=== PATIENT | female | born 1935 | race Caucasian/White ===

== ENCOUNTER → 2016-07-12 | Outpatient (CLI) | payer OTHER ==
[~2016-07-12] MED LIST: ACET1TAB84 PO; AMB10 PO; ASCA500 PO; ASPEC325 PO; ASPI325T39 PO; B-COCAP2 PO; B-COTAB18 PO; CALC600T14 PO; CEFA2INJ IV; CEPH500C2 PO; CIPR-255 PO; CIPR1TAB11 PO; CLOR7.5T14 PO; CRAN1CHW PO; EFF/375 PO; FERR1TAB13 PO; FLAX1CAP11 PO; FLAXSEED PO; GLUC1CAP35 PO; HYDR-5688 PO; IBUP-1050 PO; KFZAV1 IV; LISI-461 PO; LISIPOW PO; MISCCAP80 PO; MULT-506 PO; OMEG10007 PO; OXYC-57 PO; OXYSR10 PO; RXC5 PO; SIMV20TA2 PO; TURM1CAP4 PO; TURMERIC PO; VENLAFAXINE PO; VITAMIN E PO; XRL10 PO; ZOLP10TA PO; probiotic PO
[2016-07-12 16:57] LABS: BASO ABS # 0.09 K/uL (0-0.2); COMPLETE YES; EOS % 3.4 %; HEMATOCRIT 41.8 % (37-47); IG% 0.2 %; LYMPH % 35.7 %; LYMPH ABS # 3.13 K/uL (1.2-3.4); MEAN CELL VOLUME 93.5 fL (80-100); MEAN CORPUSCULAR HGB CONC 34.2 g/dl (32-36); MEAN PLATELET VOLUME 9.8 fL (7.4-10.4); MONO % 10.2 %; NEUT % 49.5 %; PLATELET COUNT 319 K/uL (130-400); RED BLOOD COUNT 4.47 M/uL (4.2-5.4); WHITE BLOOD COUNT 8.76 K/uL (4.8-10.8)
== END | disposition home or self-care (01) ==
LOC: C.LABBC 15:27
PROVIDERS: ATTEND Orthopaedic Surgery
DX: T84.84XA Pain due to internal orthopedic prosthetic devices, implants and grafts, initial encounter (principal); Z96.651 Presence of right artificial knee joint; Y83.1 Surgical operation with implant of artificial internal device as the cause of abnormal reaction of the patient, or of later complication, without mention of misadventure at the time of the procedure

== ENCOUNTER → 2016-07-28 | Outpatient (CLI) | payer OTHER ==
--- NOTE | 2016-07-28 13:10 | DIAGNOSTIC IMAGING REPORT ---
BONE SCAN 3PHASE WHOLE BODY CLINICAL HISTORY: Right knee pain COMPARISON STUDY: Bone scan dated 11/10/2013, right knee films dated 09/04/2011 FINDINGS: The patient was injected with 25.7 mCi of technetium 99m MDP. A flow sequence centered on the knees was acquired. Flow appears symmetric. Blood pool images appear symmetric. Delayed images of both knees were supplemented with three-hour delayed whole body images. There are photopenic defects within each the consistent with total knee arthroplasties. There is no pathologic knee uptake. There is a moderately intense focus of increased activity in the left shoulder likely degenerative/arthritic. There is a focus of increased activity within the right hip likely degenerative. There is diffuse heterogeneous activity within the spine, likely degenerative. IMPRESSION: 1. No evidence of pathologic flow, blood pool or delayed increased activity within the symptomatic right knee. 2. Areas of increased activity within the left shoulder, right hip, as well as diffuse activity within the spine, likely degenerative/arthritic. Electronically signed by: Rui Dominique M.D. 07/28/2016 1:09 PM Dictated Date/Time: 07/28/2016 1:02 PM
== END | disposition home or self-care (01) ==
LOC: C.NUCL 08:03
PROVIDERS: ATTEND Orthopaedic Surgery
DX: T84.84XA Pain due to internal orthopedic prosthetic devices, implants and grafts, initial encounter (principal); Y83.1 Surgical operation with implant of artificial internal device as the cause of abnormal reaction of the patient, or of later complication, without mention of misadventure at the time of the procedure

== ENCOUNTER → 2016-08-01 | Outpatient (CLI) | payer OTHER ==
[2016-08-01 15:48] LABS: BASO % 0.6 %; BASO ABS # 0.05 K/uL (0-0.2); COMPLETE YES; EOS % 3.9 %; HEMATOCRIT 43.7 % (37-47); IG% 0.1 %; LYMPH % 33.2 %; MEAN CELL VOLUME 93.4 fL (80-100); MEAN CORPUSCULAR HGB CONC 33.2 g/dl (32-36); MEAN PLATELET VOLUME 9.5 fL (7.4-10.4); MONO % 9.2 %; PLATELET COUNT 321 K/uL (130-400); RED BLOOD COUNT 4.68 M/uL (4.2-5.4); WHITE BLOOD COUNT 8.44 K/uL (4.8-10.8)
--- NOTE | 2016-08-01 15:53 | DIAGNOSTIC IMAGING REPORT ---
TWO VIEW CHEST CLINICAL HISTORY: Preoperative examination. FINDINGS: PA and lateral chest radiographs are compared to study dated 07/24/2011. The heart is enlarged and there is atherosclerotic calcification of the thoracic aorta. The pulmonary vasculature is noncongested. Emphysema and chronic interstitial thickening are similar to previous. No airspace consolidation or pleural effusion is identified. There is no pneumothorax. The skeletal structures are osteopenic. Degenerative change and scoliosis are noted throughout the thoracic spine. IMPRESSION: Cardiomegaly and emphysema with no active disease in the chest. Electronically signed by: Jan Longo M.D. 08/01/2016 3:52 PM Dictated Date/Time: 08/01/2016 3:51 PM
[2016-08-01 15:55] LABS: URINE APPEARANCE CLEAR (CLEAR); URINE BILIRUBIN NEG (NEG); URINE COLOR DK YELLOW; URINE EPITHELIAL CELL AUTO >30 /lpf (0-5); URINE NITRITE NEG (NEG); URINE PH 6.5 (4.5-7.5); URINE SPECIFIC GRAVITY 1.013 (1.000-1.030); UROBILINOGEN NEG (NEG)
[2016-08-01 15:58] LABS: MANUAL MICROSCOPIC REQUIRED? NO; PROTHROMBIN TIME (PATIENT) 10.3 SECONDS (9.0-12.0); REVIEW REQ? NO
[2016-08-01 16:14] LABS: BLOOD UREA NITROGEN 16 mg/dl (7-18); BUN/CREATININE RATIO 21.6 (10-20); CALCIUM 9.2 mg/dl (8.5-10.1); CARBON DIOXIDE 36 mmol/L (21-32); CHLORIDE 100 mmol/L (98-107); CREATININE 0.76 mg/dl (0.60-1.20); GLUCOSE 106 mg/dl (70-99); POTASSIUM 3.9 mmol/L (3.5-5.1); SODIUM 140 mmol/L (136-145)
== END | disposition home or self-care (01) ==
LOC: C.CPL 15:09
PROVIDERS: ATTEND Orthopaedic Surgery
DX: M25.561 Pain in right knee (principal); Z96.651 Presence of right artificial knee joint; I51.7 Cardiomegaly; J43.9 Emphysema, unspecified

== ENCOUNTER → 2016-08-08 | Outpatient (CLI) | payer OTHER ==
--- NOTE | 2016-08-08 15:32 | DIAGNOSTIC IMAGING REPORT ---
RIGHT HIP INJECTION UNDER FLUOROSCOPIC GUIDANCE CLINICAL HISTORY: Degenerative joint disease. Steroid injection in the right hip. PROCEDURE: The risks, benefits, and alternatives to the procedure were discussed with the patient. Written informed consent was obtained. The patient was placed supine on the fluoroscopy table, and a right hip injection was performed under fluoroscopic guidance. The area was prepped and draped in the usual sterile fashion. The skin and soft tissues anesthetized with local 1% lidocaine. The right hip joint was accessed utilizing a 22-gauge needle, and intra-articular positioning was confirmed by injecting a small volume of Optiray 300. Once intra-articular positioning was verified the prescribed dosage of 2 cc of betamethasone and 5 cc of 0.5% Bupivacaine was injected into the joint space. The procedure was well tolerated and without immediate complication. The patient left the department in satisfactory condition. FLUOROSCOPY TIME: 12 seconds. IMPRESSION: Successful steroid injection of the right hip under fluoroscopic guidance. Electronically signed by: Jan Longo M.D. 08/08/2016 3:30 PM Dictated Date/Time: 08/08/2016 3:29 PM
== END | disposition home or self-care (01) ==
LOC: C.RADBC 13:34
PROVIDERS: ATTEND Orthopaedic Surgery
DX: M16.11 Unilateral primary osteoarthritis, right hip (principal)

== ENCOUNTER → 2016-08-08 | Outpatient (CLI) | payer OTHER ==
[~2016-08-08] VITALS: Ht 172.7 cm; Wt 113.3 kg
[~2016-08-08] MED LIST changes: +ACETAMINOPHEN 500 MG TAB PO SCH; +CEFAZOLIN 2000 MG/60 ML D5W 60 ML IV SCH; +FAMOTIDINE 20 MG TAB PO SCH; +GABAPENTIN 300 MG CAP PO SCH; +LACTATED RINGER'S 1000ML 1,000 ML IV SCH; +LACTATED RINGER'S 1000ML 500 ML IV ONE; +LACTATED RINGER'S 1000ML IV SCH; +ROPIVACAINE 5MG/ML 30 ML 150 MG, BUPIVACAINE/EPINEPHR 0.5% MPF 30 ML, KETOROLAC TROMETH... INFIL SCH; +TRANEXAMIC ACID INJ 1,000 MG in SODIUM CHLORIDE 0.9% 100ML 100 ML IV SCH
[2016-08-08 09:11] VITALS: Ht 172.7 cm; Wt 113.3 kg
--- NOTE | 2016-08-08 09:47 | PAT Medication Instructions ---
Service Date August 08, 2016. Current Home Medication List Acetaminophen (Tylenol Arthritis Ext Rel), 1,300 MG PO Q8H PRN for PRN B-Complex Vitamins (Vitamin B Complex), 1 TAB PO QAM Clorazepate Dipotassium (Tranxene-T), 7.5 MG PO BID PRN Hyjssxzfkjf-Tprrgnvnfws-Vqg C- (Glucosamine Chondroitin), 1 TAB PO QAM Multivitamin (Multivitamin), 1 TAB PO QAM Zolpidem Tartrate (Ambien *), 10 MG PO HS [Flaxseed], 1 TAB PO QAM [Lisinopril], 1 TAB PO QAM [Turmeric], 1 TAB PO QAM [Venlafaxine], 1 TAB PO QAM [Vitamin E], 1 TAB PO QAM Medication Instructions For Your Scheduled Surgery - Hold the following medications as of today 08/08/16: [Vitamin E], 1 TAB PO QAM [Flaxseed], 1 TAB PO QAM [Turmeric], 1 TAB PO QAM Tfbjuizaeaw-Zaajkqldenw-Qzk C- (Glucosamine Chondroitin), 1 TAB PO QAM - Hold the following medications the morning of surgery: [Lisinopril], 1 TAB PO QAM Multivitamin (Multivitamin), 1 TAB PO QAM B-Complex Vitamins (Vitamin B Complex), 1 TAB PO QAM - Take the following medications the morning of surgery with a sip of water OTHERWISE NOTHING TO EAT OR DRINK AFTER MIDNIGHT: Clorazepate Dipotassium (Tranxene-T), 7.5 MG PO BID PRN [Venlafaxine], 1 TAB PO QAM Acetaminophen (Tylenol Arthritis Ext Rel), 1,300 MG PO Q8H PRN for PRN (may take if needed up to 4 hours prior to surgery) - Take the following medications as scheduled the night before surgery: Zolpidem Tartrate (Ambien *), 10 MG PO HS Clorazepate Dipotassium (Tranxene-T), 7.5 MG PO BID PRN Acetaminophen (Tylenol Arthritis Ext Rel), 1,300 MG PO Q8H PRN for PRN If you have any questions please call us at [phone] or [phone] or [phone]
== END | disposition home or self-care (01) ==
LOC: C.LAB 08:00 → EDSTATUS 08-11 11:30
PROVIDERS: ATTEND Orthopaedic Surgery
DX: Z01.818 Encounter for other preprocedural examination (principal); Z96.651 Presence of right artificial knee joint

== ENCOUNTER 2016-09-08 05:08 | Inpatient (IN) | payer OTHER ==
[2016-09-04 09:58] VITALS: BMI 38.0
--- NOTE | 2016-09-07 16:07 | HISTORY & PHYSICAL EXAMINATION ---
DATE OF ADMISSION: 09/08/2016 CHIEF COMPLAINT: Osteoarthritis of the right hip. HISTORY OF PRESENT ILLNESS: Robyn is an 81-year-old female who has been having severe right lower extremity pain. She had a right total knee arthroplasty [place] [address] Escamilla. She has had pain ever since. She has had multiple bone scans which were essentially negative. She has a mild increase in her sed rate and CRP and an aspiration of her knee was negative for infection. However, x-ray of her hip did show advanced osteoarthritis of the right hip. Intraarticular hip injection did take care of all of her lower extremity pain. After failing extensive conservative treatment, she elected to finally proceed with a right total hip arthroplasty. PAST MEDICAL HISTORY: Significant for anxiety and obesity, and hypertension. MEDICATIONS: Lisinopril. PAST SURGICAL HISTORY: Significant for a left total knee arthroplasty in 2009, a right total knee arthroplasty in 2011. ALLERGIES: None. FAMILY HISTORY: Noncontributory. SOCIAL HISTORY: She denies any tobacco, alcohol or IV drug use. She likes to remain active but her pain is limiting her. REVIEW OF SYSTEMS: She complains of right lower extremity pain. All other pertinent review of systems are negative. PHYSICAL EXAMINATION: GENERAL: She is awake, alert and oriented x3. She is in no apparent distress. She is very pleasant. HEAD, EYES, EARS, NOSE, AND THROAT: Pupils are equal, round and reactive to light. Extraocular motion intact. Oral mucosa is pink and moist. HEART: Regular rate per radial pulse. LUNGS: Jesika symmetrically bilaterally with no audible breath sounds. ABDOMEN: Soft, nontender, nondistended. MUSCULOSKELETAL: She is limited to walker and wheelchair at this point. She has difficulty doing any activities given her lower extremity pain. She has severe pain with internal and external rotation of her right hip and difficulty lying down. X-rays of the right hip do show advanced osteoarthritis of the hip with osteophyte formation and joint space narrowing. IMPRESSION: Advanced osteoarthritis of the right hip. PLAN: Will proceed with a right total hip arthroplasty through a lateral approach. Postoperatively, she will be started on aspirin for DVT prophylaxis and kept at the hospital for 2 midnights for postoperative medical management. She will likely [facility] to [facility] [place].
[2016-09-08] VITALS (9 sets, daily range): BP systolic 108–139; BP diastolic 63–75; PULSE 61–80; TEMP 36.4–36.8; O2SAT 90–98; Ht 172.7 cm; Wt 113.2 kg
[~2016-09-08] VITALS: Ht 172.7 cm; Wt 113.2 kg
[~2016-09-08 05:08] MED LIST changes: -ACETAMINOPHEN 500 MG TAB PO SCH; -ASCA500 PO; -ASPEC325 PO; -ASPI325T39 PO; -B-COCAP2 PO; -CALC600T14 PO; -CEFA2INJ IV; -CEFAZOLIN 2000 MG/60 ML D5W 60 ML IV SCH; -CEPH500C2 PO; -CIPR-255 PO; -CIPR1TAB11 PO; -EFF/375 PO; -FAMOTIDINE 20 MG TAB PO SCH; -FERR1TAB13 PO; -FLAX1CAP11 PO; -GABAPENTIN 300 MG CAP PO SCH; -HYDR-5688 PO; -KFZAV1 IV; -LACTATED RINGER'S 1000ML 1,000 ML IV SCH; -LACTATED RINGER'S 1000ML 500 ML IV ONE; -LACTATED RINGER'S 1000ML IV SCH; -LISI-461 PO; -MISCCAP80 PO; -OXYC-57 PO; -OXYSR10 PO; -ROPIVACAINE 5MG/ML 30 ML 150 MG, BUPIVACAINE/EPINEPHR 0.5% MPF 30 ML, KETOROLAC TROMETH... INFIL SCH; -RXC5 PO; -SIMV20TA2 PO; -TRANEXAMIC ACID INJ 1,000 MG in SODIUM CHLORIDE 0.9% 100ML 100 ML IV SCH; -TURM1CAP4 PO; -XRL10 PO; -ZOLP10TA PO
[2016-09-08] MEDS ORDERED: ROPIVACAINE 5MG/ML 30 ML 150 MG, BUPIVACAINE/EPINEPHR 0.5% MPF 30 ML, KETOROLAC TROMETH... INFIL SCH ×7 (06:00)
[2016-09-08] MEDS ORDERED: LACTATED RINGER'S 1000ML 1,000 ML IV SCH (06:00)
[2016-09-08] MEDS ORDERED: CEFAZOLIN 2000 MG/60 ML D5W 60 ML IV SCH (06:00)
[2016-09-08] MEDS ORDERED: ACETAMINOPHEN 500 MG TAB PO SCH (06:00)
[2016-09-08] MEDS ORDERED: GABAPENTIN 300 MG CAP PO SCH (06:00)
[2016-09-08] MEDS ORDERED: FAMOTIDINE 20 MG TAB PO SCH (06:00)
[2016-09-08] MEDS: TRANEXAMIC ACID INJ 1,000 MG in SODIUM CHLORIDE 0.9% 100ML 100 ML IV SCH ×2 (06:10→10:38)
[2016-09-08] MEDS ORDERED: ATROPINE SULFATE 0.1 MG/ML 5ML SYR IV PRN (06:15)
[2016-09-08] MEDS ORDERED: FENTANYL CITRATE INJ 50 MCG/1 ML 2 ML VIAL IV PRN (06:15)
[2016-09-08] MEDS ORDERED: ONDANSETRON INJ 2 MG/ML 2 ML VIAL IV PRN ×2 (06:15→09:00)
[2016-09-08] MEDS ORDERED: EpHEDrine SULFATE INJ 50 MG/ML AMP IV PRN (06:15)
[2016-09-08] MEDS ORDERED: FENTANYL CITRATE INJ 50 MCG/1 ML 2 ML VIAL ONE (06:17)
[2016-09-08] MEDS ORDERED: PROPOFOL IV EMULSION 10 MG/ML 20 ML VIAL IV ONE ×2 (06:17→07:50)
[2016-09-08] MEDS ORDERED: LIDOCAINE HCL 2% 2 ML VIAL (20MG/ML) ONE (06:17)
[2016-09-08] MEDS ORDERED: MIDAZOLAM HCL 1 MG/ML 2ML VIAL ONE ×2 (06:17→07:21)
--- NOTE | 2016-09-08 06:34 | History & Physical Bridge Note ---
H&P Re-Evaluation Bridge Note: I have examined the patient, reviewed the History & Physical and in the interval since the performance of the History & Physical I have noted the following changes of clinical significance: No changes noted
[2016-09-08] MEDS ORDERED: BACITRACIN 50000 UNIT VIAL ONE (06:42)
[2016-09-08] MEDS ORDERED: ORTHO JOINT ANESTHETIC ONE (06:42)
[2016-09-08] MEDS ORDERED: EpHEDrine SULFATE INJ 50 MG/ML AMP ONE (07:27)
[2016-09-08] MEDS ORDERED: SODIUM CHLORIDE 0.9% INJ 10 ML VIAL ONE (07:27)
--- NOTE | 2016-09-08 08:42 | DIAGNOSTIC IMAGING REPORT ---
INTRAOPERATIVE RIGHT HIP SINGLE VIEW CLINICAL HISTORY: Intraoperative radiograph during hip placement COMPARISON: None. DISCUSSION: A single portable intraoperative radiograph is provided for interpretation. There is a bipolar total right hip arthroplasty. IMPRESSION: Intraoperative radiograph demonstrating a bipolar right hip arthroplasty. Electronically signed by: Rui Dominique M.D. 09/08/2016 8:41 AM Dictated Date/Time: 09/08/2016 8:40 AM
--- NOTE | 2016-09-08 08:55 | [facility] Post Operative Brief Note ---
Immediate Operative Summary Operative Date Sep 08, 2016. Pre-Operative Diagnosis Advanced osteoarthritis of the right hip Post-Operative Diagnosis Same as preoperative Procedure(s) Performed Right Lateral Total Hip Arthroplasty Surgeon Dr. Patrick Jean Botanical Technical Officer Surgeon(s) Bismark Isidro PA-C Estimated Blood Loss 250ml Findings as above Specimens A.) Right Femoral Head Complication(s) None Disposition Recovery Room / PACU
[2016-09-08] MEDS ORDERED: SOD PHOSPHATE/SOD BIPHOSPHATE ENEMA 132 ML BTL PR PRN (09:00)
[2016-09-08] MEDS ORDERED: SILVER SULFADIAZINE 1% CR 50 GM JAR EXT PRN (09:00)
[2016-09-08] MEDS ORDERED: MoRPHine SULFATE 2 MG/ML CARP IV PRN (09:00)
[2016-09-08] MEDS ORDERED: MAGNESIUM HYDROXIDE SUSP 30 ML UDC PO PRN (09:00)
[2016-09-08] MEDS ORDERED: BISACODYL 10 MG SUPP PR PRN (09:00)
[2016-09-08] MEDS ORDERED: METOCLOPRAMIDE HCL INJ 5 MG/ML 2 ML VIAL IV PRN (09:00)
--- NOTE | 2016-09-08 09:12 | OPERATIVE REPORT ---
DATE OF OPERATION: 09/08/2016 PREOPERATIVE DIAGNOSIS: Primary osteoarthritis of the right hip. POSTOPERATIVE DIAGNOSIS: Same. PROCEDURE: Right total hip arthroplasty. SURGEON: Dr. Patrick Jean. MATERIAL PLANNING ANALYST: Bismark Isidro PA-C, whose assistance was necessary for positioning the leg and helping with instrumentation. ANESTHESIA: Spinal. COMPLICATIONS: None. CONDITION: Stable to PACU. IMPLANTS USED: I used a [employer]omet Taperloc total hip arthroplasty system with a size 15 standard offset femoral component, a G7 56-mm cup with a single 25-mm screw, a G7 neutral E1 liner and a size 40 ceramic head. No cement was used during the case. INDICATIONS: Robyn is a pleasant 81-year-old female who presented to my office with complaints of right knee pain. She had her right knee replaced about 5 years ago. She has constant pain in her knee since. Knee x-rays looked okay, but I got x-rays of the hip, which showed advanced arthritis. A single intraarticular hip injection took care of all of her pain for a few days and she was ready to proceed with a total hip arthroplasty. DESCRIPTION OF PROCEDURE: On 09/08/2016, she arrived at [facility] for the above procedure. She was seen in the preoperative holding area and the operative extremity was identified and signed. She was given a preoperative antibiotic and a spinal anesthetic and TXA. She was taken back to the operating room, laid on the table in supine position, and given basic sedation. She was then put in the lateral decubitus position. The right hip was prepped and draped in sterile fashion. Time-out was done and the patient and operative extremity was properly identified. An anterolateral approach was used. Dissection was taken down through the fascia and the anterior third of the abductors were tenotomized off the greater trochanter. The capsule was excised and the femur was dislocated. The femoral neck was then resected at the appropriate level and the head was removed. The acetabulum was then exposed. Time was spent doing a complete circumferential capsular and labral release. Sequential reaming up to a size 55 reamer was done. This gave good circumferential bleeding bone. A 56-mm G7 cup was then impacted into place. I was able to get a good pressfit. A single 25-mm screw was placed. The G7 neutral E1 liner was then snapped into place. The proximal femur was then exposed. Sequential broaching up to a size 15 broach was done. A standard head and neck assembly was applied and the hip was reduced. It was brought through a full range of motion and felt to be stable. I was happy with the leg lengths. A single flat plate x-ray was then taken and I was happy with the overall alignment and the sizing of the complements. The hip was then dislocated. The broach was removed. The final size 15 stem was then impacted into place. A size 40 head was then impacted into place and the hip was reduced and brought through a full range of motion. The surrounding soft tissues were then injected with 100 mL of orthopedic pain control cocktail. The entire joint was then irrigated with 3 liters of normal saline solution with bacitracin. The abductors were then tenodesed back to the greater trochanter with transosseous FiberWire sutures and [id number] sutures. Two drains were placed. The fascia was closed with #1 Vicryl, skin was closed with 2-0 Vicryl and 3-0 V-Loc suture and a Prineo dressing. She was then placed in a soft dressing and taken to the postanesthesia care unit in stable condition. She tolerated the procedure well. I attest to the content of the Intraoperative Record and any orders documented therein. Any exceptions are noted below. WINTER
--- NOTE | 2016-09-08 09:38 | Anesthesiology Progress Note ---
Anesthesia Post Op Note Date & Time Sep 08, 2016 at 09:38 Vital Signs Pain Intensity: 0 Vital Signs Past 12 Hours Date Time Temp Pulse Resp B/P (MAP) Pulse Ox O2 Delivery O2 Flow Rate FiO2 09/08/16 09:20 66 12 100/75 96 Nasal Cannula 2 09/08/16 09:11 36.4 76 18 123/41 93 Nasal Cannula 2 09/08/16 05:35 36.8 72 18 139/63 92 Room Air Notes Mental Status: alert / awake / arousable, participated in evaluation Pt Amnestic to Procedure: Yes Nausea / Vomiting: adequately controlled Pain: adequately controlled Airway Patency, RR, SpO2: stable & adequate BP & HR: stable & adequate Hydration State: stable & adequate Neuraxial Anesthesia: was administered, sensory block is resolving Anesthetic Complications: no major complications apparent
[2016-09-08] MEDS: SODIUM CHLORIDE 0.9% 1000ML 1,000 ML IV SCH ×2 (10:38→19:21)
--- NOTE | 2016-09-08 11:19 | DIAGNOSTIC IMAGING REPORT ---
AP PELVIS, CROSSTABLE LATERAL VIEW OF THE RIGHT HIP History: Right total hip arthroplasty. Degenerative arthritis. Postop. FINDINGS: The patient is status post a right total hip arthroplasty. The hardware is intact. No fracture or dislocation. Surgical drains are in place. Calcified voids seen within the pelvis. IMPRESSION: Right total hip arthroplasty. No evidence for hardware complication Electronically signed by: Miguel Vincent M.D. 09/08/2016 11:17 AM Dictated Date/Time: 09/08/2016 11:16 AM
[2016-09-08] MEDS ORDERED: KETOROLAC TROMETHAMINE 30 MG/ML VIAL IV. SCH (12:00)
[2016-09-08] MEDS: KETOROLAC TROMETHAMINE 15 MG/ML VIAL IV. SCH ×3 (12:38→23:51)
[2016-09-08] MEDS: PANTOprazole SOD 40 MG TAB PO SCH (13:14)
[2016-09-08] MEDS: ACETAMINOPHEN IV 1,000 MG in EMPTY BAG 0 ML IV SCH ×2 (14:23→21:39)
[2016-09-08] MEDS: CEFAZOLIN IV 2,000 MG in DEXTROSE 5% 50ML 50 ML IV SCH ×2 (15:35→22:01)
[2016-09-08] MEDS: OXYCODONE HCL IR 5 MG TAB (IMMEDIATE RELEASE) PO PRN (17:48)
[2016-09-08] MEDS: ZOLPIDEM TARTRATE 10 MG TAB PO SCH (20:30)
[2016-09-08] MEDS: ASPIRIN 325 MG ECTAB PO SCH (20:31)
[2016-09-08] MEDS: DOCUSATE SODIUM 100 MG CAP PO SCH (20:31)
[2016-09-08] MEDS: SENNA 8.6 MG TAB PO SCH (20:32)
[2016-09-09] VITALS (7 sets, daily range): BP systolic 120–162; BP diastolic 64–81; PULSE 68–78; TEMP 36.6–36.8; O2SAT 90–96
[2016-09-09] MEDS: KETOROLAC TROMETHAMINE 15 MG/ML VIAL IV. SCH ×4 (05:47→23:52)
[2016-09-09] MEDS: SODIUM CHLORIDE 0.9% 1000ML 1,000 ML IV SCH (05:47)
[2016-09-09] MEDS: ACETAMINOPHEN IV 1,000 MG in EMPTY BAG 0 ML IV SCH (05:48)
[2016-09-09 05:57] LABS: BASO % 0.2 %; BASO ABS # 0.02 K/uL (0-0.2); COMPLETE YES; EOS % 0.7 %; IG% 0.3 %; LYMPH % 16.8 %; LYMPH ABS # 1.54 K/uL (1.2-3.4); MEAN CELL VOLUME 92.9 fL (80-100); MEAN CORPUSCULAR HEMOGLOBIN 30.6 pg (25-34); MEAN CORPUSCULAR HGB CONC 32.9 g/dl (32-36); MEAN PLATELET VOLUME 9.3 fL (7.4-10.4); MONO % 11.4 %; NEUT % 70.6 %; PLATELET COUNT 256 K/uL (130-400); RED BLOOD COUNT 3.66 M/uL (4.2-5.4); WHITE BLOOD COUNT 9.16 K/uL (4.8-10.8)
[2016-09-09 06:25] LABS: BUN/CREATININE RATIO 21.3 (10-20); CALCIUM 8.2 mg/dl (8.5-10.1); CREATININE 0.78 mg/dl (0.60-1.20); POTASSIUM 3.9 mmol/L (3.5-5.1)
--- NOTE | 2016-09-09 07:34 | Discharge Instructions ---
Discharge Instructions Date of Service Sep 09, 2016. Admission Reason for Admission: Right Hip Osteoarthritis Discharge Discharge Diagnosis / Problem: Right total hip Discharge Goals Goal(s): Decrease discomfort, Improve function Activity Recommendations Activity Limitations: as noted below . Instructions / Follow-Up Instructions / Follow-Up Activity and Therapy Recommendations: * If you are using [facility] then Physical Therapy will be provided until they feel you are ready to start Outpatient Physical Therapy. If you are not using a Home Health agency then Outpatient Physical Therapy should start about 3-5 days from your day of surgery. Therapy will last about 3-6 weeks * You were shown a series of exercises in the hospital. Do these exercises three times each day including the exercises you were shown in physical therapy. * Get up and walk several times each day.~ For the first four weeks, try not to stand or walk for more than one hour at a time. If you do stand or walk for more than one hour, you will not hurt anything, but your leg will likely swell.~ ~ * As you feel comfortable, you may change from the walker or crutches to a cane and~then to independent walking. Medications: * Narcotic You will likely be sent home from the hospital with a prescription for the narcotic pain medication that worked best throughout your stay. * Aspirin Most patients will be required to take Aspirin 325mg twice a day for 6 weeks after surgery. This is obtained [id number]-ussciwk and a prescription is not necessary. * Other medications may be prescribed for specific circumstances. If you have any questions, please call the office at . * Resume previous home medications unless otherwise instructed TEDs/Elastic Stockings: The white elastic stockings help limit swelling and prevent blood clots from forming in your legs. The more you wear them, the more they work. Wear them for six weeks. Dressing Care: You will likely have a Prineo dressing covering your incision. This looks like a glued on clear mesh dressing. Do not remove this dressing until you follow- up in my office in 2-3 weeks. Its pretty hard to peel it off. You may leave the Prineo dressing uncovered or cover it if it is draining a little bit. No further dressing care is required Showering: You may shower 3 days from the day of surgery. Leave the Prineo dressing intact and let the soapy shower water run over it. Do not scrub or soak the dressing or the incision. Things To Watch For: * Drainage from the incision site that occurs more than one week after your surgery. * Increased redness at the incision site. * Fever above 102 degrees Fahrenheit. * Unusual chest pain or shortness of breath. * [facility] with any of the above problems Follow-Up Visit: Follow-up with Dr. Jean 2-3 weeks after your day of surgery. An appointment was probably scheduled when you signed-up for surgery in the office. If you have any questions call Office Instructions: More detailed instructions as well as Frequently Asked Questions were provided in a folder by our office when you signed-up for surgery. Please review these instructions when you get home. If you have any further questions or concerns, please feel free to call the office at [phone] Current Hospital Diet Patient's current hospital diet: Regular Diet Discharge Diet Recommended Diet: Regular Diet Procedures Procedures Performed: Right Lateral Total Hip Arthroplasty Pending Studies Studies pending at discharge: no Medical Emergencies . Who to Call and When: Medical Emergencies: If at any time you feel your situation is an emergency, please call [phone] immediately. . Non-Emergent Contact Non-Emergency issues call your: Surgeon . "Provider Documentation" section prepared by Patrick Jean. . VTE Core Measure Inpt VTE Proph given/why not?: Other Anticoagulation (Aspirin 325 twice a day for 6 weeks)
--- NOTE | 2016-09-09 08:10 | PROGRESS NOTE ---
DATE: 09/09/2016 CHIEF COMPLAINT: Status post right total hip arthroplasty postop day #1. PROGRESS: Robyn was seen and examined at the bedside today. Overall, she is doing extremely well. She really has no pain in her hip. She has been up and ambulating already. She has no complaints. PHYSICAL EXAMINATION: RIGHT HIP: The dressing is clean and dry. The drain is to suction. Her leg lengths are equal. She is neurovascularly intact. LABORATORY DATA: She has an H&H today of 11.2 and 34.0. Her vital signs are stable on room air and she is voiding on her own. IMAGING DATA: X-rays postoperatively of the right hip show the prosthesis to be in anatomical alignment without any evidence of fracture, dislocation or loosening. IMPRESSION: Status post right total hip arthroplasty postop day #1. PLAN: At this point, she is doing very well. She did ask for her home anxiety medication that she has been taking twice a day since the 1970s. I wrote that she could take the medications she takes at home while in the hospital. Therapy will get her up and ambulate throughout the day today. Tomorrow the nursing staff will change the dressing and pull the drain. We are planning for discharge to [facility] in [place] on Sunday. WINTER
[2016-09-09] MEDS: LISINOPRIL 10 MG TAB PO SCH (08:50)
[2016-09-09] MEDS: PANTOprazole SOD 40 MG TAB PO SCH (08:51)
[2016-09-09] MEDS: VENLAFAXINE HCL XR 37.5 MG CAPXR PO SCH (08:51)
[2016-09-09] MEDS: MULTIVITAMIN TAB PO SCH (08:51)
[2016-09-09] MEDS: DOCUSATE SODIUM 100 MG CAP PO SCH ×2 (08:51→21:16)
[2016-09-09] MEDS: ASPIRIN 325 MG ECTAB PO SCH ×2 (08:51→21:16)
[2016-09-09] MEDS ORDERED: NURSING VERBAL MED ORDER ONE (10:45)
[2016-09-09] MEDS ORDERED: CLORAZEPATE DIPOTASSIUM 3.75 MG TAB PO PRN (11:15)
[2016-09-09] MEDS: OXYCODONE HCL IR 5 MG TAB (IMMEDIATE RELEASE) PO PRN ×2 (11:45→20:22)
[2016-09-09] MEDS: ACETAMINOPHEN 500 MG TAB PO SCH ×2 (14:27→21:17)
[2016-09-09] MEDS: SENNA 8.6 MG TAB PO SCH (21:16)
[2016-09-09] MEDS: ZOLPIDEM TARTRATE 10 MG TAB PO SCH (21:18)
[2016-09-10] MEDS: ACETAMINOPHEN 500 MG TAB PO SCH ×3 (05:33→21:37)
[2016-09-10] MEDS: KETOROLAC TROMETHAMINE 15 MG/ML VIAL IV. SCH (05:33)
[2016-09-10] MEDS ORDERED: ASPEC325 PO (06:48)
[2016-09-10] MEDS ORDERED: RXC5 PO (06:48)
[2016-09-10 07:08] VITALS: BP 138/75; PULSE 68; TEMP 36.6; O2SAT 91
--- NOTE | 2016-09-10 08:03 | PROGRESS NOTE ---
DATE: 09/10/2016 CHIEF COMPLAINT: Status post right total hip arthroplasty postop day #2. PROGRESS: Robyn was seen and examined at the bedside today. Overall, she is doing very well. She has been up and ambulating with physical therapy. Her hip and knee pain from before the surgery has gone. She has no complaints. PHYSICAL EXAMINATION: RIGHT HIP: The dressing is clean and dry. The drain has been pulled. Her leg lengths are equal. She has active dorsiflexion and plantarflexion of her right ankle. Sensation is intact throughout. IMPRESSION: Status post right total hip arthroplasty postop day #2. PLAN: At this point, she is doing very well and happy with her progress. She will be with us today to work more with therapy and for pain control and plan to discharge her to [facility] tomorrow. WINTER
[2016-09-10] MEDS: VENLAFAXINE HCL XR 37.5 MG CAPXR PO SCH (08:59)
[2016-09-10] MEDS: ASPIRIN 325 MG ECTAB PO SCH ×2 (09:00→21:34)
[2016-09-10] MEDS: PANTOprazole SOD 40 MG TAB PO SCH (09:00)
[2016-09-10] MEDS: LISINOPRIL 10 MG TAB PO SCH (09:00)
[2016-09-10] MEDS: MULTIVITAMIN TAB PO SCH (09:02)
[2016-09-10] MEDS: DOCUSATE SODIUM 100 MG CAP PO SCH ×2 (09:54→21:37)
[2016-09-10 15:14] VITALS: BP 142/67; PULSE 76; TEMP 36.8; O2SAT 93
[2016-09-10] MEDS: ZOLPIDEM TARTRATE 10 MG TAB PO SCH (21:36)
[2016-09-10] MEDS: SENNA 8.6 MG TAB PO SCH (21:37)
[2016-09-10 23:15] VITALS: BP 173/81; PULSE 84; TEMP 36.8; O2SAT 91
[2016-09-10 23:33] VITALS: BP 156/80
[2016-09-11] MEDS: ACETAMINOPHEN 500 MG TAB PO SCH (05:46)
[2016-09-11 07:25] VITALS: BP 146/76; PULSE 68; TEMP 36.9; O2SAT 92
--- NOTE | 2016-09-11 07:53 | Anesthesiology Progress Note ---
Anesthesia Post Op Note Date & Time Sep 11, 2016 at 07:53 Vital Signs Pain Intensity: 0.0 Vital Signs Past 12 Hours Date Time Temp Pulse Resp B/P (MAP) Pulse Ox O2 Delivery O2 Flow Rate FiO2 09/11/16 07:25 36.9 68 18 146/76 (99) 92 Room Air 09/11/16 00:00 Room Air 09/10/16 23:33 156/80 (105) 09/10/16 23:15 36.8 84 16 173/81 (111) 91 Room Air Notes Mental Status: alert / awake / arousable, participated in evaluation Pt Amnestic to Procedure: Yes Nausea / Vomiting: adequately controlled Pain: adequately controlled Airway Patency, RR, SpO2: stable & adequate BP & HR: stable & adequate Hydration State: stable & adequate Anesthetic Complications: no major complications apparent
[2016-09-11] MEDS: MULTIVITAMIN TAB PO SCH (09:18)
[2016-09-11] MEDS: LISINOPRIL 10 MG TAB PO SCH (09:19)
[2016-09-11] MEDS: DOCUSATE SODIUM 100 MG CAP PO SCH (09:19)
[2016-09-11] MEDS: PANTOprazole SOD 40 MG TAB PO SCH (09:19)
[2016-09-11] MEDS: VENLAFAXINE HCL XR 37.5 MG CAPXR PO SCH (09:19)
[2016-09-11] MEDS: ASPIRIN 325 MG ECTAB PO SCH (09:19)
[2016-09-11 12:53] VITALS: BP 146/76; PULSE 68; TEMP 36.9; O2SAT 92
[2016-10-02] MEDS ORDERED: ZOLP10TA PO (14:29)
[2016-10-02] MEDS ORDERED: RXC5 PO (14:33)
[2016-10-03] MEDS ORDERED: KFZAV1 IV (12:41)
--- NOTE | 2016-10-12 08:09 | DISCHARGE SUMMARY ---
DISCHARGE DIAGNOSIS: Primary osteoarthritis of the right hip. PROCEDURE: Right total hip arthroplasty on 09/08/[address] Patrick Jean. DISCHARGE INSTRUCTIONS: 1. Aspirin 325 mg twice a day for 6 weeks. 2. Tylenol 650 mg as needed. 3. Tranxene 7.5 mg twice a day. 4. Ibuprofen as needed for pain. 5. Daily multivitamin. 6. Weight bear as tolerated. 7. Follow up with Dr. Jean in 2 weeks. 8. Call the office of Dr. Jean with any questions or concerns. HOSPITAL COURSE: Robyn is a pleasant 81-year-old female who has been dealing with mostly right knee pain. She had a total knee arthroplasty and the components looked good. I then got x-rays of her hip and showed bad arthritis of the hip. She had an injection of her hip which took care of all of her pain. Once the injection wore off, she elected to proceed with a right total hip arthroplasty. On 09/08/2016 she arrived at [facility] and underwent a right total hip replacement without complications. She had a spinal anesthetic. Postoperatively, she was started on aspirin for DVT prophylaxis and discharged to general orthopedic floors. Her hospital course was relatively uneventful. On postop day #1, her H&H was stable at 11.2 and 34.0. Her glucose is 136. She was able to get up and ambulate well with physical therapy. On postop day #2, her pain was controlled. The dressing was changed, the drain was pulled. She was able to continue work well again with therapy and case management decided to send her to [facility] in [place]. On postop day #3, she was doing well. Her pain was well controlled and she was subsequently discharged to [facility] in [place] with the above instructions.
== END 2016-09-11 13:46 | DRG 470 ==
LOC: C.ACU 05:08 → C.3E 06:34 → ENRESERV 09:30
PROVIDERS: ADMIT Orthopaedic Surgery; ATTEND Orthopaedic Surgery
PROC: 0SR90JA Replacement of Right Hip Joint with Synthetic Substitute, Uncemented, Open Approach (ICD-10-PCS; principal; 2016-09-08 07:00)
DX: M16.11 Unilateral primary osteoarthritis, right hip (principal); E66.9 Obesity, unspecified; Z79.899 Other long term (current) drug therapy; Z68.37 Body mass index [BMI] 37.0-37.9, adult; Z96.653 Presence of artificial knee joint, bilateral

== ENCOUNTER 2016-09-24 13:52 | Inpatient (IN) | payer OTHER ==
[~2016-09-24] VITALS: Ht 152.4 cm; Wt 111.9 kg
[~2016-09-24 13:52] MED LIST changes: +ASPEC325 PO; +RXC5 PO
--- NOTE | 2016-09-24 14:04 | EMERGENCY ROOM VISIT NOTE ---
History Report prepared by Jeanette: Bridget Hui Under the Supervision of: Dr. Sang Starr M.D. First contact with patient: 14:00 Chief Complaint: HIP PAIN Stated Complaint: FALL, LEG WEAKNESS History of Present Illness The patient is a 81 year old female who presents to the Emergency Room with complaints of constant leg weakness beginning a few days prior to arrival. The patient states that she fell yesterday however she denies any pain or injuries from the fall. She did have hip surgery done on September [address] Jean. Since then she has been recovering well. The patient notes no pain with movement. She does note that when she bears weight on her hip she experiences her hip giving out. This she states is most likely the cause of her fall. The patient denies recent fevers or chills. Source of History: patient Onset: few days [employer] Position: leg Quality: other (weakness) Timing: constant Associated Symptoms: No fevers, No chills Note: The patient denies pain. Review of Systems All systems have been listed, reviewed, and are negative other than those previously mentioned. Please see Additional Medical History Sheet. Past Medical & Surgical Medical Problems: (1) Falls (2) Osteoarthritis of hip Family History Patient reports no known family medical history. Social History Smoking Status: Never Smoker Smokeless Tobacco Use: No Alcohol Use: none Marital Status: Housing Status: lives alone Current/Historical Medications Scheduled Aspirin (Aspirin), 325 MG PO BID Cephalexin Monohydrate (Keflex), 500 MG PO QID Clorazepate Dipotassium (Tranxene-T), 7.5 MG PO BID PRN Cranberry (Vaccinium Macrocarp (Cranberry Soft Chews), 1 TAB PO QAM Fish Oil ([place]-3), 1 CAP PO QAM Flaxseed (Linseed) (Flax Seed Oil), 1 CAP PO DAILY Qlgwmhtsoou-Xitdldolzmn-Ckw C- (Glucosamine Chondroitin), 1 TAB PO QAM Lisinopril (Zestril), 10 MG PO DAILY Multivitamin (Multivitamin), 1 TAB PO QAM Probiotic Product (Probiotic), 1 CAP PO DAILY Turmeric (Curcuma Longa) (Turmeric), 1 TAB PEG DAILY Venlafaxine Hcl (Effexor), 37.5 MG PO DAILY Scheduled PRN Acetaminophen (Tylenol Arthritis Ext Rel), 1,300 MG PO Q8H PRN for PRN Ibuprofen (Advil), 200-600 MG PO Q4H PRN for Pain or Fever Zolpidem Tartrate (Ambien), 10 MG PO HS PRN for Sleep Allergies Coded Allergies: No Known Allergies (Verified , 09/08/16) Physical Exam Vital Signs Date Time Temp Pulse Resp B/P (MAP) Pulse Ox O2 Delivery O2 Flow Rate FiO2 09/24/16 15:46 97 18 137/64 96 Room Air 09/24/16 14:03 36.9 105 18 133/89 92 Room Air Physical Exam GENERAL: Patient awake, alert, oriented x 3. Patient follows commands. Patient does not appear toxic. Patient is adequately hydrated and well- nourished. SKIN: No erythema, pallor, cyanosis or rash HEENT: Normal head, pupils equal, reactive to light and accommodation. LUNGS: Clear to auscultation. No wheezes, no rales, no rhonchi. HEART: 2/6 systolic murmur. No gallops. No rubs ABDOMEN: Obese. No masses, no rebound, no hepatomegaly or splenomegaly. EXTREMITIES: Scar over both knees. Healing scar over right hip. Good range of motion of hip. Good motor sensory and circulatory function to right foot. NEUROLOGIC: Cranial nerves II-XII within normal limits. No gross motor sensory function deficits. Medical Decision & Procedures ER Provider Diagnostic Interpretation: X ray results are stated below per my interpretation and the radiologist's interpretation. RIGHT HIP 2 VIEWS CLINICAL HISTORY: Difficulty with ambulation. The right hip "gives out". FINDINGS: AP and frog-leg views of the right hip are compared to study dated 09/08/2016. The examination is degraded by large body habitus. The skeletal structures are osteopenic. A right hip arthroplasty is in near anatomic alignment. No periprosthetic lucency is identified. No fracture is seen. The visualized right hemipelvis appears intact. Enthesophytes arise from the right anterior superior iliac spine. Mild soft tissue edema is present in the right upper thigh and may be related to recent surgery. IMPRESSION: No acute bony abnormality is seen in the right hip noting an arthroplasty in near-anatomic alignment. Electronically signed by: Jan Longo M.D. 09/24/2016 3:29 PM Dictated Date/Time: 09/24/2016 3:27 PM ED Course 1401: Past medical records reviewed. The patient was evaluated in room C4. A complete history and physical examination was performed. 1600: The patient was unable to ambulate. 1625: Discussed the patient's case with Dr. Terry Bender. The patient will be evaluated for further management. 1630: Upon reevaluation, the patient is hemodynamically stable.I discussed today 's findings with her. She verbalized agreement of the treatment plan. I spoke with Dr. Stewart of the [facility] to evaluate the patient for further management. Medical Decision Nurses notes reviewed. Medical history sheet reviewed. Differential diagnosis includes but is not limited to: status post hip surgery, dislocation, fracture. The patient is here after recent right hip surgery. She went to rehabilitation for one day but left because she did not like it. At home she has not been rehabbing well and is now unable to get out of bed. The patient fell. She is unable to get to the bathroom at home. The patient will require further evaluation in the hospital and hopefully admission to a rehabilitation facility in the very near future. Medication Reconciliation: I attest that I have personally reviewed the patient' s current medication list. Blood pressure Screening: Patient was found to have normal blood pressure on screening and does not require follow up. Consults Time Called: 1620 Consulting Physician: Dr. Terry Bender Returned Call: 1625 Discussed the patient's case with Dr. Terry Bender. The patient will be evaluated for further management. Impression Primary Impression: Unable to ambulate Additional Impression: Recent right hip surgery Scribe Attestation The scribe's documentation has been prepared under my direction and personally reviewed by me in its entirety. I confirm that the note above accurately reflects all work, treatment, procedures, and medical decision making performed by me. Departure Information Dispostion Being Evaluated By Hospitalist Referrals Shashank Camara M.D. (PCP) Problem Qualifiers
[2016-09-24] MEDS ORDERED: ZOLP10TA PO (14:45)
[2016-09-24] MEDS ORDERED: LISI-461 PO (14:45)
[2016-09-24] MEDS ORDERED: EFF/375 PO (14:45)
[2016-09-24] MEDS ORDERED: TURM1CAP4 PO (14:45)
[2016-09-24] MEDS ORDERED: FLAX1CAP11 PO (14:45)
[2016-09-24] MEDS ORDERED: CEPH500C2 PO (14:45)
[2016-09-24] MEDS ORDERED: MISCCAP80 PO (14:45)
--- NOTE | 2016-09-24 15:30 | DIAGNOSTIC IMAGING REPORT ---
RIGHT HIP 2 VIEWS CLINICAL HISTORY: Difficulty with ambulation. The right hip "gives out". FINDINGS: AP and frog-leg views of the right hip are compared to study dated 09/08/2016. The examination is degraded by large body habitus. The skeletal structures are osteopenic. A right hip arthroplasty is in near anatomic alignment. No periprosthetic lucency is identified. No fracture is seen. The visualized right hemipelvis appears intact. Enthesophytes arise from the right anterior superior iliac spine. Mild soft tissue edema is present in the right upper thigh and may be related to recent surgery. IMPRESSION: No acute bony abnormality is seen in the right hip noting an arthroplasty in near-anatomic alignment. Electronically signed by: Jan Longo M.D. 09/24/2016 3:29 PM Dictated Date/Time: 09/24/2016 3:27 PM
[2016-09-24 16:40] VITALS: O2SAT 93; Ht 152.4 cm; Wt 111.9 kg
[2016-09-24] MEDS ORDERED: IV FLUIDS COMPLETED PRN (17:00)
[2016-09-24 18:05] VITALS: BP 134/80; PULSE 95; TEMP 37.9; O2SAT 91
[2016-09-24] MEDS ORDERED: ONDANSETRON INJ 2 MG/ML 2 ML VIAL IV PRN (18:15)
[2016-09-24] MEDS ORDERED: ACETAMINOPHEN 1300 MG PO PRN (18:45)
[2016-09-24] MEDS ORDERED: OXYCODONE HCL IR 5 MG TAB (IMMEDIATE RELEASE) PO PRN (18:45)
[2016-09-24 19:27] LABS: BASO % 0.2 %; BASO ABS # 0.03 K/uL (0-0.2); COMPLETE YES; EOS % 0.4 %; HEMATOCRIT 33.8 % (37-47); IG% 0.4 %; LYMPH % 8.1 %; LYMPH ABS # 1.31 K/uL (1.2-3.4); MEAN CELL VOLUME 90.4 fL (80-100); MEAN CORPUSCULAR HEMOGLOBIN 29.7 pg (25-34); MEAN CORPUSCULAR HGB CONC 32.8 g/dl (32-36); MEAN PLATELET VOLUME 8.8 fL (7.4-10.4); NEUT % 80.9 %; PLATELET COUNT 471 K/uL (130-400); RED BLOOD COUNT 3.74 M/uL (4.2-5.4); WHITE BLOOD COUNT 16.23 K/uL (4.8-10.8)
[2016-09-24 19:37] LABS: INR 1.1 (0.9-1.1); PROTHROMBIN TIME (PATIENT) 11.8 SECONDS (9.0-12.0)
[2016-09-24 19:47] LABS: BUN/CREATININE RATIO 26.1 (10-20); CREATININE 0.77 mg/dl (0.60-1.20); POTASSIUM 3.9 mmol/L (3.5-5.1)
[2016-09-24 19:49] LABS: ALB/GLOB RATIO 0.5 (0.9-2)
[2016-09-24 20:37] LABS: URINE APPEARANCE CLOUDY (CLEAR); URINE COLOR ORANGE; URINE NITRITE POS (NEG); URINE PH 5.5 (4.5-7.5); URINE SPECIFIC GRAVITY 1.029 (1.000-1.030); UROBILINOGEN NEG (NEG)
[2016-09-24 20:43] LABS: URINE BILIRUBIN 2+ (NEG)
[2016-09-24 20:44] LABS: MANUAL MICROSCOPIC REQUIRED? YES; REVIEW REQ? NO
[2016-09-24 20:51] LABS: URINE BACTERIA 2+ (NEG); URINE MUCUS PRESENT (NONE PRSENT); URINE RBC 0-4 /hpf (0-4)
[2016-09-24] MEDS ORDERED: CEPHALEXIN MONOHYDRATE 500 MG CAP PO SCH (21:00)
[2016-09-24] MEDS: ASPIRIN 325 MG ECTAB PO SCH (21:09)
[2016-09-24 23:19] VITALS: BP 105/65; PULSE 98; TEMP 37.4; O2SAT 91
--- NOTE | 2016-09-25 00:26 | History and Physical ---
History & Physical Date & Time of Service: Sep 24, 2016 at 18:21 Chief Complaint: FALLS Primary Care Physician: Shashank Camara M.D. History of Present Illness Source: patient, family, clinic records, hospital records 81 yo F who recently underwent a right total hip arthroplasty by Dr. Jean on 09/08/2016, presents from home after multiple falls and increasing weakness in the lower extremities. She denies any fevers or chills at home, she also denies headaches, coughing, chest pain, shortness of breath, abdominal pain, nausea, vomiting, diarrhea, blood in stool, dysuria, pelvic pain or other UTI symptoms. She denies any pain in her hip. Her daughter, LUÍS, is with her and states that she left rehab after 1.5 days because she didn't like it there ( [facility]) and seemed to be doing well despite leaving early. She was walking on her own into her PCP follow-up appointment, and was taking showers on her own , functioning rather independently. However 4 days ago, the patient began to experience fatigue that continued to increase. The weakness followed the next day and gradually got to the point where she cannot transfer or stand on her own. Wound was evaluated and appears to be opened on the corners with bloody serous drainage soaking through the 4x4s covering it. Daughter states that she has changed the dressing 4 times daily, and recently called Dr. Jean's office who put her on Keflex. She has only had two doses thus far. Past Medical/Surgical History Medical Problems: (1) Generalized weakness Status: Chronic (2) HTN (hypertension) Status: Chronic (3) Morbid obesity Status: Chronic (4) Osteoarthritis of hip Status: Chronic Surgical Problems: (1) H/O knee surgery Status: Chronic (2) Hip joint replacement status Status: Chronic Family History Patient reports no known family medical history. Social History Smoking Status: Never Smoker Smokeless Tobacco Use: No Alcohol Use: none Drug Use: none Marital Status: Housing status: lives alone Occupational Status: retired Immunizations History of Influenza Vaccine: Unknown History of Tetanus Vaccine?: Unknown History of Pneumococcal: Unknown Pneumococcal Date: Sep 06, 2011 History of Hepatitis B Vaccine: Unknown Multi-Drug Resistant Organisms History of MDRO: No Allergies Coded Allergies: No Known Allergies (Verified , 09/08/16) Home Medications Scheduled Aspirin (Aspirin), 325 MG PO BID Cephalexin Monohydrate (Keflex), 500 MG PO QID Clorazepate Dipotassium (Tranxene-T), 7.5 MG PO BID PRN Cranberry (Vaccinium Macrocarp (Cranberry Soft Chews), 1 TAB PO QAM Fish Oil ([place]-3), 1 CAP PO QAM Flaxseed (Linseed) (Flax Seed Oil), 1 CAP PO DAILY Vztlbwprcfm-Tdipvikvtgu-Grs C- (Glucosamine Chondroitin), 1 TAB PO QAM Lisinopril (Zestril), 10 MG PO DAILY Multivitamin (Multivitamin), 1 TAB PO QAM Probiotic Product (Probiotic), 1 CAP PO DAILY Turmeric (Curcuma Longa) (Turmeric), 1 TAB PEG DAILY Venlafaxine Hcl (Effexor), 37.5 MG PO DAILY Scheduled PRN Acetaminophen (Tylenol Arthritis Ext Rel), 1,300 MG PO Q8H PRN for PRN Ibuprofen (Advil), 200-600 MG PO Q4H PRN for Pain or Fever Zolpidem Tartrate (Ambien), 10 MG PO HS PRN for Sleep Review of Systems Constitutional: No fever, No chills Eyes: No worsening of vision ENT: No nasal symptoms, No sore throat Respiratory: No cough, No wheezing, No shortness of breath Cardiovascular: No chest pain Abdomen: No pain, No nausea, No vomiting, No diarrhea, No constipation, No GI bleeding Musculoskeletal: No muscle pain, No calf pain Genitourinary - Female: No dysuria, No urinary frequency, No urinary urgency Neurologic: + weakness Integumentary: + problem reported (surgical wound appearing infected, recently placed on Keflex as outpatient), No new/changing skin lesions Physical Exam Vital Signs Date Time Temp Pulse Resp B/P (MAP) Pulse Ox O2 Delivery O2 Flow Rate FiO2 09/24/16 18:05 37.9 95 16 134/80 (98) 91 Room Air 09/24/16 17:01 94 18 141/80 93 Room Air 09/24/16 16:40 93 Room Air 09/24/16 15:46 97 18 137/64 96 Room Air 09/24/16 14:03 36.9 105 18 133/89 92 Room Air GEN: WNWD, in no acute distress but difficulty moving around the bed, alert and appropriate HEENT: NC/AT, pupils are equal and round, normal sclerae, pharynx non-acute. CARDIO: reg rate, S1/2 heard without m/g/r LUNGS: CTA bilaterally, no crackles, rales or wheezes, good diaphragmatic excursion ABD: soft, non-tender, non-distended, no rebound or guarding, +BS EXTREMITY: RP and DP palpable 2+ bilat, no LE swelling or edema, extremities are warm and well-perfused R HIP: 10cm+ surgical incision, no obvious sutures in place, closed centrally with two open areas peripherally and bloody serous drainage. Bandage is soaked through. NEURO: CN 2-12 grossly intact, sensation intact throughout, no gross focal deficits. MUSC: 5/5 strength in lower extremities, no gross focal deficits SKIN: warm and dry and wound as above. Diagnostics Laboratory Results 09/24/16 19:02 Red Blood Count 3.74, Mean Corpuscular Volume 90.4, Mean Corpuscular Hemoglobin 29.7, Mean Corpuscular Hemoglobin Concent 32.8, Mean Platelet Volume 8.8, Neutrophils (%) (Auto) 80.9, Lymphocytes (%) (Auto) 8.1, Monocytes (%) (Auto) 10.0, Eosinophils (%) (Auto) 0.4, Basophils (%) (Auto) 0.2, Neutrophils # (Auto ) 13.14, Lymphocytes # (Auto) 1.31, Monocytes # (Auto) 1.62, Eosinophils # (Auto ) 0.07, Basophils # (Auto) 0.03 09/24/16 19:02 Test 09/24/16 19:02 09/24/16 20:15 White Blood Count 16.23 K/uL (4.8-10.8) Red Blood Count 3.74 M/uL (4.2-5.4) Hemoglobin 11.1 g/dL (12.0-16.0) Hematocrit 33.8 % (37-47) Mean Corpuscular Volume 90.4 fL (80-100) Mean Corpuscular Hemoglobin 29.7 pg (25-34) Mean Corpuscular Hemoglobin Concent 32.8 g/dl (32-36) Platelet Count 471 K/uL (130-400) Mean Platelet Volume 8.8 fL (7.4-10.4) Neutrophils (%) (Auto) 80.9 % Lymphocytes (%) (Auto) 8.1 % Monocytes (%) (Auto) 10.0 % Eosinophils (%) (Auto) 0.4 % Basophils (%) (Auto) 0.2 % Neutrophils # (Auto) 13.14 K/uL (1.4-6.5) Lymphocytes # (Auto) 1.31 K/uL (1.2-3.4) Monocytes # (Auto) 1.62 K/uL (0.11-0.59) Eosinophils # (Auto) 0.07 K/uL (0-0.5) Basophils # (Auto) 0.03 K/uL (0-0.2) RDW Standard Deviation 42.0 fL (36.4-46.3) RDW Coefficient of Variation 12.6 % (11.5-14.5) Immature Granulocyte % (Auto) 0.4 % Immature Granulocyte # (Auto) 0.06 K/uL (0.00-0.02) Prothrombin Time 11.8 SECONDS (9.0-12.0) Prothromb Time International Ratio 1.1 (0.9-1.1) Anion Gap 5.0 mmol/L (3-11) Est Creatinine Clear Calc Drug Dose 64.1 ml/min Estimated GFR () 83.3 Estimated GFR (Non- 71.9 BUN/Creatinine Ratio 26.1 (10-20) Calcium Level 9.0 mg/dl (8.5-10.1) Total Bilirubin 1.1 mg/dl (0.2-1) Aspartate Amino Transf (AST/SGOT) 49 U/L (15-37) Alanine Aminotransferase (ALT/SGPT) 58 U/L (12-78) Alkaline Phosphatase 132 U/L (45-117) Total Protein 6.9 gm/dl (6.4-8.2) Albumin 2.3 gm/dl (3.4-5.0) Globulin 4.6 gm/dl (2.5-4.0) Albumin/Globulin Ratio 0.5 (0.9-2) Urine Color ORANGE Urine Appearance CLOUDY (CLEAR) Urine pH 5.5 (4.5-7.5) Urine Specific [place] 1.029 (1.000-1.030) Urine Protein 2+ (NEG) Urine Glucose (UA) 2+ (NEG) Urine Ketones NEG (NEG) Urine Occult Blood 2+ (NEG) Urine Nitrite POS (NEG) Urine Bilirubin 2+ (NEG) Urine Urobilinogen NEG (NEG) Urine Leukocyte Esterase SMALL (NEG) Urine Hyaline Casts (Auto) /lpf (0-5) Urine RBC 0-4 /hpf (0-4) Urine WBC 5-10 /hpf (0-5) Urine Epithelial Cells 20-30 /lpf (0-5) Urine Renal Epithelial Cells /lpf (0-5) Urine Bacteria 2+ (NEG) Urine Hyaline Casts 1-5 /lpf (0-5) Urine Pathogenic Casts /lpf (0) Urine Mucus PRESENT (NONE PRSENT) Urine Yeast (Auto) (NONE PRSENT) Date/Time Source Procedure Growth Status 09/24/16 19:10 Blood Blood Culture Pending Received 09/24/16 20:15 Urine , Clean Catch Urine Culture Pending Received 09/24/16 18:00 Skin Hip Gram Stain Pending Received 09/24/16 18:00 Skin Hip Wound Culture Pending Received Results Past 24 Hours Test 09/24/16 16:29 09/24/16 17:45 09/24/16 18:17 Range/Units Microbiology Results 09/24/16 Blood Culture, Oleg Batch Pending 09/24/16 Blood Culture, Oleg Batch Pending Diagnostic Radiology RIGHT HIP 2 VIEWS CLINICAL HISTORY: Difficulty with ambulation. The right hip "gives out". FINDINGS: AP and frog-leg views of the right hip are compared to study dated 09/08/2016. The examination is degraded by large body habitus. The skeletal structures are osteopenic. A right hip arthroplasty is in near anatomic alignment. No periprosthetic lucency is identified. No fracture is seen. The visualized right hemipelvis appears intact. Enthesophytes arise from the right anterior superior iliac spine. Mild soft tissue edema is present in the right upper thigh and may be related to recent surgery. IMPRESSION: No acute bony abnormality is seen in the right hip noting an arthroplasty in near-anatomic alignment. CXR pending EKG SR 96, no ST changes. Impression Assessment and Plan 81 yo F with recent hip replacement surgery presents with progressive weakness and inability to function at home. 1. Weakness-generalized and possibly 2/2 UTI vs PNA (CXR pending) vs wound/ surgical site infection. This is not an extensive list. Initially continued Keflex, but in setting of poss UTI will empirically cover with Rocephin instead. Pt did have a fever on arrival to the floor. Blood cultures were drawn. She denies any symptoms aside from the weakness, including no calf pain or tenderness. PT/OT to see her in am. 2. Acute UTI-empirically cover with Rocephin, cultures pending 3. s/p R hip arthroplasty. Consulted Dr. Jean who will see the patient in the morning. 4. HTN-stable, cont lisinopril per home meds. 5. Anxiety-stable, cont Effexor per home meds 6. Anemia-new, likely related to post-op blood loss. No indication for transfusion at this time. 7. Hyponatremia-mild, poss related to poor PO intake, trend in am 8. Leukocytosis likely 2/2 infection above. Cont empiric Rocephin for now. DVT proph: ASA 325mg PO BID per Ortho protocol DNR Dispo-Med/Surg. Sarah Stewart DO [facility] Hospitalist Level of Care Med/Surg Advanced Directives Existing Living Will: No Existing Power of Pillowcase Sewer: No Resuscitation Status DO NOT RESUSCITATE VTE Prophylaxis VTE Risk Assessment Done? Y/N: Yes Risk Level: Moderate Given or contraindicated: Other Anticoagulation
[2016-09-25] MEDS: CEFTRIAXONE SOD INJ 1 GM in DEXTROSE 5% ADD-VANTAGE 50ML 50 ML IV SCH ×2 (00:53→23:46)
--- NOTE | 2016-09-25 06:56 | DIAGNOSTIC IMAGING REPORT ---
CHEST ONE VIEW PORTABLE CLINICAL HISTORY: WBC count, feeling weakness post op, rule out pneumonia. COMPARISON STUDY: Chest radiograph August 01, 2016. FINDINGS: Lung volumes are normal. No pneumothorax or pleural effusion is present. There is no consolidation to suggest pneumonia. Mild enlargement of the cardiac silhouette is noted. There is no evidence of pulmonary edema. IMPRESSION: No acute cardiopulmonary findings. Electronically signed by: Erick Camara M.D. 09/25/2016 6:55 AM Dictated Date/Time: 09/25/2016 6:54 AM
--- NOTE | 2016-09-25 07:27 | Orthopedic Consultation ---
Orthopedic Consultation Date of Consultation: Sep 25, 2016. Attending Physician: Elly Abebe M.D. Reason for Consultation: wound dehiscence s/p ARIELLE Past Medical/Surgical History Medical Problems: (1) Unable to ambulate Status: Acute Family History Patient reports no known family medical history. Social History Smoking Status: Never Smoker Smokeless Tobacco Use: No Alcohol Use: none Drug Use: none Marital Status: Housing Status: lives alone Occupation Status: retired Allergies Coded Allergies: No Known Allergies (Verified , 09/08/16) Home Medications Scheduled Aspirin (Aspirin), 325 MG PO BID Cephalexin Monohydrate (Keflex), 500 MG PO QID Clorazepate Dipotassium (Tranxene-T), 7.5 MG PO BID PRN Cranberry (Vaccinium Macrocarp (Cranberry Soft Chews), 1 TAB PO QAM Fish Oil ([place]-3), 1 CAP PO QAM Flaxseed (Linseed) (Flax Seed Oil), 1 CAP PO DAILY Gcvknmhvuod-Hrtsaeopxdi-Qlo C- (Glucosamine Chondroitin), 1 TAB PO QAM Lisinopril (Zestril), 10 MG PO DAILY Multivitamin (Multivitamin), 1 TAB PO QAM Probiotic Product (Probiotic), 1 CAP PO DAILY Turmeric (Curcuma Longa) (Turmeric), 1 TAB PEG DAILY Venlafaxine Hcl (Effexor), 37.5 MG PO DAILY Scheduled PRN Acetaminophen (Tylenol Arthritis Ext Rel), 1,300 MG PO Q8H PRN for PRN Ibuprofen (Advil), 200-600 MG PO Q4H PRN for Pain or Fever Zolpidem Tartrate (Ambien), 10 MG PO HS PRN for Sleep Current Inpatient Medications Current Inpatient Medications Medications (Trade) Dose Ordered Sig/Aldo Route Start Time Stop Time Status Last Admin Dose Admin Miscellaneous (Iv Fluids Completed) 1 ea PRN PRN N/A 09/24/16 17:00 09/24/17 16:59 Acetaminophen (Tylenol Tab) 650 mg Q4H PRN PO 09/24/16 18:15 10/24/16 18:14 Ondansetron HCl (Zofran Inj) 4 mg Q6H PRN IV 09/24/16 18:15 10/24/16 18:14 Aspirin (Ecotrin Tab) 325 mg BID PO 09/24/16 21:00 10/24/16 20:59 09/24/16 21:09 325 MG Clorazepate Dipotassium (Tranxene-T Tab) 7.5 mg BID PRN PO 09/24/16 18:45 10/24/16 18:44 Lisinopril (Zestril Tab) 10 mg DAILY PO 09/25/16 09:00 10/25/16 08:59 Multivitamins (Multivitamin Tab) 1 tab QAM PO 09/25/16 09:00 10/25/16 08:59 Venlafaxine HCl (effeXOR EXTENDED REL CAP) 37.5 mg DAILY PO 09/25/16 09:00 10/25/16 08:59 Zolpidem Tartrate (Ambien Tab) 10 mg HS PRN PO 09/24/16 18:45 10/24/16 18:44 Lactobacillus Acidophilus (Floranex Tab) 1 tab DAILY PO 09/25/16 09:00 10/25/16 08:59 Oxycodone HCl (Roxicodone Immediate Rel Tab) 5 mg Q4H PRN PO 09/24/16 18:45 10/08/16 18:44 Ceftriaxone Sodium 1 gm/ Dextrose 50 ml @ 100 mls/hr Q24H IV 09/25/16 00:00 09/30/16 00:00 09/25/16 00:53 100 MLS/HR Physical Exam Date Time Temp Pulse Resp B/P (MAP) Pulse Ox O2 Delivery O2 Flow Rate FiO2 09/24/16 23:30 Room Air 09/24/16 23:19 37.4 98 16 105/65 (78) 91 Room Air 09/24/16 18:05 37.9 95 16 134/80 (98) 91 Room Air 09/24/16 17:30 Room Air 09/24/16 17:01 94 18 141/80 93 Room Air 09/24/16 16:40 93 Room Air 09/24/16 15:46 97 18 137/64 96 Room Air 09/24/16 14:03 36.9 105 18 133/89 92 Room Air Laboratory Results Last 24 Hours Test 09/24/16 19:02 09/24/16 20:15 09/25/16 07:18 White Blood Count 16.23 K/uL Red Blood Count 3.74 M/uL Hemoglobin 11.1 g/dL Hematocrit 33.8 % Mean Corpuscular Volume 90.4 fL Mean Corpuscular Hemoglobin 29.7 pg Mean Corpuscular Hemoglobin Concent 32.8 g/dl Platelet Count 471 K/uL Mean Platelet Volume 8.8 fL Neutrophils (%) (Auto) 80.9 % Lymphocytes (%) (Auto) 8.1 % Monocytes (%) (Auto) 10.0 % Eosinophils (%) (Auto) 0.4 % Basophils (%) (Auto) 0.2 % Neutrophils # (Auto) 13.14 K/uL Lymphocytes # (Auto) 1.31 K/uL Monocytes # (Auto) 1.62 K/uL Eosinophils # (Auto) 0.07 K/uL Basophils # (Auto) 0.03 K/uL RDW Standard Deviation 42.0 fL RDW Coefficient of Variation 12.6 % Immature Granulocyte % (Auto) 0.4 % Immature Granulocyte # (Auto) 0.06 K/uL Prothrombin Time 11.8 SECONDS Prothromb Time International Ratio 1.1 Sodium Level 133 mmol/L Potassium Level 3.9 mmol/L Chloride Level 94 mmol/L Carbon Dioxide Level 34 mmol/L Anion Gap 5.0 mmol/L Blood Urea Nitrogen 20 mg/dl Creatinine 0.77 mg/dl Est Creatinine Clear Calc Drug Dose 64.1 ml/min Estimated GFR () 83.3 Estimated GFR (Non- 71.9 BUN/Creatinine Ratio 26.1 Random Glucose 195 mg/dl Calcium Level 9.0 mg/dl Total Bilirubin 1.1 mg/dl Aspartate Amino Transf (AST/SGOT) 49 U/L Alanine Aminotransferase (ALT/SGPT) 58 U/L Alkaline Phosphatase 132 U/L Total Protein 6.9 gm/dl Albumin 2.3 gm/dl Globulin 4.6 gm/dl Albumin/Globulin Ratio 0.5 Urine Color ORANGE Urine Appearance CLOUDY Urine pH 5.5 Urine Specific [place] 1.029 Urine Protein 2+ Urine Glucose (UA) 2+ Urine Ketones NEG Urine Occult Blood 2+ Urine Nitrite POS Urine Bilirubin 2+ Urine Urobilinogen NEG Urine Leukocyte Esterase SMALL Urine Hyaline Casts (Auto) /lpf Urine RBC 0-4 /hpf Urine WBC 5-10 /hpf Urine Epithelial Cells 20-30 /lpf Urine Renal Epithelial Cells /lpf Urine Bacteria 2+ Urine Hyaline Casts 1-5 /lpf Urine Pathogenic Casts /lpf Urine Mucus PRESENT Urine Yeast (Auto) Assessment & Plan UTI Wound dehiscence s/p ARIELLE NPO Plan to take to OR later this afternoon for I&D with wound closure Continue Abx
[2016-09-25 07:29] LABS: BASO % 0.4 %; BASO ABS # 0.05 K/uL (0-0.2); COMPLETE YES; EOS % 3.4 %; HEMATOCRIT 32.6 % (37-47); IG% 0.3 %; LYMPH % 8.2 %; LYMPH ABS # 1.08 K/uL (1.2-3.4); MEAN CELL VOLUME 90.8 fL (80-100); MEAN CORPUSCULAR HEMOGLOBIN 30.4 pg (25-34); MEAN CORPUSCULAR HGB CONC 33.4 g/dl (32-36); MEAN PLATELET VOLUME 8.7 fL (7.4-10.4); MONO % 9.1 %; NEUT % 78.6 %; PLATELET COUNT 427 K/uL (130-400); RED BLOOD COUNT 3.59 M/uL (4.2-5.4); WHITE BLOOD COUNT 13.16 K/uL (4.8-10.8)
[2016-09-25 07:51] VITALS: BP 125/66; PULSE 84; TEMP 37; O2SAT 95
[2016-09-25 08:00] LABS: BUN/CREATININE RATIO 32.5 (10-20); CREATININE 0.7 mg/dl (0.60-1.20); POTASSIUM 3.7 mmol/L (3.5-5.1)
[2016-09-25] MEDS: VENLAFAXINE HCL XR 37.5 MG CAPXR PO SCH ×2 (09:00→11:15)
[2016-09-25] MEDS ORDERED: NON-FORMULARY MEDICATION (Glucosamine-Chondroitin-Vit C- (Glucosamine Chondroitin) 1 TAB) PO SCH (09:00)
[2016-09-25] MEDS: LISINOPRIL 10 MG TAB PO SCH ×2 (09:00→11:15)
[2016-09-25] MEDS ORDERED: CRANBERRY PO SCH (09:00)
[2016-09-25] MEDS: MULTIVITAMIN TAB PO SCH ×2 (09:00→11:14)
[2016-09-25] MEDS: LACTOBACILLUS ACIDOPHILUS (FLORANEX) TAB PO SCH ×2 (09:00→11:14)
[2016-09-25] MEDS ORDERED: NON-FORMULARY MEDICATION (Turmeric (Curcuma Longa) (Turmeric) 1 TAB) PEG SCH (09:00)
[2016-09-25] MEDS: ASPIRIN 325 MG ECTAB PO SCH ×3 (09:00→19:26)
[2016-09-25] MEDS ORDERED: FLAXSEED PO SCH (09:00)
--- NOTE | 2016-09-25 11:41 | Progress Note ---
Medicine Progress Note Date & Time of Visit: Sep 25, 2016 at 11:07. Subjective Pt was seen and examined Lying in bed comfortable with no distress Pt said that she feels fine except some weakness in his LE Pt said that she was in Rehab for only 1 day and requested to go home because she was doing OK Denies any chest pain, palpitation, dizziness and SOB Objective Last 8 Hrs Date Time Temp Pulse Resp B/P (MAP) Pulse Ox O2 Delivery O2 Flow Rate FiO2 09/25/16 07:51 37.0 84 16 125/66 (85) 95 Room Air 09/25/16 07:30 Room Air Physical Exam: General- No acute distress, obese Head- atraumatic Eyes- PERRL, EOMI ENT- oropharynx clear Neck- supple, no JVD Lungs- clear to auscultation Heart- regular rhythm Abdomen- normal bowel sounds, soft Extremities- no calf tenderness, right hip with small open wound areas with serous drainage Neuro- alert, oriented x 3; PERRL, EOMI Skin- warm & dry Laboratory Results: Last 24 Hours Test 09/24/16 19:02 09/24/16 20:15 09/25/16 07:18 White Blood Count 16.23 K/uL 13.16 K/uL Red Blood Count 3.74 M/uL 3.59 M/uL Hemoglobin 11.1 g/dL 10.9 g/dL Hematocrit 33.8 % 32.6 % Mean Corpuscular Volume 90.4 fL 90.8 fL Mean Corpuscular Hemoglobin 29.7 pg 30.4 pg Mean Corpuscular Hemoglobin Concent 32.8 g/dl 33.4 g/dl Platelet Count 471 K/uL 427 K/uL Mean Platelet Volume 8.8 fL 8.7 fL Neutrophils (%) (Auto) 80.9 % 78.6 % Lymphocytes (%) (Auto) 8.1 % 8.2 % Monocytes (%) (Auto) 10.0 % 9.1 % Eosinophils (%) (Auto) 0.4 % 3.4 % Basophils (%) (Auto) 0.2 % 0.4 % Neutrophils # (Auto) 13.14 K/uL 10.34 K/uL Lymphocytes # (Auto) 1.31 K/uL 1.08 K/uL Monocytes # (Auto) 1.62 K/uL 1.20 K/uL Eosinophils # (Auto) 0.07 K/uL 0.45 K/uL Basophils # (Auto) 0.03 K/uL 0.05 K/uL RDW Standard Deviation 42.0 fL 42.1 fL RDW Coefficient of Variation 12.6 % 12.7 % Immature Granulocyte % (Auto) 0.4 % 0.3 % Immature Granulocyte # (Auto) 0.06 K/uL 0.04 K/uL Prothrombin Time 11.8 SECONDS Prothromb Time International Ratio 1.1 Sodium Level 133 mmol/L 133 mmol/L Potassium Level 3.9 mmol/L 3.7 mmol/L Chloride Level 94 mmol/L 95 mmol/L Carbon Dioxide Level 34 mmol/L 34 mmol/L Anion Gap 5.0 mmol/L 4.0 mmol/L Blood Urea Nitrogen 20 mg/dl 23 mg/dl Creatinine 0.77 mg/dl 0.70 mg/dl Est Creatinine Clear Calc Drug Dose 64.1 ml/min 70.5 ml/min Estimated GFR () 83.3 93.5 Estimated GFR (Non- 71.9 80.7 BUN/Creatinine Ratio 26.1 32.5 Random Glucose 195 mg/dl 197 mg/dl Calcium Level 9.0 mg/dl 9.0 mg/dl Total Bilirubin 1.1 mg/dl Aspartate Amino Transf (AST/SGOT) 49 U/L Alanine Aminotransferase (ALT/SGPT) 58 U/L Alkaline Phosphatase 132 U/L Total Protein 6.9 gm/dl Albumin 2.3 gm/dl Globulin 4.6 gm/dl Albumin/Globulin Ratio 0.5 Urine Color ORANGE Urine Appearance CLOUDY Urine pH 5.5 Urine Specific [place] 1.029 Urine Protein 2+ Urine Glucose (UA) 2+ Urine Ketones NEG Urine Occult Blood 2+ Urine Nitrite POS Urine Bilirubin 2+ Urine Urobilinogen NEG Urine Leukocyte Esterase SMALL Urine Hyaline Casts (Auto) /lpf Urine RBC 0-4 /hpf Urine WBC 5-10 /hpf Urine Epithelial Cells 20-30 /lpf Urine Renal Epithelial Cells /lpf Urine Bacteria 2+ Urine Hyaline Casts 1-5 /lpf Urine Pathogenic Casts /lpf Urine Mucus PRESENT Urine Yeast (Auto) Date/Time Source Procedure Growth Status 09/24/16 19:10 Blood Blood Culture Pending Received 09/24/16 19:01 Blood Blood Culture Pending Received 09/24/16 20:15 Urine , Clean Catch Urine Culture Pending Received 09/24/16 18:00 Skin Hip Gram Stain - Final Resulted 09/24/16 18:00 Skin Hip Wound Culture Pending Resulted Assessment & Plan Generalized Weakness Possible related to UTI vs surgical site wound infection Present on admission with fever and leukocytosis Was started on Keflex as an outpatient Abx changed to rocephin due to possible underling UTI WBC trending down Continue Rocephin Wound cx, blood cx and urine cx pending PT/OT Continue monitor CBC talked to complex case manager for placement to rehab Abnormal UA Asymptomatic Continue rocephin urine cx pending S/P Right arthroplasty Performed by Dr. Jean Incision site showed wound dehiscence Ortho planning to put an incisional vac rather to go to OR for I&D Continue daily wound care will consult wound care HTN Continue BP meds Anxiety On Effexor Stable Anemia possible related to post-op hgb 10.9 today stable Hyponatremia possible related to poor Intake since pt is NPO will start on gentle IVF monitor BMP DVT px on asa 325 mg BID as per ortho CODE STATUS DNR Consultants: Ortho Current Inpatient Medications: Current Inpatient Medications Medications (Trade) Dose Ordered Sig/Aldo Route Start Time Stop Time Status Last Admin Dose Admin Miscellaneous (Iv Fluids Completed) 1 ea PRN PRN N/A 09/24/16 17:00 09/24/17 16:59 Acetaminophen (Tylenol Tab) 650 mg Q4H PRN PO 09/24/16 18:15 10/24/16 18:14 Ondansetron HCl (Zofran Inj) 4 mg Q6H PRN IV 09/24/16 18:15 10/24/16 18:14 Aspirin (Ecotrin Tab) 325 mg BID PO 09/24/16 21:00 10/24/16 20:59 09/24/16 21:09 325 MG Clorazepate Dipotassium (Tranxene-T Tab) 7.5 mg BID PRN PO 09/24/16 18:45 10/24/16 18:44 Lisinopril (Zestril Tab) 10 mg DAILY PO 09/25/16 09:00 10/25/16 08:59 Multivitamins (Multivitamin Tab) 1 tab QAM PO 09/25/16 09:00 10/25/16 08:59 Venlafaxine HCl (effeXOR EXTENDED REL CAP) 37.5 mg DAILY PO 09/25/16 09:00 10/25/16 08:59 Zolpidem Tartrate (Ambien Tab) 10 mg HS PRN PO 09/24/16 18:45 10/24/16 18:44 Lactobacillus Acidophilus (Floranex Tab) 1 tab DAILY PO 09/25/16 09:00 10/25/16 08:59 Oxycodone HCl (Roxicodone Immediate Rel Tab) 5 mg Q4H PRN PO 09/24/16 18:45 10/08/16 18:44 Ceftriaxone Sodium 1 gm/ Dextrose 50 ml @ 100 mls/hr Q24H IV 09/25/16 00:00 09/30/16 00:00 09/25/16 00:53 100 MLS/HR
[2016-09-25] MEDS ORDERED: SODIUM CHLORIDE 0.9% 500ML 500 ML IV SCH (12:15)
[2016-09-25 15:26] VITALS: BP 146/76; PULSE 98; TEMP 37.3; O2SAT 90
[2016-09-25] MEDS: CLORAZEPATE DIPOTASSIUM 3.75 MG TAB PO PRN (17:18)
[2016-09-25] MEDS: ZOLPIDEM TARTRATE 10 MG TAB PO PRN (19:26)
[2016-09-25 22:57] VITALS: BP 118/70; PULSE 98; TEMP 37.8; O2SAT 91
[2016-09-26 03:53] VITALS: BP 145/77; PULSE 86; TEMP 37.1; O2SAT 95
--- NOTE | 2016-09-26 07:25 | Orthopedic Progress Note ---
Orthopedic Progress Note Date of Service Sep 26, 2016. Subjective Additional Notes: Seen and examined at bedside, not having any pain. Feeling better today Objective Date Time Temp Pulse Resp B/P (MAP) Pulse Ox O2 Delivery O2 Flow Rate FiO2 09/26/16 03:53 37.1 86 16 145/77 (99) 95 Room Air 09/25/16 23:50 Room Air 09/25/16 22:57 37.8 98 16 118/70 (86) 91 Room Air 09/25/16 15:50 Room Air 09/25/16 15:26 37.3 98 20 146/76 (99) 90 Room Air 09/25/16 07:51 37.0 84 16 125/66 (85) 95 Room Air 09/25/16 07:30 Room Air Laboratory Results 24 Hours: Test 09/25/16 07:18 White Blood Count 13.16 K/uL Red Blood Count 3.59 M/uL Hemoglobin 10.9 g/dL Hematocrit 32.6 % Mean Corpuscular Volume 90.8 fL Mean Corpuscular Hemoglobin 30.4 pg Mean Corpuscular Hemoglobin Concent 33.4 g/dl Platelet Count 427 K/uL Mean Platelet Volume 8.7 fL Neutrophils (%) (Auto) 78.6 % Lymphocytes (%) (Auto) 8.2 % Monocytes (%) (Auto) 9.1 % Eosinophils (%) (Auto) 3.4 % Basophils (%) (Auto) 0.4 % Neutrophils # (Auto) 10.34 K/uL Lymphocytes # (Auto) 1.08 K/uL Monocytes # (Auto) 1.20 K/uL Eosinophils # (Auto) 0.45 K/uL Basophils # (Auto) 0.05 K/uL Assessment & Plan Assessment: Post-operative UTI R hip wound dehiscence Plan: Continue antibiotics WBAT PT for ambulation Decided to treat with wound VAC. 90% of incision was healed and there was some serous drainage but no purulent drainage. I did not want to reopen the incision for an I&D that may not be necessary and I did not want to suture close the small dehiscence that is currently draining. I feel the VAC treatment is the best option for this wound. Ortho stable for discharge F/U with wound care for VAC care Will I&D if wound worsens, continue VAC as long as wound is improving
[2016-09-26 08:00] VITALS: BP 130/82; PULSE 80; TEMP 37; O2SAT 92
[2016-09-26] MEDS: ASPIRIN 325 MG ECTAB PO SCH ×2 (09:11→20:46)
[2016-09-26] MEDS: MULTIVITAMIN TAB PO SCH (09:12)
[2016-09-26] MEDS: VENLAFAXINE HCL XR 37.5 MG CAPXR PO SCH (09:12)
[2016-09-26] MEDS: LACTOBACILLUS ACIDOPHILUS (FLORANEX) TAB PO SCH (09:12)
[2016-09-26] MEDS: LISINOPRIL 10 MG TAB PO SCH (09:12)
[2016-09-26 09:23] VITALS: O2SAT 92
[2016-09-26] MEDS: CLORAZEPATE DIPOTASSIUM 3.75 MG TAB PO PRN (13:30)
[2016-09-26 15:16] VITALS: BP 128/70; PULSE 94; TEMP 37.3; O2SAT 94
[2016-09-26] MEDS ORDERED: VANCOMYCIN CONSULT ACTIVE PRN (17:15)
[2016-09-26] MEDS ORDERED: VANCOMYCIN INJ 2,800 MG in SODIUM CHLORIDE 0.9% 500ML 500 ML IV ONE (17:30)
--- NOTE | 2016-09-26 19:45 | Progress Note ---
Medicine Progress Note Date & Time of Visit: Sep 26, 2016 at 19:34. Subjective Pt was seen and examined Lying in bed comfortable with no distress Pt said that she feels fine she denies any pain, fever, chills, palpitation, dizziness and SOB Objective Last 8 Hrs Date Time Temp Pulse Resp B/P (MAP) Pulse Ox O2 Delivery O2 Flow Rate FiO2 09/26/16 15:16 37.3 94 18 128/70 (89) 94 Room Air Physical Exam: General- No acute distress, obese Head- atraumatic Eyes- PERRL, EOMI ENT- oropharynx clear Neck- supple, no JVD Lungs- clear to auscultation Heart- regular rhythm Abdomen- normal bowel sounds, soft Extremities- no calf tenderness, wound vac in the right hip Neuro- alert, oriented x 3; PERRL, EOMI Skin- warm & dry Assessment & Plan Generalized Weakness Possible related to UTI vs surgical site wound infection Present on admission with fever and leukocytosis Was started on Keflex as an outpatient Abx changed to rocephin due to possible underling UTI WBC trending down to 13K yesterday Continue Rocephin PT/OT Continue monitor CBC talked to case filler for placement to rehab Bacteremia blood cx growth gram positive cocci afebrile, Elevated leukocytes Will start on IV Vanco ID consult Will repeat blood tomorrow possible will get a 2 decho Abnormal UA Asymptomatic Continue rocephin urine cx showed more than 3 organisms possible contamination S/P Right arthroplasty Performed by Dr. Jean Incision site showed wound dehiscence Ortho planning to put an incisional vac rather to go to OR for I&D Continue daily wound care Wound vac in placed Wound cx growth GRAM STAIN Final 09/25/16-08 RESULT MANY POLYS MANY GRAM POSITIVE COCCI RARE GRAM NEGATIVE BACILLI SURFACE WOUND CULTURE Preliminary 09/26/16-1143 Organism 1 MORGANELLA MORGANII QUANITY MANY SENS SENSITIVITY TO FOLLOW Organism 2 STAPHYLOCOCCUS AUREUS QUANITY MANY SENS SENSITIVITY TO FOLLOW Organism 3 GRAM NEGATIVE BACILLI QUANITY MODERATE SENS SENSITIVITY TO FOLLOW MOR FAY STAPH AUR M.I.C. RX M.I.C. RX --------- ------ --------- ------ TRIMET/SULFA <=2/38 S <=0.5/9.5 S * OXACILLIN 0.5 S AMPICILLIN/SUL >16/8 R CEFOTAXIME <=2 S CEFTRIAXONE <=1 S CEFEPIME <=4 S IMIPENEM 4 R VANCOMYCIN 2 S GENTAMICIN <=4 S TOBRAMYCIN <=4 S ERYTHROMYCIN >4 R TETRACYCLINE <=4 S AMIKACIN <=16 S CIPROFLOXACIN <=1 S LEVOFLOXACIN <=2 S CLINDAMYCIN <=0.5 S ERTAPENEM <=1 S DAPTOMYCIN <=0.5 S PIP/TAZO <=16 S HTN Continue BP meds Anxiety On Effexor Stable Anemia possible related to post-op hgb 10.9 yesterday stable Hyponatremia possible related to poor Intake since pt is NPO will start on gentle IVF monitor BMP DVT px on asa 325 mg BID as per ortho CODE STATUS DNR Consultants: Ortho ID Current Inpatient Medications: Current Inpatient Medications Medications (Trade) Dose Ordered Sig/Aldo Route Start Time Stop Time Status Last Admin Dose Admin Miscellaneous (Iv Fluids Completed) 1 ea PRN PRN N/A 09/24/16 17:00 09/24/17 16:59 Acetaminophen (Tylenol Tab) 650 mg Q4H PRN PO 09/24/16 18:15 10/24/16 18:14 Ondansetron HCl (Zofran Inj) 4 mg Q6H PRN IV 09/24/16 18:15 10/24/16 18:14 Aspirin (Ecotrin Tab) 325 mg BID PO 09/24/16 21:00 10/24/16 20:59 09/26/16 09:11 325 MG Clorazepate Dipotassium (Tranxene-T Tab) 7.5 mg BID PRN PO 09/24/16 18:45 10/24/16 18:44 09/26/16 13:30 7.5 MG Lisinopril (Zestril Tab) 10 mg DAILY PO 09/25/16 09:00 10/25/16 08:59 09/26/16 09:12 10 MG Multivitamins (Multivitamin Tab) 1 tab QAM PO 09/25/16 09:00 10/25/16 08:59 09/26/16 09:12 1 TAB Venlafaxine HCl (effeXOR EXTENDED REL CAP) 37.5 mg DAILY PO 09/25/16 09:00 10/25/16 08:59 09/26/16 09:12 37.5 MG Zolpidem Tartrate (Ambien Tab) 10 mg HS PRN PO 09/24/16 18:45 10/24/16 18:44 09/25/16 19:26 10 MG Lactobacillus Acidophilus (Floranex Tab) 1 tab DAILY PO 09/25/16 09:00 10/25/16 08:59 09/26/16 09:12 1 TAB Oxycodone HCl (Roxicodone Immediate Rel Tab) 5 mg Q4H PRN PO 09/24/16 18:45 10/08/16 18:44 Ceftriaxone Sodium 1 gm/ Dextrose 50 ml @ 100 mls/hr Q24H IV 09/25/16 00:00 09/30/16 00:00 09/25/16 23:46 100 MLS/HR Vancomycin HCl 2800 mg/Sodium Chloride 556 ml @ 200 mls/hr 1730 ONCE IV 09/26/16 17:30 09/26/16 20:16 09/26/16 17:35 200 MLS/HR Vancomycin HCl 1700 mg/Sodium Chloride 534 ml @ 200 mls/hr Q14H IV 09/27/16 07:00 10/10/16 06:59 Vancomycin HCl (Consult) 1 ea UD PRN N/A 09/26/16 17:15 10/26/16 17:14
[2016-09-26] MEDS: ZOLPIDEM TARTRATE 10 MG TAB PO PRN (20:46)
[2016-09-26] MEDS ORDERED: VANCOMYCIN INJ 1,000 MG in SODIUM CHLORIDE 0.9% 250ML 250 ML IV SCH (21:00)
--- NOTE | 2016-09-26 21:04 | Pharmacy Progress Note ---
Pharmacy Antibiotic Consult Date of Service: Sep 26, 2016. Pharmacy Dosing Scope Pharmacy is consulted to initiate Vancomycin IV dosing therapy, order appropriate labs and adjust drug dose/frequency. Subjective The patient is a 81 year old female admitted on Sep 25, 2016 at 10:03. Objective Height (Feet): 5 Height (Inches): 0.00 Weight (Kilograms): 111.900 Micro Results: RUN DATE: 09/26/16 [facility] PAGE 1 RUN TIME: 1143 Specimen Inquiry PATIENT: MELISSA ARMENDARIZ LOC: [facility] U # : [id number] AGE/SX: 81/F ROOM: [facility] REG : 09/25/[address]: Elly Abebe M.D. : 1935 BED: 2 DIS : STATUS: ADM IN TLOC: SPEC #: [id number] FACUNDO: 09/24/16 STATUS: RES REQ #: [id number] RECD: 09/24/[address]: Chip Mckeon, DO SOURCE: SKIN ENTR: 09/24/[address]: Shashank Camara M.D. SPDESC: HIP Sarah Stewart , DO Patrick Jean DO ORDERED: SURF WND CU/SMR COMMENTS: Has Specimen Been Obtained/Collected? Y Procedure Result Verified Site GRAM STAIN Final 09/25/16 RESULT MANY POLYS MANY GRAM POSITIVE COCCI RARE GRAM NEGATIVE BACILLI SURFACE WOUND CULTURE Preliminary 09/26/16 Organism 1 MORGANELLA MORGANII QUANITY MANY SENS SENSITIVITY TO FOLLOW Organism 2 STAPHYLOCOCCUS AUREUS QUANITY MANY SENS SENSITIVITY TO FOLLOW Organism 3 GRAM NEGATIVE BACILLI QUANITY MODERATE SENS SENSITIVITY TO FOLLOW MOR FAY STAPH AUR M.I.C. RX M.I.C. RX --------- ------ --------- ------ TRIMET/SULFA <=2/38 S <=0.5/9.5 S * OXACILLIN 0.5 S AMPICILLIN/SUL >16/8 R CEFOTAXIME <=2 S CEFTRIAXONE <=1 S CEFEPIME <=4 S IMIPENEM 4 R VANCOMYCIN 2 S GENTAMICIN <=4 S TOBRAMYCIN <=4 S ERYTHROMYCIN >4 R TETRACYCLINE <=4 S AMIKACIN <=16 S CIPROFLOXACIN <=1 S LEVOFLOXACIN <=2 S CLINDAMYCIN <=0.5 S ERTAPENEM <=1 S DAPTOMYCIN <=0.5 S PIP/TAZO <=16 S CONTINUED ON NEXT PAGE RUN DATE: 09/26/16 [facility] PAGE 2 RUN TIME: 1143 Specimen Inquiry SPEC: [id number] PATIENT: MELISSA ARMENDARIZ Jorge [id number] ( Continued) Procedure Result Verified Site SURFACE WOUND CULTURE Preliminary (continued) 09/26/16-1143 1. MORGANELLA MORGANII Target Route Dose RX AB Cost M.I.C. IQ ------ ----- ------ -- ------ -------- - ------ TRIMET/SULFA S <=2/38 AMPICILLIN/SUL R >16/8 CEFOTAXIME S <=2 CEFTRIAXONE S <=1 CEFEPIME S <=4 IMIPENEM R 4 GENTAMICIN S <=4 TOBRAMYCIN S <=4 AMIKACIN S <=16 CIPROFLOXACIN S <=1 LEVOFLOXACIN S <=2 ERTAPENEM S <=1 PIP/TAZO S <=16 2. STAPHYLOCOCCUS AUREUS Target Route Dose RX AB Cost M.I.C. IQ ------ ----- ------ -- ------ -------- - ------ TRIMET/SULFA S <=0.5/ 9.5 * OXACILLIN S 0.5 VANCOMYCIN S 2 ERYTHROMYCIN R >4 TETRACYCLINE S <=4 CLINDAMYCIN S <=0.5 DAPTOMYCIN S <=0.5 S = SENSITIVE I = INTERMEDIATE R = RESISTANT Item Value Date Time Urine Culture - Final Complete 09/24/162014 Urine , Clean Catch THREE TYPES OF ORGANISMS PRESENT, ALL... Blood Culture - Preliminary Resulted 09/24/16 1910 Blood NO GROWTH TO DATE. Blood Culture - Preliminary Resulted 09/24/16 1901 Blood Gram Positive Cocci Gram Stain - Final Resulted 09/24/16 1800 Skin Hip Assessment & Plan * Pt with recent fall s/p ARIELLE on 09/08/16. Of note, she was on Keflex DEFLASH AND WASH OPERATOR. This was subsequently changed to Rocephin d/t concern for possible UTI. 3 organisms growing from wound culture. 03/20 BCx positive for G+ cocci. Pharmacy now consulted to initiate Vancomycin dosing. Vancomycin * Loading dose: Vancomycin 2800mg IV x 1 (25mg/kg). * Half life estimated to be 11 hours. Risk factors for accumulation of drug include advanced age and body habitus (BMI = 48 kg/m2). * Maintenance dose: Vancomycin 1700 mg (15 mg/kg) IV q14 hours. * Obtain trough prior to the 3rd maintenance dose on 09/28 at 1100. Rocephin * Continue per provider dosing. Pharmacy will continue to follow and will adjust dose/frequency as necessary. Thank you
[2016-09-26 23:21] VITALS: BP 146/74; PULSE 95; TEMP 36.9; O2SAT 92
[2016-09-26] MEDS: CEFTRIAXONE SOD INJ 1 GM in DEXTROSE 5% ADD-VANTAGE 50ML 50 ML IV SCH (23:36)
[2016-09-27 06:47] LABS: HEMATOCRIT 32.2 % (37-47); MEAN CELL VOLUME 90.4 fL (80-100); MEAN CORPUSCULAR HEMOGLOBIN 29.8 pg (25-34); MEAN CORPUSCULAR HGB CONC 32.9 g/dl (32-36); MEAN PLATELET VOLUME 8.6 fL (7.4-10.4); PLATELET COUNT 495 K/uL (130-400); RED BLOOD COUNT 3.56 M/uL (4.2-5.4); WHITE BLOOD COUNT 12.68 K/uL (4.8-10.8)
[2016-09-27 06:59] VITALS: BP 115/67; PULSE 86; TEMP 36.8; O2SAT 93
[2016-09-27 07:23] LABS: CREATININE 0.67 mg/dl (0.60-1.20); MAGNESIUM 2.1 mg/dl (1.8-2.4)
[2016-09-27] MEDS: VANCOMYCIN INJ 1,700 MG in SODIUM CHLORIDE 0.9% 500ML 500 ML IV SCH ×2 (07:36→20:38)
[2016-09-27 07:43] VITALS: BP 134/80; PULSE 84; TEMP 37.1; O2SAT 93
[2016-09-27 08:14] VITALS: O2SAT 93
--- NOTE | 2016-09-27 08:49 | Medical Consult ---
Consultation Date of Consultation: Sep 27, 2016. Attending Physician: Elly Abebe M.D. Reason for Consultation: Gram-positive cocci in blood culture History of Present Illness 81-year-old female who is status post right total hip arthroplasty September 08, who initially did well, but was admitted with several day history of progressively worsening fatigue and weakness with several falls. She developed drainage from her left hip wound, but denied any fever or chills. She was found to have small degree of wound dehiscence, and is now status post wound VAC placement. Cultures from the wound have grown a methicillin sensitive Staph aureus as well as Morganella. Now blood cultures, 1/2 bottles, reported positive for gram-positive cocci. Vancomycin has been added. Patient currently feels well, denies any significant fever or chills, pain, or other new systemic complaints. Also being treated with ceftriaxone. Past Medical/Surgical History Medical Problems: (1) Unable to ambulate Status: Acute Medical Problems: (1) Falls (2) Generalized weakness (3) HTN (hypertension) (4) Morbid obesity (5) Osteoarthritis of hip Surgical Problems: (1) H/O knee surgery (2) Hip joint replacement status Family History Patient reports no known family medical history. Social History Smoking Status: Never Smoker Smokeless Tobacco Use: No Alcohol Use: none Drug Use: none Marital Status: Housing Status: lives alone Occupation Status: retired Allergies Coded Allergies: No Known Allergies (Verified , 09/08/16) Current Inpatient Medications Current Inpatient Medications Medications (Trade) Dose Ordered Sig/Aldo Route Start Time Stop Time Status Last Admin Dose Admin Miscellaneous (Iv Fluids Completed) 1 ea PRN PRN N/A 09/24/16 17:00 09/24/17 16:59 Acetaminophen (Tylenol Tab) 650 mg Q4H PRN PO 09/24/16 18:15 10/24/16 18:14 Ondansetron HCl (Zofran Inj) 4 mg Q6H PRN IV 09/24/16 18:15 10/24/16 18:14 Aspirin (Ecotrin Tab) 325 mg BID PO 09/24/16 21:00 10/24/16 20:59 09/26/16 20:46 325 MG Clorazepate Dipotassium (Tranxene-T Tab) 7.5 mg BID PRN PO 09/24/16 18:45 10/24/16 18:44 09/26/16 13:30 7.5 MG Lisinopril (Zestril Tab) 10 mg DAILY PO 09/25/16 09:00 10/25/16 08:59 09/26/16 09:12 10 MG Multivitamins (Multivitamin Tab) 1 tab QAM PO 09/25/16 09:00 10/25/16 08:59 09/26/16 09:12 1 TAB Venlafaxine HCl (effeXOR EXTENDED REL CAP) 37.5 mg DAILY PO 09/25/16 09:00 10/25/16 08:59 09/26/16 09:12 37.5 MG Zolpidem Tartrate (Ambien Tab) 10 mg HS PRN PO 09/24/16 18:45 10/24/16 18:44 09/26/16 20:46 10 MG Lactobacillus Acidophilus (Floranex Tab) 1 tab DAILY PO 09/25/16 09:00 10/25/16 08:59 09/26/16 09:12 1 TAB Oxycodone HCl (Roxicodone Immediate Rel Tab) 5 mg Q4H PRN PO 09/24/16 18:45 10/08/16 18:44 Ceftriaxone Sodium 1 gm/ Dextrose 50 ml @ 100 mls/hr Q24H IV 09/25/16 00:00 09/30/16 00:00 09/26/16 23:36 100 MLS/HR Vancomycin HCl 1700 mg/Sodium Chloride 534 ml @ 200 mls/hr Q14H IV 09/27/16 07:00 10/10/16 06:59 09/27/16 07:36 200 MLS/HR Vancomycin HCl (Consult) 1 ea UD PRN N/A 09/26/16 17:15 10/26/16 17:14 Review of Systems All systems were reviewed and are negative except as per HPI Physical Exam Date Time Temp Pulse Resp B/P (MAP) Pulse Ox O2 Delivery O2 Flow Rate FiO2 09/27/16 08:14 93 Room Air 09/27/16 07:43 37.1 84 16 134/80 (98) 93 Room Air 09/27/16 07:35 Room Air 09/27/16 06:59 36.8 86 17 115/67 (83) 93 Room Air 09/26/16 23:21 36.9 95 16 146/74 (98) 92 Room Air 09/26/16 19:15 Room Air 09/26/16 15:16 37.3 94 18 128/70 (89) 94 Room Air 09/26/16 09:23 92 Room Air General Appearance: WD/WN, no apparent distress Head: normocephalic, atraumatic Eyes: normal inspection, EOMI, sclerae normal ENT: normal ENT inspection, hearing grossly normal, pharynx normal Neck: supple, no adenopathy, trachea midline Respiratory/Chest: chest non-tender, lungs clear, normal breath sounds, no respiratory distress Cardiovascular: regular rate, rhythm, no gallop, no murmur Abdomen/GI: normal bowel sounds, non tender, soft, no organomegaly Back: normal inspection, no CVA tenderness Extremities/Musculoskelatal: no calf tenderness, normal capillary refill Neurologic/Psych: alert, oriented x 3 Skin: normal color, warm/dry, no rash, + pertinent finding (Wound VAC in place right hip, no significant surrounding cellulitis) Lymphatic: no adenopathy Laboratory Results - RUN DATE: 09/27/16 [facility] PAGE 1 RUN TIME: 721 Specimen Inquiry PATIENT: MELISSA ARMENDARIZ LOC: [facility] U # : [id number] AGE/SX: 81/F ROOM: [facility] REG : 09/25/[address]: Elly Abebe M.D. : 1935 BED: 2 DIS : STATUS: ADM IN TLOC: SPEC #: [id number] FACUNDO: 09/24/16 STATUS: RES REQ #: [id number] RECD: 09/24/[address]: Chip Mckeon, SOURCE: SKIN ENTR: 09/24/[address]: Shashank Camara M.D. SPDES: HIP Sarah Stewart , DO Patrick Jean DO ORDERED: SURF WND CU/SMR COMMENTS: Has Specimen Been Obtained/Collected? Y Procedure Result Verified Site GRAM STAIN Final 09/25/16 RESULT MANY POLYS MANY GRAM POSITIVE COCCI RARE GRAM NEGATIVE BACILLI SURFACE WOUND CULTURE Preliminary 09/27/16 Organism 1 MORGANELLA MORGANII QUANITY MANY SENS SENSITIVITY TO FOLLOW Organism 2 STAPHYLOCOCCUS AUREUS QUANITY MANY SENS SENSITIVITY TO FOLLOW Organism 3 MORGANELLA MORGANII#2 QUANITY MODERATE SENS NO SENSITIVITY TO FOLLOW IDENTIFICATION AND SUSCEPTIBILITY TESTING HAVE CONFIRMED THE TWO ORGANISMS PREVIOUSLY REPORTED ARE THE SAME ORGANISM. NO SUSCEPTIBILITY RESULTS WILL BE GENERATED ON THE SECOND ISOLATE OF MORGANELLA MORGANII. CONTINUED ON NEXT PAGE RUN DATE: 09/27/16 [facility] PAGE 2 RUN TIME: 721 Specimen Inquiry SPEC: [id number] PATIENT: MELISSA ARMENDARIZ Jorge [id number] ( Continued) Procedure Result Verified Site SURFACE WOUND CULTURE Preliminary (continued) 09/27/16-721 MOR FAY STAPH AUR M.I.C. RX M.I.C. RX --------- ------ --------- ------ TRIMET/SULFA <=2/38 S <=0.5/9.5 S * OXACILLIN 0.5 S AMPICILLIN/SUL >16/8 R CEFOTAXIME <=2 S CEFTRIAXONE <=1 S CEFEPIME <=4 S IMIPENEM 4 R VANCOMYCIN 2 S GENTAMICIN <=4 S TOBRAMYCIN <=4 S ERYTHROMYCIN >4 R TETRACYCLINE <=4 S AMIKACIN <=16 S CIPROFLOXACIN <=1 S LEVOFLOXACIN <=2 S CLINDAMYCIN <=0.5 S ERTAPENEM <=1 S DAPTOMYCIN <=0.5 S PIP/TAZO <=16 S 1. MORGANELLA MORGANII Target Route Dose RX AB Cost M.I.C. IQ ------ ----- ------ -- ------ -------- - ------ TRIMET/SULFA S <=2/38 AMPICILLIN/SUL R >16/8 CEFOTAXIME S <=2 CEFTRIAXONE S <=1 CEFEPIME S <=4 IMIPENEM R 4 GENTAMICIN S <=4 TOBRAMYCIN S <=4 AMIKACIN S <=16 CIPROFLOXACIN S <=1 LEVOFLOXACIN S <=2 ERTAPENEM S <=1 PIP/TAZO S <=16 2. STAPHYLOCOCCUS AUREUS Target Route Dose RX AB Cost M.I.C. IQ ------ ----- ------ -- ------ -------- - ------ TRIMET/SULFA S <=0.5/ 9.5 * OXACILLIN S 0.5 VANCOMYCIN S 2 ERYTHROMYCIN R >4 TETRACYCLINE S <=4 CLINDAMYCIN S <=0.5 CONTINUED ON NEXT PAGE RUN DATE: 09/27/16 [facility] PAGE 3 RUN TIME: 721 Specimen Inquiry SPEC: [id number] PATIENT: MELISSA ARMENDARIZ Jorge [id number] ( Continued) Procedure Result Verified Site SURFACE WOUND CULTURE Preliminary (continued) 09/27/16-721 2. STAPHYLOCOCCUS AUREUS (continued) Target Route Dose RX AB Cost M.I.C. IQ ------ ----- ------ -- ------ -------- - ------ DAPTOMYCIN S <=0.5 S = SENSITIVE I = INTERMEDIATE R = RESISTANT CLINICAL HISTORY: WBC count, feeling weakness post op, rule out pneumonia. COMPARISON STUDY: Chest radiograph August 01, 2016. FINDINGS: Lung volumes are normal. No pneumothorax or pleural effusion is present. There is no consolidation to suggest pneumonia. Mild enlargement of the cardiac silhouette is noted. There is no evidence of pulmonary edema. IMPRESSION: No acute cardiopulmonary findings. Electronically signed by: Erick Camara M.D. 09/25/2016 6:55 AM Dictated Date/Time: 09/25/2016 6:54 AM The status of this report is Signed. Draft = Not yet reviewed or approved by Radiologist. Signed = Reviewed and approved by Radiologist. <AttendingPhy>Elly Abebe M.D.</AttendingPhy> <FamilyPhy>Shashank Camara M.D.< /FamilyPhy> <PrimaryPhy>Shashank Camara M.D.</PrimaryPhy> <UnitNumber>[id number]</ UnitNumber> <VisitNumber>[id number]</VisitNumber> <PatientName>MELISSA ARMENDARIZ</PatientName> <DateOfBirth>1935</DateOfBirth> <Location>[facility]</Location > <ServiceDate>09/24/16</ServiceDate> <MNE>ESINDI</MNE> <OrderingPhy>Sarah Stewart DO</OrderingPhy> <OrderingPhyMNE>f rep ord dr roth</OrderingPhyMNE> < DictatingPhyMNE>f rep dict dr roth</DictatingPhyMNE> <CCListMNE>f rep ct mne</ CCListMNE> <AdmittingPhyMNE>f pt admit dr roth</AdmittingPhyMNE> <AttendingPhyMNE >f pt attend dr roth</AttendingPhyMNE> <ConsultingPhyMNE>f pt consult dr roth</ConsultingPhyMNE> <FamilyPhyMNE>f pt fam dr roth</FamilyPhyMNE> <OtherPhyMNE>f pt other dr roth</OtherPhyMNE> < PrimaryPhyMNE>f pt prim care dr roth</PrimaryPhyMNE> <ReferringPhyMNE>f pt referring dr roth</ReferringPhyMNE> Last 24 Hours Test 09/27/16 06:31 White Blood Count 12.68 K/uL Red Blood Count 3.56 M/uL Hemoglobin 10.6 g/dL Hematocrit 32.2 % Mean Corpuscular Volume 90.4 fL Mean Corpuscular Hemoglobin 29.8 pg Mean Corpuscular Hemoglobin Concent 32.9 g/dl RDW Standard Deviation 43.2 fL RDW Coefficient of Variation 12.9 % Platelet Count 495 K/uL Mean Platelet Volume 8.6 fL Creatinine 0.67 mg/dl Est Creatinine Clear Calc Drug Dose 73.6 ml/min Estimated GFR () 94.9 Estimated GFR (Non- 81.9 Magnesium Level 2.1 mg/dl Assessment & Plan 81-year-old female with mild surgical site infection right hip with methicillin sensitive Staph aureus and Morganella, now status post wound VAC placement. Significance of positive blood culture not clear at this time, could potentially be contaminant, but also worry about possibility that this is Staph aureus, also seen in her wound. Patient be continued on vancomycin pending further identification and sensitivities. We will then decide if more prolonged IV therapy will be necessary. Will follow.
[2016-09-27] MEDS: LISINOPRIL 10 MG TAB PO SCH (08:52)
[2016-09-27] MEDS: ASPIRIN 325 MG ECTAB PO SCH ×2 (08:52→20:38)
[2016-09-27] MEDS: LACTOBACILLUS ACIDOPHILUS (FLORANEX) TAB PO SCH (08:52)
[2016-09-27] MEDS: VENLAFAXINE HCL XR 37.5 MG CAPXR PO SCH (08:52)
[2016-09-27] MEDS: MULTIVITAMIN TAB PO SCH (08:52)
--- NOTE | 2016-09-27 13:45 | Clinical Documentation Query ---
CLINICAL DOCUMENTATION QUERY Dr. GUNN, In your clinical opinion is this patient being managed for: ( ) possible Sepsis, POA ( ) Other explanation of clinical findings (Please Explain) ( ) Unable to determine (Please Define) ( ) Need to Discuss ( ) Not Agree The medical record reflects the following clinical findings, treatment, and risk factors. Clinical Indicators: 81 yo female presenting with increasing weakness. Recent THR. WBC 16.23, HR 105, became febrile on arrival to floor. Pt had been placed on po Keflex prior to ER presentation by Orthopod's office. Prelim blood culture with staph aureus, wound culture with staph aureus and morganella morganii. Treatment: IV vancomcycin, IV rocephin, IV fluids, orthopedic consult and application of wound vac, ID consult Risk Factors: age, recent hip surgery with wound infection/dehiscence Please clarify and document your clinical opinion in the progress notes and discharge summary. Terms such as "probable", "suspected", "likely", "questionable", "possible", or "still to be ruled out" are acceptable. IF IN AGREEMENT, YOU MUST DOCUMENT ABOVE DIAGNOSTIC STATEMENT IN DAILY PROGRESS NOTES AND DISCHARGE SUMMARY. This document is not part of the patient's record. Thank You, Pamela Wallace RN [phone]
[2016-09-27 15:16] VITALS: BP 133/79; PULSE 84; TEMP 37.1; O2SAT 93
[2016-09-27] MEDS: CLORAZEPATE DIPOTASSIUM 3.75 MG TAB PO PRN (17:50)
--- NOTE | 2016-09-27 20:04 | Progress Note ---
Medicine Progress Note Date & Time of Visit: Sep 27, 2016 at 20:02. Subjective Pt was seen and examined Lying in bed with no distress Denies any chest pain, palpitation, dizziness and SOB Objective Last 8 Hrs Date Time Temp Pulse Resp B/P (MAP) Pulse Ox O2 Delivery O2 Flow Rate FiO2 09/27/16 15:20 Room Air 09/27/16 15:16 37.1 84 18 133/79 (97) 93 Room Air Physical Exam: General- No acute distress, obese Head- atraumatic Eyes- PERRL, EOMI ENT- oropharynx clear Neck- supple, no JVD Lungs- clear to auscultation Heart- regular rhythm Abdomen- normal bowel sounds, soft Extremities- no calf tenderness, wound vac in the right hip Neuro- alert, oriented x 3; PERRL, EOMI Skin- warm & dry Laboratory Results: Last 24 Hours Test 09/27/16 06:31 White Blood Count 12.68 K/uL Red Blood Count 3.56 M/uL Hemoglobin 10.6 g/dL Hematocrit 32.2 % Mean Corpuscular Volume 90.4 fL Mean Corpuscular Hemoglobin 29.8 pg Mean Corpuscular Hemoglobin Concent 32.9 g/dl RDW Standard Deviation 43.2 fL RDW Coefficient of Variation 12.9 % Platelet Count 495 K/uL Mean Platelet Volume 8.6 fL Creatinine 0.67 mg/dl Est Creatinine Clear Calc Drug Dose 73.6 ml/min Estimated GFR () 94.9 Estimated GFR (Non- 81.9 Magnesium Level 2.1 mg/dl Assessment & Plan Generalized Weakness Possible related to UTI vs surgical site wound infection Present on admission with fever and leukocytosis Was started on Keflex as an outpatient Abx changed to rocephin due to possible underling UTI WBC trending down to 12K Continue Rocephin PT/OT Continue monitor CBC talked to bilingual patient support caseworker for placement to rehab Bacteremia blood cx growth gram positive cocci afebrile, Elevated leukocytes Will start on IV Vanco ID consult recommend to continue Vanco will repeat blood cx Abnormal UA Asymptomatic Continue rocephin urine cx showed more than 3 organisms possible contamination S/P Right arthroplasty Performed by Dr. Jean Incision site showed wound dehiscence Ortho planning to put an incisional vac rather to go to OR for I&D Continue daily wound care Wound vac in placed Wound cx growth GRAM STAIN Final 09/25/16-0846 RESULT MANY POLYS MANY GRAM POSITIVE COCCI RARE GRAM NEGATIVE BACILLI SURFACE WOUND CULTURE Preliminary 09/26/16-1143 Organism 1 MORGANELLA MORGANII QUANITY MANY SENS SENSITIVITY TO FOLLOW Organism 2 STAPHYLOCOCCUS AUREUS QUANITY MANY SENS SENSITIVITY TO FOLLOW Organism 3 GRAM NEGATIVE BACILLI QUANITY MODERATE SENS SENSITIVITY TO FOLLOW MOR FAY STAPH AUR M.I.C. RX M.I.C. RX --------- ------ --------- ------ TRIMET/SULFA <=2/38 S <=0.5/9.5 S * OXACILLIN 0.5 S AMPICILLIN/SUL >16/8 R CEFOTAXIME <=2 S CEFTRIAXONE <=1 S CEFEPIME <=4 S IMIPENEM 4 R VANCOMYCIN 2 S GENTAMICIN <=4 S TOBRAMYCIN <=4 S ERYTHROMYCIN >4 R TETRACYCLINE <=4 S AMIKACIN <=16 S CIPROFLOXACIN <=1 S LEVOFLOXACIN <=2 S CLINDAMYCIN <=0.5 S ERTAPENEM <=1 S DAPTOMYCIN <=0.5 S PIP/TAZO <=16 S HTN Continue BP meds Anxiety On Effexor Stable Anemia possible related to post-op hgb 10.6 yesterday stable Hyponatremia possible related to poor Intake since pt is NPO will start on gentle IVF monitor BMP DVT px on asa 325 mg BID as per ortho CODE STATUS DNR Consultants: Ortho ID Current Inpatient Medications: Current Inpatient Medications Medications (Trade) Dose Ordered Sig/Aldo Route Start Time Stop Time Status Last Admin Dose Admin Miscellaneous (Iv Fluids Completed) 1 ea PRN PRN N/A 09/24/16 17:00 09/24/17 16:59 Acetaminophen (Tylenol Tab) 650 mg Q4H PRN PO 09/24/16 18:15 10/24/16 18:14 Ondansetron HCl (Zofran Inj) 4 mg Q6H PRN IV 09/24/16 18:15 10/24/16 18:14 Aspirin (Ecotrin Tab) 325 mg BID PO 09/24/16 21:00 10/24/16 20:59 09/27/16 08:52 325 MG Clorazepate Dipotassium (Tranxene-T Tab) 7.5 mg BID PRN PO 09/24/16 18:45 10/24/16 18:44 09/27/16 17:50 7.5 MG Lisinopril (Zestril Tab) 10 mg DAILY PO 09/25/16 09:00 10/25/16 08:59 09/27/16 08:52 10 MG Multivitamins (Multivitamin Tab) 1 tab QAM PO 09/25/16 09:00 10/25/16 08:59 09/27/16 08:52 1 TAB Venlafaxine HCl (effeXOR EXTENDED REL CAP) 37.5 mg DAILY PO 09/25/16 09:00 10/25/16 08:59 09/27/16 08:52 37.5 MG Zolpidem Tartrate (Ambien Tab) 10 mg HS PRN PO 09/24/16 18:45 10/24/16 18:44 09/26/16 20:46 10 MG Lactobacillus Acidophilus (Floranex Tab) 1 tab DAILY PO 09/25/16 09:00 10/25/16 08:59 09/27/16 08:52 1 TAB Oxycodone HCl (Roxicodone Immediate Rel Tab) 5 mg Q4H PRN PO 09/24/16 18:45 10/08/16 18:44 Ceftriaxone Sodium 1 gm/ Dextrose 50 ml @ 100 mls/hr Q24H IV 09/25/16 00:00 09/30/16 00:00 09/26/16 23:36 100 MLS/HR Vancomycin HCl 1700 mg/Sodium Chloride 534 ml @ 200 mls/hr Q14H IV 09/27/16 07:00 10/10/16 06:59 09/27/16 07:36 200 MLS/HR Vancomycin HCl (Consult) 1 ea UD PRN N/A 09/26/16 17:15 10/26/16 17:14
[2016-09-27] MEDS: ZOLPIDEM TARTRATE 10 MG TAB PO PRN (21:07)
[2016-09-27 23:15] VITALS: BP 140/79; PULSE 93; TEMP 37.3; O2SAT 92
[2016-09-27] MEDS: CEFTRIAXONE SOD INJ 1 GM in DEXTROSE 5% ADD-VANTAGE 50ML 50 ML IV SCH (23:41)
[2016-09-28 05:53] LABS: HEMATOCRIT 31.7 % (37-47); MEAN CELL VOLUME 90.6 fL (80-100); MEAN CORPUSCULAR HEMOGLOBIN 30.3 pg (25-34); MEAN CORPUSCULAR HGB CONC 33.4 g/dl (32-36); MEAN PLATELET VOLUME 8.5 fL (7.4-10.4); PLATELET COUNT 523 K/uL (130-400); WHITE BLOOD COUNT 13.85 K/uL (4.8-10.8)
[2016-09-28 06:26] LABS: CALCIUM 8.9 mg/dl (8.5-10.1); CREATININE 0.61 mg/dl (0.60-1.20); POTASSIUM 3.9 mmol/L (3.5-5.1)
[2016-09-28 07:58] VITALS: O2SAT 92
[2016-09-28 08:00] VITALS: BP 142/82; PULSE 80; TEMP 37; O2SAT 92
[2016-09-28] MEDS: LACTOBACILLUS ACIDOPHILUS (FLORANEX) TAB PO SCH (08:56)
[2016-09-28] MEDS: ASPIRIN 325 MG ECTAB PO SCH ×2 (08:56→21:07)
[2016-09-28] MEDS: MULTIVITAMIN TAB PO SCH (08:56)
[2016-09-28] MEDS: VENLAFAXINE HCL XR 37.5 MG CAPXR PO SCH (08:56)
[2016-09-28] MEDS: LISINOPRIL 10 MG TAB PO SCH (08:56)
[2016-09-28] MEDS: CLORAZEPATE DIPOTASSIUM 3.75 MG TAB PO PRN ×2 (09:00→17:10)
[2016-09-28] MEDS ORDERED: VANCOMYCIN TROUGH ONE (10:30)
[2016-09-28] MEDS: VANCOMYCIN INJ 1,700 MG in SODIUM CHLORIDE 0.9% 500ML 500 ML IV SCH ×2 (11:09→19:40)
--- NOTE | 2016-09-28 11:33 | Pharmacy Progress Note ---
Pharmacy Abx Dose Progress Nt Date of Service Sep 28, 2016. Pharmacy Dosing Scope The patient is currently receiving the following antimicrobial agents per Pharmacy consult: Vancomycin 1700 mg IV every 14 hours Objective Height (Feet): 5 Height (Inches): 0.00 Weight (Kilograms): 111.900 Vital Signs (Past 12Hrs) Vital Signs Past 12 Hours Date Time Temp Pulse Resp B/P (MAP) Pulse Ox O2 Delivery O2 Flow Rate FiO2 09/28/16 08:00 37.0 80 18 142/82 (102) 92 Room Air 09/28/16 07:58 92 Room Air 09/28/16 07:30 Room Air 09/27/16 23:33 Room Air Lab Results (24Hrs) Laboratory Tests (24 Hours) Item Value Date Time Vancomycin Level Trough 10.6 mcg/ml 09/28/16 1022 Test 09/28/16 05:40 White Blood Count 13.85 K/uL (4.8-10.8) H Micro Results Date/Time Source Procedure Growth Status 09/27/16 20:42 Blood Blood Culture Pending Received 09/27/16 20:36 Blood Blood Culture Pending Received 09/24/16 19:10 Blood Blood Culture - Preliminary NO GROWTH TO DATE. Resulted 09/24/16 19:01 Blood Blood Culture - Preliminary Staphylococcus Aureus Resulted 09/24/16 20:15 Urine , Clean Catch Urine Culture - Final THREE TYPES OF ORGANISMS PRESENT, ALL... Complete 09/24/16 18:00 Skin Hip Gram Stain - Final Complete 09/24/16 18:00 Wound Culture - Final Morganella Morganii Staphylococcus Aureus Morganella Morganii#2 Complete Risk Factors for Resistance * Hospitalization for 48 hours or more within the past 90 days * Antimicrobial use within the last 90 days - PO Keflex Assessment & Plan Assessment 81 year old female receiving IV Vancomycin and Rocephin for treatment of 1/2 Bacteremia Staph infection and IV Rocephin for Wound infection. Day # 3 of antimicrobial therapy Plan Vancomycin IV * Trough level of 10.6 mcg/mL is subtherapeutic * Patient is already on 15mg/kg dose, so will change the dosing interval * Change to 1700 mg IV every 10 hours * Goal trough level for bacteremia : 15 to 20 mcg/mL * Trough level ordered for: 09/29/16 prior to 1600 dose * There is a likelihood of drug accumulation in obese patient (BMI = 48kg/m2), therefore if level is therapeutic, we will need to lengthen dosing interval to prevent accumulation. Rocephin * Continue 1 g IV Q24H Pharmacy will continue to follow and will adjust dose/frequency as necessary. Thank you.
[2016-09-28 15:14] VITALS: BP 110/65; PULSE 83; TEMP 37.1; O2SAT 91
--- NOTE | 2016-09-28 16:09 | Orthopedic Progress Note ---
Orthopedic Progress Note Date of Service Sep 28, 2016. Subjective Reports: feeling well Additional Notes: Feeling much better. Ambulating well. Would like to be discharged soon Objective Date Time Temp Pulse Resp B/P (MAP) Pulse Ox O2 Delivery O2 Flow Rate FiO2 09/28/16 15:14 37.1 83 18 110/65 (80) 91 Room Air 09/28/16 08:00 37.0 80 18 142/82 (102) 92 Room Air 09/28/16 07:58 92 Room Air 09/28/16 07:30 Room Air 09/27/16 23:33 Room Air 09/27/16 23:15 37.3 93 18 140/79 (99) 92 Room Air Laboratory Results 24 Hours: Test 09/28/16 05:40 Hematocrit 31.7 % Hemoglobin 10.6 g/dL Assessment & Plan Assessment: Post-operative UTI R hip wound dehiscence Plan: Continue Vancomycin and follow ID recommendations WBAT PT for ambulation Continue to treat with wound VAC. Ortho stable for discharge and f/u with Dr Jean about 2-3 weeks from discharge [phone] F/U with wound care for VAC changes Aspirin 325 twice a day for DVT prophylaxis
--- NOTE | 2016-09-28 20:21 | Infectious Disease Progress Nt ---
Progress Note Date of Service Sep 28, 2016. Subjective Pt evaluation today including: conversation w/ patient, physical exam, chart review, lab review, review of studies, conversation w/ planning consultant, review of inpatient medication list Patient offering no new complaints today. Remains afebrile. Blood culture has returned positive for methicillin sensitive Staph aureus. All Other Systems: Reviewed and Negative Medications Current Inpatient Medications Medications (Trade) Dose Ordered Sig/Aldo Route Start Time Stop Time Status Last Admin Dose Admin Miscellaneous (Iv Fluids Completed) 1 ea PRN PRN N/A 09/24/16 17:00 09/24/17 16:59 Acetaminophen (Tylenol Tab) 650 mg Q4H PRN PO 09/24/16 18:15 10/24/16 18:14 Ondansetron HCl (Zofran Inj) 4 mg Q6H PRN IV 09/24/16 18:15 10/24/16 18:14 Aspirin (Ecotrin Tab) 325 mg BID PO 09/24/16 21:00 10/24/16 20:59 09/28/16 08:56 325 MG Clorazepate Dipotassium (Tranxene-T Tab) 7.5 mg BID PRN PO 09/24/16 18:45 10/24/16 18:44 09/28/16 17:10 7.5 MG Lisinopril (Zestril Tab) 10 mg DAILY PO 09/25/16 09:00 10/25/16 08:59 09/28/16 08:56 10 MG Multivitamins (Multivitamin Tab) 1 tab QAM PO 09/25/16 09:00 10/25/16 08:59 09/28/16 08:56 1 TAB Venlafaxine HCl (effeXOR EXTENDED REL CAP) 37.5 mg DAILY PO 09/25/16 09:00 10/25/16 08:59 09/28/16 08:56 37.5 MG Zolpidem Tartrate (Ambien Tab) 10 mg HS PRN PO 09/24/16 18:45 10/24/16 18:44 09/27/16 21:07 10 MG Lactobacillus Acidophilus (Floranex Tab) 1 tab DAILY PO 09/25/16 09:00 10/25/16 08:59 09/28/16 08:56 1 TAB Oxycodone HCl (Roxicodone Immediate Rel Tab) 5 mg Q4H PRN PO 09/24/16 18:45 10/08/16 18:44 Ceftriaxone Sodium 1 gm/ Dextrose 50 ml @ 100 mls/hr Q24H IV 09/25/16 00:00 09/30/16 00:00 09/27/16 23:41 100 MLS/HR Vancomycin HCl (Consult) 1 ea UD PRN N/A 09/26/16 17:15 10/26/16 17:14 Vancomycin HCl 1700 mg/Sodium Chloride 534 ml @ 200 mls/hr Q10H IV 09/28/16 20:00 10/05/16 23:59 09/28/16 19:40 200 MLS/HR Objective Vital Signs Date Time Temp Pulse Resp B/P (MAP) Pulse Ox O2 Delivery O2 Flow Rate FiO2 09/28/16 16:20 Room Air 09/28/16 15:14 37.1 83 18 110/65 (80) 91 Room Air 09/28/16 08:00 37.0 80 18 142/82 (102) 92 Room Air 09/28/16 07:58 92 Room Air 09/28/16 07:30 Room Air 09/27/16 23:33 Room Air 09/27/16 23:15 37.3 93 18 140/79 (99) 92 Room Air Physical Exam General Appearance: WD/WN, no apparent distress Eyes: normal inspection, sclerae normal ENT: normal ENT inspection, TMs normal Neck: supple, no adenopathy, trachea midline Respiratory/Chest: chest non-tender, lungs clear, normal breath sounds, no respiratory distress Cardiovascular: regular rate, rhythm, no gallop, no murmur Abdomen: normal bowel sounds, non tender, soft, no organomegaly Extremities: non-tender, no calf tenderness Neurologic/Psychiatric: alert, oriented x 3 Skin: normal color, no rash, + pertinent finding (Wound VAC right hip) Lymphatic: no adenopathy Laboratory Results RUN DATE: 09/28/16 [facility] [address] LAB PAGE 1 RUN TIME: 805 Specimen Inquiry PATIENT: MELISSA ARMENDARIZ LOC: LINDA U # : [id number] AGE/SX: 81/F ROOM: [facility] REG : 09/25/[address]: Elly Abebe M.D. : 1935 BED: 2 DIS : STATUS: ADM IN TLOC: SPEC #: [id number] FACUNDO: 09/24/16 STATUS: RES REQ #: [id number] RECD: 09/24/[address]: Sarah Stewart DO SOURCE: BLOOD ENTR: 09/24/[address] [facility] [address]: Shashank Camara M.D. [facility]: Patrick Jean DO ORDERED: BLOOD CULTURE Procedure Result Verified Site BLD CULT Preliminary 09/28/16-805 Organism 1 STAPHYLOCOCCUS AUREUS SENS SENSITIVITY TO FOLLOW Phoned Positive Blood Culture Gram Stain Report to LUZ BLACK on 09/26/16 At 1553 By [facility] Results were verbalized back to HARN[facility]. 1. STAPHYLOCOCCUS AUREUS Target Route Dose RX AB Cost M.I.C. IQ ------ ----- ------ -- ------ -------- - ------ TRIMET/SULFA S <=0.5/ 9.5 * OXACILLIN S 0.5 VANCOMYCIN S 2 ERYTHROMYCIN R >4 TETRACYCLINE S <=4 CLINDAMYCIN S <=0.5 DAPTOMYCIN S <=0.5 S = SENSITIVE I = INTERMEDIATE R = RESISTANT END OF REPORT Last 24 Hours Test 09/28/16 05:40 09/28/16 10:22 White Blood Count 13.85 K/uL Red Blood Count 3.50 M/uL Hemoglobin 10.6 g/dL Hematocrit 31.7 % Mean Corpuscular Volume 90.6 fL Mean Corpuscular Hemoglobin 30.3 pg Mean Corpuscular Hemoglobin Concent 33.4 g/dl RDW Standard Deviation 43.7 fL RDW Coefficient of Variation 13.1 % Platelet Count 523 K/uL Mean Platelet Volume 8.5 fL Sodium Level 136 mmol/L Potassium Level 3.9 mmol/L Chloride Level 98 mmol/L Carbon Dioxide Level 32 mmol/L Anion Gap 6.0 mmol/L Blood Urea Nitrogen 13 mg/dl Creatinine 0.61 mg/dl Est Creatinine Clear Calc Drug Dose 80.9 ml/min Estimated GFR () 97.8 Estimated GFR (Non- 84.4 BUN/Creatinine Ratio 21.0 Random Glucose 187 mg/dl Calcium Level 8.9 mg/dl Vancomycin Level Trough 10.6 mcg/ml Assessment and Plan 81-year-old female with mild surgical site infection right hip with methicillin sensitive Staph aureus and Morganella, now status post wound VAC placement. with blood cultures positive for S. aureus as well. Will need minimum of 2 weeks IV Abx, would also obtain echocardiogram. Will change to IV cefazolin pending above. Will follow.
--- NOTE | 2016-09-28 20:41 | Progress Note ---
Medicine Progress Note Date & Time of Visit: Sep 28, 2016 at 20:34. Subjective Pt was seen and examined Lying in bed with no distress with daughter present denies any chest pain, palpitation, dizziness and sob Objective Last 8 Hrs Date Time Temp Pulse Resp B/P (MAP) Pulse Ox O2 Delivery O2 Flow Rate FiO2 09/28/16 16:20 Room Air 09/28/16 15:14 37.1 83 18 110/65 (80) 91 Room Air Physical Exam: General- No acute distress, obese Head- atraumatic Eyes- PERRL, EOMI ENT- oropharynx clear Neck- supple, no JVD Lungs- clear to auscultation Heart- regular rhythm Abdomen- normal bowel sounds, soft Extremities- no calf tenderness, wound vac in the right hip Neuro- alert, oriented x 3; PERRL, EOMI Skin- warm & dry Laboratory Results: Last 24 Hours Test 09/28/16 05:40 09/28/16 10:22 White Blood Count 13.85 K/uL Red Blood Count 3.50 M/uL Hemoglobin 10.6 g/dL Hematocrit 31.7 % Mean Corpuscular Volume 90.6 fL Mean Corpuscular Hemoglobin 30.3 pg Mean Corpuscular Hemoglobin Concent 33.4 g/dl RDW Standard Deviation 43.7 fL RDW Coefficient of Variation 13.1 % Platelet Count 523 K/uL Mean Platelet Volume 8.5 fL Sodium Level 136 mmol/L Potassium Level 3.9 mmol/L Chloride Level 98 mmol/L Carbon Dioxide Level 32 mmol/L Anion Gap 6.0 mmol/L Blood Urea Nitrogen 13 mg/dl Creatinine 0.61 mg/dl Est Creatinine Clear Calc Drug Dose 80.9 ml/min Estimated GFR () 97.8 Estimated GFR (Non- 84.4 BUN/Creatinine Ratio 21.0 Random Glucose 187 mg/dl Calcium Level 8.9 mg/dl Vancomycin Level Trough 10.6 mcg/ml Date/Time Source Procedure Growth Status 09/27/16 20:42 Blood Blood Culture Pending Received 09/27/16 20:36 Blood Blood Culture Pending Received Assessment & Plan Generalized Weakness Possible related to UTI vs surgical site wound infection Present on admission with fever and leukocytosis Was started on Keflex as an outpatient Abx changed to rocephin due to possible underling UTI WBC trending down to 12K Continue Rocephin PT/OT Continue monitor CBC talked to residential case manager for placement to rehab Bacteremia blood cx growth gram positive cocci afebrile, Elevated leukocytes on IV Vanco ID consult Blood cx is methicillin sensitive ID recommended 2 weeks IV cefazolin Will need picc line insertion once repeat blood cx is negative for IV abx for discharge Echo ordered Follow up on repeat blood cx. Abnormal UA Asymptomatic Continue rocephin urine cx showed more than 3 organisms possible contamination S/P Right arthroplasty Performed by Dr. Jean Incision site showed wound dehiscence Ortho planning to put an incisional vac rather to go to OR for I&D Continue daily wound care Wound vac in placed Wound cx growth GRAM STAIN Final 09/25/16-845 RESULT MANY POLYS MANY GRAM POSITIVE COCCI RARE GRAM NEGATIVE BACILLI SURFACE WOUND CULTURE Preliminary 09/26/16-3 Organism 1 MORGANELLA MORGANII QUANITY MANY SENS SENSITIVITY TO FOLLOW Organism 2 STAPHYLOCOCCUS AUREUS QUANITY MANY SENS SENSITIVITY TO FOLLOW Organism 3 GRAM NEGATIVE BACILLI QUANITY MODERATE SENS SENSITIVITY TO FOLLOW MOR FAY STAPH AUR M.I.C. RX M.I.C. RX --------- ------ --------- ------ TRIMET/SULFA <=2/38 S <=0.5/9.5 S * OXACILLIN 0.5 S AMPICILLIN/SUL >16/8 R CEFOTAXIME <=2 S CEFTRIAXONE <=1 S CEFEPIME <=4 S IMIPENEM 4 R VANCOMYCIN 2 S GENTAMICIN <=4 S TOBRAMYCIN <=4 S ERYTHROMYCIN >4 R TETRACYCLINE <=4 S AMIKACIN <=16 S CIPROFLOXACIN <=1 S LEVOFLOXACIN <=2 S CLINDAMYCIN <=0.5 S ERTAPENEM <=1 S DAPTOMYCIN <=0.5 S PIP/TAZO <=16 S HTN Continue BP meds Anxiety On Effexor Stable Anemia possible related to post-op hgb 10.6 yesterday stable Hyponatremia possible related to poor Intake since pt is NPO will start on gentle IVF monitor BMP DVT px on asa 325 mg BID as per ortho CODE STATUS DNR Consultants: Ortho ID Current Inpatient Medications: Current Inpatient Medications Medications (Trade) Dose Ordered Sig/Aldo Route Start Time Stop Time Status Last Admin Dose Admin Miscellaneous (Iv Fluids Completed) 1 ea PRN PRN N/A 09/24/16 17:00 09/24/17 16:59 Acetaminophen (Tylenol Tab) 650 mg Q4H PRN PO 09/24/16 18:15 10/24/16 18:14 Ondansetron HCl (Zofran Inj) 4 mg Q6H PRN IV 09/24/16 18:15 10/24/16 18:14 Aspirin (Ecotrin Tab) 325 mg BID PO 09/24/16 21:00 10/24/16 20:59 09/28/16 08:56 325 MG Clorazepate Dipotassium (Tranxene-T Tab) 7.5 mg BID PRN PO 09/24/16 18:45 10/24/16 18:44 09/28/16 17:10 7.5 MG Lisinopril (Zestril Tab) 10 mg DAILY PO 09/25/16 09:00 10/25/16 08:59 09/28/16 08:56 10 MG Multivitamins (Multivitamin Tab) 1 tab QAM PO 09/25/16 09:00 10/25/16 08:59 09/28/16 08:56 1 TAB Venlafaxine HCl (effeXOR EXTENDED REL CAP) 37.5 mg DAILY PO 09/25/16 09:00 10/25/16 08:59 09/28/16 08:56 37.5 MG Zolpidem Tartrate (Ambien Tab) 10 mg HS PRN PO 09/24/16 18:45 10/24/16 18:44 09/27/16 21:07 10 MG Lactobacillus Acidophilus (Floranex Tab) 1 tab DAILY PO 09/25/16 09:00 10/25/16 08:59 09/28/16 08:56 1 TAB Oxycodone HCl (Roxicodone Immediate Rel Tab) 5 mg Q4H PRN PO 09/24/16 18:45 10/08/16 18:44 Vancomycin HCl (Consult) 1 ea UD PRN N/A 09/26/16 17:15 10/26/16 17:14 Vancomycin HCl 1700 mg/Sodium Chloride 534 ml @ 200 mls/hr Q10H IV 09/28/16 20:00 10/05/16 23:59 09/28/16 19:40 200 MLS/HR Cefazolin Sodium 2000 mg/Dextrose 60 ml @ 100 mls/hr Q8H IV 09/28/16 22:00 10/12/16 21:59
[2016-09-28] MEDS: ZOLPIDEM TARTRATE 10 MG TAB PO PRN (21:06)
[2016-09-28] MEDS: CEFAZOLIN IV 2,000 MG in DEXTROSE 5% 50ML 50 ML IV SCH (21:50)
[2016-09-28 22:55] VITALS: BP 139/79; PULSE 90; TEMP 37.1; O2SAT 93
[2016-09-29 03:51] VITALS: BP 126/72; PULSE 84; TEMP 36.9; O2SAT 92
[2016-09-29] MEDS: VANCOMYCIN INJ 1,700 MG in SODIUM CHLORIDE 0.9% 500ML 500 ML IV SCH (06:20)
[2016-09-29] MEDS: CEFAZOLIN IV 2,000 MG in DEXTROSE 5% 50ML 50 ML IV SCH ×3 (06:20→21:35)
[2016-09-29 07:36] VITALS: BP 145/72; PULSE 78; TEMP 36.7; O2SAT 93
[2016-09-29 08:15] LABS: CREATININE 0.64 mg/dl (0.60-1.20)
[2016-09-29 08:41] VITALS: O2SAT 93
[2016-09-29] MEDS: ASPIRIN 325 MG ECTAB PO SCH ×2 (08:51→21:07)
[2016-09-29] MEDS: LISINOPRIL 10 MG TAB PO SCH (08:51)
[2016-09-29] MEDS: MULTIVITAMIN TAB PO SCH (08:51)
[2016-09-29] MEDS: LACTOBACILLUS ACIDOPHILUS (FLORANEX) TAB PO SCH (08:51)
[2016-09-29] MEDS: VENLAFAXINE HCL XR 37.5 MG CAPXR PO SCH (08:52)
[2016-09-29] MEDS: CLORAZEPATE DIPOTASSIUM 3.75 MG TAB PO PRN ×2 (08:52→19:06)
[2016-09-29 09:29] VITALS: BP 145/72; PULSE 78; TEMP 36.7; O2SAT 93
--- NOTE | 2016-09-29 12:52 | ECHOCARDIOGRAM REPORT ---
*NOTICE TO RECEIVING LIBERTARIAN AGENCY This information is strictly Confidential and protected under [place] law. [place] law prohibits you from making any further disclosure of this information unless further disclosure is expressly permitted by the written consent of the person to whom it pertains or is authorized by law. A general authorization for the release of medical or other information is not sufficient for this purpose. Hospital accepts no responsibility if the information is made available to any other person, INCLUDING THE PATIENT. Interpretation Summary * Name: MELISSA ARMENDARIZ Study Date: 09/29/2016 10:12 AM BP: 126/72 mmHg * Patient Location: C.MSN\S\N384\S\2 HR: 86 * : 1935 (M/d/yyyy) Gender: Female Height: 5 in * Age: 81 yrs Ethnicity: CA Weight: 246 lb * Ordering Physician: Brayan White * Referring Physician: Self, Referred * Performed By: Mauri Maldonado RCS * * Reason For Study: Endocarditis * BSA: 0.34 m2 * -- Conclusions -- * 1. Normal LV size, mild concentric LVH. * 2. Normal LV systolic function. LVEF 65-70%. No regional wall motion abnormalities. * 3. Normal RV size and function. * 4. Grade II diastolic dysfunction. 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 * 6. No other significant valvular pathology. * 7. Normal estimated RA pressure. * 8. No prior studies for comparison. Procedure Details * Left Ventricle The left ventricle is grossly normal size. There is mild concentric left ventricular hypertrophy. The echo findings are consistent with left ventricular outflow obstruction. Peak LVOTvelocity 4.33 m/s Ejection Fraction = 65-70%. No regional wall motion abnormalities noted. * Right Ventricle The right ventricle is grossly normal size. The right ventricular systolic function is normal as assessed by tricuspid annular plane systolic excursion (TAPSE) (normal >1.5 cm). * Atria Borderline left atrial enlargement. Right atrial size is normal. No ASD detected; PFO is not assessed. * Mitral Valve There is moderate mitral annular calcification. There is no mitral valve stenosis. There is no mitral regurgitation noted. * Tricuspid Valve The tricuspid valve is not well visualized. There is trace tricuspid regurgitation. * Aortic Valve The aortic valve opens well. There is no significant aortic regurgitation. * Pulmonic Valve The pulmonary valve is inadequately visualized, but the Doppler data is adequate for interpretation. Pulmonic stenosis is absent. There is no significant pulmonary regurgitation. * Great Vessels The aortic root and proximal ascending aorta are normal sized. * Pericardium/Pleural There is no pericardial effusion. * Great Vessels Normal inferior vena cava size and collapsability with sniff indicates a normal right atrial pressure of 3 mmHg * Left Ventricular Diastolic Function Diastolic dysfunction, Grade II (pseudonormalization pattern). * * MMode 2D Measurements and Calculations * IVSd 1.5 cm * * LVIDd 5.2 cm * LVIDs 3.1 cm * LVPWd 1.5 cm * * IVS/LVPW 1.0 * FS 40.3 % * EDV(Teich) 127.6 ml * ESV(Teich) 37.5 ml * EF(Teich) 70.6 % * * EDV(cubed) 138.0 ml * ESV(cubed) 29.4 ml * EF(cubed) 78.7 % * * LV mass(C)d 324.8 grams * LV mass(C)dI 965.6 grams/m\S\2 * * SV(Teich) 90.1 ml * SI(Teich) 267.9 ml/m\S\2 * SV(cubed) 108.6 ml * SI(cubed) 322.8 ml/m\S\2 * * Ao root diam 3.4 cm * Ao root area 9.1 cm\S\2 * * LVOT diam 2.0 cm * LVOT area 3.3 cm\S\2 * * LVAd ap4 30.8 cm\S\2 * LVLd ap4 8.1 cm * EDV(MOD-sp4) 97.4 ml * EDV(sp4-el) 99.7 ml * LVAs ap4 14.6 cm\S\2 * LVLs ap4 6.0 cm * ESV(MOD-sp4) 33.3 ml * ESV(sp4-el) 30.3 ml * EF(MOD-sp4) 65.9 % * EF(sp4-el) 69.6 % * * LVAd ap2 28.7 cm\S\2 * LVLd ap2 7.9 cm * EDV(MOD-sp2) 84.1 ml * EDV(sp2-el) 88.9 ml * LVAs ap2 12.0 cm\S\2 * LVLs ap2 5.8 cm * ESV(MOD-sp2) 22.7 ml * ESV(sp2-el) 21.0 ml * EF(MOD-sp2) 73.0 % * EF(sp2-el) 76.3 % * * LVLd %diff -2.93 % * EDV(MOD-bp) 92.4 ml * LVLs %diff -3.04 % * ESV(MOD-bp) 28.0 ml * EF(MOD-bp) 69.7 % * * SV(MOD-sp4) 64.2 ml * SI(MOD-sp4) 190.7 ml/m\S\2 * * SV(MOD-sp2) 61.5 ml * SI(MOD-sp2) 182.7 ml/m\S\2 * * SV(MOD-bp) 64.3 ml * SI(MOD-bp) 191.2 ml/m\S\2 * * SV(sp4-el) 69.3 ml * SI(sp4-el) 206.1 ml/m\S\2 * * SV(sp2-el) 67.8 ml * SI(sp2-el) 201.7 ml/m\S\2 * * * Doppler Measurements and Calculations * MV E max melisa 128.0 cm/sec * * MV dec time 0.26 sec * * * *
--- NOTE | 2016-09-29 14:08 | Progress Note ---
Internal Med Progress Note Date of Service: Sep 29, 2016. Provider Documentation: SUBJECTIVE: Seen and examined at bedside. Feels well. Offers no complaints. Denies any chest pain, SOB, fever, chills, abd pain. Family at bedside. OBJECTIVE: Vital Signs-as noted below Physical Exam: General Appearance:Moderately built and nourished, no apparent distress Head: normocephalic, Atraumatic Eyes: normal inspection, EOMI, PERRL Neck: supple, Trachea midline Respiratory/Chest: Normal breath sounds, CTA Cardiovascular: S1, S2, No murmur Abdomen/GI:Soft, Non tender, Bowel sounds present Extremities/Musculoskelatal:normal inspection, no edema, wound vac on R hip Neurologic/Psych:AAOX3, grossly no focal neurological deficits Skin: normal color, warm Lab data as noted below. ASSESSMENT & PLAN: Generalized Weakness Possible related to Bacteremia, wound infection, UTI Present on admission with fever and leukocytosis Was started on Keflex as an outpatient for UTI Abx changed to Ancef per ID PT/OT Continue monitor CBC Needs rehab placement Bacteremia Blood cx: Stah.aureus Continue Ancef Appreciate ID input Repeat Blood cx: negative Needs 2 weeks of IV cefazolin Will get picc line placed ECHO:No vegetations Abnormal UA Asymptomatic S/P rocephin urine cx showed more than 3 organisms possible contamination S/P Right arthroplasty Performed by Dr. Jean Incision site showed wound dehiscence Continue wound Vac Needs follow up with Dr Jean about 2-3 weeks from discharge [phone] Needs follow up with wound care for VAC changes HTN Continue current meds Anxiety On Effexor Stable Anemia possible related to post-op hgb 10.6 stable Monitor CBC Hyponatremia Resolved monitor BMP DVT Px: on asa 325 mg BID as per ortho CODE STATUS DNR Disposition: Needs rehab placement Medically stable for discharge after PICC line placement Consultants: Ortho ID PROCEDURES: ECHO: * -- Conclusions -- * 1. Normal LV size, mild concentric LVH. * 2. Normal LV systolic function. LVEF 65-70%. No regional wall motion abnormalities. * 3. Normal RV size and function. * 4. Grade II diastolic dysfunction. 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 * 6. No other significant valvular pathology. * 7. Normal estimated RA pressure. * 8. No prior studies for comparison. Vital Signs: Date Time Temp Pulse Resp B/P (MAP) Pulse Ox O2 Delivery O2 Flow Rate FiO2 09/29/16 15:15 37.0 80 16 129/76 (93) 90 Room Air 09/29/16 09:29 36.7 78 18 145/72 (96) 93 Room Air 09/29/16 08:41 93 Room Air 09/29/16 07:50 Room Air 09/29/16 03:51 36.9 84 16 126/72 (90) 92 Room Air 09/29/16 00:00 Room Air 09/28/16 22:55 37.1 90 16 139/79 (99) 93 Room Air 09/28/16 16:20 Room Air Lab Results: Results Past 24 Hours Test 09/29/16 07:31 Range/Units Creatinine 0.64 0.60-1.20 mg/dl Est Creatinine Clear Calc Drug Dose 77.1 ml/min Estimated GFR () 96.3 Estimated GFR (Non- 83.1
--- NOTE | 2016-09-29 14:32 | Orthopedic Progress Note ---
Orthopedic Progress Note Date of Service Sep 29, 2016. Subjective Additional Notes: S&E at bedside. Feeling well. Would like to be discharged to [facility]. Working well with PT Objective Date Time Temp Pulse Resp B/P (MAP) Pulse Ox O2 Delivery O2 Flow Rate FiO2 09/29/16 09:29 36.7 78 18 145/72 (96) 93 Room Air 09/29/16 08:41 93 Room Air 09/29/16 07:50 Room Air 09/29/16 03:51 36.9 84 16 126/72 (90) 92 Room Air 09/29/16 00:00 Room Air 09/28/16 22:55 37.1 90 16 139/79 (99) 93 Room Air 09/28/16 16:20 Room Air 09/28/16 15:14 37.1 83 18 110/65 (80) 91 Room Air Assessment & Plan Assessment: Post-operative UTI R hip wound dehiscence Plan: Continue Ancef and follow ID recommendations Awaiting echo and f/u blood cultures Will likely need PICC placement WBAT PT for ambulation Continue to treat with wound VAC. Ortho stable for discharge and f/u with Dr Jean about 2-3 weeks from discharge [phone] F/U with wound care for VAC changes Aspirin 325 twice a day for DVT prophylaxis
[2016-09-29 15:15] VITALS: BP 129/76; PULSE 80; TEMP 37; O2SAT 90
--- NOTE | 2016-09-29 15:16 | Infectious Disease Progress Nt ---
Progress Note Date of Service Sep 29, 2016. Subjective Pt evaluation today including: conversation w/ patient, physical exam, chart review, lab review, review of studies, conversation w/ building consultant, review of inpatient medication list No new complaints. F/U blood cultures negative. Echo unremarkable. Remains afebrile. All Other Systems: Reviewed and Negative Medications Current Inpatient Medications Medications (Trade) Dose Ordered Sig/Aldo Route Start Time Stop Time Status Last Admin Dose Admin Miscellaneous (Iv Fluids Completed) 1 ea PRN PRN N/A 09/24/16 17:00 09/24/17 16:59 Acetaminophen (Tylenol Tab) 650 mg Q4H PRN PO 09/24/16 18:15 10/24/16 18:14 Ondansetron HCl (Zofran Inj) 4 mg Q6H PRN IV 09/24/16 18:15 10/24/16 18:14 Aspirin (Ecotrin Tab) 325 mg BID PO 09/24/16 21:00 10/24/16 20:59 09/29/16 08:51 325 MG Clorazepate Dipotassium (Tranxene-T Tab) 7.5 mg BID PRN PO 09/24/16 18:45 10/24/16 18:44 09/29/16 08:52 7.5 MG Lisinopril (Zestril Tab) 10 mg DAILY PO 09/25/16 09:00 10/25/16 08:59 09/29/16 08:51 10 MG Multivitamins (Multivitamin Tab) 1 tab QAM PO 09/25/16 09:00 10/25/16 08:59 09/29/16 08:51 1 TAB Venlafaxine HCl (effeXOR EXTENDED REL CAP) 37.5 mg DAILY PO 09/25/16 09:00 10/25/16 08:59 09/29/16 08:52 37.5 MG Zolpidem Tartrate (Ambien Tab) 10 mg HS PRN PO 09/24/16 18:45 10/24/16 18:44 09/28/16 21:06 10 MG Lactobacillus Acidophilus (Floranex Tab) 1 tab DAILY PO 09/25/16 09:00 10/25/16 08:59 09/29/16 08:51 1 TAB Oxycodone HCl (Roxicodone Immediate Rel Tab) 5 mg Q4H PRN PO 09/24/16 18:45 10/08/16 18:44 Cefazolin Sodium 2000 mg/Dextrose 60 ml @ 100 mls/hr Q8H IV 09/28/16 22:00 10/12/16 21:59 09/29/16 13:53 100 MLS/HR Objective Vital Signs Date Time Temp Pulse Resp B/P (MAP) Pulse Ox O2 Delivery O2 Flow Rate FiO2 09/29/16 09:29 36.7 78 18 145/72 (96) 93 Room Air 09/29/16 08:41 93 Room Air 09/29/16 07:50 Room Air 09/29/16 03:51 36.9 84 16 126/72 (90) 92 Room Air 09/29/16 00:00 Room Air 09/28/16 22:55 37.1 90 16 139/79 (99) 93 Room Air 09/28/16 16:20 Room Air Physical Exam General Appearance: WD/WN, no apparent distress Eyes: normal inspection, EOMI, funduscopic exam normal ENT: normal ENT inspection, pharynx normal Neck: supple, no adenopathy, thyroid normal, trachea midline Respiratory/Chest: lungs clear, normal breath sounds, no respiratory distress Cardiovascular: regular rate, rhythm, no gallop, no murmur Abdomen: normal bowel sounds, non tender, soft, no organomegaly Extremities: non-tender, no calf tenderness Neurologic/Psychiatric: alert, oriented x 3 Skin: normal color, no rash, + pertinent finding (wound VAC in place right hip) Lymphatic: no adenopathy Laboratory Results Last 24 Hours Test 09/29/16 07:31 Creatinine 0.64 mg/dl Est Creatinine Clear Calc Drug Dose 77.1 ml/min Estimated GFR () 96.3 Estimated GFR (Non- 83.1 Assessment and Plan 81-year-old female with mild surgical site infection right hip with methicillin sensitive Staph aureus and Morganella, now status post wound VAC placement. with blood cultures positive for S. aureus as well. Will need 2 weeks IV Abx and to continue cefazolin for now. Will follow.
[2016-09-29] MEDS ORDERED: VANCOMYCIN TROUGH ONE (15:30)
[2016-09-29] MEDS: ZOLPIDEM TARTRATE 10 MG TAB PO PRN (21:08)
[2016-09-29 23:44] VITALS: BP 124/80; PULSE 88; TEMP 37.1; O2SAT 92
[2016-09-30] MEDS: CEFAZOLIN IV 2,000 MG in DEXTROSE 5% 50ML 50 ML IV SCH ×3 (05:38→21:34)
[2016-09-30 06:09] LABS: BASO % 1.2 %; BASO ABS # 0.12 K/uL (0-0.2); COMPLETE YES; EOS % 8.6 %; HEMATOCRIT 31.9 % (37-47); IG% 1.9 %; LYMPH % 14.5 %; LYMPH ABS # 1.49 K/uL (1.2-3.4); MEAN CELL VOLUME 92.2 fL (80-100); MEAN CORPUSCULAR HEMOGLOBIN 30.3 pg (25-34); MEAN CORPUSCULAR HGB CONC 32.9 g/dl (32-36); MEAN PLATELET VOLUME 8.7 fL (7.4-10.4); MONO % 10.6 %; NEUT % 63.2 %; PLATELET COUNT 543 K/uL (130-400); RED BLOOD COUNT 3.46 M/uL (4.2-5.4); WHITE BLOOD COUNT 10.28 K/uL (4.8-10.8)
[2016-09-30 07:29] VITALS: BP_SYST 104; BP_SYST 134; BP_DIAS 68; BP_DIAS 70; PULSE 82; TEMP 36.9; O2SAT 95
[2016-09-30] MEDS: LACTOBACILLUS ACIDOPHILUS (FLORANEX) TAB PO SCH (09:16)
[2016-09-30] MEDS: LISINOPRIL 10 MG TAB PO SCH (09:16)
[2016-09-30] MEDS: MULTIVITAMIN TAB PO SCH (09:16)
[2016-09-30] MEDS: VENLAFAXINE HCL XR 37.5 MG CAPXR PO SCH (09:16)
[2016-09-30] MEDS: ASPIRIN 325 MG ECTAB PO SCH ×2 (09:16→20:57)
--- NOTE | 2016-09-30 10:51 | Orthopedic Progress Note ---
Orthopedic Progress Note Date of Service Sep 30, 2016. Subjective Additional Notes: Still feeling well. Working well with therapy. PICC line placed. Awaiting final ID recommendations for discharge. Objective calves soft nontender, N/V intact, hip located, dressing C/D/I Date Time Temp Pulse Resp B/P (MAP) Pulse Ox O2 Delivery O2 Flow Rate FiO2 09/30/16 08:57 Room Air 09/30/16 07:29 36.9 82 19 134/70 (91) 95 Room Air 09/30/16 00:00 Room Air 09/29/16 23:44 37.1 88 18 124/80 (95) 92 Room Air 09/29/16 16:31 Room Air 09/29/16 15:15 37.0 80 16 129/76 (93) 90 Room Air Laboratory Results 24 Hours: Test 09/30/16 05:40 White Blood Count 10.28 K/uL Red Blood Count 3.46 M/uL Hemoglobin 10.5 g/dL Hematocrit 31.9 % Mean Corpuscular Volume 92.2 fL Mean Corpuscular Hemoglobin 30.3 pg Mean Corpuscular Hemoglobin Concent 32.9 g/dl Platelet Count 543 K/uL Mean Platelet Volume 8.7 fL Neutrophils (%) (Auto) 63.2 % Lymphocytes (%) (Auto) 14.5 % Monocytes (%) (Auto) 10.6 % Eosinophils (%) (Auto) 8.6 % Basophils (%) (Auto) 1.2 % Neutrophils # (Auto) 6.50 K/uL Lymphocytes # (Auto) 1.49 K/uL Monocytes # (Auto) 1.09 K/uL Eosinophils # (Auto) 0.88 K/uL Basophils # (Auto) 0.12 K/uL Assessment & Plan Assessment: Post-operative UTI R hip wound dehiscence Plan: Continue Ancef and follow ID recommendations PICC line placed WBAT PT for ambulation Continue to treat with wound VAC. Ortho stable for discharge and f/u with Dr Jean about 2-3 weeks from discharge [phone] F/U with wound care for VAC changes Aspirin 325 twice a day for DVT prophylaxis
[2016-09-30] MEDS: CLORAZEPATE DIPOTASSIUM 3.75 MG TAB PO PRN (11:43)
--- NOTE | 2016-09-30 13:51 | Progress Note ---
Internal Med Progress Note Date of Service: Sep 30, 2016. Provider Documentation: SUBJECTIVE: Seen and examined at bedside. Offers no complaints. Denies any chest pain, SOB, fever, chills, abd pain. Eager to get discharged. OBJECTIVE: Vital Signs-as noted below Physical Exam: General Appearance:Moderately built and nourished, no apparent distress Head: normocephalic, Atraumatic Eyes: normal inspection, EOMI, PERRL Neck: supple, Trachea midline Respiratory/Chest: Normal breath sounds, CTA Cardiovascular: S1, S2, No murmur Abdomen/GI:Soft, Non tender, Bowel sounds present Extremities/Musculoskelatal:normal inspection, no edema, wound vac on R hip Neurologic/Psych:AAOX3, grossly no focal neurological deficits Skin: normal color, warm Lab data as noted below. ASSESSMENT & PLAN: Generalized Weakness Possible related to Bacteremia, wound infection, UTI Present on admission with fever and leukocytosis Was started on Keflex as an outpatient for UTI Continue Ancef per ID PT/OT Continue monitor CBC Needs rehab placement Bacteremia Blood cx: Stah.aureus Continue Ancef Appreciate ID input Repeat Blood cx: negative Needs 2 weeks of IV cefazolin PICC line placed on 09/29 ECHO:No vegetations Abnormal UA Asymptomatic S/P Rocephin urine cx showed more than 3 organisms possible contamination S/P Right arthroplasty Performed by Dr. Jean Incision site showed wound dehiscence Continue wound Vac Needs follow up with Dr Jean about 2-3 weeks from discharge [phone] Needs follow up with wound care for VAC changes Ortho following HTN Continue current meds Anxiety On Effexor Stable Anemia possible related to post-op hgb 10.5 stable Monitor CBC Hyponatremia Resolved monitor BMP DVT Px: on asa 325 mg BID as per ortho CODE STATUS DNR Disposition: Needs rehab placement Medically stable for discharge. Plan to discharge when placement available special delivery worker consulted Consultants: Ortho ID PROCEDURES: ECHO: * -- Conclusions -- * 1. Normal LV size, mild concentric LVH. * 2. Normal LV systolic function. LVEF 65-70%. No regional wall motion abnormalities. * 3. Normal RV size and function. * 4. Grade II diastolic dysfunction. 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 * 6. No other significant valvular pathology. * 7. Normal estimated RA pressure. * 8. No prior studies for comparison. Vital Signs: Date Time Temp Pulse Resp B/P (MAP) Pulse Ox O2 Delivery O2 Flow Rate FiO2 09/30/16 08:57 Room Air 09/30/16 07:29 36.9 82 19 134/70 (91) 95 Room Air 09/30/16 00:00 Room Air 09/29/16 23:44 37.1 88 18 124/80 (95) 92 Room Air 09/29/16 16:31 Room Air 09/29/16 15:15 37.0 80 16 129/76 (93) 90 Room Air Lab Results: Results Past 24 Hours Test 09/30/16 05:40 Range/Units White Blood Count 10.28 4.8-10.8 K/uL Red Blood Count 3.46 4.2-5.4 M/uL Hemoglobin 10.5 12.0-16.0 g/dL Hematocrit 31.9 37-47 % Mean Corpuscular Volume 92.2 80-100 fL Mean Corpuscular Hemoglobin 30.3 25-34 pg Mean Corpuscular Hemoglobin Concent 32.9 32-36 g/dl Platelet Count 543 130-400 K/uL Mean Platelet Volume 8.7 7.4-10.4 fL Neutrophils (%) (Auto) 63.2 % Lymphocytes (%) (Auto) 14.5 % Monocytes (%) (Auto) 10.6 % Eosinophils (%) (Auto) 8.6 % Basophils (%) (Auto) 1.2 % Neutrophils # (Auto) 6.50 1.4-6.5 K/uL Lymphocytes # (Auto) 1.49 1.2-3.4 K/uL Monocytes # (Auto) 1.09 0.11-0.59 K/uL Eosinophils # (Auto) 0.88 0-0.5 K/uL Basophils # (Auto) 0.12 0-0.2 K/uL RDW Standard Deviation 45.2 36.4-46.3 fL RDW Coefficient of Variation 13.4 11.5-14.5 % Immature Granulocyte % (Auto) 1.9 % Immature Granulocyte # (Auto) 0.20 0.00-0.02 K/uL
[2016-09-30] MEDS: ACETAMINOPHEN 325 MG TAB PO PRN ×2 (14:33→21:02)
[2016-09-30 15:14] VITALS: BP 120/73; PULSE 78; TEMP 36.8; O2SAT 92
[2016-09-30] MEDS: ZOLPIDEM TARTRATE 10 MG TAB PO PRN (20:57)
[2016-09-30 23:03] VITALS: BP 146/77; PULSE 72; TEMP 36.7; O2SAT 91
[2016-10-01] MEDS: CEFAZOLIN IV 2,000 MG in DEXTROSE 5% 50ML 50 ML IV SCH ×3 (05:42→21:36)
[2016-10-01 05:47] LABS: BASO % 1.2 %; BASO ABS # 0.11 K/uL (0-0.2); COMPLETE YES; EOS % 8.4 %; HEMATOCRIT 30.9 % (37-47); IG% 1.6 %; LYMPH % 16.1 %; LYMPH ABS # 1.48 K/uL (1.2-3.4); MEAN CELL VOLUME 91.2 fL (80-100); MEAN CORPUSCULAR HEMOGLOBIN 29.8 pg (25-34); MEAN CORPUSCULAR HGB CONC 32.7 g/dl (32-36); MEAN PLATELET VOLUME 8.2 fL (7.4-10.4); MONO % 9.2 %; NEUT % 63.5 %; PLATELET COUNT 505 K/uL (130-400); RED BLOOD COUNT 3.39 M/uL (4.2-5.4)
[2016-10-01 06:12] LABS: BUN/CREATININE RATIO 17.5 (10-20); CALCIUM 8.4 mg/dl (8.5-10.1); CREATININE 0.49 mg/dl (0.60-1.20); POTASSIUM 3.7 mmol/L (3.5-5.1)
--- NOTE | 2016-10-01 07:00 | Orthopedic Progress Note ---
Orthopedic Progress Note Date of Service Oct 01, 2016. Subjective Additional Notes: S&E at bedside. Eager for discharge. No new complaints. Objective N/V intact, dressing C/D/I Date Time Temp Pulse Resp B/P (MAP) Pulse Ox O2 Delivery O2 Flow Rate FiO2 09/30/16 23:30 Room Air 09/30/16 23:03 36.7 72 15 146/77 (100) 91 Room Air 09/30/16 15:14 36.8 78 16 120/73 (89) 92 Room Air 09/30/16 15:00 Room Air 09/30/16 08:57 Room Air 09/30/16 07:29 36.9 82 19 134/70 (91) 95 Room Air Laboratory Results 24 Hours: Test 10/01/16 05:30 White Blood Count 9.20 K/uL Red Blood Count 3.39 M/uL Hemoglobin 10.1 g/dL Hematocrit 30.9 % Mean Corpuscular Volume 91.2 fL Mean Corpuscular Hemoglobin 29.8 pg Mean Corpuscular Hemoglobin Concent 32.7 g/dl Platelet Count 505 K/uL Mean Platelet Volume 8.2 fL Neutrophils (%) (Auto) 63.5 % Lymphocytes (%) (Auto) 16.1 % Monocytes (%) (Auto) 9.2 % Eosinophils (%) (Auto) 8.4 % Basophils (%) (Auto) 1.2 % Neutrophils # (Auto) 5.84 K/uL Lymphocytes # (Auto) 1.48 K/uL Monocytes # (Auto) 0.85 K/uL Eosinophils # (Auto) 0.77 K/uL Basophils # (Auto) 0.11 K/uL Assessment & Plan Assessment: Post-operative UTI R hip wound dehiscence Plan: Continue Ancef and follow ID recommendations PICC line placed ECHO negative WBAT PT for ambulation Continue to treat with wound VAC. Ortho stable for discharge and f/u with Dr Jean about 2-3 weeks from discharge [phone] F/U with wound care for VAC changes Aspirin 325 twice a day for DVT prophylaxis
[2016-10-01 07:19] VITALS: BP 147/75; PULSE 74; TEMP 37.2; O2SAT 90
[2016-10-01] MEDS: MULTIVITAMIN TAB PO SCH (09:19)
[2016-10-01] MEDS: ASPIRIN 325 MG ECTAB PO SCH ×2 (09:19→20:52)
[2016-10-01] MEDS: LISINOPRIL 10 MG TAB PO SCH (09:19)
[2016-10-01] MEDS: LACTOBACILLUS ACIDOPHILUS (FLORANEX) TAB PO SCH (09:19)
[2016-10-01] MEDS: VENLAFAXINE HCL XR 37.5 MG CAPXR PO SCH (09:19)
[2016-10-01 10:32] VITALS: BP 139/81; PULSE 91
--- NOTE | 2016-10-01 14:06 | Progress Note ---
Internal Med Progress Note Date of Service: Oct 01, 2016. Provider Documentation: SUBJECTIVE: Seen and examined at bedside. No new complaints. Doing well. Eager to get discharged. OBJECTIVE: Vital Signs-as noted below Physical Exam: General Appearance:Moderately built and nourished, no apparent distress Head: normocephalic, Atraumatic Eyes: normal inspection, EOMI, PERRL Neck: supple, Trachea midline Respiratory/Chest: Normal breath sounds, CTA Cardiovascular: S1, S2, + systolic murmur Abdomen/GI:Soft, Non tender, Bowel sounds present Extremities/Musculoskelatal:normal inspection, no edema, wound vac on R hip Neurologic/Psych:AAOX3, grossly no focal neurological deficits Skin: normal color, warm Lab data as noted below. ASSESSMENT & PLAN: Generalized Weakness Possible related to Bacteremia, wound infection, UTI Present on admission with fever and leukocytosis Was started on Keflex as an outpatient for UTI Continue Ancef per ID PT/OT Continue monitor CBC Awaiting for rehab placement Bacteremia Blood cx: Stah.aureus Continue Ancef Appreciate ID input Repeat Blood cx: negative Needs 2 weeks of IV cefazolin PICC line placed on 09/29 ECHO:No vegetations Abnormal UA Asymptomatic S/P Rocephin urine cx:possible contamination S/P Right arthroplasty Performed by Dr. Jean Incision site showed wound dehiscence Needs follow up with Dr Jean about 2-3 weeks from discharge [phone] Needs follow up with wound care for VAC changes Orthopedics following Continue wound Vac HTN Continue current meds Anxiety On Effexor Stable Anemia possible related to post-op hgb 10.1 stable Monitor CBC Hyponatremia Resolved DVT Px: on asa 325 mg BID as per ortho CODE STATUS DNR Disposition: Medically stable for discharge. Plan to discharge when placement available [facility]cose department worker consulted Consultants: Ortho ID PROCEDURES: ECHO: * -- Conclusions -- * 1. Normal LV size, mild concentric LVH. * 2. Normal LV systolic function. LVEF 65-70%. No regional wall motion abnormalities. * 3. Normal RV size and function. * 4. Grade II diastolic dysfunction. 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 * 6. No other significant valvular pathology. * 7. Normal estimated RA pressure. * 8. No prior studies for comparison. Vital Signs: Date Time Temp Pulse Resp B/P (MAP) Pulse Ox O2 Delivery O2 Flow Rate FiO2 10/01/16 10:54 Room Air 10/01/16 10:32 91 10/01/16 07:19 37.2 74 15 147/75 (99) 90 Room Air 09/30/16 23:30 Room Air 09/30/16 23:03 36.7 72 15 146/77 (100) 91 Room Air 09/30/16 15:14 36.8 78 16 120/73 (89) 92 Room Air 09/30/16 15:00 Room Air Lab Results: Results Past 24 Hours Test 10/01/16 05:30 Range/Units White Blood Count 9.20 4.8-10.8 K/uL Red Blood Count 3.39 4.2-5.4 M/uL Hemoglobin 10.1 12.0-16.0 g/dL Hematocrit 30.9 37-47 % Mean Corpuscular Volume 91.2 80-100 fL Mean Corpuscular Hemoglobin 29.8 25-34 pg Mean Corpuscular Hemoglobin Concent 32.7 32-36 g/dl Platelet Count 505 130-400 K/uL Mean Platelet Volume 8.2 7.4-10.4 fL Neutrophils (%) (Auto) 63.5 % Lymphocytes (%) (Auto) 16.1 % Monocytes (%) (Auto) 9.2 % Eosinophils (%) (Auto) 8.4 % Basophils (%) (Auto) 1.2 % Neutrophils # (Auto) 5.84 1.4-6.5 K/uL Lymphocytes # (Auto) 1.48 1.2-3.4 K/uL Monocytes # (Auto) 0.85 0.11-0.59 K/uL Eosinophils # (Auto) 0.77 0-0.5 K/uL Basophils # (Auto) 0.11 0-0.2 K/uL RDW Standard Deviation 44.6 36.4-46.3 fL RDW Coefficient of Variation 13.3 11.5-14.5 % Immature Granulocyte % (Auto) 1.6 % Immature Granulocyte # (Auto) 0.15 0.00-0.02 K/uL Sodium Level 140 136-145 mmol/L Potassium Level 3.7 3.5-5.1 mmol/L Chloride Level 99 98-107 mmol/L Carbon Dioxide Level 36 21-32 mmol/L Anion Gap 5.0 3-11 mmol/L Blood Urea Nitrogen 9 7-18 mg/dl Creatinine 0.49 0.60-1.20 mg/dl Est Creatinine Clear Calc Drug Dose 100.7 ml/min Estimated GFR () 105.2 Estimated GFR (Non- 90.7 BUN/Creatinine Ratio 17.5 10-20 Random Glucose 155 70-99 mg/dl Calcium Level 8.4 8.5-10.1 mg/dl
[2016-10-01] MEDS: CLORAZEPATE DIPOTASSIUM 3.75 MG TAB PO PRN ×2 (14:10→18:09)
[2016-10-01 15:34] VITALS: BP 145/81; PULSE 80; TEMP 36.8; O2SAT 92
[2016-10-01] MEDS: ZOLPIDEM TARTRATE 10 MG TAB PO PRN (20:52)
[2016-10-01 23:15] VITALS: BP 171/80; PULSE 93; TEMP 37.1; O2SAT 90
[2016-10-02] MEDS: CEFAZOLIN IV 2,000 MG in DEXTROSE 5% 50ML 50 ML IV SCH ×3 (05:28→22:18)
[2016-10-02 07:53] VITALS: BP 145/86; PULSE 80; TEMP 36.9; O2SAT 92
[2016-10-02] MEDS: LACTOBACILLUS ACIDOPHILUS (FLORANEX) TAB PO SCH (08:33)
[2016-10-02] MEDS: ASPIRIN 325 MG ECTAB PO SCH ×2 (08:33→21:20)
[2016-10-02] MEDS: MULTIVITAMIN TAB PO SCH (08:33)
[2016-10-02] MEDS: VENLAFAXINE HCL XR 37.5 MG CAPXR PO SCH (08:33)
[2016-10-02] MEDS: LISINOPRIL 10 MG TAB PO SCH (08:34)
[2016-10-02] MEDS: CLORAZEPATE DIPOTASSIUM 3.75 MG TAB PO PRN ×2 (10:57→17:20)
--- NOTE | 2016-10-02 14:08 | Progress Note ---
Internal Med Progress Note Date of Service: Oct 02, 2016. Provider Documentation: SUBJECTIVE: Seen and examined at bedside. Offers no complaints. Family at bedside. Awaiting for placement. OBJECTIVE: Vital Signs-as noted below Physical Exam: General Appearance:Moderately built and nourished, no apparent distress Head: normocephalic, Atraumatic Eyes: normal inspection, EOMI, PERRL Neck: supple, Trachea midline Respiratory/Chest: Normal breath sounds, CTA Cardiovascular: S1, S2, + systolic murmur Abdomen/GI:Soft, Non tender, Bowel sounds present Extremities/Musculoskelatal:normal inspection, no edema, wound vac on R hip Neurologic/Psych:AAOX3, grossly no focal neurological deficits Skin: normal color, warm Lab data as noted below. ASSESSMENT & PLAN: Generalized Weakness Possible related to Bacteremia, wound infection, UTI Present on admission with fever and leukocytosis Was started on Keflex as an outpatient for UTI Continue Ancef per ID PT/OT Continue monitor CBC Awaiting for rehab placement Bacteremia Blood cx: Stah.aureus Continue Ancef Appreciate ID input Repeat Blood cx: negative Needs 2 weeks of IV cefazolin PICC line placed on 09/29 ECHO:No vegetations Abnormal UA Asymptomatic S/P Rocephin urine cx:possible contamination S/P Right arthroplasty Performed by Dr. Jean Incision site showed wound dehiscence Needs follow up with Dr Jean about 2-3 weeks from discharge [phone] Needs follow up with wound care for VAC changes Orthopedics following Continue wound Vac HTN Continue current meds Anxiety On Effexor Stable Anemia possible related to post-op hgb 10.1 stable Monitor CBC Hyponatremia Resolved DVT Px: on asa 325 mg BID as per ortho CODE STATUS DNR Disposition: Medically stable for discharge. Plan to discharge when placement available protective services case worker consulted Follow up with your Primary care physician in 1 week as advised Follow up with Dr Jean in 2 weeks. Please call for appointment at [phone] Follow up with wound care clinic as advised Complete the antibiotic course: Cefazolin 2000mg IV Q8H for 10 days as prescribed. Seek immediate medical attention if your symptoms reoccur or worsen. Consultants: Ortho ID PROCEDURES: ECHO: * -- Conclusions -- * 1. Normal LV size, mild concentric LVH. * 2. Normal LV systolic function. LVEF 65-70%. No regional wall motion abnormalities. * 3. Normal RV size and function. * 4. Grade II diastolic dysfunction. 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 * 6. No other significant valvular pathology. * 7. Normal estimated RA pressure. * 8. No prior studies for comparison. Vital Signs: Date Time Temp Pulse Resp B/P (MAP) Pulse Ox O2 Delivery O2 Flow Rate FiO2 10/02/16 08:00 Room Air 10/02/16 07:53 36.9 80 18 145/86 (105) 92 Room Air 10/01/16 23:15 37.1 93 22 171/80 (110) 90 Room Air 10/01/16 23:10 Room Air 10/01/16 15:34 36.8 80 16 145/81 (102) 92 Room Air 10/01/16 15:00 Room Air
[2016-10-02] MEDS ORDERED: ZOLP10TA PO (14:29)
--- NOTE | 2016-10-02 14:31 | Discharge Instructions ---
Discharge Instructions Date of Service Oct 02, 2016. Admission Reason for Admission: FALLS Discharge Discharge Diagnosis / Problem: Bacteremia, Wound dehiscence Discharge Goals Goal(s): Decrease discomfort, Improve function Activity Recommendations Activity Limitations: resume your previous activity Exercise/Sports Limitations: as tolerated . Instructions / Follow-Up Instructions / Follow-Up Follow up with your Primary care physician in 1 week as advised Follow up with Dr Jean in 2 weeks. Please call for appointment at Follow up with wound care clinic as advised Complete the antibiotic course: Cefazolin 2000mg IV Q8H for 10 days as prescribed. Seek immediate medical attention if your symptoms reoccur or worsen. Current Hospital Diet Patient's current hospital diet: AHA Diet (Heart Healthy) Discharge Diet Recommended Diet: AHA Diet (Heart Healthy) Pending Studies Studies pending at discharge: no Medical Emergencies . Who to Call and When: Medical Emergencies: If at any time you feel your situation is an emergency, please call 911 immediately. . Non-Emergent Contact Non-Emergency issues call your: Primary Care Provider, Surgeon Call Non-Emergent contact if: you have a fever, your pain is not controlled, your pain is worsening, your pain is unusual for you, you have any medication questions . . "Provider Documentation" section prepared by Samuel Valentine. . VTE Core Measure Inpt VTE Proph given/why not?: Other Anticoagulation
[2016-10-02] MEDS ORDERED: RXC5 PO (14:33)
--- NOTE | 2016-10-02 14:33 | Discharge Summary ---
Discharge Summary Date of Service Oct 02, 2016. Discharge Summary Admission Date: Sep 25, 2016 at 10:03 Discharge Date: Oct 02, 2016 Discharge Disposition: Rehab Consultations: Ortho ID Admission Information HPI (per Admitting provider): 81 yo F who recently underwent a right total hip arthroplasty by Dr. Jean on 09/08/2016, presents from home after multiple falls and increasing weakness in the lower extremities. She denies any fevers or chills at home, she also denies headaches, coughing, chest pain, shortness of breath, abdominal pain, nausea, vomiting, diarrhea, blood in stool, dysuria, pelvic pain or other UTI symptoms. She denies any pain in her hip. Her daughter, LUÍS, is with her and states that she left rehab after 1.5 days because she didn't like it there ( [facility]) and seemed to be doing well despite leaving early. She was walking on her own into her PCP follow-up appointment, and was taking showers on her own , functioning rather independently. However 4 days ago, the patient began to experience fatigue that continued to increase. The weakness followed the next day and gradually got to the point where she cannot transfer or stand on her own. Wound was evaluated and appears to be opened on the corners with bloody serous drainage soaking through the 4x4s covering it. Daughter states that she has changed the dressing 4 times daily, and recently called Dr. Jean's office who put her on Keflex. She has only had two doses thus far. Physical Exam (per Admitting): GEN: WNWD, in no acute distress but difficulty moving around the bed, alert and appropriate HEENT: NC/AT, pupils are equal and round, normal sclerae, pharynx non-acute. CARDIO: reg rate, S1/2 heard without m/g/r LUNGS: CTA bilaterally, no crackles, rales or wheezes, good diaphragmatic excursion ABD: soft, non-tender, non-distended, no rebound or guarding, +BS EXTREMITY: RP and DP palpable 2+ bilat, no LE swelling or edema, extremities are warm and well-perfused R HIP: 10cm+ surgical incision, no obvious sutures in place, closed centrally with two open areas peripherally and bloody serous drainage. Bandage is soaked through. NEURO: CN 2-12 grossly intact, sensation intact throughout, no gross focal deficits. MUSC: 5/5 strength in lower extremities, no gross focal deficits SKIN: warm and dry and wound as above. Hospital Course Generalized Weakness Possible related to Bacteremia, wound infection, UTI Present on admission with fever and leukocytosis Was started on Keflex as an outpatient for UTI Continue Ancef per ID PT/OT Continue monitor CBC Awaiting for rehab placement Bacteremia Blood cx: Stah.aureus Continue Ancef Appreciate ID input Repeat Blood cx: negative Needs 2 weeks of IV cefazolin PICC line placed on 09/29 ECHO:No vegetations Abnormal UA Asymptomatic S/P Rocephin urine cx:possible contamination S/P Right arthroplasty Performed by Dr. Jean Incision site showed wound dehiscence Needs follow up with Dr Jean about 2-3 weeks from discharge [phone] Needs follow up with wound care for VAC changes Orthopedics following Continue wound Vac HTN Continue current meds Anxiety On Effexor Stable Anemia possible related to post-op hgb 10.1 stable Monitor CBC Hyponatremia Resolved DVT Px: on asa 325 mg BID as per ortho CODE STATUS DNR Disposition: Medically stable for discharge. Plan to discharge when placement available universal worker assisted living consulted Follow up with your Primary care physician in 1 week as advised Follow up with Dr Jean in 2 weeks. Please call for appointment at Follow up with wound care clinic as advised Complete the antibiotic course: Cefazolin 2000mg IV Q8H for 10 days as prescribed. Seek immediate medical attention if your symptoms reoccur or worsen. Consultants: Ortho ID PROCEDURES: ECHO: * -- Conclusions -- * 1. Normal LV size, mild concentric LVH. * 2. Normal LV systolic function. LVEF 65-70%. No regional wall motion abnormalities. * 3. Normal RV size and function. * 4. Grade II diastolic dysfunction. 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 * 6. No other significant valvular pathology. * 7. Normal estimated RA pressure. * 8. No prior studies for comparison. Total time spent on discharge = This includes examination of the patient, discharge planning, medication reconciliation, and communication with other providers.
[2016-10-02 15:18] VITALS: BP 145/75; PULSE 86; TEMP 36.7; O2SAT 92
[2016-10-02] MEDS: ZOLPIDEM TARTRATE 10 MG TAB PO PRN (21:20)
[2016-10-02 23:07] VITALS: BP 131/76; PULSE 80; TEMP 37.1; O2SAT 91
[2016-10-03] MEDS: CEFAZOLIN IV 2,000 MG in DEXTROSE 5% 50ML 50 ML IV SCH (06:01)
[2016-10-03 07:48] VITALS: BP 142/82; PULSE 78; TEMP 36.9; O2SAT 91
[2016-10-03] MEDS: ASPIRIN 325 MG ECTAB PO SCH (08:32)
[2016-10-03] MEDS: MULTIVITAMIN TAB PO SCH (08:32)
[2016-10-03] MEDS: VENLAFAXINE HCL XR 37.5 MG CAPXR PO SCH (08:32)
[2016-10-03] MEDS: LACTOBACILLUS ACIDOPHILUS (FLORANEX) TAB PO SCH (08:32)
[2016-10-03] MEDS: LISINOPRIL 10 MG TAB PO SCH (08:32)
[2016-10-03] MEDS ORDERED: KFZAV1 IV (12:41)
--- NOTE | 2016-10-03 12:43 | Progress Note ---
Internal Med Progress Note Date of Service: Oct 03, 2016. Provider Documentation: SUBJECTIVE: Seen and examined at bedside. Doing well. Eager to get discharged. Offers no complaints. Family at bedside. OBJECTIVE: Vital Signs-as noted below Physical Exam: General Appearance:Moderately built and nourished, no apparent distress Head: normocephalic, Atraumatic Eyes: normal inspection, EOMI, PERRL Neck: supple, Trachea midline Respiratory/Chest: Normal breath sounds, CTA Cardiovascular: S1, S2, + systolic murmur Abdomen/GI:Soft, Non tender, Bowel sounds present Extremities/Musculoskelatal:normal inspection, no edema, wound vac on R hip Neurologic/Psych:AAOX3, grossly no focal neurological deficits Skin: normal color, warm Lab data as noted below. ASSESSMENT & PLAN: Generalized Weakness Possible related to Bacteremia, wound infection, UTI Present on admission with fever and leukocytosis Was started on Keflex as an outpatient for UTI Continue Ancef per ID PT/OT Continue monitor CBC Planned for discharge today Bacteremia Blood cx: [email or web address] Continue Ancef Appreciate ID input Repeat Blood cx: negative Needs 2 weeks of IV cefazolin PICC line placed on 09/29 ECHO:No vegetations Abnormal UA Asymptomatic S/P Rocephin urine cx:possible contamination S/P Right arthroplasty Performed by Dr. Jean Incision site showed wound dehiscence Needs follow up with Dr Jean about 2-3 weeks from discharge [phone] Needs follow up with wound care for VAC changes Orthopedics following Continue wound Vac HTN Continue current meds Anxiety On Effexor Stable Anemia possible related to post-op hgb 10.1 stable Monitor CBC Hyponatremia Resolved DVT Px: on asa 325 mg BID as per ortho CODE STATUS DNR Disposition: Planned for discharge to rehab today Follow up with your Primary care physician in 1 week as advised Follow up with Dr Jean in 2 weeks. Please call for appointment at Follow up with wound care clinic as advised Complete the antibiotic course: Cefazolin 2000mg IV Q8H for 10 days as prescribed. Seek immediate medical attention if your symptoms reoccur or worsen. Consultants: Ortho ID PROCEDURES: ECHO: * -- Conclusions -- * 1. Normal LV size, mild concentric LVH. * 2. Normal LV systolic function. LVEF 65-70%. No regional wall motion abnormalities. * 3. Normal RV size and function. * 4. Grade II diastolic dysfunction. 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 * 6. No other significant valvular pathology. * 7. Normal estimated RA pressure. * 8. No prior studies for comparison. Vital Signs: Date Time Temp Pulse Resp B/P (MAP) Pulse Ox O2 Delivery O2 Flow Rate FiO2 10/03/16 07:48 36.9 78 14 142/82 (102) 91 Room Air 10/03/16 07:30 Room Air 10/03/16 01:19 Room Air 10/02/16 23:07 37.1 80 18 131/76 (94) 91 Room Air 10/02/16 16:45 Room Air 10/02/16 15:18 36.7 86 17 145/75 (98) 92 Room Air
--- NOTE | 2016-10-03 12:43 | Discharge Summary ---
Discharge Summary Date of Service Oct 03, 2016. Discharge Summary Admission Date: Sep 25, 2016 at 10:03 Discharge Date: Oct 02, 2016 Discharge Disposition: Rehab Principal Diagnosis: Bacteremia, Wound dehiscence Procedures: Hip X ray: No acute bony abnormality is seen in the right hip noting an arthroplasty in near-anatomic alignment. CXR: No acute cardiopulmonary findings. Consultations: Orthopedics, ID Pending Studies/Follow-Up: Follow up with your Primary care physician in 1 week as advised Follow up with Dr Jean in 2 weeks. Please call for appointment at [phone] Follow up with wound care clinic as advised Complete the antibiotic course: Cefazolin 2000mg IV Q8H for 10 days as prescribed. Seek immediate medical attention if your symptoms reoccur or worsen. Medication Reconciliation New Medications: Cefazolin Sod (Cefazolin Sodium) 1 Gm Inj 2 GM IV Q8H for 10 Days Oxycodone HCl (Oxycodone HCl) 5 Mg Tab 5 MG PO Q4H PRN for Pain for 3 Days, #10 TAB Continued Medications: Acetaminophen (Tylenol Arthritis Ext Rel) 650 Mg Cplt 1300 MG PO Q8H PRN for PRN, CAP Aspirin (Aspirin) 325 Mg Ectab 325 MG PO BID, #84 Clorazepate Dipotassium (Tranxene-T) 7.5 Mg Tab 7.5 MG PO BID PRN, 0 Refills Cranberry (Vaccinium Macrocarp (Cranberry Soft Chews) 500 Mg Chw 1 TAB PO QAM Fish Oil ([place]-3) 1 Ea Cap 1 CAP PO QAM, CAP Flaxseed (Linseed) (Flax Seed Oil) 1 Cap Cap 1 CAP PO DAILY Lfuhilnhnph-Kugsruhxtdf-Ptk C- (Glucosamine Chondroitin) 1 Cap Cap 1 TAB PO QAM Ibuprofen (Advil) 200 Mg Tab 200-600 MG PO Q4H PRN for Pain or Fever, TAB Lisinopril (Zestril) 10 Mg Tab 10 MG PO DAILY, TAB Multivitamin (Multivitamin) Tab 1 TAB PO QAM, 0 Refills Probiotic Product (Probiotic) 1 Cap Cap 1 CAP PO DAILY Turmeric (Curcuma Longa) (Turmeric) 500 Mg Cap 1 TAB PEG DAILY Venlafaxine Hcl (Effexor) 37.5 Mg Tab 37.5 MG PO DAILY, TAB Zolpidem Tartrate (Ambien) 10 Mg Tab 10 MG PO HS PRN for Sleep for 3 Days, #3 TAB (This prescription has been renewed ) Discontinued Medications: Cephalexin Monohydrate (Keflex) 500 Mg Cap 500 MG PO QID, CAP Admission Information HPI (per Admitting provider): 81 yo F who recently underwent a right total hip arthroplasty by Dr. Jean on 09/08/2016, presents from home after multiple falls and increasing weakness in the lower extremities. She denies any fevers or chills at home, she also denies headaches, coughing, chest pain, shortness of breath, abdominal pain, nausea, vomiting, diarrhea, blood in stool, dysuria, pelvic pain or other UTI symptoms. She denies any pain in her hip. Her daughter, LUÍS, is with her and states that she left rehab after 1.5 days because she didn't like it there ( [facility]) and seemed to be doing well despite leaving early. She was walking on her own into her PCP follow-up appointment, and was taking showers on her own , functioning rather independently. However 4 days ago, the patient began to experience fatigue that continued to increase. The weakness followed the next day and gradually got to the point where she cannot transfer or stand on her own. Wound was evaluated and appears to be opened on the corners with bloody serous drainage soaking through the 4x4s covering it. Daughter states that she has changed the dressing 4 times daily, and recently called Dr. Jean's office who put her on Keflex. She has only had two doses thus far. Physical Exam (per Admitting): GEN: WNWD, in no acute distress but difficulty moving around the bed, alert and appropriate HEENT: NC/AT, pupils are equal and round, normal sclerae, pharynx non-acute. CARDIO: reg rate, S1/2 heard without m/g/r LUNGS: CTA bilaterally, no crackles, rales or wheezes, good diaphragmatic excursion ABD: soft, non-tender, non-distended, no rebound or guarding, +BS EXTREMITY: RP and DP palpable 2+ bilat, no LE swelling or edema, extremities are warm and well-perfused R HIP: 10cm+ surgical incision, no obvious sutures in place, closed centrally with two open areas peripherally and bloody serous drainage. Bandage is soaked through. NEURO: CN 2-12 grossly intact, sensation intact throughout, no gross focal deficits. MUSC: 5/5 strength in lower extremities, no gross focal deficits SKIN: warm and dry and wound as above. Hospital Course Generalized Weakness Possible related to Bacteremia, wound infection, UTI Present on admission with fever and leukocytosis Was started on Keflex as an outpatient for UTI Continue Ancef per ID PT/OT Continue monitor CBC Planned for discharge today Bacteremia Blood cx: Stah.aureus Continue Ancef Appreciate ID input Repeat Blood cx: negative Needs 2 weeks of IV cefazolin PICC line placed on 09/29 ECHO:No vegetations Abnormal UA Asymptomatic S/P Rocephin urine cx:possible contamination S/P Right arthroplasty Performed by Dr. Jean Incision site showed wound dehiscence Needs follow up with Dr Jean about 2-3 weeks from discharge [phone] Needs follow up with wound care for VAC changes Orthopedics following Continue wound Vac HTN Continue current meds Anxiety On Effexor Stable Anemia possible related to post-op hgb 10.1 stable Monitor CBC Hyponatremia Resolved DVT Px: on asa 325 mg BID as per ortho CODE STATUS DNR Disposition: Planned for discharge to rehab today Follow up with your Primary care physician in 1 week as advised Follow up with Dr Jean in 2 weeks. Please call for appointment at Follow up with wound care clinic as advised Complete the antibiotic course: Cefazolin 2000mg IV Q8H for 10 days as prescribed. Seek immediate medical attention if your symptoms reoccur or worsen. Consultants: Ortho ID PROCEDURES: ECHO: * -- Conclusions -- * 1. Normal LV size, mild concentric LVH. * 2. Normal LV systolic function. LVEF 65-70%. No regional wall motion abnormalities. * 3. Normal RV size and function. * 4. Grade II diastolic dysfunction. 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 * 6. No other significant valvular pathology. * 7. Normal estimated RA pressure. * 8. No prior studies for comparison. Total time spent on discharge = 38 minutes This includes examination of the patient, discharge planning, medication reconciliation, and communication with other providers. Discharge Instructions Discharge Instructions Date of Service Oct 02, 2016. Admission Reason for Admission: FALLS Discharge Discharge Diagnosis / Problem: Bacteremia, Wound dehiscence Discharge Goals Goal(s): Decrease discomfort, Improve function Activity Recommendations Activity Limitations: resume your previous activity Exercise/Sports Limitations: as tolerated . Instructions / Follow-Up Instructions / Follow-Up Follow up with your Primary care physician in 1 week as advised Follow up with Dr Jean in 2 weeks. Please call for appointment at Follow up with wound care clinic as advised Complete the antibiotic course: Cefazolin 2000mg IV Q8H for 10 days as prescribed. Seek immediate medical attention if your symptoms reoccur or worsen. Current Hospital Diet Patient's current hospital diet: AHA Diet (Heart Healthy) Discharge Diet Recommended Diet: AHA Diet (Heart Healthy) Pending Studies Studies pending at discharge: no Medical Emergencies . Who to Call and When: Medical Emergencies: If at any time you feel your situation is an emergency, please call 911 immediately. . Non-Emergent Contact Non-Emergency issues call your: Primary Care Provider, Surgeon Call Non-Emergent contact if: you have a fever, your pain is not controlled, your pain is worsening, your pain is unusual for you, you have any medication questions . . "Provider Documentation" section prepared by Samuel Valentine. . VTE Core Measure Inpt VTE Proph given/why not?: Other Anticoagulation
[2016-10-03 12:53] VITALS: BP 142/82; PULSE 78; TEMP 36.9; O2SAT 91
[2016-10-03] MEDS: CLORAZEPATE DIPOTASSIUM 3.75 MG TAB PO PRN (13:13)
[2016-10-31] MEDS ORDERED: ASPEC325 PO (16:09)
[2016-10-31] MEDS ORDERED: RXC5 PO (16:09)
[2016-11-01] MEDS ORDERED: CEFA2INJ IV (15:33)
== END 2016-10-03 13:30 | DRG 920 ==
LOC: EDBD 13:52 → C.EDC 13:59 → C.MSN 16:30 → ENRESERV 16:59 → OBSVTOIN 09-25 10:03
PROVIDERS: ADMIT Hospitalist; ATTEND Internal Medicine
PROC: 02HV33Z Insertion of Infusion Device into Superior Vena Cava, Percutaneous Approach (ICD-10-PCS; principal; 2016-09-29)
DX: T81.31XA Disruption of external operation (surgical) wound, not elsewhere classified, initial encounter (principal); E87.1 Hypo-osmolality and hyponatremia; R78.81 Bacteremia; N39.0 Urinary tract infection, site not specified; Z79.82 Long term (current) use of aspirin; R29.6 Repeated falls; I10 Essential (primary) hypertension; E66.01 Morbid (severe) obesity due to excess calories; F41.9 Anxiety disorder, unspecified; Z98.890 Other specified postprocedural states; B95.8 Unspecified staphylococcus as the cause of diseases classified elsewhere; Z96.641 Presence of right artificial hip joint; Z66 Do not resuscitate; D64.9 Anemia, unspecified; Y83.8 Other surgical procedures as the cause of abnormal reaction of the patient, or of later complication, without mention of misadventure at the time of the procedure; Y92.009 Unspecified place in unspecified non-institutional (private) residence as the place of occurrence of the external cause

== ENCOUNTER → 2016-10-18 | Outpatient (CLI) | payer OTHER ==
[~2016-10-18] MED LIST changes: -AMB10 PO; +ASCA500 PO; +ASPI325T39 PO; -B-COTAB18 PO; +CEFA2INJ IV; +CIPR-255 PO; +CIPR1TAB11 PO; +EFF/375 PO; +FERR1TAB13 PO; +FLAX1CAP11 PO; -FLAXSEED PO; +HYDR-5688 PO; +KFZAV1 IV; +LISI-461 PO; -LISIPOW PO; +MISCCAP80 PO; +TURM1CAP4 PO; -TURMERIC PO; -VENLAFAXINE PO; -VITAMIN E PO; +ZOLP10TA PO; -probiotic PO
[2016-10-18 17:18] LABS: BASO % 0.6 %; BASO ABS # 0.05 K/uL (0-0.2); COMPLETE YES; EOS % 1.3 %; HEMATOCRIT 34.9 % (37-47); IG% 0.3 %; LYMPH % 19.7 %; LYMPH ABS # 1.53 K/uL (1.2-3.4); MEAN CORPUSCULAR HEMOGLOBIN 28.8 pg (25-34); MEAN CORPUSCULAR HGB CONC 32.4 g/dl (32-36); MEAN PLATELET VOLUME 8.3 fL (7.4-10.4); MONO % 10.8 %; NEUT % 67.3 %; PLATELET COUNT 384 K/uL (130-400); RED BLOOD COUNT 3.92 M/uL (4.2-5.4); WHITE BLOOD COUNT 7.75 K/uL (4.8-10.8)
== END | disposition home or self-care (01) ==
LOC: C.LAB 16:39
PROVIDERS: ATTEND Orthopaedic Surgery
DX: Z96.649 Presence of unspecified artificial hip joint (principal)

== ENCOUNTER 2016-10-21 10:19 | Emergency (ER) | payer OTHER ==
[~2016-10-21] VITALS: Ht 175.3 cm; Wt 102.2 kg
[~2016-10-21 10:19] MED LIST changes: -ASCA500 PO; -ASPI325T39 PO; -CEFA2INJ IV; -CIPR-255 PO; -CIPR1TAB11 PO; -FERR1TAB13 PO; -HYDR-5688 PO
[2016-10-21 10:28] VITALS: TEMP 37.2; Ht 175.3 cm; Wt 102.2 kg
[2016-10-21] MEDS ORDERED: ASCA500 PO (10:29)
[2016-10-21] MEDS ORDERED: ASPI325T39 PO (10:29)
[2016-10-21] MEDS ORDERED: FERR1TAB13 PO (10:29)
[2016-10-21] MEDS ORDERED: HYDROCODONE/ACETAMOPHEN 5/325MG TAB PO STA ×2 (10:33→18:03)
[2016-10-21] MEDS ORDERED: TRAMADOL HCL 50 MG TAB PO STA (10:33)
[2016-10-21] MEDS ORDERED: IBUPROFEN 200 MG TAB PO STA (10:33)
--- NOTE | 2016-10-21 10:33 | EMERGENCY ROOM VISIT NOTE ---
History Report prepared by Jeanette: Willow Langston Under the Supervision of: Dr. Jose Torres M.D. First contact with patient: 10:20 Chief Complaint: WEAKNESS Stated Complaint: WEAKNESS History of Present Illness The patient is a 81 year old white female with a past medical history of hypertension and osteoarthritis who presents to the ED with a cc of constant left knee pain beginning 3 days ago. Positive difficulty walking. Negative recent trauma, fevers, chills, chest pain, SOB, abdominal pain, nausea, and vomiting. Pt is not on blood thinners. She notes that she has had a total knee replacement before of both knees 7 and 5 years ago. She reports that she also has a history of right hip replacement 2 months ago. The patient was seen by Dr. Jean last week and was noted to have abnormal labs. Source of History: patient Onset: 3 days ago Position: knee (left) Timing: constant Associated Symptoms: No fevers, No chills, No chest pain, No SOB, No nausea , No vomiting, No abdominal pain Note: Positive difficulty walking. Negative recent trauma. Review of Systems See HPI for pertinent positives and negatives. A total of ten systems were reviewed and were otherwise negative. Past Medical & Surgical Medical Problems: (1) Falls (2) Generalized weakness (3) HTN (hypertension) (4) Morbid obesity (5) Osteoarthritis of hip Surgical Problems: (1) H/O knee surgery (2) Hip joint replacement status Family History Patient reports no known family medical history. Social History Smoking Status: Never Smoker Alcohol Use: none Drug Use: none Marital Status: Housing Status: lives alone Occupation Status: retired Current/Historical Medications Scheduled Ascorbic Acid (Vitamin C), 500 MG PO BID Aspirin (Aspirin Ec), 325 MG PO DAILY Ciprofloxacin Hcl (Cipro), 500 MG PO BID Clorazepate Dipotassium (Tranxene-T), 7.5 MG PO BID PRN Cranberry (Vaccinium Macrocarp (Cranberry Soft Chews), 1 TAB PO QAM Ferrous Sulfate (Kp Ferrous Sulfate), 325 MG PO BID Fish Oil ([place]-3), 1 CAP PO QAM Flaxseed (Linseed) (Flax Seed Oil), 1 CAP PO DAILY Cjqvgggqmet-Zdjgyvvnhew-Tqe C- (Glucosamine Chondroitin), 1 TAB PO QAM Lisinopril (Zestril), 10 MG PO DAILY Multivitamin (Multivitamin), 1 TAB PO QAM Probiotic Product (Probiotic), 1 CAP PO DAILY Turmeric (Curcuma Longa) (Turmeric), 1 TAB PO DAILY Venlafaxine Hcl (Effexor), 37.5 MG PO DAILY Scheduled PRN Acetaminophen (Tylenol Arthritis Ext Rel), 1,300 MG PO Q8H PRN for PRN Hydrocodone/Acetaminophen 5MG/325MG (Ozan 5MG/325MG), 1 TAB PO BID PRN for Pain Oxycodone HCl (Oxycodone HCl), 5 MG PO Q4H PRN for Pain Zolpidem Tartrate (Ambien), 10 MG PO HS PRN for Sleep Allergies Coded Allergies: No Known Allergies (Verified , 10/21/16) Physical Exam Vital Signs Date Time Temp Pulse Resp B/P (MAP) Pulse Ox O2 Delivery O2 Flow Rate FiO2 10/21/16 18:10 76 20 125/75 94 Room Air 10/21/16 16:32 74 19 99/42 97 Nasal Cannula 2.0 10/21/16 15:54 71 10/21/16 15:14 86 20 97/50 89 Room Air 10/21/16 13:12 83 109/56 94 Nasal Cannula 2.0 10/21/16 13:05 81 18 96/58 96 Nasal Cannula 2.0 10/21/16 12:13 97 Nasal Cannula 2.0 10/21/16 11:13 76 20 133/62 91 Room Air 10/21/16 10:28 90 10/21/16 10:28 95 Room Air 10/21/16 10:28 37.2 90 12 120/54 95 Room Air Physical Exam GENERAL: Awake, alert, well-appearing, NAD HENT: Normocephalic, atraumatic. EYES: Normal conjunctiva. Sclera non-icteric. NECK: Supple. No nuchal rigidity. FROM. RESPIRATORY: CTAB, no rhonchi, wheezing, crackles CARDIAC: RRR, no MRG ABDOMEN: Soft, NTND, BS+ MSK: No chest wall TTP, mild warmth present over left knee, mild tenderness to palpation, mild swelling, with mild assistance is able to flex and extend the knee. NEURO: GCS 15, CN 2-12 intact, moves all 4s on command, distal extremity sensory motor intact, SP, DP, and tibialis nerves. SKIN: No rash or jaundice noted, well perfused. Medical Decision & Procedures ER Provider Diagnostic Interpretation: X-ray: Per my interpretation, radiologist review. LEFT KNEE 3 VIEWS DISCUSSION: There are postsurgical changes of a total knee arthroplasty and patellar resurfacing. No acute fractures are visualized. There is a suprapatellar joint effusion. There is patellar spurring. IMPRESSION: 1. Postsurgical changes of a total left knee arthroplasty 2. No acute fractures 3. Joint effusion Electronically signed by: Rui Dominique M.D. 10/21/2016 11:16 AM Dictated Date/Time: 10/21/2016 11:14 AM Laboratory Results 10/21/16 10:45 Red Blood Count 3.94, Mean Corpuscular Volume 88.8, Mean Corpuscular Hemoglobin 28.9, Mean Corpuscular Hemoglobin Concent 32.6, Mean Platelet Volume 8.3, Neutrophils (%) (Auto) 66.2, Lymphocytes (%) (Auto) 21.6, Monocytes (%) (Auto) 11.0, Eosinophils (%) (Auto) 0.5, Basophils (%) (Auto) 0.5, Neutrophils # (Auto ) 5.39, Lymphocytes # (Auto) 1.76, Monocytes # (Auto) 0.90, Eosinophils # (Auto ) 0.04, Basophils # (Auto) 0.04 10/21/16 10:45 Test 10/21/16 10:45 10/21/16 11:35 10/21/16 13:25 White Blood Count 8.15 K/uL (4.8-10.8) Red Blood Count 3.94 M/uL (4.2-5.4) Hemoglobin 11.4 g/dL (12.0-16.0) Hematocrit 35.0 % (37-47) Mean Corpuscular Volume 88.8 fL (80-100) Mean Corpuscular Hemoglobin 28.9 pg (25-34) Mean Corpuscular Hemoglobin Concent 32.6 g/dl (32-36) Platelet Count 423 K/uL (130-400) Mean Platelet Volume 8.3 fL (7.4-10.4) Neutrophils (%) (Auto) 66.2 % Lymphocytes (%) (Auto) 21.6 % Monocytes (%) (Auto) 11.0 % Eosinophils (%) (Auto) 0.5 % Basophils (%) (Auto) 0.5 % Neutrophils # (Auto) 5.39 K/uL (1.4-6.5) Lymphocytes # (Auto) 1.76 K/uL (1.2-3.4) Monocytes # (Auto) 0.90 K/uL (0.11-0.59) Eosinophils # (Auto) 0.04 K/uL (0-0.5) Basophils # (Auto) 0.04 K/uL (0-0.2) RDW Standard Deviation 45.6 fL (36.4-46.3) RDW Coefficient of Variation 13.8 % (11.5-14.5) Immature Granulocyte % (Auto) 0.2 % Immature Granulocyte # (Auto) 0.02 K/uL (0.00-0.02) Erythrocyte Sedimentation Rate 79 mm/hr (0-21) Anion Gap 5.0 mmol/L (3-11) Est Creatinine Clear Calc Drug Dose 95.2 ml/min Estimated GFR () 99.5 Estimated GFR (Non- 85.8 BUN/Creatinine Ratio 13.6 (10-20) Uric Acid 3.1 mg/dl (2.6-7.2) Calcium Level 8.6 mg/dl (8.5-10.1) Total Bilirubin 0.6 mg/dl (0.2-1) Direct Bilirubin 0.3 mg/dl (0-0.2) Aspartate Amino Transf (AST/SGOT) 22 U/L (15-37) Alanine Aminotransferase (ALT/SGPT) 21 U/L (12-78) Alkaline Phosphatase 115 U/L (45-117) C-Reactive Protein 14.50 mg/dl (0-0.29) Total Protein 7.3 gm/dl (6.4-8.2) Albumin 2.2 gm/dl (3.4-5.0) Thyroid Stimulating Hormone (TSH) 1.120 uIu/ml (0.300-4.500) Lyme Disease IgG Antibody NEG (NEG) Lyme Disease IgM Antibody NEG (NEG) Anti-Streptolysin O Antibody Screen NEG IU/ml (<200 IU) Urine Color DK YELLOW Urine Appearance CLOUDY (CLEAR) Urine pH 5.5 (4.5-7.5) Urine Specific [place] 1.021 (1.000-1.030) Urine Protein 1+ (NEG) Urine Glucose (UA) NEG (NEG) Urine Ketones NEG (NEG) Urine Occult Blood TRACE (NEG) Urine Nitrite NEG (NEG) Urine Bilirubin NEG (NEG) Urine Urobilinogen NEG (NEG) Urine Leukocyte Esterase SMALL (NEG) Urine WBC (Auto) 1-5 /hpf (0-5) Urine RBC (Auto) 5-10 /hpf (0-4) Urine Hyaline Casts (Auto) 0 /lpf (0-5) Urine Epithelial Cells (Auto) >30 /lpf (0-5) Urine Bacteria (Auto) NEG (NEG) Urine Renal Epithelial Cells 5-10 /lpf (0-5) Urine Pathogenic Casts /lpf (0) Synovial Fluid Source KNEE Synovial Fluid Color FLACO Synovial Fluid Appearance CLOUDY Synovial Fluid WBC 39533 /uL (0-200) Synovial Fluid RBC 75617 /uL Synovial Fluid Polynuclear WBCs % 93.3 % Synovial Fluid Mononuclear WBCs % 6.7 % Synovial Fluid Glucose 7 mg/dl Synovial Fluid Uric Acid 4.2 mg/dl Laboratory results reviewed by me Medications Administered Medications (Trade) Dose Ordered Sig/Aldo Route Start Time Stop Time Status Last Admin Dose Admin Acetaminophen/ Hydrocodone Bitart (Ozan 5/325 Tab) 1 tab ONE STAT PO 10/21/16 10:33 10/21/16 10:37 DC 10/21/16 10:48 1 TAB Ibuprofen (Advil Tab) 400 mg NOW STAT PO 10/21/16 10:33 10/21/16 10:37 DC 10/21/16 10:47 400 MG Tramadol HCl (Ultram Tab) 25 mg NOW STAT PO 10/21/16 10:33 10/21/16 10:37 DC 10/21/16 10:47 25 MG Lidocaine/ Epinephrine (Xylocaine/Epine 1% Inj) 20 ml STK-MED ONCE .ROUTE 10/21/16 12:01 10/21/16 12:03 DC 10/21/16 12:01 20 ML Vancomycin HCl (Vancomycin 1gm/ 270ml Nss) 1 gm NOW STAT IV 10/21/16 15:23 10/21/16 15:27 DC 10/21/16 15:44 1 GM Ceftriaxone Sodium (Rocephin Inj) 2 gm NOW STAT IV 10/21/16 15:23 10/21/16 15:27 DC 10/21/16 17:17 2 GM Acetaminophen/ Hydrocodone Bitart (Ozan 5/325 Tab) 1 tab ONE STAT PO 10/21/16 18:03 10/21/16 18:05 DC 10/21/16 18:18 1 TAB Tramadol HCl (Ultram Home Pack) 1 homepack UD ONCE PO 10/21/16 18:15 10/21/16 18:16 DC 10/21/16 18:18 1 HOMEPACK Procedure Left Knee Arthrocentesis Site marked and prepared in sterile fashion. Wheel of lidocaine placed. Lidocaine then introduced deep to the dermis but proximal to the join space. 18G needle was then introduced. 90 ccs of serosanguineous fluid was removed from the joint space. Samples were sent to the lab for analysis. The patient tolerated the procedure well without complications. Bandage was applied. ED Course 1020: The patient was evaluated in room B8. A complete history and physical exam was performed. 1147: I reevaluated the patient, her pain is improved and she has agreed to a knee arthrocentesis. 1236: I performed a left knee arthrocentesis. See procedure note. 1405: The patient ambulated well without difficulty. 1502: I spoke to Dr. Ortiz of orthopedics. He referred that we talk to Dr. Szymanski. 1508: I spoke to Dr. Szymanski. He will come see the patient. 1546: I spoke to Dr. Szymanski and the patient would like to see the orthopedic group that performed her hip surgery. 1608: I spoke with Dr. Ortiz and he recommends follow up with Dr. Jean and antibiotics. 180: I reevaluated the patient. She is 95 percent on room air and 120/60 with mild knee pain. She will follow up with Dr. Jean on Sunday. 181: I reevaluated the patient. Discussed results and discharge instructions: She verbalized understanding and agreement. The patient is ready for discharge. Medical Decision Differential diagnosis includes right osteoarthritis, effusion, gouty flare, and septic joint. The patient is a 81 year old white female with a past medical history of hypertension and osteoarthritis who presents to the ED with a cc of constant left knee pain beginning 3 days ago. Patient's lab work w/ elevated ESR and CRP. WBC WNL. L knee arthrocentesis performed removing 90cc serosanguinous fluid. Sent off for fluid analysis. Elevated WBC 44K w/ PMN predominance. Spoke w/ [facility] Dr. Ortiz who stated would need to discuss w/ [facility]. Spoke w/ Dr. Archuleta who saw and evaluated patient. Patient refused treatment as only wants to receive care from Dr. Jean. Spoke w/ Dr. Ortiz again who stated that if cultures were sent , would typically not operate at this time until result. Patient received vanc and rocephin. Dr. Ortiz stated cipro for home would be fine as patient w /o elevated WBC, fever, etc. Patient w/ low O2 in high 80s, never lower than 88% . Patient was ambulated after noted lower BPs in 90s/50s, but never symptomatic. S/p walk test patient sats 95% w/ BP 110s/60s. Transient hypotension more likely related to supine state as patient laying down during most of stay. Patient denied SOB, CP. Patient was placed in ELISHA wrap, knee immobilizer. Given instructions to call Dr. Jean's office Sunday and take cipro until seen by him per Dr. Ortiz's recs. Patient agreed w/ POC, all questions answered. Told to return if has worsening symptoms. Daughter also in agreement. Daughter currently staying w/ mother and will return if any changes occur. Medication Reconcilliation Current Medication List: was personally reviewed by me Blood Pressure Screening Patient's blood pressure: Normal blood pressure Blood pressure disposition: Did not require urgent referral Consults Time Called: 1500 Consulting Physician: Dr. Ortiz - [facility] Returned Call: [address] Ortiz of [facility]. He referred that we talk to Dr. Szymanski. I spoke with Dr. Ortiz and he recommends follow up with Dr. Jean and antibiotics. Additional Consults: Time Called: 1504 Consulted Physician: Dr. Szymanski - [facility] Returned Call: 1508 Additional Comments: 1508: I spoke to Dr. Szymanski. He will come see the patient. 1546: I spoke to Dr. Szymanski and the patient would like to see the orthopedic group that performed her hip surgery. Impression Primary Impression: Knee effusion, left Additional Impression: Septic joint of left knee joint Scribe Attestation The scribe's documentation has been prepared under my direction and personally reviewed by me in its entirety. I confirm that the note above accurately reflects all work, treatment, procedures, and medical decision making performed by me. Departure Information Dispostion Home / Self-Care Prescriptions Ciprofloxacin Hcl (CIPRO) 500 Mg Tab 500 MG PO BID, #14 TAB Prov: Jose Torres M.D. 10/21/16 Hydrocodone/Acetaminophen 5MG/325MG (Ozan 5MG/325MG) Tab 1 TAB PO BID Y for Pain for 2 Days, #4 TAB PRN PAIN Prov: Jose Torres M.D. 10/21/16 Referrals Shashank Camara M.D. (PCP) Patrick Jean, DO Please call for follow up on Sunday to arrange further management of your knee. Forms HOME CARE DOCUMENTATION FORM, IMPORTANT VISIT INFORMATION Patient Instructions ED Effusion Knee, ED Immobilizer Knee, [facility] Additional Instructions Please return to the emergency department if you have worsening or recurrent symptoms. Please follow-up with Dr. Jean on Sunday for further evaluation and management. Please take all your medications as prescribed. Hydrocodone/acetaminophen 5/325mg: Take 1-2 pills every 12 hours as needed for pain. Avoid additional Acetaminophen/Tylenol, alcohol, operating machinery or dangerous equipment, working on ladders or roofs, DRIVING, or situations where being under the influence may be dangerous. It is recommended to use a stool softener such as Colace, 100mg twice daily while taking this medication to avoid constipation. Problem Qualifiers
[2016-10-21 11:03] LABS: BASO % 0.5 %; BASO ABS # 0.04 K/uL (0-0.2); COMPLETE YES; EOS % 0.5 %; IG% 0.2 %; LYMPH % 21.6 %; LYMPH ABS # 1.76 K/uL (1.2-3.4); MEAN CELL VOLUME 88.8 fL (80-100); MEAN CORPUSCULAR HEMOGLOBIN 28.9 pg (25-34); MEAN CORPUSCULAR HGB CONC 32.6 g/dl (32-36); MEAN PLATELET VOLUME 8.3 fL (7.4-10.4); NEUT % 66.2 %; PLATELET COUNT 423 K/uL (130-400); RED BLOOD COUNT 3.94 M/uL (4.2-5.4); WHITE BLOOD COUNT 8.15 K/uL (4.8-10.8)
[2016-10-21 11:11] LABS: BUN/CREATININE RATIO 13.6 (10-20); CALCIUM 8.6 mg/dl (8.5-10.1); CREATININE 0.58 mg/dl (0.60-1.20); POTASSIUM 3.8 mmol/L (3.5-5.1); URIC ACID 3.1 mg/dl (2.6-7.2)
--- NOTE | 2016-10-21 11:17 | DIAGNOSTIC IMAGING REPORT ---
LEFT KNEE 3 VIEWS CLINICAL HISTORY: Left knee pain COMPARISON: September 2009 DISCUSSION: There are postsurgical changes of a total knee arthroplasty and patellar resurfacing. No acute fractures are visualized. There is a suprapatellar joint effusion. There is patellar spurring. IMPRESSION: 1. Postsurgical changes of a total left knee arthroplasty 2. No acute fractures 3. Joint effusion Electronically signed by: Rui Dominique M.D. 10/21/2016 11:16 AM Dictated Date/Time: 10/21/2016 11:14 AM
[2016-10-21 11:30] LABS: ANTI-STREP O SCR: 5YRS OR > NEG IU/ml (<200 IU)
[2016-10-21 11:34] LABS: C-REACTIVE PROTEIN 14.5 mg/dl (0-0.29); THYROID STIMULATING HORMONE 1.12 uIu/ml (0.300-4.500)
[2016-10-21 11:49] LABS: URINE APPEARANCE CLOUDY (CLEAR); URINE COLOR DK YELLOW; URINE EPITHELIAL CELL AUTO >30 /lpf (0-5); URINE NITRITE NEG (NEG); URINE PH 5.5 (4.5-7.5); URINE SPECIFIC GRAVITY 1.021 (1.000-1.030); UROBILINOGEN NEG (NEG)
[2016-10-21 11:57] LABS: MANUAL MICROSCOPIC REQUIRED? NO; REVIEW REQ? YES; URINE BILIRUBIN NEG (NEG)
[2016-10-21 11:58] LABS: LYME DISEASE AB IGG NEG (NEG); LYME DISEASE AB IGM NEG (NEG)
[2016-10-21] MEDS ORDERED: LIDOCAINE/EPINEPHRINE 1% 20 ML VIAL ONE (12:01)
[2016-10-21 12:13] VITALS: O2SAT 97
[2016-10-21 14:18] LABS: SYNOVIAL FLUID URIC ACID 4.2 mg/dl
[2016-10-21 14:26] LABS: SYNOVIAL FLUID APPEARANCE CLOUDY; SYNOVIAL FLUID COLOR AMBER; SYNOVIAL FLUID MONONUC RELAT 6.7 %; SYNOVIAL FLUID POLYNUC RELAT 93.3 %
[2016-10-21] MEDS ORDERED: VANCOMYCIN 1GM/270ML NSS IV STA (15:23)
[2016-10-21] MEDS ORDERED: CEFTRIAXONE SOD INJ 1 GM ADDVIAL IV STA (15:23)
[2016-10-21 18:10] VITALS: BP 125/75; PULSE 76; O2SAT 94
[2016-10-21] MEDS ORDERED: HYDR-5688 PO (18:11)
[2016-10-21] MEDS ORDERED: TRAMADOL HCL 50 MG HOME PACK PO ONE (18:15)
[2016-10-21] MEDS ORDERED: CIPR-255 PO (18:15)
[2016-10-31] MEDS ORDERED: RXC5 PO (16:09)
[2016-10-31] MEDS ORDERED: ASPEC325 PO (16:09)
[2016-11-01] MEDS ORDERED: CEFA2INJ IV (15:33)
== END 2016-10-21 18:40 | disposition home or self-care (01) ==
LOC: EDBD 10:19 → C.EDB 10:20
DX: M25.462 Effusion, left knee (principal); M00.9 Pyogenic arthritis, unspecified; I10 Essential (primary) hypertension; Z91.81 History of falling; Z96.653 Presence of artificial knee joint, bilateral; Z96.641 Presence of right artificial hip joint; Z79.82 Long term (current) use of aspirin; Z79.899 Other long term (current) drug therapy

== ENCOUNTER 2016-10-26 10:16 | Inpatient (IN) | payer OTHER ==
[2016-10-25 15:27] VITALS: BMI 33.0
[~2016-10-26] VITALS: Ht 175.3 cm; Wt 103.6 kg
[2016-10-26] VITALS (8 sets, daily range): BP systolic 114–147; BP diastolic 67–80; PULSE 76–94; TEMP 36.5–37.2; O2SAT 92–96; Ht 175.3 cm; Wt 103.6 kg
[~2016-10-26 10:16] MED LIST changes: +ACETAMINOPHEN 500 MG TAB PO SCH; +ASCA500 PO; -ASPEC325 PO; +ASPI325T39 PO; +BUPIVACAINE 0.5 % 5 MG/1 ML PF 10ML VIAL ONE; +BUPIVACAINE/EPINEPHRINE 0.25% 10 ML VIAL ONE; +DEXAMETHASONE SOD INJ 4 MG/ML VIAL ONE; +FAMOTIDINE 20 MG TAB PO SCH; +FERR1TAB13 PO; -IBUP-1050 PO; -KFZAV1 IV; +LACTATED RINGER'S 1000ML 1,000 ML IV SCH; +LACTATED RINGER'S 1000ML IV SCH; +PATIENT'S HEIGHT AND/OR WEIGHT NEEDED SCH; -RXC5 PO; +VANCOMYCIN INJ 1,500 MG in SODIUM CHLORIDE 0.9% 500ML 500 ML IV SCH
[2016-10-26] MEDS ORDERED: CIPR1TAB11 PO (11:26)
--- NOTE | 2016-10-26 13:09 | History and Physical ---
History & Physical Date Oct 26, 2016. Chief Complaint Infected Left Total Knee History of Present Illness The patient is a 81 year old female with complaints of increased pain and swelling of L knee. Please see dictated H&P for complete details Past Medical/Surgical History Medical Problems: (1) Falls (2) Generalized weakness (3) HTN (hypertension) (4) Morbid obesity (5) Osteoarthritis of hip Surgical Problems: (1) H/O knee surgery (2) Hip joint replacement status Additional History Hepatic Disease: No Endocrine Disorder: No Kidney Disease: No Hypertension: Yes Heart Disease: No Bleeding Tendencies: No Infectious Diseases: Yes Allergies Coded Allergies: No Known Allergies (Verified , 10/26/16) Home Medications Scheduled Ascorbic Acid (Vitamin C), 500 MG PO BID Aspirin (Aspirin Ec), 325 MG PO DAILY Ciprofloxacin Tab (Cipro), 250 MG PO BID Clorazepate Dipotassium (Tranxene-T), 7.5 MG PO BID PRN Cranberry (Vaccinium Macrocarp (Cranberry Soft Chews), 1 TAB PO QAM Ferrous Sulfate (Kp Ferrous Sulfate), 325 MG PO BID Fish Oil ([place]-3), 1 CAP PO QAM Flaxseed (Linseed) (Flax Seed Oil), 1 CAP PO DAILY Nwnjxkltpvp-Kpjokyfsqau-Pxl C- (Glucosamine Chondroitin), 1 TAB PO QAM Lisinopril (Zestril), 10 MG PO DAILY Multivitamin (Multivitamin), 1 TAB PO QAM Probiotic Product (Probiotic), 1 CAP PO DAILY Turmeric (Curcuma Longa) (Turmeric), 1 TAB PO DAILY Venlafaxine Hcl (Effexor), 37.5 MG PO DAILY Scheduled PRN Acetaminophen (Tylenol Arthritis Ext Rel), 1,300 MG PO Q8H PRN for PRN Zolpidem Tartrate (Ambien), 10 MG PO HS PRN for Sleep Physical Examination Skin: warm/dry, no rash Eyes: normal inspection, EOMI, sclerae normal ENT: normal ENT inspection, pharynx normal Head: normocephalic, atraumatic Neck: supple, no adenopathy, trachea midline Respiratory/Chest: lungs clear, normal breath sounds, no respiratory distress Cardiovascular: regular rate, rhythm, no edema, no murmur Abdomen / GI: normal bowel sounds, non tender Back: normal inspection Extremities: normal inspection, normal range of motion Neurologic/Psych: no motor/sensory deficits, alert, normal reflexes, oriented x 3 Addiitonal Comments: +2 effusion L knee with pain Diagnosis Infected Left Total Knee ASA Classification: ASA Class II (Irrigation and Debridement with Poly Exchange Left Knee)
--- NOTE | 2016-10-26 13:13 | History and Physical ---
History & Physical Date Oct 26, 2016. Chief Complaint Infected Left Total Knee History of Present Illness The patient is a 81 year old female with complaints of infected Left knee. Please see dictated H&P for details. Past Medical/Surgical History Medical Problems: (1) Falls (2) Generalized weakness (3) HTN (hypertension) (4) Morbid obesity (5) Osteoarthritis of hip Surgical Problems: (1) H/O knee surgery (2) Hip joint replacement status Additional History Hepatic Disease: No Endocrine Disorder: No Kidney Disease: No Hypertension: Yes Heart Disease: No Bleeding Tendencies: No Infectious Diseases: Yes Allergies Coded Allergies: No Known Allergies (Verified , 10/26/16) Home Medications Scheduled Ascorbic Acid (Vitamin C), 500 MG PO BID Aspirin (Aspirin Ec), 325 MG PO DAILY Ciprofloxacin Tab (Cipro), 250 MG PO BID Clorazepate Dipotassium (Tranxene-T), 7.5 MG PO BID PRN Cranberry (Vaccinium Macrocarp (Cranberry Soft Chews), 1 TAB PO QAM Ferrous Sulfate (Kp Ferrous Sulfate), 325 MG PO BID Fish Oil ([place]-3), 1 CAP PO QAM Flaxseed (Linseed) (Flax Seed Oil), 1 CAP PO DAILY Zyvbgokhdcm-Gxxzdixvsvx-Xnr C- (Glucosamine Chondroitin), 1 TAB PO QAM Lisinopril (Zestril), 10 MG PO DAILY Multivitamin (Multivitamin), 1 TAB PO QAM Probiotic Product (Probiotic), 1 CAP PO DAILY Turmeric (Curcuma Longa) (Turmeric), 1 TAB PO DAILY Venlafaxine Hcl (Effexor), 37.5 MG PO DAILY Scheduled PRN Acetaminophen (Tylenol Arthritis Ext Rel), 1,300 MG PO Q8H PRN for PRN Zolpidem Tartrate (Ambien), 10 MG PO HS PRN for Sleep Physical Examination Skin: warm/dry, no rash Eyes: normal inspection, EOMI, sclerae normal ENT: normal ENT inspection, pharynx normal Head: normocephalic, atraumatic Neck: supple, no adenopathy, trachea midline Respiratory/Chest: lungs clear, normal breath sounds, no respiratory distress Cardiovascular: regular rate, rhythm, no edema, no murmur Abdomen / GI: normal bowel sounds, non tender Back: normal inspection Extremities: normal inspection, normal range of motion Neurologic/Psych: no motor/sensory deficits, alert, normal reflexes, oriented x 3 Diagnosis Infected Left Total Knee ASA Classification: ASA Class II Plan of Treatment I&D with poly exchange Left knee
[2016-10-26] MEDS ORDERED: FENTANYL CITRATE INJ 50 MCG/1 ML 2 ML VIAL ONE (13:18)
[2016-10-26] MEDS ORDERED: ONDANSETRON INJ 2 MG/ML 2 ML VIAL ONE (13:18)
[2016-10-26] MEDS ORDERED: DEXAMETHASONE SOD INJ 4 MG/ML VIAL ONE (13:18)
[2016-10-26] MEDS ORDERED: PROPOFOL IV EMULSION 10 MG/ML 20 ML VIAL IV ONE (13:18)
[2016-10-26] MEDS ORDERED: LIDOCAINE HCL 2% 2 ML VIAL (20MG/ML) ONE (13:18)
[2016-10-26] MEDS ORDERED: ATROPINE SULFATE 0.1 MG/ML 5ML SYR IV PRN (13:30)
[2016-10-26] MEDS ORDERED: EpHEDrine SULFATE INJ 50 MG/ML AMP IV PRN (13:30)
[2016-10-26] MEDS ORDERED: FENTANYL CITRATE INJ 50 MCG/1 ML 2 ML VIAL IV PRN (13:30)
[2016-10-26] MEDS ORDERED: ONDANSETRON INJ 2 MG/ML 2 ML VIAL IV PRN ×2 (13:30→15:30)
[2016-10-26] MEDS ORDERED: PROMETHAZINE HCL INJ 6.25 MG in SODIUM CHLORIDE 0.9% 50ML 50 ML IV PRN (13:30)
[2016-10-26] MEDS ORDERED: BACITRACIN 50000 UNIT VIAL ONE (13:38)
[2016-10-26] MEDS ORDERED: POVIDONE-IODINE OP SOLN 30 ML BTL ONE (13:52)
--- NOTE | 2016-10-26 13:55 | HISTORY & PHYSICAL EXAMINATION ---
DATE OF ADMISSION: 10/26/2016 CHIEF COMPLAINT: Infected left total knee arthroplasty. HISTORY OF PRESENT ILLNESS: Robyn is an 81-year-old female who underwent a left total knee arthroplasty in 2009 and a right total knee arthroplasty in 2011. Her left knee did great unfortunately she had constant pain in her right knee. I worked her up extensively for infection in her right knee including bone scans, aspiration and Synovasure and lab work. However, everything came back negative for infection. I got an x-ray of her hip and it showed bad osteoarthritis of her right hip. I gave her an intra-articular right hip injection and all of her knee pain went away. She then elected to undergo a right total hip arthroplasty. On 09/08/2016 she underwent a right total hip arthroplasty without complication. All her knee pain was gone. She was very happy with her progress. Unfortunately, a couple of weeks after the surgery she became very lethargic, was having multiple falls. She said she was having no hip pain and no knee pain, just extreme weakness in her legs and fatigue. She was brought back to the hospital and was found to have a urinary tract infection and a little superficial dehiscence of her wound. A small wound VAC was placed and she was started on IV antibiotics. She was also found to have bacteremia during that visit. After the PICC line was placed she was placed on 2 weeks of IV antibiotics and discharged to an extended care facility. The VAC on her hip was immediately discontinued and just a small packing was done as it was a rather small dehiscence. Unfortunately, she continued to have a lot of weakness. After 2 weeks of the IV antibiotics she was discharged to home and to follow up with her primary care physician. She came back to my office and said that she was having increased pain on the left side of her leg. I did get a white count, sed rate and CRP which did show an elevation in sed rate and CRP, but she was not having any right hip pain and no urinary tract symptoms. I called her primary care physician, Dr. Sotelo personally and discussed the case with him and he was going to bring her in for a repeat urinalysis and further blood work. However, before she could get to the office, she returned to the Emergency Room with a hot swollen left knee. An aspiration was done in the Emergency Room which showed an infected total joint prosthesis. She refused to stay in the hospital at that time and was discharged to home. She came back to my office several days later. Physical examination including evaluation of all the lab work was diagnostic for an infected left total knee and I got her on my schedule immediately for an irrigation, debridement and poly exchange of the left knee because it is a new onset of infection. PAST MEDICAL HISTORY: Significant for anxiety, obesity and hypertension. MEDICATIONS: Vitamin C 500 mg twice a day, aspirin 325 mg twice a day, Cipro 250 mg twice a day, Tranxene T 7.5 mg twice a day, lisinopril 10 mg daily, probiotics, Effexor 37.5 mg daily, and Ambien as needed for sleep. ALLERGIES: No known drug allergies. PAST SURGICAL HISTORY: Significant for bilateral total knee arthroplasties by Dr. Escamilla, left knee in 2009, right knee in 2011 and a right total hip arthroplasty by Dr. Jean in August of 2016. FAMILY HISTORY: Noncontributory. SOCIAL HISTORY: She denies any tobacco, alcohol or IV drug use. She remains active. Her pain is limiting her. She lives alone at home and is an independent ambulator without assistance. REVIEW OF SYSTEMS: She complains of left knee pain and swelling. All other pertinent review of systems are negative. PHYSICAL EXAMINATION: GENERAL: She is awake, alert and oriented x3. She is in no apparent distress. She is very pleasant. HEAD, EYES, EARS, NOSE, AND THROAT: Pupils are equal, round and reactive to light. Extraocular motion intact. Oral mucosa is pink and moist. HEART: Regular rate per radial pulse. LUNGS: Jesika symmetrically bilaterally with no audible breath sounds. ABDOMEN: Soft, nontender, nondistended. MUSCULOSKELETAL: On physical examination of the left knee, there is a 2+ effusion on exam. It is not very red or warm to touch, but is painful to touch. She has limited range of motion because of the effusion. She has no effusion of pain in her right knee and good range of motion of her right hip. She has a very small opening of the wound of her right hip which is healing by secondary measures. LABORATORY DATA: She has current H&H of 11.4 and 35.0. Her white count is 8.15. Her sed rate is 79 and her CRP is 14.5. Aspiration from the Emergency Room did show a white count of 44,000 and cultures grew out Staph aureus. One of the 2 blood cultures also grew out staph. IMPRESSION: An infected left total knee arthroplasty. PLAN: Because we know this is a new infection we will proceed with irrigation, debridement and poly exchange. Postoperatively, she was started on vancomycin and infectious disease will be consulted. She will likely need greater than 6 weeks of IV antibiotics. I will follow her closely. WINTER
[2016-10-26] MEDS ORDERED: EpHEDrine SULFATE 50MG/5ML SYR ONE (14:38)
[2016-10-26] MEDS ORDERED: PHENYLEPHRINE HCL INJ 10 MG/ML VIAL ONE (14:38)
--- NOTE | 2016-10-26 15:19 | [facility] Post Operative Brief Note ---
Immediate Operative Summary Operative Date Oct 26, 2016. Pre-Operative Diagnosis Infected Left total knee Post-Operative Diagnosis Infected left total knee Procedure(s) Performed Incision and Drainage Poly Exchange Total Knee Left Surgeon Ted Maintenance Worker Municipal Surgeon(s) Bismark Isidro PA-C Estimated Blood Loss 20cc Findings as above Specimens A: Explanted Hardware left knee 1: Left knee synovial fluid Complication(s) None Disposition Recovery Room / PACU
[2016-10-26] MEDS ORDERED: METOCLOPRAMIDE HCL INJ 5 MG/ML 2 ML VIAL IV PRN (15:30)
[2016-10-26] MEDS ORDERED: BISACODYL 10 MG SUPP PR PRN (15:30)
[2016-10-26] MEDS ORDERED: ACETAMINOPHEN 325 MG TAB PO PRN (15:30)
[2016-10-26] MEDS ORDERED: SOD PHOSPHATE/SOD BIPHOSPHATE ENEMA 132 ML BTL PR PRN (15:30)
[2016-10-26] MEDS ORDERED: SILVER SULFADIAZINE 1% CR 50 GM JAR EXT PRN (15:30)
--- NOTE | 2016-10-26 16:10 | Anesthesiology Progress Note ---
Anesthesia Post Op Note Date & Time Oct 26, 2016 at 16:08 Vital Signs Pain Intensity: 8 Vital Signs Past 12 Hours Date Time Temp Pulse Resp B/P (MAP) Pulse Ox O2 Delivery O2 Flow Rate FiO2 10/26/16 11:00 37.1 90 20 132/67 92 Room Air Notes Mental Status: alert / awake / arousable, participated in evaluation Pt Amnestic to Procedure: Yes Nausea / Vomiting: adequately controlled Pain: adequately controlled Airway Patency, RR, SpO2: stable & adequate BP & HR: stable & adequate Hydration State: stable & adequate Anesthetic Complications: no major complications apparent Patient had some transient ectopy on the monitor operatively. NSVT vs Afib with RVR. She also had a signifcant number of PACs. Electrolytes are normal. She is asymptomatic and without dyspnea or chest pain in recovery, but I think it prudent to monitor her overnight on telemetry so that there can be rapid intervention if she has any malignant arrhythmia.
[2016-10-26] MEDS: SODIUM CHLORIDE 0.9% 1000ML 1,000 ML IV SCH (17:43)
[2016-10-26] MEDS: MAGNESIUM HYDROXIDE SUSP 30 ML UDC PO PRN (17:44)
[2016-10-26] MEDS: FERROUS SULFATE 325 MG TAB PO SCH (17:44)
--- NOTE | 2016-10-26 18:31 | OPERATIVE REPORT ---
DATE OF OPERATION: 10/26/2016 PREOPERATIVE DIAGNOSIS: Infected left total knee arthroplasty. POSTOPERATIVE DIAGNOSIS: Same. PROCEDURE: Irrigation, debridement and poly exchange of the left knee. SURGEON: Dr. Patrick Jean. COMPOSING MACHINE OPERATOR: Bismark Isidro PA-C, whose assistance was necessary for positioning of the leg and helping with instrumentation. ANESTHESIA: General. COMPLICATIONS: None. CONDITION: Stable to PACU. IMPLANTS USED: This was a [place] NexGen knee with a 12-mm posterior stabilized poly. INDICATIONS: Robyn is an 81-year-old female who had a left total knee arthroplasty done by another physician in 2009. She was doing extremely well with it. She then underwent a right total hip arthroplasty about 2 months ago. She did have a bout of UTI and bacteremia postoperatively from the total hip. Her hip did well, but eventually she developed pain and swelling of her left knee. An aspirate from the Emergency Room showed increased white count and grew out Staph species. She continued to have pain and swelling of the knee and she elected to proceed with irrigation, debridement and poly exchange. DESCRIPTION OF PROCEDURE: On 10/26/2016, she arrived at [facility] for the above procedure. She was seen in the preoperative holding area and the operative extremity was identified and signed. She was already on Cipro for her UTI and then she was given preoperative vancomycin before incision. She was put under general anesthesia. The left knee was prepped and draped in sterile fashion. Time-out was done and the patient and operative extremity was properly identified. The old incision was opened back up. Dissection was taken down to the extensor mechanism and a large amount of purulent drainage was evacuated and cultured. The knee was briefly irrigated. Significant time was then spent doing a complete debridement of both the medial and lateral gutters and the entire synovium around the knee. Significant time was spent during this process, making sure all tissue intact if the joint was removed. The polyethylene insert was then removed and time was spent cleaning the tissue on the posterior aspect of the knee. The irrigation was then done in accordance with the protocol from Dr. Matthias Chan. We used Dakin solution, followed by irrigation with 3 liters of normal saline solution, followed Betadine wash, followed by vigorous scrub and another 3 liters of normal saline irrigation, followed by 3 liters of normal saline with bacitracin irrigation, followed by a change of all gloves and drapes and followed by reimplantation of a size 12 posterior stabilized polyethylene insert. Two drains were placed. The extensor mechanism was closed with #1 PDS suture. Skin was closed with 3-0 Vicryl, V-Loc suture and agnes. She was then placed in a soft dressing, extubated, transferred to a [facility] and taken to the postanesthesia care unit in stable condition. She tolerated the procedure well. I attest to the content of the Intraoperative Record and any orders documented therein. Any exceptions are noted below. WINTER
[2016-10-26] MEDS: MoRPHine SULFATE 2 MG/ML CARP IV PRN ×2 (19:13→21:38)
[2016-10-26] MEDS: OXYCODONE HCL IR 5 MG TAB (IMMEDIATE RELEASE) PO PRN (20:05)
[2016-10-26] MEDS: SENNA 8.6 MG TAB PO SCH (20:06)
[2016-10-26] MEDS: ASPIRIN 325 MG ECTAB PO SCH (20:06)
[2016-10-26] MEDS: ASCORBIC ACID 500 MG TAB PO SCH (20:07)
[2016-10-26] MEDS: DOCUSATE SODIUM 100 MG CAP PO SCH (20:08)
[2016-10-26] MEDS: ZOLPIDEM TARTRATE 10 MG TAB PO PRN (21:38)
--- NOTE | 2016-10-26 21:40 | Medical Consult ---
Consultation Date of Consultation: Oct 26, 2016. Attending Physician: Patrick Jean DO Reason for Consultation: Post Op Medical Management History of Present Illness 81 year old female who is s/p I&D poly exchange of left total knee. Patient underwent right total hip replacement on 09/08. She was readmitted to [facility] 09/25- for multiple falls, generalized weakness, right hip wound dehiscence and infection, and bacteriemia. Wound dehiscence was treated with a wound vac. Wound cultures grew MSSA and Morganella and blood cultures grew staph aureus as well. Echo was negative for vegetations. Patient was discharged with a PICC line and completed a 2 week course of cefazolin. Patient reports that over the past two weeks she has had increased pain in her left knee. It has been becoming swollen, red, and warm to touch. Patient was seen in the ER on 10/21 and had left knee fluid aspirated and blood cultures drawn, fluid grew MSSA and 1/2 blood cultures + for MSSA as well. She was seen by Dr. Jean as an outpatient and therefore presented for the planned procedure today. Patient denies fever and chills. Post operatively she is doing well. She is currently requesting pain medication. Sensation is intact to the lower extremities. She denies chest pain and shortness of breath. No abdominal pain, nausea, or vomiting. She denies lightheadedness and dizziness. Past Medical/Surgical History Medical Problems: (1) Anxiety Status: Chronic (2) Arthritis Status: Chronic (3) HTN (hypertension) Status: Chronic Surgical Problems: (1) Hx of umbilical hernia repair Status: Chronic (2) Status post left knee replacement Status: Chronic (3) Status post right hip replacement Status: Chronic (4) Status post right knee replacement Status: Chronic Family History non contributory due to patient's advanced age Social History Smoking Status: Never Smoker Alcohol Use: none Housing Status: lives with family Allergies Coded Allergies: No Known Allergies (Verified , 10/26/16) Home Medications Ambien (Zolpidem Tartrate) 10 Mg Tab 10 Mg PO HS PRN 3 Days Cipro (Ciprofloxacin) 250 Mg Tab 250 Mg PO BID Aspirin Ec (Aspirin) 325 Mg Tab 325 Mg PO DAILY Kp Ferrous Sulfate (Ferrous Sulfate) 325 Mg Tab 325 Mg PO BID Vitamin C (Ascorbic Acid) 500 Mg Tab 500 Mg PO BID Effexor (Venlafaxine Hcl) 37.5 Mg Tab 37.5 Mg PO DAILY Turmeric (Turmeric (Curcuma Longa)) 500 Mg Cap 1 Tab PO DAILY Probiotic (Probiotic Product) 1 Cap Cap 1 Cap PO DAILY Flax Seed Oil (Flaxseed (Linseed)) 1 Cap Cap 1 Cap PO DAILY Zestril (Lisinopril) 10 Mg Tab 10 Mg PO DAILY [place]-3 (Fish Oil) 1 Ea Cap 1 Cap PO QAM Cranberry Soft Chews (Cranberry (Vaccinium Macrocarp) 500 Mg Chw 1 Tab PO QAM Tylenol Arthritis Ext Rel (Acetaminophen) 650 Mg Cplt 1,300 Mg PO Q8H PRN Glucosamine Chondroitin (Hbqvtejkjro-Bgwcqwpupsa-Ept C-) 1 Cap Cap 1 Tab PO QAM Multivitamin (Multivitamins) Tab 1 Tab PO QAM Tranxene-T (Clorazepate Dipotassium) 7.5 Mg Tab 7.5 Mg PO BID PRN Current Inpatient Medications Current Inpatient Medications Medications (Trade) Dose Ordered Sig/Aldo Route Start Time Stop Time Status Last Admin Dose Admin Ascorbic Acid (Vitamin C Tab) 500 mg BID PO 10/26/16 21:00 11/25/16 20:59 10/26/16 20:07 500 MG Lisinopril (Zestril Tab) 10 mg DAILY PO 10/27/16 09:00 11/26/16 08:59 Multivitamins (Multivitamin Tab) 1 tab QAM PO 10/27/16 09:00 11/26/16 08:59 Venlafaxine HCl (effeXOR EXTENDED REL CAP) 37.5 mg DAILY PO 10/27/16 09:00 11/26/16 08:59 Zolpidem Tartrate (Ambien Tab) 10 mg HS PRN PO 10/26/16 15:30 11/25/16 15:29 Ferrous Sulfate (Feosol Tab) 325 mg BIDM PO 10/26/16 17:00 11/25/16 16:59 10/26/16 17:44 325 MG Lactobacillus Acidophilus (Floranex Tab) 4 tab DAILY PO 10/27/16 09:00 11/26/16 08:59 Sodium Chloride 1,000 ml @ 100 mls/hr Q10H IV 10/26/16 15:20 10/27/16 15:19 10/26/16 17:43 100 MLS/HR Vancomycin HCl 1500 mg/Sodium Chloride 530 ml @ 200 mls/hr 2300 IV 10/26/16 23:00 10/27/16 01:38 Oxycodone HCl (Roxicodone Immediate Rel Tab) 1 TABLET FOR PAIN RATING... Q4H PRN PO 10/26/16 15:30 11/09/16 15:29 10/26/16 20:05 10 MG Morphine Sulfate (MoRPHine SULFATE INJ) 2 mg Q2HWA PRN IV 10/26/16 15:30 11/09/16 15:29 10/26/16 19:13 2 MG Magnesium Hydroxide (Milk Of Magnesia Susp) 30 ml Q6H PRN PO 10/26/16 15:30 11/25/16 15:29 10/26/16 17:44 30 ML Bisacodyl (Dulcolax Supp) 10 mg DAILY PRN NC 10/26/16 15:30 11/25/16 15:29 Sodium Biphosphate/ Sodium Phosphate (Fleet Enema) 132 ml DAILY PRN NC 10/26/16 15:30 11/25/16 15:29 Senna (Senokot Tab) 17.2 mg HS PO 10/26/16 21:00 11/25/16 20:59 10/26/16 20:06 17.2 MG Docusate Sodium (coLACE CAP) 100 mg BID PO 10/26/16 21:00 11/25/16 20:59 10/26/16 20:08 100 MG Ondansetron HCl (Zofran Inj) 4 mg Q6H PRN IV 10/26/16 15:30 11/25/16 15:29 Metoclopramide HCl (Reglan Inj) 10 mg Q6H PRN IV 10/26/16 15:30 11/25/16 15:29 Pantoprazole Sodium (Protonix Tab) 40 mg QAM PO 10/27/16 09:00 11/26/16 08:59 Silver Sulfadiazine (Silvadene 1% Crm 50GM Jar) 1 appln BID PRN EXT 10/26/16 15:30 11/25/16 15:29 Aspirin (Ecotrin Tab) 325 mg BID PO 10/26/16 21:00 9/9/17 20:59 10/26/16 20:06 325 MG Acetaminophen (Tylenol Tab) 650 mg Q4H PRN PO 10/26/16 15:30 11/25/16 15:29 Review of Systems ROS per HPI, all other systems reviewed and negative Physical Exam Date Time Temp Pulse Resp B/P (MAP) Pulse Ox O2 Delivery O2 Flow Rate FiO2 10/26/16 20:00 96 Nasal Cannula 2.0 10/26/16 19:00 36.9 77 20 147/80 (102) 95 Nasal Cannula 2.0 10/26/16 18:00 36.8 79 20 137/79 (98) 95 Nasal Cannula 2.0 10/26/16 17:28 37.0 77 20 137/77 (97) 96 Nasal Cannula 2.0 10/26/16 17:15 96 Nasal Cannula 2.0 10/26/16 17:15 96 Nasal Cannula 2.0 10/26/16 17:00 36.7 76 20 114/76 (89) 96 Nasal Cannula 2.0 10/26/16 16:50 36.4 78 14 136/79 99 Nasal Cannula 2 10/26/16 16:40 78 22 135/75 98 Nasal Cannula 2 10/26/16 16:30 36.8 78 18 142/73 97 Nasal Cannula 2 10/26/16 16:20 80 18 139/70 98 Nasal Cannula 2 10/26/16 16:10 37 78 14 149/47 99 Nasal Cannula 2 10/26/16 16:00 78 14 127/82 100 Mask 10 10/26/16 15:50 80 18 134/75 100 Mask 10 10/26/16 15:41 36.1 78 20 114/80 100 Mask 10 10/26/16 11:00 37.1 90 20 132/67 92 Room Air General Appearance: no apparent distress Head: normocephalic Eyes: normal inspection ENT: hearing grossly normal Neck: supple, no JVD Respiratory/Chest: lungs clear, normal breath sounds, no respiratory distress Cardiovascular: regular rate, rhythm, no edema, normal peripheral pulses Abdomen/GI: normal bowel sounds, non tender, soft Extremities/Musculoskelatal: + pertinent finding (s/p left knee surgery, surgical dressing intact, drain in place draining bloody drainage, CSM checks intact to LLE) Neurologic/Psych: no motor/sensory deficits, alert, normal mood/affect, oriented x 3 Skin: normal color, warm/dry Assessment & Plan INFECTED LEFT TOTAL KNEE - S/P I/D POLY EXCHANGE MSSA BACTEREMIA - POD#0 - activity and wound care orders as per ortho - pain control with bowel regimen - PT/OT - monitor H/H for acute blood loss anemia and transfuse blood products PRN - patient was seen in the ER on 10/21 and had left knee fluid aspirated and blood cultures drawn - fluid grew MSSA and 1/2 blood cultures + for MSSA as well - currently on empiric Vanco; OR fluid culture pending - will place consult for ID; recheck blood cultures - consider repeating echo, however noted normal echo on 09/29/16 when patient was admitted for right hip infection / MSSA bacteremia HTN - BP controlled, continue lisinopril ANXIETY - continue home meds DVT PROPHYLAXIS - deferred to ortho Thank you for this consultation. We will follow the patient with you during their hospital stay. You can reach a member of the [facility] Hospitalist Team 09/10 via pager @ . Attending Addendum: The patient was seen and examined S/P Left Knee I&D and Poly Exchange Left knee for Septic arthritis Resting in bed without any symptoms O/E Hemodynamically stable Chest-minimally decreased breath sound without any crackles Heart-regular,no murmur appreciated Abdomen-benign,no masses,bowel sound present Extremities-trace edema bilaterally Left knee is bandaged with drainage Labs and Imaging studies were reviewed Agree with the assessment and plan. Dr Alaina James
[2016-10-26] MEDS ORDERED: VANCOMYCIN INJ 1,500 MG in SODIUM CHLORIDE 0.9% 500ML 500 ML IV SCH (23:00)
[2016-10-27] VITALS (11 sets, daily range): BP systolic 100–132; BP diastolic 56–75; PULSE 65–110; TEMP 36.8–37.5; O2SAT 93–98
[2016-10-27] MEDS: SODIUM CHLORIDE 0.9% 1000ML 1,000 ML IV SCH ×2 (02:09→11:12)
[2016-10-27 08:06] LABS: HEMATOCRIT 33.4 % (37-47); MEAN CORPUSCULAR HEMOGLOBIN 27.5 pg (25-34); MEAN CORPUSCULAR HGB CONC 30.5 g/dl (32-36); MEAN PLATELET VOLUME 8.5 fL (7.4-10.4); PLATELET COUNT 447 K/uL (130-400); RED BLOOD COUNT 3.71 M/uL (4.2-5.4); WHITE BLOOD COUNT 10.48 K/uL (4.8-10.8)
[2016-10-27] MEDS: DOCUSATE SODIUM 100 MG CAP PO SCH ×2 (08:16→20:59)
[2016-10-27] MEDS: ASCORBIC ACID 500 MG TAB PO SCH ×2 (08:16→20:59)
[2016-10-27] MEDS: ASPIRIN 325 MG ECTAB PO SCH ×2 (08:17→20:59)
[2016-10-27] MEDS: MULTIVITAMIN TAB PO SCH (08:17)
[2016-10-27] MEDS: LISINOPRIL 10 MG TAB PO SCH (08:17)
[2016-10-27] MEDS: PANTOprazole SOD 40 MG TAB PO SCH (08:17)
[2016-10-27] MEDS: FERROUS SULFATE 325 MG TAB PO SCH ×2 (08:17→16:31)
[2016-10-27] MEDS: VENLAFAXINE HCL XR 37.5 MG CAPXR PO SCH (08:18)
[2016-10-27] MEDS: LACTOBACILLUS ACIDOPHILUS (FLORANEX) TAB PO SCH (08:18)
[2016-10-27 08:22] LABS: BUN/CREATININE RATIO 14.6 (10-20); CALCIUM 8.4 mg/dl (8.5-10.1); CREATININE 0.59 mg/dl (0.60-1.20); POTASSIUM 4.6 mmol/L (3.5-5.1)
--- NOTE | 2016-10-27 08:24 | Anesthesiology Progress Note ---
Anesthesia Post Op Note Date & Time Oct 27, 2016 at 08:23 Vital Signs Vital Signs Past 12 Hours Date Time Temp Pulse Resp B/P (MAP) Pulse Ox O2 Delivery O2 Flow Rate FiO2 10/27/16 07:19 36.8 65 18 103/61 (75) 95 Nasal Cannula 2.0 10/27/16 04:53 37.1 110 16 121/75 (90) 93 2.0 10/27/16 04:00 Nasal Cannula 2.0 10/27/16 02:00 Nasal Cannula 2.0 10/27/16 00:05 96 Nasal Cannula 2.0 10/26/16 23:42 36.5 94 20 128/76 (93) 94 Room Air Notes Mental Status: alert / awake / arousable, participated in evaluation Pt Amnestic to Procedure: Yes Nausea / Vomiting: adequately controlled Pain: adequately controlled Airway Patency, RR, SpO2: stable & adequate BP & HR: stable & adequate Hydration State: stable & adequate Anesthetic Complications: no major complications apparent
[2016-10-27] MEDS: OXYCODONE HCL IR 5 MG TAB (IMMEDIATE RELEASE) PO PRN ×2 (08:56→16:27)
[2016-10-27] MEDS ORDERED: CRANBERRY PO SCH (09:00)
[2016-10-27] MEDS ORDERED: MULTIVITAMIN TAB PO SCH (09:00)
[2016-10-27] MEDS ORDERED: FLAXSEED PO SCH (09:00)
[2016-10-27] MEDS ORDERED: NON-FORMULARY MEDICATION (Turmeric (Curcuma Longa) (Turmeric) 1 TAB) PO SCH (09:00)
--- NOTE | 2016-10-27 10:12 | Progress Note ---
Progress Note Date of Service Oct 27, 2016. Progress Note ID Consult Dictated #[id number] A/P: 1. MSSA septicemia 2. Infected LTKR - MSSA -Start ancef -Follow cultures -Suggest echo r/o IE -Will require prolonged course of IV abx, min 6 weeks -Check inflamm markers -ID service to follow, thank you
--- NOTE | 2016-10-27 11:00 | INFECT. DISEASE CONSULTATION ---
DATE OF CONSULTATION: 10/27/2016 REQUESTING PHYSICIAN: Dr. Jean. HISTORY OF PRESENT ILLNESS: This is an 81-year-old female who was recently admitted to the hospital in September. At that time, she was found to have an infected right hip after a right hip replacement, which grew MSSA and morganella. She was treated with 14 days of antibiotics. It appears that she left the hospital on intravenous Ancef. She also had blood cultures, which were positive for MSSA at that time. An echocardiogram was negative for endocarditis. She does have a history of a knee replacement some years ago, which was uncomplicated until recently. Over the past week or so, she has noticed worsening pain and erythema as well as swelling of the left knee. She denies any trauma to this area. She came to the Emergency Room on the . At that time, blood cultures were obtained and again are growing MSSA. It is unclear if she was on any oral antibiotics, but she was discharged from the Emergency Room at that time. She did have a followup with orthopedic surgery and in the interim, had worsening knee pain, swelling and erythema and again came to the ER yesterday. She was taken to the operating room last night. OR cultures are pending. However, a knee aspiration done in the Emergency Room on the is growing MSSA as well. Blood cultures are pending. Her OR Gram stain does have many WBCs. She was given a 1-time dose of vancomycin yesterday. She has been afebrile since admission to the hospital. She denies any fevers or chills at home. Again, she denies any trauma to this area. She states the area of her right hip has healed well. She did have a VAC for a short period of time to facilitate with wound healing. She currently denies any chest pain, cough, shortness of breath, nausea, vomiting, diarrhea or abdominal pain. She states that her appetite has been stable. With regards to her knee, she states she is not in any pain right now, but has received pain medication. She tolerated her procedure well. As an outpatient, she did have elevated inflammatory markers. Her white blood cell count today is 10.4. REVIEW OF SYSTEMS: All remaining review of systems is reviewed and is negative except for as noted. PAST MEDICAL HISTORY: Significant for anxiety, obesity, hypertension and a right hip wound infection recently. 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 FAMILY HISTORY: Noncontributory. ALLERGIES: She has no known drug allergies. SOCIAL HISTORY: Negative for tobacco use, alcohol use or drug use. She denies any sick contacts. CURRENT MEDICATIONS: Include lisinopril, multivitamin, Effexor, Florinef, Protonix, vitamin C, Senokot, Colace, Ecotrin, iron, Ambien, Roxicodone, morphine, milk of magnesia, Dulcolax, Zofran, Reglan, Tylenol and a 1-time dose of vancomycin yesterday. PHYSICAL EXAMINATION: VITAL SIGNS: She is afebrile, pulse 65, respiratory rate 18, blood pressure 103/61, and oxygen saturation is 95% on 2 liter. GENERAL: She is awake, alert and oriented x3. She is in no acute distress. HEENT: Mucous membranes are moist. Extraocular muscles are intact. HEART: Regular. I do not auscultate a murmur. LUNGS: Clear bilaterally. ABDOMEN: Soft, nontender, and nondistended. There is no lower extremity edema. SKIN: Without rash. The left knee dressing is clean, dry and intact. A postoperative drain is in place. LABORATORY STUDIES: CBC today reveals a white blood cell count of 10.4, hemoglobin 10.2, and platelets are 447. Chemistry panel reveals a sodium of 136, potassium 4.6, chloride 98, bicarbonate 35, BUN 9, and creatinine 0.5. Gram stain from the OR culture again has no organisms, but many WBCs. Culture is pending. Blood cultures were ordered yesterday and are pending. There is no imaging to review. 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 At this time, she will be placed on Ancef. Repeat blood cultures will need to be obtained if her cultures from the are positive. An echocardiogram should be obtained as well. She was bacteremic back on 21 of October. Her most recent echo in September was unremarkable. She will likely require a prolonged course of intravenous antibiotics via a PICC line. PICC line should be held until there is no evidence of bloodstream infection. Thank you for this consultation.
[2016-10-27] MEDS: CEFAZOLIN IV 2,000 MG in DEXTROSE 5% 50ML 50 ML IV SCH (11:12)
[2016-10-27] MEDS: CLORAZEPATE DIPOTASSIUM 3.75 MG TAB PO SCH ×2 (11:13→20:59)
--- NOTE | 2016-10-27 15:20 | PROGRESS NOTE ---
DATE: 10/27/2016 DATE: 10/27/2016 CHIEF COMPLAINT: Status post I&D poly exchange to the left knee, postop day #1. PROGRESS: Robyn was seen and examined at bedside today. She was having some pain in her knee, but it is not too bad. She was up and ambulating last night but she has not been today. She has been seen by infectious disease as well as internal medicine. She has no new complaints. PHYSICAL EXAMINATION: LEFT KNEE: The dressing is clean and dry and the drain is to suction. She has active dorsiflexion and plantarflexion of her left ankle and sensation is intact. LABORATORY DATA: Show a sed rate of 61 and a CRP of 12. Her H&H is 10.2 and 33.4. Her glucose is 123. Her Gram stain showed many white blood cells and the preliminary culture is gram positive cocci. Blood cultures are still pending. IMPRESSION: Status post incision and drainage poly exchange of the left knee. PLAN: She was seen by infectious disease and has been switched from vancomycin to Ancef. We are still waiting for blood cultures and final joint fluid cultures. She will likely need a PICC line and 6 weeks of IV antibiotics. We will make sure therapy gets her up and keeps her moving and will continue to follow her to make sure that her fatigue is decreasing.
[2016-10-27] MEDS ORDERED: VANCOMYCIN CONSULT ACTIVE PRN (16:05)
[2016-10-27] MEDS ORDERED: VANCOMYCIN INJ 2,750 MG in SODIUM CHLORIDE 0.9% 500ML 500 ML IV ONE (16:15)
--- NOTE | 2016-10-27 16:34 | Pharmacy Progress Note ---
Pharmacy Abx Initial Consult Date of Service Oct 27, 2016. Pharmacy Dosing Scope Date of Consult: 10/27/16 Consultation requested by: Dr. Stewart Pharmacy is consulted to initiate Vancomycin IV dosing therapy, order appropriate labs and adjust drug dose/frequency. Subjective The patient is a 81 year old female admitted on Oct 26, 2016 at 15:25. Objective Height (Feet): 5 Height (Inches): 9.00 Weight (Kilograms): 107.200 Vital Signs (Past 12Hrs) Vital Signs Past 12 Hours Date Time Temp Pulse Resp B/P (MAP) Pulse Ox O2 Delivery O2 Flow Rate FiO2 10/27/16 16:13 36.8 82 18 100/59 (73) 96 Room Air 10/27/16 12:00 95 Nasal Cannula 2.0 10/27/16 11:06 36.8 87 20 101/56 (71) 96 Nasal Cannula 2.0 10/27/16 08:00 95 Nasal Cannula 2.0 10/27/16 07:19 36.8 65 18 103/61 (75) 95 Nasal Cannula 2.0 10/27/16 04:53 37.1 110 16 121/75 (90) 93 2.0 Lab Results (24Hrs) Laboratory Tests (24 Hours) Test 10/27/16 07:22 10/27/16 10:59 White Blood Count 10.48 K/uL (4.8-10.8) C-Reactive Protein 12.90 mg/dl (0-0.29) H Erythrocyte Sedimentation Rate 61 mm/hr (0-21) H Micro Results Date/Time Source Procedure Growth Status 10/26/16 20:24 Blood Blood Culture Pending Received 10/26/16 20:17 Blood Blood Culture Pending Received 10/26/16 14:11 Joint Fluid/Space (Synovial) Knee Left Gram Stain - Final Resulted 10/26/16 14:11 Bacterial Culture - Preliminary Gram Positive Cocci Resulted Risk Factors for Resistance * Hospitalization for 48 hours or more within the past 90 days * Antimicrobial use within the last 90 days Assessment & Plan Assessment 81 year old female initiated on Vancomycin IV due to GPCs in synovial fluid. Blood cultures pending. Ancef placed on hold per MD. Plan Vancomycin IV * Loading dose: 2750 mg (25 mg/kg) * Maintenance dose: 1750 mg IV (16 mg/kg) every 10 hours * Goal trough level for joint infection: 15 to 20 mcg/mL * Trough level ordered for 10/28/16 @2330 prior to the 0000 dose. * Pt is potentially at risk for drug accumulation if Vancomycin continues >72 hours; will monitor more frequently. * Will start aggressively given indication and past admission data. Pharmacy will continue to follow and will adjust dose/frequency as necessary. Thank you.
[2016-10-27] MEDS: SENNA 8.6 MG TAB PO SCH (20:59)
--- NOTE | 2016-10-27 21:40 | Progress Note ---
Medicine Progress Note Date & Time of Visit: Oct 27, 2016 at 15:10. Subjective tolerating PO pain controlled asymptomatic mentating well Objective Last 8 Hrs Date Time Temp Pulse Resp B/P (MAP) Pulse Ox O2 Delivery O2 Flow Rate FiO2 10/27/16 12:00 95 Nasal Cannula 2.0 10/27/16 11:06 36.8 87 20 101/56 (71) 96 Nasal Cannula 2.0 10/27/16 08:00 95 Nasal Cannula 2.0 10/27/16 07:19 36.8 65 18 103/61 (75) 95 Nasal Cannula 2.0 Physical Exam: GEN: WNWD, in no acute distress, alert and appropriate HEENT: NC/AT, normal sclerae, MMM CARDIO: reg rate, S1/2 heard without m/g/r LUNGS: CTA bilaterally, no crackles, rales or wheezes, good diaphragmatic excursion ABD: soft, non-tender, non-distended, no rebound or guarding EXTREMITY: dressing and drain to L knee, c/d/i NEURO: CN 2-12 grossly intact, sensation intact SKIN: warm and dry and wound as above. Laboratory Results: 10/27/16 07:22 10/27/16 07:22 Test 10/27/16 07:22 10/27/16 10:59 Red Blood Count 3.71 M/uL (4.2-5.4) Mean Corpuscular Volume 90.0 fL (80-100) Mean Corpuscular Hemoglobin 27.5 pg (25-34) Mean Corpuscular Hemoglobin Concent 30.5 g/dl (32-36) RDW Standard Deviation 47.1 fL (36.4-46.3) RDW Coefficient of Variation 14.4 % (11.5-14.5) Mean Platelet Volume 8.5 fL (7.4-10.4) Anion Gap 3.0 mmol/L (3-11) Est Creatinine Clear Calc Drug Dose 95.9 ml/min Estimated GFR () 98.9 Estimated GFR (Non- 85.4 BUN/Creatinine Ratio 14.6 (10-20) Calcium Level 8.4 mg/dl (8.5-10.1) Erythrocyte Sedimentation Rate 61 mm/hr (0-21) C-Reactive Protein 12.90 mg/dl (0-0.29) Date/Time Source Procedure Growth Status 8/10/17 20:24 Blood Blood Culture Pending Received 10/26/16 14:11 Joint Fluid/Space (Synovial) Knee Left Gram Stain - Final Resulted 10/26/16 14:11 Bacterial Culture - Preliminary Gram Positive Cocci Resulted Last 24 Hours Test 10/27/16 07:22 10/27/16 10:59 White Blood Count 10.48 K/uL Red Blood Count 3.71 M/uL Hemoglobin 10.2 g/dL Hematocrit 33.4 % Mean Corpuscular Volume 90.0 fL Mean Corpuscular Hemoglobin 27.5 pg Mean Corpuscular Hemoglobin Concent 30.5 g/dl RDW Standard Deviation 47.1 fL RDW Coefficient of Variation 14.4 % Platelet Count 447 K/uL Mean Platelet Volume 8.5 fL Sodium Level 136 mmol/L Potassium Level 4.6 mmol/L Chloride Level 98 mmol/L Carbon Dioxide Level 35 mmol/L Anion Gap 3.0 mmol/L Blood Urea Nitrogen 9 mg/dl Creatinine 0.59 mg/dl Est Creatinine Clear Calc Drug Dose 95.9 ml/min Estimated GFR () 98.9 Estimated GFR (Non- 85.4 BUN/Creatinine Ratio 14.6 Random Glucose 123 mg/dl Calcium Level 8.4 mg/dl Erythrocyte Sedimentation Rate 61 mm/hr C-Reactive Protein 12.90 mg/dl Date/Time Source Procedure Growth Status 10/26/16 20:24 Blood Blood Culture Pending Received 10/26/16 20:17 Blood Blood Culture Pending Received Assessment & Plan INFECTED LEFT TOTAL KNEE - S/P I/D POLY EXCHANGE MSSA BACTEREMIA - POD#1 - activity and wound care orders as per ortho - pain control with bowel regimen - PT/OT - monitor H/H for acute blood loss anemia and transfuse blood products PRN - patient was seen in the ER on 10/21 and had left knee fluid aspirated and blood cultures drawn - fluid grew MSSA and 1/2 blood cultures + for MSSA as well - currently on empiric Vanco; OR fluid culture growing GPCs - will place consult for ID; recheck blood cultures -repeat TTE ordered per ID. HTN - BP controlled, continue lisinopril POST-OPERATIVE ACUTE BLOOD LOSS ANEMIA: monitor CBC ANXIETY - continue home meds DVT PROPHYLAXIS ASA BID per Ortho Thank you for this consultation. We will follow the patient with you during their hospital stay. You can reach a member of the [facility] Hospitalist Team 09/10 via pager @ [phone]. Sarah Stewart DO [facility] Hospitalist Current Inpatient Medications: Current Inpatient Medications Medications (Trade) Dose Ordered Sig/Aldo Route Start Time Stop Time Status Last Admin Dose Admin Ascorbic Acid (Vitamin C Tab) 500 mg BID PO 10/26/16 21:00 11/25/16 20:59 10/27/16 08:16 500 MG Lisinopril (Zestril Tab) 10 mg DAILY PO 10/27/16 09:00 11/26/16 08:59 10/27/16 08:17 10 MG Multivitamins (Multivitamin Tab) 1 tab QAM PO 10/27/16 09:00 11/26/16 08:59 10/27/16 08:17 1 TAB Venlafaxine HCl (effeXOR EXTENDED REL CAP) 37.5 mg DAILY PO 10/27/16 09:00 11/26/16 08:59 10/27/16 08:18 37.5 MG Zolpidem Tartrate (Ambien Tab) 10 mg HS PRN PO 10/26/16 15:30 11/25/16 15:29 10/26/16 21:38 10 MG Ferrous Sulfate (Feosol Tab) 325 mg BIDM PO 10/26/16 17:00 11/25/16 16:59 10/27/16 08:17 325 MG Lactobacillus Acidophilus (Floranex Tab) 4 tab DAILY PO 10/27/16 09:00 11/26/16 08:59 10/27/16 08:18 4 TAB Sodium Chloride 1,000 ml @ 100 mls/hr Q10H IV 10/26/16 15:20 10/27/16 15:19 10/27/16 11:12 100 MLS/HR Oxycodone HCl (Roxicodone Immediate Rel Tab) 1 TABLET FOR PAIN RATING... Q4H PRN PO 10/26/16 15:30 11/09/16 15:29 10/27/16 08:56 10 MG Morphine Sulfate (MoRPHine SULFATE INJ) 2 mg Q2HWA PRN IV 10/26/16 15:30 11/09/16 15:29 10/26/16 21:38 2 MG Magnesium Hydroxide (Milk Of Magnesia Susp) 30 ml Q6H PRN PO 10/26/16 15:30 11/25/16 15:29 10/26/16 17:44 30 ML Bisacodyl (Dulcolax Supp) 10 mg DAILY PRN ID 10/26/16 15:30 11/25/16 15:29 Sodium Biphosphate/ Sodium Phosphate (Fleet Enema) 132 ml DAILY PRN ID 10/26/16 15:30 11/25/16 15:29 Senna (Senokot Tab) 17.2 mg HS PO 10/26/16 21:00 11/25/16 20:59 10/26/16 20:06 17.2 MG Docusate Sodium (coLACE CAP) 100 mg BID PO 10/26/16 21:00 11/25/16 20:59 10/27/16 08:16 100 MG Ondansetron HCl (Zofran Inj) 4 mg Q6H PRN IV 10/26/16 15:30 11/25/16 15:29 Metoclopramide HCl (Reglan Inj) 10 mg Q6H PRN IV 10/26/16 15:30 11/25/16 15:29 Pantoprazole Sodium (Protonix Tab) 40 mg QAM PO 10/27/16 09:00 11/26/16 08:59 10/27/16 08:17 40 MG Silver Sulfadiazine (Silvadene 1% Crm 50GM Jar) 1 appln BID PRN EXT 10/26/16 15:30 11/25/16 15:29 Aspirin (Ecotrin Tab) 325 mg BID PO 10/26/16 21:00 11/25/16 20:59 10/27/16 08:17 325 MG Acetaminophen (Tylenol Tab) 650 mg Q4H PRN PO 10/26/16 15:30 11/25/16 15:29 Clorazepate Dipotassium (Tranxene-T Tab) 7.5 mg BID PO 10/27/16 09:00 11/26/16 08:59 10/27/16 11:13 7.5 MG Cefazolin Sodium 2000 mg/Dextrose 60 ml @ 100 mls/hr Q8@0200,1000,1800 IV 10/27/16 10:15 12/08/16 10:14 10/27/16 11:12 100 MLS/HR
[2016-10-28] VITALS (7 sets, daily range): BP systolic 90–137; BP diastolic 60–78; PULSE 67–176; TEMP 36.6–38.1; O2SAT 93–98
[2016-10-28] MEDS: VANCOMYCIN INJ 1,750 MG in SODIUM CHLORIDE 0.9% 500ML 500 ML IV SCH ×2 (04:13→14:13)
[2016-10-28 06:37] LABS: HEMATOCRIT 30.6 % (37-47); MEAN CORPUSCULAR HEMOGLOBIN 27.9 pg (25-34); MEAN CORPUSCULAR HGB CONC 31.4 g/dl (32-36); PLATELET COUNT 417 K/uL (130-400); RED BLOOD COUNT 3.44 M/uL (4.2-5.4); WHITE BLOOD COUNT 9.23 K/uL (4.8-10.8)
[2016-10-28 07:25] LABS: BUN/CREATININE RATIO 10.1 (10-20); CALCIUM 7.9 mg/dl (8.5-10.1); CREATININE 0.61 mg/dl (0.60-1.20); POTASSIUM 4.2 mmol/L (3.5-5.1)
[2016-10-28] MEDS: VENLAFAXINE HCL XR 37.5 MG CAPXR PO SCH (07:56)
[2016-10-28] MEDS: FERROUS SULFATE 325 MG TAB PO SCH ×2 (07:56→17:04)
[2016-10-28] MEDS: ASCORBIC ACID 500 MG TAB PO SCH ×2 (07:57→20:59)
[2016-10-28] MEDS: MULTIVITAMIN TAB PO SCH (07:57)
[2016-10-28] MEDS: DOCUSATE SODIUM 100 MG CAP PO SCH ×2 (07:57→20:58)
[2016-10-28] MEDS: LISINOPRIL 10 MG TAB PO SCH (07:57)
[2016-10-28] MEDS: ASPIRIN 325 MG ECTAB PO SCH ×2 (07:57→20:58)
[2016-10-28] MEDS: CLORAZEPATE DIPOTASSIUM 3.75 MG TAB PO SCH ×2 (07:57→21:01)
[2016-10-28] MEDS: LACTOBACILLUS ACIDOPHILUS (FLORANEX) TAB PO SCH (07:57)
[2016-10-28] MEDS: PANTOprazole SOD 40 MG TAB PO SCH (07:57)
--- NOTE | 2016-10-28 08:52 | PROGRESS NOTE ---
DATE: 10/28/2016 DATE: 10/28/2016 CHIEF COMPLAINT: Status post I&D and poly exchange of the left knee, postop day #2. PROGRESS: Robyn was seen and examined at bedside today. Overall, she is doing fairly well. She says she has less pain in her knee today. She has been up out of bed. She has no new complaints. LABORATORY DATA: She has an H&H today of 9.6 and 30.6. Her glucose is 126. Her preliminary cultures have shown gram positive cocci. Her blood cultures all show no growth to date. IMPRESSION: Status post incision and drainage of the left knee with poly exchange postop day #2. PLAN: Will continue the IV Ancef per infectious disease recommendations. We are still awaiting final blood cultures and final fluid cultures. She knows she will be with us throughout the weekend continuing on the IV antibiotics. Physical therapy and occupational therapy has been ordered and wound care has been ordered as well to address her right hip. We are still waiting for final cultures. She can be up out of bed as tolerated. We will plan to change the dressing and pull out the drains tomorrow.
[2016-10-28] MEDS: OXYCODONE HCL IR 5 MG TAB (IMMEDIATE RELEASE) PO PRN (12:51)
[2016-10-28] MEDS: MAGNESIUM HYDROXIDE SUSP 30 ML UDC PO PRN (15:40)
[2016-10-28] MEDS: SENNA 8.6 MG TAB PO SCH (20:59)
--- NOTE | 2016-10-28 22:35 | Progress Note ---
Medicine Progress Note Date & Time of Visit: Oct 28, 2016 at 13:18. Subjective -tolerating PO -denies pain -doing well overall Objective Last 8 Hrs Date Time Temp Pulse Resp B/P (MAP) Pulse Ox O2 Delivery O2 Flow Rate FiO2 10/28/16 12:02 Nasal Cannula 2.0 10/28/16 11:45 36.7 76 20 137/78 (97) 96 Nasal Cannula 10/28/16 08:00 Nasal Cannula 2.0 10/28/16 07:27 36.8 67 18 108/68 (81) 93 Nasal Cannula 2.0 Physical Exam: GEN: WNWD, in no acute distress, alert and appropriate HEENT: NC/AT, normal sclerae, MMM CARDIO: reg rate, S1/2 heard without m/g/r LUNGS: CTA bilaterally, no crackles, rales or wheezes, good diaphragmatic excursion ABD: soft, non-tender, non-distended, no rebound or guarding EXTREMITY: dressing to L knee, c/d/i NEURO: CN 2-12 grossly intact, sensation intact SKIN: warm and dry and wound as above. Laboratory Results: 10/28/16 06:17 10/28/16 06:17 Test 10/27/16 10:59 10/28/16 06:17 Erythrocyte Sedimentation Rate 61 mm/hr (0-21) C-Reactive Protein 12.90 mg/dl (0-0.29) Red Blood Count 3.44 M/uL (4.2-5.4) Mean Corpuscular Volume 89.0 fL (80-100) Mean Corpuscular Hemoglobin 27.9 pg (25-34) Mean Corpuscular Hemoglobin Concent 31.4 g/dl (32-36) RDW Standard Deviation 47.6 fL (36.4-46.3) RDW Coefficient of Variation 14.6 % (11.5-14.5) Mean Platelet Volume 8.0 fL (7.4-10.4) Anion Gap 5.0 mmol/L (3-11) Est Creatinine Clear Calc Drug Dose 92.3 ml/min Estimated GFR () 97.8 Estimated GFR (Non- 84.4 BUN/Creatinine Ratio 10.1 (10-20) Calcium Level 7.9 mg/dl (8.5-10.1) Date/Time Source Procedure Growth Status 10/26/16 20:24 Blood Blood Culture - Preliminary NO GROWTH TO DATE. Resulted 10/26/16 14:11 Joint Fluid/Space (Synovial) Knee Left Gram Stain - Final Resulted 10/26/16 14:11 Bacterial Culture - Preliminary Staphylococcus Aureus Resulted Last 24 Hours Test 10/28/16 06:17 White Blood Count 9.23 K/uL Red Blood Count 3.44 M/uL Hemoglobin 9.6 g/dL Hematocrit 30.6 % Mean Corpuscular Volume 89.0 fL Mean Corpuscular Hemoglobin 27.9 pg Mean Corpuscular Hemoglobin Concent 31.4 g/dl RDW Standard Deviation 47.6 fL RDW Coefficient of Variation 14.6 % Platelet Count 417 K/uL Mean Platelet Volume 8.0 fL Sodium Level 135 mmol/L Potassium Level 4.2 mmol/L Chloride Level 100 mmol/L Carbon Dioxide Level 30 mmol/L Anion Gap 5.0 mmol/L Blood Urea Nitrogen 6 mg/dl Creatinine 0.61 mg/dl Est Creatinine Clear Calc Drug Dose 92.3 ml/min Estimated GFR () 97.8 Estimated GFR (Non- 84.4 BUN/Creatinine Ratio 10.1 Random Glucose 126 mg/dl Calcium Level 7.9 mg/dl Assessment & Plan INFECTED LEFT TOTAL KNEE - S/P I/D POLY EXCHANGE MSSA BACTEREMIA - POD#2 - activity and wound care orders as per ortho - pain control with bowel regimen - PT/OT - monitor H/H for acute blood loss anemia and transfuse blood products PRN - patient was seen in the ER on 10/21 and had left knee fluid aspirated and blood cultures drawn - fluid grew MSSA and 1/2 blood cultures + for MSSA as well - currently on empiric Vanco; OR fluid culture growing GPCs -repeat TTE per ID. HTN - BP controlled, continue lisinopril POST-OPERATIVE ACUTE BLOOD LOSS ANEMIA: monitor CBC ANXIETY - continue home meds DVT PROPHYLAXIS ASA BID per Ortho Thank you for this consultation. We will follow the patient with you during their hospital stay. You can reach a member of the [facility] Hospitalist Team 09/10 via pager @ . Sarah Stewart, [facility] Hospitalist Current Inpatient Medications: Current Inpatient Medications Medications (Trade) Dose Ordered Sig/Aldo Route Start Time Stop Time Status Last Admin Dose Admin Ascorbic Acid (Vitamin C Tab) 500 mg BID PO 10/26/16 21:00 11/25/16 20:59 10/28/16 07:57 500 MG Lisinopril (Zestril Tab) 10 mg DAILY PO 10/27/16 09:00 11/26/16 08:59 10/28/16 07:57 10 MG Multivitamins (Multivitamin Tab) 1 tab QAM PO 10/27/16 09:00 11/26/16 08:59 10/28/16 07:57 1 TAB Venlafaxine HCl (effeXOR EXTENDED REL CAP) 37.5 mg DAILY PO 10/27/16 09:00 11/26/16 08:59 10/28/16 07:56 37.5 MG Zolpidem Tartrate (Ambien Tab) 10 mg HS PRN PO 10/26/16 15:30 11/25/16 15:29 10/26/16 21:38 10 MG Ferrous Sulfate (Feosol Tab) 325 mg BIDM PO 10/26/16 17:00 11/25/16 16:59 10/28/16 07:56 325 MG Lactobacillus Acidophilus (Floranex Tab) 4 tab DAILY PO 10/27/16 09:00 11/26/16 08:59 10/28/16 07:57 4 TAB Oxycodone HCl (Roxicodone Immediate Rel Tab) 1 TABLET FOR PAIN RATING... Q4H PRN PO 10/26/16 15:30 11/09/16 15:29 10/28/16 12:51 10 MG Morphine Sulfate (MoRPHine SULFATE INJ) 2 mg Q2HWA PRN IV 10/26/16 15:30 11/09/16 15:29 10/26/16 21:38 2 MG Magnesium Hydroxide (Milk Of Magnesia Susp) 30 ml Q6H PRN PO 10/26/16 15:30 11/25/16 15:29 10/26/16 17:44 30 ML Bisacodyl (Dulcolax Supp) 10 mg DAILY PRN IN 10/26/16 15:30 11/25/16 15:29 Sodium Biphosphate/ Sodium Phosphate (Fleet Enema) 132 ml DAILY PRN IN 10/26/16 15:30 11/25/16 15:29 Senna (Senokot Tab) 17.2 mg HS PO 10/26/16 21:00 11/25/16 20:59 10/27/16 20:59 17.2 MG Docusate Sodium (coLACE CAP) 100 mg BID PO 10/26/16 21:00 11/25/16 20:59 10/28/16 07:57 100 MG Ondansetron HCl (Zofran Inj) 4 mg Q6H PRN IV 10/26/16 15:30 11/25/16 15:29 Metoclopramide HCl (Reglan Inj) 10 mg Q6H PRN IV 10/26/16 15:30 11/25/16 15:29 Pantoprazole Sodium (Protonix Tab) 40 mg QAM PO 10/27/16 09:00 11/26/16 08:59 10/28/16 07:57 40 MG Silver Sulfadiazine (Silvadene 1% Crm 50GM Jar) 1 appln BID PRN EXT 10/26/16 15:30 11/25/16 15:29 Aspirin (Ecotrin Tab) 325 mg BID PO 10/26/16 21:00 11/25/16 20:59 10/28/16 07:57 325 MG Acetaminophen (Tylenol Tab) 650 mg Q4H PRN PO 10/26/16 15:30 11/25/16 15:29 Clorazepate Dipotassium (Tranxene-T Tab) 7.5 mg BID PO 10/27/16 09:00 11/26/16 08:59 10/28/16 07:57 7.5 MG Cefazolin Sodium 2000 mg/Dextrose 60 ml @ 100 mls/hr Q8@0200,1000,1800 IV 10/27/16 10:15 12/08/16 10:14 Future Hold 10/27/16 11:12 100 MLS/HR Vancomycin HCl (Consult) 1 ea UD PRN N/A 10/27/16 16:05 11/26/16 16:04 Vancomycin HCl 1750 mg/Sodium Chloride 535 ml @ 200 mls/hr Q10H IV 10/28/16 04:00 12/09/16 03:59 10/28/16 04:13 200 MLS/HR
[2016-10-28] MEDS ORDERED: VANCOMYCIN TROUGH ONE (23:30)
[2016-10-29] MEDS: VANCOMYCIN INJ 1,750 MG in SODIUM CHLORIDE 0.9% 500ML 500 ML IV SCH (00:48)
[2016-10-29 04:11] VITALS: BP 116/69; PULSE 78; TEMP 37.2; O2SAT 96
[2016-10-29 04:57] LABS: HEMATOCRIT 29.2 % (37-47); MEAN CELL VOLUME 88.8 fL (80-100); MEAN CORPUSCULAR HEMOGLOBIN 27.1 pg (25-34); MEAN CORPUSCULAR HGB CONC 30.5 g/dl (32-36); MEAN PLATELET VOLUME 7.9 fL (7.4-10.4); PLATELET COUNT 360 K/uL (130-400); RED BLOOD COUNT 3.29 M/uL (4.2-5.4); WHITE BLOOD COUNT 8.32 K/uL (4.8-10.8)
[2016-10-29 05:14] LABS: CALCIUM 8.2 mg/dl (8.5-10.1); CREATININE 0.68 mg/dl (0.60-1.20); POTASSIUM 4.2 mmol/L (3.5-5.1)
[2016-10-29 07:35] VITALS: BP 118/74; PULSE 77; TEMP 37.1; O2SAT 99
[2016-10-29] MEDS: PANTOprazole SOD 40 MG TAB PO SCH (08:36)
[2016-10-29] MEDS: LACTOBACILLUS ACIDOPHILUS (FLORANEX) TAB PO SCH (08:36)
[2016-10-29] MEDS: VENLAFAXINE HCL XR 37.5 MG CAPXR PO SCH (08:36)
[2016-10-29] MEDS: LISINOPRIL 10 MG TAB PO SCH (08:36)
[2016-10-29] MEDS: MULTIVITAMIN TAB PO SCH (08:36)
[2016-10-29] MEDS: FERROUS SULFATE 325 MG TAB PO SCH ×2 (08:36→16:48)
[2016-10-29] MEDS: ASPIRIN 325 MG ECTAB PO SCH ×2 (08:36→20:25)
[2016-10-29] MEDS: DOCUSATE SODIUM 100 MG CAP PO SCH ×2 (08:36→20:25)
[2016-10-29] MEDS: ASCORBIC ACID 500 MG TAB PO SCH ×2 (08:37→20:26)
[2016-10-29] MEDS: CLORAZEPATE DIPOTASSIUM 3.75 MG TAB PO SCH ×2 (08:42→20:25)
--- NOTE | 2016-10-29 09:22 | PROGRESS NOTE ---
DATE: 10/29/2016 CHIEF COMPLAINT: Status post I&D of the left knee with poly exchange, postop day #3. PROGRESS: Robyn was seen and examined at bedside today. Overall, she is doing fairly well. She is able to ambulate on her left knee. She has some soreness but it is not too bad. She has had no acute events overnight and no complaints. PHYSICAL EXAMINATION: LEFT KNEE: We will change the dressing and pull the drains this morning. She is able to get her knee near full extension. She is neurovascularly intact. LABORATORY DATA: She has an H&H today of 8.9 and 29.2. Her glucose is 123. Her vital signs are stable on 2 liters of nasal cannula, we will wean her off that, and she is voiding on her own. Blood cultures show no growth to date and bacterial culture from the knee shows Staph aureus but the cultures are not final yet. IMPRESSION: Status post I&D poly exchange to the left knee. PLAN: We are still waiting for final blood cultures to come back. If they come back negative, we can place a PICC line and then start her on extended antibiotics, probably 6 weeks. She will continue on Ancef for now per infectious disease recommendation and we will get a DOTTIE to make sure there has been no new vegetation of her heart valve. We will also get the dressing changed and pull the drain today.
[2016-10-29] MEDS ORDERED: PERFLUTREN LIPID MICROSPHERE (DEFINITY) IV ONE (10:19)
[2016-10-29] MEDS: OXYCODONE HCL IR 5 MG TAB (IMMEDIATE RELEASE) PO PRN (10:45)
[2016-10-29] MEDS: CEFAZOLIN IV 2,000 MG in DEXTROSE 5% 50ML 50 ML IV SCH ×2 (10:46→17:42)
[2016-10-29 11:58] VITALS: BP 113/70; PULSE 81; TEMP 37; O2SAT 91
[2016-10-29 15:07] VITALS: BP 112/66; PULSE 90; TEMP 36.8; O2SAT 94
--- NOTE | 2016-10-29 18:09 | Progress Note ---
Medicine Progress Note Date & Time of Visit: Oct 29, 2016 at 0900. Subjective tolerating PO MSSA grew out on culture --Vanc stopped/Ancef restarted denies any pain anywhere 1-2 min run of SVT yesterday afternoon into 170s-asymptomatic--likely 2/2 infection no further events overnight. Objective Last 8 Hrs Date Time Temp Pulse Resp B/P (MAP) Pulse Ox O2 Delivery O2 Flow Rate FiO2 10/29/16 15:07 36.8 90 18 112/66 (81) 94 Room Air 10/29/16 12:00 Room Air 10/29/16 11:58 37.0 81 20 113/70 (84) 91 Physical Exam: GEN: WNWD, in no acute distress, alert and appropriate HEENT: NC/AT, normal sclerae, MMM CARDIO: reg rate, S1/2 heard without m/g/r LUNGS: CTA bilaterally, no crackles, rales or wheezes, good diaphragmatic excursion ABD: soft, non-tender, non-distended, no rebound or guarding EXTREMITY: dressing to L knee, c/d/i NEURO: CN 2-12 grossly intact, sensation intact SKIN: warm and dry and wound as above. Laboratory Results: 10/29/16 04:49 10/29/16 04:49 Test 10/27/16 10:59 10/28/16 23:12 10/29/16 04:49 Erythrocyte Sedimentation Rate 61 mm/hr (0-21) C-Reactive Protein 12.90 mg/dl (0-0.29) Vancomycin Level Trough 25.2 mcg/ml (SEE COMMENT) Red Blood Count 3.29 M/uL (4.2-5.4) Mean Corpuscular Volume 88.8 fL (80-100) Mean Corpuscular Hemoglobin 27.1 pg (25-34) Mean Corpuscular Hemoglobin Concent 30.5 g/dl (32-36) RDW Standard Deviation 47.2 fL (36.4-46.3) RDW Coefficient of Variation 14.6 % (11.5-14.5) Mean Platelet Volume 7.9 fL (7.4-10.4) Anion Gap 4.0 mmol/L (3-11) Est Creatinine Clear Calc Drug Dose 82.8 ml/min Estimated GFR () 94.4 Estimated GFR (Non- 81.5 BUN/Creatinine Ratio 11.0 (10-20) Calcium Level 8.2 mg/dl (8.5-10.1) Random Vancomycin Level 24.3 mcg/ml Date/Time Source Procedure Growth Status 10/26/16 20:24 Blood Blood Culture - Preliminary NO GROWTH TO DATE. Resulted 10/26/16 14:11 Joint Fluid/Space (Synovial) Knee Left Gram Stain - Final Resulted 10/26/16 14:11 Bacterial Culture - Preliminary Staphylococcus Aureus Resulted Last 24 Hours Test 10/28/16 23:12 10/29/16 04:49 Vancomycin Level Trough 25.2 mcg/ml White Blood Count 8.32 K/uL Red Blood Count 3.29 M/uL Hemoglobin 8.9 g/dL Hematocrit 29.2 % Mean Corpuscular Volume 88.8 fL Mean Corpuscular Hemoglobin 27.1 pg Mean Corpuscular Hemoglobin Concent 30.5 g/dl RDW Standard Deviation 47.2 fL RDW Coefficient of Variation 14.6 % Platelet Count 360 K/uL Mean Platelet Volume 7.9 fL Sodium Level 137 mmol/L Potassium Level 4.2 mmol/L Chloride Level 100 mmol/L Carbon Dioxide Level 33 mmol/L Anion Gap 4.0 mmol/L Blood Urea Nitrogen 7 mg/dl Creatinine 0.68 mg/dl Est Creatinine Clear Calc Drug Dose 82.8 ml/min Estimated GFR () 94.4 Estimated GFR (Non- 81.5 BUN/Creatinine Ratio 11.0 Random Glucose 123 mg/dl Calcium Level 8.2 mg/dl Random Vancomycin Level 24.3 mcg/ml Assessment & Plan INFECTED LEFT TOTAL KNEE - S/P I/D POLY EXCHANGE MSSA BACTEREMIA - POD#3 - activity and wound care orders as per ortho - pain control with bowel regimen - PT/OT - monitor H/H for acute blood loss anemia and transfuse blood products PRN - patient was seen in the ER on 10/21 and had left knee fluid aspirated and blood cultures drawn - fluid grew MSSA and 1/2 blood cultures + for MSSA as well - currently on empiric Vanco but washout cultures are growing MSSA--switching abx back; OR fluid culture growing GPCs -repeat TTE per ID-ordered HTN - BP controlled, continue lisinopril POST-OPERATIVE ACUTE BLOOD LOSS ANEMIA: monitor CBC ANXIETY - continue home meds DVT PROPHYLAXIS ASA BID per Ortho Thank you for this consultation. We will follow the patient with you during their hospital stay. You can reach a member of the [facility] Hospitalist Team 09/10 via pager @ . Sarah Stewart DO [facility] Hospitalist Current Inpatient Medications: Current Inpatient Medications Medications (Trade) Dose Ordered Sig/Aldo Route Start Time Stop Time Status Last Admin Dose Admin Ascorbic Acid (Vitamin C Tab) 500 mg BID PO 10/26/16 21:00 11/25/16 20:59 10/29/16 08:37 500 MG Lisinopril (Zestril Tab) 10 mg DAILY PO 10/27/16 09:00 11/26/16 08:59 10/29/16 08:36 10 MG Multivitamins (Multivitamin Tab) 1 tab QAM PO 10/27/16 09:00 11/26/16 08:59 10/29/16 08:36 1 TAB Venlafaxine HCl (effeXOR EXTENDED REL CAP) 37.5 mg DAILY PO 10/27/16 09:00 11/26/16 08:59 10/29/16 08:36 37.5 MG Zolpidem Tartrate (Ambien Tab) 10 mg HS PRN PO 10/26/16 15:30 11/25/16 15:29 10/26/16 21:38 10 MG Ferrous Sulfate (Feosol Tab) 325 mg BIDM PO 10/26/16 17:00 11/25/16 16:59 10/29/16 16:48 325 MG Lactobacillus Acidophilus (Floranex Tab) 4 tab DAILY PO 10/27/16 09:00 11/26/16 08:59 10/29/16 08:36 4 TAB Oxycodone HCl (Roxicodone Immediate Rel Tab) 1 TABLET FOR PAIN RATING... Q4H PRN PO 10/26/16 15:30 11/09/16 15:29 10/29/16 10:45 10 MG Morphine Sulfate (MoRPHine SULFATE INJ) 2 mg Q2HWA PRN IV 10/26/16 15:30 11/09/16 15:29 10/26/16 21:38 2 MG Magnesium Hydroxide (Milk Of Magnesia Susp) 30 ml Q6H PRN PO 10/26/16 15:30 11/25/16 15:29 10/28/16 15:40 30 ML Bisacodyl (Dulcolax Supp) 10 mg DAILY PRN MN 10/26/16 15:30 11/25/16 15:29 Sodium Biphosphate/ Sodium Phosphate (Fleet Enema) 132 ml DAILY PRN MN 10/26/16 15:30 11/25/16 15:29 Senna (Senokot Tab) 17.2 mg HS PO 10/26/16 21:00 11/25/16 20:59 10/28/16 20:59 17.2 MG Docusate Sodium (coLACE CAP) 100 mg BID PO 10/26/16 21:00 11/25/16 20:59 10/29/16 08:36 100 MG Ondansetron HCl (Zofran Inj) 4 mg Q6H PRN IV 10/26/16 15:30 11/25/16 15:29 Metoclopramide HCl (Reglan Inj) 10 mg Q6H PRN IV 10/26/16 15:30 11/25/16 15:29 Pantoprazole Sodium (Protonix Tab) 40 mg QAM PO 10/27/16 09:00 11/26/16 08:59 10/29/16 08:36 40 MG Silver Sulfadiazine (Silvadene 1% Crm 50GM Jar) 1 appln BID PRN EXT 10/26/16 15:30 11/25/16 15:29 Aspirin (Ecotrin Tab) 325 mg BID PO 10/26/16 21:00 11/25/16 20:59 10/29/16 08:36 325 MG Acetaminophen (Tylenol Tab) 650 mg Q4H PRN PO 10/26/16 15:30 11/25/16 15:29 Clorazepate Dipotassium (Tranxene-T Tab) 7.5 mg BID PO 10/27/16 09:00 11/26/16 08:59 10/29/16 08:42 7.5 MG Cefazolin Sodium 2000 mg/Dextrose 60 ml @ 100 mls/hr Q8@0200,1000,1800 IV 10/27/16 10:15 12/08/16 10:14 Future hold 10/29/16 17:42 100 MLS/HR
[2016-10-29 19:20] VITALS: BP 139/73; PULSE 83; TEMP 37; O2SAT 91
[2016-10-29] MEDS: SENNA 8.6 MG TAB PO SCH (20:26)
[2016-10-29 23:30] VITALS: BP 146/78; PULSE 92; TEMP 36.9; O2SAT 90
[2016-10-30] MEDS: CEFAZOLIN IV 2,000 MG in DEXTROSE 5% 50ML 50 ML IV SCH ×3 (02:08→16:51)
[2016-10-30 05:28] VITALS: BP 131/73; PULSE 80; TEMP 36.6; O2SAT 91
[2016-10-30 06:17] LABS: CREATININE 0.78 mg/dl (0.60-1.20)
[2016-10-30 07:53] VITALS: BP 154/81; PULSE 79; TEMP 36.8; O2SAT 93
[2016-10-30] MEDS: LISINOPRIL 10 MG TAB PO SCH (08:03)
[2016-10-30] MEDS: ASPIRIN 325 MG ECTAB PO SCH ×2 (08:03→21:08)
[2016-10-30] MEDS: CLORAZEPATE DIPOTASSIUM 3.75 MG TAB PO SCH ×3 (08:03→17:19)
[2016-10-30] MEDS: LACTOBACILLUS ACIDOPHILUS (FLORANEX) TAB PO SCH (08:03)
[2016-10-30] MEDS: FERROUS SULFATE 325 MG TAB PO SCH ×2 (08:03→16:51)
[2016-10-30] MEDS: PANTOprazole SOD 40 MG TAB PO SCH (08:03)
[2016-10-30] MEDS: DOCUSATE SODIUM 100 MG CAP PO SCH ×2 (08:04→21:06)
[2016-10-30] MEDS: MULTIVITAMIN TAB PO SCH (08:04)
[2016-10-30] MEDS: VENLAFAXINE HCL XR 37.5 MG CAPXR PO SCH (08:04)
[2016-10-30] MEDS: ASCORBIC ACID 500 MG TAB PO SCH ×2 (08:04→21:06)
--- NOTE | 2016-10-30 08:34 | ECHOCARDIOGRAM REPORT ---
*NOTICE TO RECEIVING REPUBLICAN AGENCY This information is strictly Confidential and protected under [place] law. [place] law prohibits you from making any further disclosure of this information unless further disclosure is expressly permitted by the written consent of the person to whom it pertains or is authorized by law. A general authorization for the release of medical or other information is not sufficient for this purpose. Hospital accepts no responsibility if the information is made available to any other person, INCLUDING THE PATIENT. Interpretation Summary * Name: MELISSA ARMENDARIZ Study Date: 10/29/2016 09:26 AM BP: 118/74 mmHg * Patient Location: [facility]\S\N278\S\2 HR: 77 * : 1935 (M/d/yyyy) Gender: Female Height: 69 in * Age: 81 yrs Ethnicity: CA Weight: 244 lb * Ordering Physician: Sarah Stewart * Referring Physician: Patrick Jean * Performed By: Nahomy Rowe RDCS * * Reason For Study: MSSA infection and SVT on monitor * BSA: 2.2 m2 * -- Conclusions -- * Sinus rhythm was present during the echocardiogram. * There is mild to moderate concentric left ventricular hypertrophy. * No regional wall motion abnormalities noted. * The left ventricle is hyperdynamic. * Ejection Fraction = >70 %. * There is severe mitral annular calcification. * There is no mitral valve stenosis. * There is focal calcification of the aortic valve at the commisure of between the right and left coronary cusp. * Aortic valve stenosis is absent. * The left ventricular outflow tract is narrow with peak velocity of 2.6 m/s and peak LVOT gradient of 27 mm Hg. * Compared to the prior study dated 09/29/16, there has been an interval decline in the LV outflow tract gradient. * Focal aortic valve calcification and mitral annular calcification are present without 2D evidence of vegetation. Procedure Details * A complete two-dimensional transthoracic echocardiogram was performed (2D, M-mode, Doppler and color flow Doppler). * A contrast injection of Definity was performed to improve assessment of LV function. * Contrast was injected into an intravenous site in the left arm. * One vial of Definity ultrasound contrast was diluted in normal saline to a total volume of 10 ml. A total of '3' ml of solution was administered during imaging. * Lot # [id number] of Definity utilized for procedure. * Expiration date NOV 03. * The attending nurse who injected the contrast agent was Elina Anne RN. Left Ventricle * The left ventricle is normal in size. * There is mild to moderate concentric left ventricular hypertrophy. * The left ventricle is hyperdynamic. * Ejection Fraction = >70 %. * No regional wall motion abnormalities noted. Right Ventricle * The right ventricle is normal in size and function. Atria * The left atrial size is normal. * Right atrial size is normal. * There is no evidence of atrial septal defect, but resolution does not allow assessment for a patent foramen ovale. Mitral Valve * There is severe mitral annular calcification. * There is no mitral valve stenosis. * Significant mitral regurgitation is absent. Tricuspid Valve * The tricuspid valve is normal. * There is no tricuspid stenosis. * Significant tricuspid regurgitation is absent. Aortic Valve * The aortic valve is trileaflet. * There is focal calcification of the aortic valve at the commisure of between the right and left coronary cusp. * Aortic stenosis is absent. * There is no significant aortic regurgitation. Pulmonic Valve * The pulmonary valve is not well seen, but the Doppler examination is normal without significant regurgitation or stenosis. Great Vessels * The aortic root and proximal ascending aorta are normal sized. Pericardium/Pleural * There is no pericardial effusion. Great Vessels * Normal inferior vena cava diameter and respiratory variation suggests normal central venous pressure. Left Ventricular Diastolic Function * Grade I diastolic dysfunction, (abnormal relaxation pattern). MMode 2D Measurements and Calculations IVSd 1.1 cm LVIDd 3.9 cm LVIDs 2.5 cm LVPWd 1.1 cm IVS/LVPW 0.98 FS 37.0 % EDV(Teich) 66.3 ml ESV(Teich) 21.5 ml EF(Teich) 67.6 % EDV(cubed) 59.7 ml ESV(cubed) 14.9 ml EF(cubed) 75.0 % LV mass(C)d 147.0 grams LV mass(C)dI 65.4 grams/m\S\2 SV(Teich) 44.8 ml SI(Teich) 19.9 ml/m\S\2 SV(cubed) 44.8 ml SI(cubed) 19.9 ml/m\S\2 Ao root diam 3.3 cm Ao root area 8.6 cm\S\2 ACS 2.0 cm asc Aorta Diam 2.9 cm LVOT diam 2.0 cm LVOT area 3.0 cm\S\2 LVAd ap4 28.0 cm\S\2 LVLd ap4 8.0 cm EDV(MOD-sp4) 79.6 ml EDV(sp4-el) 82.8 ml LVAs ap4 13.9 cm\S\2 LVLs ap4 6.4 cm ESV(MOD-sp4) 25.5 ml ESV(sp4-el) 25.8 ml EF(MOD-sp4) 67.9 % EF(sp4-el) 68.9 % LVAd ap2 18.3 cm\S\2 LVLd ap2 6.4 cm EDV(MOD-sp2) 41.9 ml EDV(sp2-el) 44.5 ml LVAs ap2 9.5 cm\S\2 LVLs ap2 5.3 cm ESV(MOD-sp2) 13.7 ml ESV(sp2-el) 14.4 ml EF(MOD-sp2) 67.3 % EF(sp2-el) 67.7 % LVLd %diff -25.27 % EDV(MOD-bp) 64.7 ml LVLs %diff -19.58 % ESV(MOD-bp) 20.1 ml EF(MOD-bp) 69.0 % SV(MOD-sp4) 54.1 ml SI(MOD-sp4) 24.1 ml/m\S\2 SV(MOD-sp2) 28.2 ml SI(MOD-sp2) 12.5 ml/m\S\2 SV(MOD-bp) 44.7 ml SI(MOD-bp) 19.9 ml/m\S\2 SV(sp4-el) 57.0 ml SI(sp4-el) 25.4 ml/m\S\2 SV(sp2-el) 30.1 ml SI(sp2-el) 13.4 ml/m\S\2 Doppler Measurements and Calculations MV E max melisa 102.8 cm/sec MV A max melisa 110.6 cm/sec MV E/A 0.93 MV dec time 0.40 sec Ao V2 max 267.2 cm/sec Ao max PG 28.7 mmHg Ao max PG (full) 18.7 mmHg Ao V2 mean 185.8 cm/sec Ao mean PG 15.6 mmHg Ao V2 VTI 52.6 cm LEI(V,A) 1.8 cm\S\2 LEI(V,D) 1.8 cm\S\2 LV V1 max PG 9.9 mmHg LV V1 max 157.6 cm/sec SV(Ao) 450.2 ml SI(Ao) 200.3 ml/m\S\2 PA V2 max 122.2 cm/sec PA max PG 6.0 mmHg PA acc slope 743.1 cm/sec\S\2 PA acc time 0.12 sec PA pr(Accel) 26.7 mmHg
[2016-10-30 11:08] VITALS: BP 130/78; PULSE 92; TEMP 37.2; O2SAT 92
[2016-10-30 14:47] VITALS: BP 122/75; PULSE 70; TEMP 37.1; O2SAT 92
[2016-10-30] MEDS ORDERED: NURSING VERBAL MED ORDER ONE (17:15)
--- NOTE | 2016-10-30 18:31 | PROGRESS NOTE ---
DATE: 10/30/2016 CHIEF COMPLAINT: Status post I&D of the left knee, postop day #4. PROGRESS: Robyn was seen and examined at bedside today. Overall, she is doing fairly well. She is cooperating with physical therapy, but I would like her to ambulate a little bit more. She said she really has no pain in her left knee and she is feeling fine and no new complaints. PHYSICAL EXAMINATION: LEFT KNEE: The incision is clean and dry. There is no dressing and the drains have been pulled. She has mild 2+ effusion, no signs of infection or drainage. She is neurovascularly intact. LABORATORY DATA: Blood cultures are still preliminary but showed no growth to date. Bacterial culture is still preliminary with Staph aureus. IMPRESSION: Status post I&D poly exchange of the left knee, postop day #4. PLAN: She is still on the Ancef. We are waiting for final blood cultures before we can place a PICC line. Hopefully, the final blood cultures will be back tomorrow and a PICC line can be placed. Then we will see about discharge either later tomorrow or Sunday on IV pain medications. We will continue to follow her closely. I also encouraged her to do more ambulation with physical therapy. She would like to go home.
[2016-10-30 19:49] VITALS: BP 143/69; PULSE 76; TEMP 36.8; O2SAT 90
--- NOTE | 2016-10-30 20:53 | Progress Note ---
Medicine Progress Note Date & Time of Visit: Oct 30, 2016 at 20:43. Subjective tolerating PO no pain incision site is closed without draining no fevers or chills awaiting ID plan for abx moving forward Objective Last 8 Hrs Date Time Temp Pulse Resp B/P (MAP) Pulse Ox O2 Delivery O2 Flow Rate FiO2 10/30/16 19:49 36.8 76 18 143/69 (93) 90 Room Air 10/30/16 16:08 Room Air 10/30/16 14:47 37.1 70 20 122/75 (91) 92 Physical Exam: GEN: WNWD, in no acute distress, alert and appropriate HEENT: NC/AT, normal sclerae, MMM CARDIO: reg rate, S1/2 heard without m/g/r LUNGS: CTA bilaterally, no crackles, rales or wheezes, good diaphragmatic excursion ABD: soft, non-tender, non-distended, no rebound or guarding, +BS EXTREMITY: incision site is closed, clean, dry NEURO: CN 2-12 grossly intact, sensation intact SKIN: warm and dry and wound as above. Laboratory Results: 10/29/16 04:49 10/29/16 04:49 10/30/16 05:31 Test 10/27/16 10:59 10/28/16 23:12 10/29/16 04:49 10/30/16 05:31 Erythrocyte Sedimentation Rate 61 mm/hr (0-21) C-Reactive Protein 12.90 mg/dl (0-0.29) Vancomycin Level Trough 25.2 mcg/ml (SEE COMMENT) Red Blood Count 3.29 M/uL (4.2-5.4) Mean Corpuscular Volume 88.8 fL (80-100) Mean Corpuscular Hemoglobin 27.1 pg (25-34) Mean Corpuscular Hemoglobin Concent 30.5 g/dl (32-36) RDW Standard Deviation 47.2 fL (36.4-46.3) RDW Coefficient of Variation 14.6 % (11.5-14.5) Mean Platelet Volume 7.9 fL (7.4-10.4) Anion Gap 4.0 mmol/L (3-11) BUN/Creatinine Ratio 11.0 (10-20) Calcium Level 8.2 mg/dl (8.5-10.1) Random Vancomycin Level 24.3 mcg/ml Est Creatinine Clear Calc Drug Dose 72.4 ml/min Estimated GFR () 82.1 Estimated GFR (Non- 70.8 Date/Time Source Procedure Growth Status 10/26/16 20:24 Blood Blood Culture - Preliminary NO GROWTH TO DATE. Resulted 10/26/16 14:11 Joint Fluid/Space (Synovial) Knee Left Gram Stain - Final Resulted 10/26/16 14:11 Bacterial Culture - Preliminary Staphylococcus Aureus Resulted Last 24 Hours Test 10/30/16 05:31 Creatinine 0.78 mg/dl Est Creatinine Clear Calc Drug Dose 72.4 ml/min Estimated GFR () 82.1 Estimated GFR (Non- 70.8 Diagnostic Imaging: TTE (10/30): * Sinus rhythm was present during the echocardiogram. * There is mild to moderate concentric left ventricular hypertrophy. * No regional wall motion abnormalities noted. * The left ventricle is hyperdynamic. * Ejection Fraction = >70 %. * There is severe mitral annular calcification. * There is no mitral valve stenosis. * There is focal calcification of the aortic valve at the commisure of between the right and left coronary cusp. * Aortic valve stenosis is absent. * The left ventricular outflow tract is narrow with peak velocity of 2.6 m/s and peak LVOT gradient of 27 mm Hg. * Compared to the prior study dated 09/29/16, there has been an interval decline in the LV outflow tract gradient. * Focal aortic valve calcification and mitral annular calcification are present without 2D evidence of vegetation. Assessment & Plan INFECTED LEFT TOTAL KNEE - S/P I/D POLY EXCHANGE MSSA BACTEREMIA - POD#4 - activity and wound care orders as per ortho - pain control with bowel regimen - PT/OT - monitor H/H for acute blood loss anemia and transfuse blood products PRN - patient was seen in the ER on 10/21 and had left knee fluid aspirated and blood cultures drawn - fluid grew MSSA and 1/2 blood cultures + for MSSA as well - currently on empiric Vanco but washout cultures are growing MSSA--abx switched back to Ancef on 10/29 and pt is doing well -repeat TTE per ID-calcification seen on imaging, defer to ID whether or not this should be explored further with DOTTIE. HTN - BP controlled, continue lisinopril POST-OPERATIVE ACUTE BLOOD LOSS ANEMIA: monitor CBC ANXIETY - continue home meds DVT PROPHYLAXIS ASA BID per Ortho Thank you for this consultation. We will follow the patient with you during their hospital stay. You can reach a member of the [facility] Hospitalist Team 09/10 via pager @ [phone]. Sarah Stewart DO [place] Hospitalist Current Inpatient Medications: Current Inpatient Medications Medications (Trade) Dose Ordered Sig/Aldo Route Start Time Stop Time Status Last Admin Dose Admin Ascorbic Acid (Vitamin C Tab) 500 mg BID PO 10/26/16 21:00 11/25/16 20:59 10/30/16 08:04 500 MG Lisinopril (Zestril Tab) 10 mg DAILY PO 10/27/16 09:00 11/26/16 08:59 10/30/16 08:03 10 MG Multivitamins (Multivitamin Tab) 1 tab QAM PO 10/27/16 09:00 11/26/16 08:59 10/30/16 08:04 1 TAB Venlafaxine HCl (effeXOR EXTENDED REL CAP) 37.5 mg DAILY PO 10/27/16 09:00 11/26/16 08:59 10/30/16 08:04 37.5 MG Zolpidem Tartrate (Ambien Tab) 10 mg HS PRN PO 10/26/16 15:30 11/25/16 15:29 10/26/16 21:38 10 MG Ferrous Sulfate (Feosol Tab) 325 mg BIDM PO 10/26/16 17:00 11/25/16 16:59 10/30/16 16:51 325 MG Lactobacillus Acidophilus (Floranex Tab) 4 tab DAILY PO 10/27/16 09:00 11/26/16 08:59 10/30/16 08:03 4 TAB Oxycodone HCl (Roxicodone Immediate Rel Tab) 1 TABLET FOR PAIN RATING... Q4H PRN PO 10/26/16 15:30 11/09/16 15:29 10/29/16 10:45 10 MG Morphine Sulfate (MoRPHine SULFATE INJ) 2 mg Q2HWA PRN IV 10/26/16 15:30 11/09/16 15:29 10/26/16 21:38 2 MG Magnesium Hydroxide (Milk Of Magnesia Susp) 30 ml Q6H PRN PO 10/26/16 15:30 11/25/16 15:29 10/28/16 15:40 30 ML Bisacodyl (Dulcolax Supp) 10 mg DAILY PRN PA 10/26/16 15:30 11/25/16 15:29 10/30/16 08:24 10 MG Sodium Biphosphate/ Sodium Phosphate (Fleet Enema) 132 ml DAILY PRN PA 10/26/16 15:30 11/25/16 15:29 Senna (Senokot Tab) 17.2 mg HS PO 10/26/16 21:00 11/25/16 20:59 10/29/16 20:26 17.2 MG Docusate Sodium (coLACE CAP) 100 mg BID PO 10/26/16 21:00 11/25/16 20:59 10/30/16 08:04 100 MG Ondansetron HCl (Zofran Inj) 4 mg Q6H PRN IV 10/26/16 15:30 11/25/16 15:29 Metoclopramide HCl (Reglan Inj) 10 mg Q6H PRN IV 10/26/16 15:30 11/25/16 15:29 Pantoprazole Sodium (Protonix Tab) 40 mg QAM PO 10/27/16 09:00 11/26/16 08:59 10/30/16 08:03 40 MG Silver Sulfadiazine (Silvadene 1% Crm 50GM Jar) 1 appln BID PRN EXT 10/26/16 15:30 11/25/16 15:29 Aspirin (Ecotrin Tab) 325 mg BID PO 10/26/16 21:00 11/25/16 20:59 10/30/16 08:03 325 MG Acetaminophen (Tylenol Tab) 650 mg Q4H PRN PO 10/26/16 15:30 11/25/16 15:29 Cefazolin Sodium 2000 mg/Dextrose 60 ml @ 100 mls/hr Q8@0200,1000,1800 IV 10/27/16 10:15 12/08/16 10:14 Future hold 10/30/16 16:51 100 MLS/HR Clorazepate Dipotassium (Tranxene-T Tab) 7.5 mg BID17 PO 10/30/16 17:30 11/29/16 17:29
[2016-10-30] MEDS: SENNA 8.6 MG TAB PO SCH (21:07)
[2016-10-31] VITALS (9 sets, daily range): BP systolic 120–145; BP diastolic 66–81; PULSE 20–83; TEMP 36.4–37.2; O2SAT 90–94
[2016-10-31] MEDS: CEFAZOLIN IV 2,000 MG in DEXTROSE 5% 50ML 50 ML IV SCH ×3 (02:16→18:29)
[2016-10-31 07:11] LABS: HEMATOCRIT 31.5 % (37-47); MEAN CELL VOLUME 86.8 fL (80-100); MEAN CORPUSCULAR HEMOGLOBIN 27.5 pg (25-34); MEAN CORPUSCULAR HGB CONC 31.7 g/dl (32-36); MEAN PLATELET VOLUME 8.3 fL (7.4-10.4); PLATELET COUNT 431 K/uL (130-400); RED BLOOD COUNT 3.63 M/uL (4.2-5.4); WHITE BLOOD COUNT 6.77 K/uL (4.8-10.8)
[2016-10-31 07:49] LABS: BUN/CREATININE RATIO 10.9 (10-20); CALCIUM 8.4 mg/dl (8.5-10.1); CREATININE 0.73 mg/dl (0.60-1.20); POTASSIUM 3.5 mmol/L (3.5-5.1)
[2016-10-31] MEDS: FERROUS SULFATE 325 MG TAB PO SCH ×2 (08:48→17:00)
[2016-10-31] MEDS: LACTOBACILLUS ACIDOPHILUS (FLORANEX) TAB PO SCH (08:49)
[2016-10-31] MEDS: ASPIRIN 325 MG ECTAB PO SCH ×2 (08:49→21:33)
[2016-10-31] MEDS: ASCORBIC ACID 500 MG TAB PO SCH ×2 (08:49→21:34)
[2016-10-31] MEDS: DOCUSATE SODIUM 100 MG CAP PO SCH ×2 (08:49→21:33)
[2016-10-31] MEDS: LISINOPRIL 10 MG TAB PO SCH (08:49)
[2016-10-31] MEDS: PANTOprazole SOD 40 MG TAB PO SCH (08:49)
[2016-10-31] MEDS: MULTIVITAMIN TAB PO SCH (08:49)
[2016-10-31] MEDS: VENLAFAXINE HCL XR 37.5 MG CAPXR PO SCH (08:50)
[2016-10-31] MEDS: CLORAZEPATE DIPOTASSIUM 3.75 MG TAB PO SCH ×2 (08:55→17:00)
--- NOTE | 2016-10-31 10:26 | Infectious Disease Progress Nt ---
Progress Note Date of Service Oct 31, 2016. Subjective Pt evaluation today including: conversation w/ patient, physical exam, chart review, lab review, review of studies, conversation w/ solutions sales consultant, review of inpatient medication list Patient offers no new complaints. Remains afebrile. Pain controlled. Tolerating cefazolin. All Other Systems: Reviewed and Negative Medications Current Inpatient Medications Medications (Trade) Dose Ordered Sig/Aldo Route Start Time Stop Time Status Last Admin Dose Admin Ascorbic Acid (Vitamin C Tab) 500 mg BID PO 10/26/16 21:00 11/25/16 20:59 10/31/16 08:49 500 MG Lisinopril (Zestril Tab) 10 mg DAILY PO 10/27/16 09:00 11/26/16 08:59 10/31/16 08:49 10 MG Multivitamins (Multivitamin Tab) 1 tab QAM PO 10/27/16 09:00 11/26/16 08:59 10/31/16 08:49 1 TAB Venlafaxine HCl (effeXOR EXTENDED REL CAP) 37.5 mg DAILY PO 10/27/16 09:00 11/26/16 08:59 10/31/16 08:50 37.5 MG Zolpidem Tartrate (Ambien Tab) 10 mg HS PRN PO 10/26/16 15:30 11/25/16 15:29 10/26/16 21:38 10 MG Ferrous Sulfate (Feosol Tab) 325 mg BIDM PO 10/26/16 17:00 11/25/16 16:59 10/31/16 08:48 325 MG Lactobacillus Acidophilus (Floranex Tab) 4 tab DAILY PO 10/27/16 09:00 11/26/16 08:59 10/31/16 08:49 4 TAB Oxycodone HCl (Roxicodone Immediate Rel Tab) 1 TABLET FOR PAIN RATING... Q4H PRN PO 10/26/16 15:30 11/09/16 15:29 10/29/16 10:45 10 MG Morphine Sulfate (MoRPHine SULFATE INJ) 2 mg Q2HWA PRN IV 10/26/16 15:30 11/09/16 15:29 10/26/16 21:38 2 MG Magnesium Hydroxide (Milk Of Magnesia Susp) 30 ml Q6H PRN PO 10/26/16 15:30 11/25/16 15:29 10/28/16 15:40 30 ML Bisacodyl (Dulcolax Supp) [address] 10/26/16 15:30 11/25/16 15:29 10/30/16 08:24 10 MG Sodium Biphosphate/ Sodium Phosphate (Fleet Enema) [address] 10/26/16 15:30 11/25/16 15:29 Senna (Senokot Tab) 17.2 mg HS PO 10/26/16 21:00 11/25/16 20:59 10/30/16 21:07 17.2 MG Docusate Sodium (coLACE CAP) 100 mg BID PO 10/26/16 21:00 11/25/16 20:59 10/31/16 08:49 100 MG Ondansetron HCl (Zofran Inj) 4 mg Q6H PRN IV 10/26/16 15:30 11/25/16 15:29 Metoclopramide HCl (Reglan Inj) 10 mg Q6H PRN IV 10/26/16 15:30 11/25/16 15:29 Pantoprazole Sodium (Protonix Tab) 40 mg QAM PO 10/27/16 09:00 11/26/16 08:59 10/31/16 08:49 40 MG Silver Sulfadiazine (Silvadene 1% Crm 50GM Jar) 1 appln BID PRN EXT 10/26/16 15:30 11/25/16 15:29 Aspirin (Ecotrin Tab) 325 mg BID PO 10/26/16 21:00 11/25/16 20:59 10/31/16 08:49 325 MG Acetaminophen (Tylenol Tab) 650 mg Q4H PRN PO 10/26/16 15:30 11/25/16 15:29 Cefazolin Sodium 2000 mg/Dextrose 60 ml @ 100 mls/hr Q8@0200,1000,1800 IV 10/27/16 10:15 12/08/16 10:14 Future hold 10/31/16 02:16 100 MLS/HR Clorazepate Dipotassium (Tranxene-T Tab) 7.5 mg BID17 PO 10/30/16 17:30 11/29/16 17:29 10/31/16 08:55 7.5 MG Objective Vital Signs Date Time Temp Pulse Resp B/P (MAP) Pulse Ox O2 Delivery O2 Flow Rate FiO2 10/31/16 07:38 37.0 68 18 144/68 (93) 91 Room Air 10/31/16 04:00 36.6 73 20 120/72 (88) 92 Room Air 10/31/16 00:17 36.9 82 20 143/77 (99) 93 Room Air 10/31/16 00:15 Room Air 10/30/16 19:49 36.8 76 18 143/69 (93) 90 Room Air 10/30/16 16:08 Room Air 10/30/16 14:47 37.1 70 20 122/75 (91) 92 10/30/16 12:02 Room Air 10/30/16 11:08 37.2 92 20 130/78 (95) 92 Physical Exam General Appearance: WD/WN, no apparent distress Eyes: normal inspection, EOMI, sclerae normal ENT: normal ENT inspection, TMs normal Neck: supple, no adenopathy, thyroid normal, trachea midline Respiratory/Chest: chest non-tender, lungs clear, normal breath sounds, no respiratory distress Cardiovascular: regular rate, rhythm, no gallop, no murmur Abdomen: normal bowel sounds, non tender, soft, no organomegaly Extremities: non-tender, no calf tenderness Neurologic/Psychiatric: alert, oriented x 3 Skin: normal color, warm/dry, no rash Lymphatic: no adenopathy Laboratory Results RUN DATE: 10/31/16 [facility] LAB PAGE 1 RUN TIME: 1011 Specimen Inquiry PATIENT: MELISSA ARMENDARIZ [facility] UN[facility] # : [id number] AGE/SX: 81/F ROOM: [facility] REG : 10/26/[address]: Patrick Jean DO : 1935 BED: 2 DIS : STATUS: ADM IN TLOC: SPEC #: [id number] FACUNDO: 10/26/16 STATUS: COMP REQ #: [id number] RECD: 10/26/[address]: Patrick Jean DO SOURCE: JOINT FLSP ENTR: 10/26/[address]: Luciano Sotelo M.D. SPDESC: KNEE LEFT ORDERED: AER/DANY CULTSMR Procedure Result Verified Site GRAM STAIN Final 10/27/16-709 RESULT MANY WBCs SEEN NO ORGANISMS SEEN OR AER/DANY CULT Final 10/31/16-1011 Organism 1 STAPHYLOCOCCUS AUREUS QUANITY RARE SENS SENSITIVITY TO FOLLOW ANAS NO ANAEROBES ISOLATED. 1. STAPHYLOCOCCUS AUREUS Target Route Dose RX AB Cost M.I.C. IQ ------ ----- ------ -- ------ -------- - ------ TRIMET/SULFA S <=0.5/ 9.5 * OXACILLIN S 0.5 VANCOMYCIN S 1 ERYTHROMYCIN R >4 TETRACYCLINE S <=4 CLINDAMYCIN S <=0.5 DAPTOMYCIN S <=0.5 S = SENSITIVE I = INTERMEDIATE R = RESISTANT END OF REPORT Last 24 Hours Test 10/31/16 06:32 White Blood Count 6.77 K/uL Red Blood Count 3.63 M/uL Hemoglobin 10.0 g/dL Hematocrit 31.5 % Mean Corpuscular Volume 86.8 fL Mean Corpuscular Hemoglobin 27.5 pg Mean Corpuscular Hemoglobin Concent 31.7 g/dl RDW Standard Deviation 46.0 fL RDW Coefficient of Variation 14.4 % Platelet Count 431 K/uL Mean Platelet Volume 8.3 fL Sodium Level 138 mmol/L Potassium Level 3.5 mmol/L Chloride Level 98 mmol/L Carbon Dioxide Level 34 mmol/L Anion Gap 6.0 mmol/L Blood Urea Nitrogen 8 mg/dl Creatinine 0.73 mg/dl Est Creatinine Clear Calc Drug Dose 76.4 ml/min Estimated GFR () 88.9 Estimated GFR (Non- 76.7 BUN/Creatinine Ratio 10.9 Random Glucose 114 mg/dl Calcium Level 8.4 mg/dl Assessment and Plan Infected TKA with MSSA. Will need 6 weeks of IV Abx. If going to facility, would continue IV cefazolin. If going home, will need once-daily therapy e.g. daptomycin. Will discuss.
[2016-10-31] MEDS ORDERED: ASPEC325 PO (16:09)
[2016-10-31] MEDS ORDERED: RXC5 PO (16:09)
--- NOTE | 2016-10-31 16:16 | PROGRESS NOTE ---
DATE: 10/31/2016 DATE: 10/31/2016 CHIEF COMPLAINT: Status post I&D, poly exchange left knee, postop day #5. PROGRESS: Robyn was seen and examined at bedside today. She continues to work fairly well with physical therapy, but she still tires easily. They are recommending rehab. She says she has no pain in her left knee and no pain in her right hip or her right knee. She has no complaints. PHYSICAL EXAMINATION: LEFT KNEE: There is a mild effusion. The incision is clean and dry. There is no drainage. She is neurovascularly intact. Micro shows final bacteria cultures from the knee as methicillin sensitive staph and blood cultures are still preliminary but showed no growth to date. Final blood culture should be back tomorrow. H&H was 10.0 and 31.5. Her glucose is 114. Her vital signs are all stable on room air. She is voiding on her own and has had multiple bowel movements. IMPRESSION: Status post incision and drainage poly exchange of the left knee, postop day 5. PLAN: We are still waiting for final blood cultures to come back. They should come back later tonight or tomorrow. Once they come back if they are negative, then I have already done consent for PICC line placement. Hopefully, PICC line can be placed tomorrow and infectious disease can give final recommendations for antibiotics. She is currently scheduled for discharge to [facility] and a bed is waiting for her.
--- NOTE | 2016-10-31 18:26 | Progress Note ---
Medicine Progress Note Date & Time of Visit: Oct 31, 2016 at 15:09. Subjective Pt was seen and examined Sitting in chair comfortable with no distress Pt said that she feels fine denies any chest pain, palpitation, dizziness and SOB Objective Last 8 Hrs Date Time Temp Pulse Resp B/P (MAP) Pulse Ox O2 Delivery O2 Flow Rate FiO2 10/31/16 11:53 36.8 78 18 126/77 (93) 90 Room Air 10/31/16 08:00 92 Room Air 10/31/16 07:38 37.0 68 18 144/68 (93) 91 Room Air Physical Exam: General- No acute distress Head- atraumatic Eyes- PERRL, EOMI ENT- oropharynx clear Neck- supple, no JVD Lungs- No wheezing, no crackles Heart- regular rhythm Abdomen- normal bowel sounds, soft Extremities- no calf tenderness, right knee incision with no drainage and no tenderness Neuro- alert, oriented x 3; PERRL, EOMI; no facial palsy; no dysarthria Skin- warm & dry Laboratory Results: Last 24 Hours Test 10/31/16 06:32 White Blood Count 6.77 K/uL Red Blood Count 3.63 M/uL Hemoglobin 10.0 g/dL Hematocrit 31.5 % Mean Corpuscular Volume 86.8 fL Mean Corpuscular Hemoglobin 27.5 pg Mean Corpuscular Hemoglobin Concent 31.7 g/dl RDW Standard Deviation 46.0 fL RDW Coefficient of Variation 14.4 % Platelet Count 431 K/uL Mean Platelet Volume 8.3 fL Sodium Level 138 mmol/L Potassium Level 3.5 mmol/L Chloride Level 98 mmol/L Carbon Dioxide Level 34 mmol/L Anion Gap 6.0 mmol/L Blood Urea Nitrogen 8 mg/dl Creatinine 0.73 mg/dl Est Creatinine Clear Calc Drug Dose 76.4 ml/min Estimated GFR () 88.9 Estimated GFR (Non- 76.7 BUN/Creatinine Ratio 10.9 Random Glucose 114 mg/dl Calcium Level 8.4 mg/dl Assessment & Plan INFECTED LEFT TOTAL KNEE - S/P I/D POLY EXCHANGE MSSA BACTEREMIA - POD#5 - activity and wound care orders as per ortho - pain control with bowel regimen - PT/OT - monitor H/H - Abx on changed from Vanco to Ancef on 10/29 - ID on board HTN BP controlled continue lisinopril POST-OPERATIVE ACUTE BLOOD LOSS ANEMIA: monitor CBC ANXIETY Continue home med. DVT PROPHYLAXIS ASA BID per Ortho Current Inpatient Medications: Current Inpatient Medications Medications (Trade) Dose Ordered Sig/Aldo Route Start Time Stop Time Status Last Admin Dose Admin Ascorbic Acid (Vitamin C Tab) 500 mg BID PO 10/26/16 21:00 11/25/16 20:59 10/31/16 08:49 500 MG Lisinopril (Zestril Tab) 10 mg DAILY PO 10/27/16 09:00 11/26/16 08:59 10/31/16 08:49 10 MG Multivitamins (Multivitamin Tab) 1 tab QAM PO 10/27/16 09:00 11/26/16 08:59 10/31/16 08:49 1 TAB Venlafaxine HCl (effeXOR EXTENDED REL CAP) 37.5 mg DAILY PO 10/27/16 09:00 11/26/16 08:59 10/31/16 08:50 37.5 MG Zolpidem Tartrate (Ambien Tab) 10 mg HS PRN PO 10/26/16 15:30 11/25/16 15:29 10/26/16 21:38 10 MG Ferrous Sulfate (Feosol Tab) 325 mg BIDM PO 10/26/16 17:00 11/25/16 16:59 10/31/16 08:48 325 MG Lactobacillus Acidophilus (Floranex Tab) 4 tab DAILY PO 10/27/16 09:00 11/26/16 08:59 10/31/16 08:49 4 TAB Oxycodone HCl (Roxicodone Immediate Rel Tab) 1 TABLET FOR PAIN RATING... Q4H PRN PO 10/26/16 15:30 11/09/16 15:29 10/29/16 10:45 10 MG Morphine Sulfate (MoRPHine SULFATE INJ) 2 mg Q2HWA PRN IV 10/26/16 15:30 11/09/16 15:29 10/26/16 21:38 2 MG Magnesium Hydroxide (Milk Of Magnesia Susp) 30 ml Q6H PRN PO 10/26/16 15:30 11/25/16 15:29 10/28/16 15:40 30 ML Bisacodyl (Dulcolax Supp) 10 mg DAILY PRN [place] 10/26/16 15:30 11/25/16 15:29 10/30/16 08:24 10 MG Sodium Biphosphate/ Sodium Phosphate (Fleet Enema) 132 ml DAILY PRN [place] 10/26/16 15:30 11/25/16 15:29 Senna (Senokot Tab) 17.2 mg HS PO 10/26/16 21:00 11/25/16 20:59 10/30/16 21:07 17.2 MG Docusate Sodium (coLACE CAP) 100 mg BID PO 10/26/16 21:00 11/25/16 20:59 10/31/16 08:49 100 MG Ondansetron HCl (Zofran Inj) 4 mg Q6H PRN IV 10/26/16 15:30 11/25/16 15:29 Metoclopramide HCl (Reglan Inj) 10 mg Q6H PRN IV 10/26/16 15:30 11/25/16 15:29 Pantoprazole Sodium (Protonix Tab) 40 mg QAM PO 10/27/16 09:00 11/26/16 08:59 10/31/16 08:49 40 MG Silver Sulfadiazine (Silvadene 1% Crm 50GM Jar) 1 appln BID PRN EXT 10/26/16 15:30 11/25/16 15:29 Aspirin (Ecotrin Tab) 325 mg BID PO 10/26/16 21:00 11/25/16 20:59 10/31/16 08:49 325 MG Acetaminophen (Tylenol Tab) 650 mg Q4H PRN PO 10/26/16 15:30 11/25/16 15:29 Cefazolin Sodium 2000 mg/Dextrose 60 ml @ 100 mls/hr Q8@0200,1000,1800 IV 10/27/16 10:15 12/08/16 10:14 Future hold 10/31/16 11:16 100 MLS/HR Clorazepate Dipotassium (Tranxene-T Tab) 7.5 mg BID17 PO 10/30/16 17:30 11/29/16 17:29 10/31/16 08:55 7.5 MG
--- NOTE | 2016-10-31 18:28 | Discharge Instructions ---
Discharge Instructions Date of Service Oct 31, 2016. 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 Instructions / Follow-Up Instructions / Follow-Up Activity and Therapy Recommendations: * If you are using [facility] then Physical Therapy will be provided until they feel you are ready to start Outpatient Physical Therapy. If you are not using a Home Health agency then Outpatient Physical Therapy should start about 3-5 days from your day of surgery. Therapy will last about 6-10 weeks * It is important not to put a pillow under your knee when you are relaxing or sleeping. It is just as important to make sure you are getting your knee perfectly straight as it is to regain your knee bend. * You were shown a series of exercises in the hospital. Do these exercises three times each day including the exercises you were shown in physical therapy. * Get up and walk several times each day. For the first four weeks, try not to stand or walk for more than one hour at a time. If you do stand or walk for more than one hour, you will not hurt anything, but your leg will likely swell. * As you feel comfortable, you may change from the walker or crutches to a cane and then to independent walking. Medications: * Narcotic You will likely be sent home from the hospital with a prescription for the narcotic pain medication that worked best throughout your stay. * Aspirin Most patients will be required to take Aspirin 325mg twice a day for 6 weeks after surgery. This is obtained [id number] and a prescription is not necessary. * Other medications may be prescribed for specific circumstances. If you have any questions, please call the office at . * Resume previous home medications unless otherwise instructed TEDs/Elastic Stockings: The white elastic stockings help limit swelling and prevent blood clots from forming in your legs.~ The more you wear them, the more they work. Wear them for six weeks. Showering: You may shower 5 days from the day of surgery. Let the soapy shower water run over the agnes. Do not scrub or soak the incision. Things To Watch For: * Drainage from the incision site that occurs more than one week after your surgery. * Increased redness at the incision site. * Fever above 102 degrees Fahrenheit. * Unusual chest pain or shortness of breath. * Call [facility] at with any of the above problems Follow-Up Visit: Follow-up with Dr. Jean 2-3 weeks after your day of surgery. An appointment was probably scheduled when you signed-up for surgery in the office. If you have any questions call Office Instructions: More detailed instructions as well as Frequently Asked Questions were provided in a folder by our office when you signed-up for surgery. Please review these instructions when you get home. If you have any further questions or concerns, please feel free to call the office at [phone] Current Hospital Diet Patient's current hospital diet: Regular Diet Discharge Diet Recommended Diet: Regular Diet Procedures Procedures Performed: Incision and Drainage Poly Exchange Total Knee Left Pending Studies Studies pending at discharge: no Medical Emergencies . Who to Call and When: Medical Emergencies: If at any time you feel your situation is an emergency, please call 911 immediately. . Non-Emergent Contact Non-Emergency issues call your: Surgeon Call Non-Emergent contact if: wound has increased drainage, wound has increased redness . "Provider Documentation" section prepared by Patrick Jean. . VTE Core Measure Inpt VTE Proph given/why not?: Other Anticoagulation (Aspirin 325 twice a day for 6 weeks)
[2016-10-31] MEDS: ZOLPIDEM TARTRATE 10 MG TAB PO PRN (21:32)
[2016-10-31] MEDS: SENNA 8.6 MG TAB PO SCH (21:33)
[2016-11-01] MEDS: CEFAZOLIN IV 2,000 MG in DEXTROSE 5% 50ML 50 ML IV SCH ×2 (01:30→12:40)
[2016-11-01 04:07] VITALS: BP 136/72; PULSE 75; TEMP 36.8; O2SAT 95
[2016-11-01 07:57] VITALS: BP 166/80; PULSE 82; TEMP 36.4; O2SAT 91
[2016-11-01 08:00] VITALS: O2SAT 91
[2016-11-01] MEDS: DOCUSATE SODIUM 100 MG CAP PO SCH (08:04)
[2016-11-01] MEDS: FERROUS SULFATE 325 MG TAB PO SCH (08:04)
[2016-11-01] MEDS: LACTOBACILLUS ACIDOPHILUS (FLORANEX) TAB PO SCH (08:04)
[2016-11-01] MEDS: PANTOprazole SOD 40 MG TAB PO SCH (08:05)
[2016-11-01] MEDS: ASPIRIN 325 MG ECTAB PO SCH (08:05)
[2016-11-01] MEDS: LISINOPRIL 10 MG TAB PO SCH (08:05)
[2016-11-01] MEDS: MULTIVITAMIN TAB PO SCH (08:06)
[2016-11-01] MEDS: ASCORBIC ACID 500 MG TAB PO SCH (08:09)
[2016-11-01] MEDS: VENLAFAXINE HCL XR 37.5 MG CAPXR PO SCH (08:09)
[2016-11-01] MEDS: CLORAZEPATE DIPOTASSIUM 3.75 MG TAB PO SCH (08:09)
--- NOTE | 2016-11-01 09:08 | Infectious Disease Progress Nt ---
Progress Note Date of Service Nov 01, 2016. Subjective Pt evaluation today including: conversation w/ patient, physical exam, chart review, lab review, review of studies, conversation w/ computer consultant, review of inpatient medication list Offers no new complaints today. Follow-up blood cultures are negative. Remains afebrile. Pain controlled. All Other Systems: Reviewed and Negative Medications Current Inpatient Medications Medications (Trade) Dose Ordered Sig/Aldo Route Start Time Stop Time Status Last Admin Dose Admin Ascorbic Acid (Vitamin C Tab) 500 mg BID PO 10/26/16 21:00 11/25/16 20:59 11/01/16 08:09 500 MG Lisinopril (Zestril Tab) 10 mg DAILY PO 10/27/16 09:00 11/26/16 08:59 11/01/16 08:05 10 MG Multivitamins (Multivitamin Tab) 1 tab QAM PO 10/27/16 09:00 11/26/16 08:59 11/01/16 08:06 1 TAB Venlafaxine HCl (effeXOR EXTENDED REL CAP) 37.5 mg DAILY PO 10/27/16 09:00 11/26/16 08:59 11/01/16 08:09 37.5 MG Zolpidem Tartrate (Ambien Tab) 10 mg HS PRN PO 10/26/16 15:30 11/25/16 15:29 10/31/16 21:32 10 MG Ferrous Sulfate (Feosol Tab) 325 mg BIDM PO 10/26/16 17:00 11/25/16 16:59 11/01/16 08:04 325 MG Lactobacillus Acidophilus (Floranex Tab) 4 tab DAILY PO 10/27/16 09:00 11/26/16 08:59 11/01/16 08:04 4 TAB Oxycodone HCl (Roxicodone Immediate Rel Tab) 1 TABLET FOR PAIN RATING... Q4H PRN PO 10/26/16 15:30 11/09/16 15:29 10/29/16 10:45 10 MG Morphine Sulfate (MoRPHine SULFATE INJ) 2 mg Q2HWA PRN IV 10/26/16 15:30 11/09/16 15:29 10/26/16 21:38 2 MG Magnesium Hydroxide (Milk Of Magnesia Susp) 30 ml Q6H PRN PO 10/26/16 15:30 11/25/16 15:29 8/12/17 15:40 30 ML Bisacodyl (Dulcolax Supp) 10 mg DAILY PRN [place] 10/26/16 15:30 11/25/16 15:29 10/30/16 08:24 10 MG Sodium Biphosphate/ Sodium Phosphate (Fleet Enema) 132 ml DAILY PRN [place] 10/26/16 15:30 11/25/16 15:29 Senna (Senokot Tab) 17.2 mg HS PO 10/26/16 21:00 11/25/16 20:59 10/31/16 21:33 17.2 MG Docusate Sodium (coLACE CAP) 100 mg BID PO 10/26/16 21:00 11/25/16 20:59 11/01/16 08:04 100 MG Ondansetron HCl (Zofran Inj) 4 mg Q6H PRN IV 10/26/16 15:30 11/25/16 15:29 Metoclopramide HCl (Reglan Inj) 10 mg Q6H PRN IV 10/26/16 15:30 11/25/16 15:29 Pantoprazole Sodium (Protonix Tab) 40 mg QAM PO 10/27/16 09:00 11/26/16 08:59 11/01/16 08:05 40 MG Silver Sulfadiazine (Silvadene 1% Crm 50GM Jar) 1 appln BID PRN EXT 10/26/16 15:30 11/25/16 15:29 Aspirin (Ecotrin Tab) 325 mg BID PO 10/26/16 21:00 11/25/16 20:59 11/01/16 08:05 325 MG Acetaminophen (Tylenol Tab) 650 mg Q4H PRN PO 10/26/16 15:30 11/25/16 15:29 Cefazolin Sodium 2000 mg/Dextrose 60 ml @ 100 mls/hr Q8@0200,1000,1800 IV 10/27/16 10:15 12/08/16 10:14 Future hold 11/01/16 01:30 100 MLS/HR Clorazepate Dipotassium (Tranxene-T Tab) 7.5 mg BID17 PO 10/30/16 17:30 11/29/16 17:29 11/01/16 08:09 7.5 MG Objective Vital Signs Date Time Temp Pulse Resp B/P (MAP) Pulse Ox O2 Delivery O2 Flow Rate FiO2 11/01/16 07:57 36.4 82 20 166/80 (108) 91 Room Air 11/01/16 04:07 36.8 75 20 136/72 (93) 95 Room Air 11/01/16 00:00 Room Air 10/31/16 23:44 36.4 83 20 134/66 (88) 94 Room Air 10/31/16 19:19 36.8 71 18 145/73 (97) 93 Room Air 10/31/16 16:00 91 Room Air 10/31/16 15:14 37.2 20 20 137/81 (99) 91 Room Air 10/31/16 11:53 36.8 78 18 126/77 (93) 90 Room Air Physical Exam General Appearance: WD/WN, no apparent distress Eyes: normal inspection, sclerae normal ENT: normal ENT inspection, pharynx normal Neck: supple, no adenopathy, trachea midline Respiratory/Chest: lungs clear, normal breath sounds, no respiratory distress Cardiovascular: regular rate, rhythm, no gallop, no murmur Abdomen: normal bowel sounds, non tender, soft, no organomegaly Extremities: non-tender, no calf tenderness Neurologic/Psychiatric: alert, oriented x 3 Skin: normal color, warm/dry, no rash Lymphatic: no adenopathy Assessment and Plan Infected TKA with MSSA with bacteremia. s/p poly-exchange. Will need 6 weeks of IV Abx. Recommend continuing cefazolin as long as she is at facility that can provide every 8 hour antibiotic.
--- NOTE | 2016-11-01 09:33 | PROGRESS NOTE ---
DATE: 11/01/2016 CHIEF COMPLAINT: Status post I&D of the left knee postop day #6. PROGRESS: Robyn was seen and examined at bedside today. Overall, she is doing very well. She really has no pain in the left knee. She has been up and ambulating but she still tires easily. No new complaints. PHYSICAL EXAMINATION: LEFT KNEE: The incision is clean and dry. There is no drainage. There is a mild effusion. She is neurovascularly intact. MICROBIOLOGY: Her blood cultures have shown no growth and is now final culture. IMPRESSION: Status post I&D of the left knee with methicillin-sensitive Staphylococcus aureus infection. PLAN: She has been followed by infectious disease. She will need 6 weeks of IV antibiotics. Blood cultures have come back negative, so we will get a PICC line placed. She is planning on going to [facility]. We will await final antibiotic recommendations from infectious disease hopefully today and she is stable for discharge when she has her antibiotics written. She already has a consent for the PICC line and I will order the PICC line today.
[2016-11-01 11:00] VITALS: BP 169/95; PULSE 79; TEMP 36.7; O2SAT 93
[2016-11-01 13:14] VITALS: BP 169/95; PULSE 79; TEMP 36.7; O2SAT 93
[2016-11-01] MEDS ORDERED: CEFA2INJ IV (15:33)
--- NOTE | 2016-11-02 08:21 | DISCHARGE SUMMARY ---
DISCHARGE DIAGNOSIS: Infected left total knee arthroplasty. PROCEDURE: Irrigation, debridement and poly exchange of the left knee on 10/26/[address] Patrick Jean. DISCHARGE INSTRUCTIONS: 1. Ancef 2 grams IV q. 8 hours. 2. Aspirin 325 mg twice a day. 3. Oxycodone 5 mg every 4 hours as needed for pain. 4. Vitamin C 500 mg twice a day. 5. Tylenol 1300 mg every 8 hours as needed. 6. Tranxene T 7.5 mg twice a day. 7. Ferrous sulfate 325 mg twice a day. 8. Zestril 10 mg daily. 9. Effexor 37.5 mg daily. 10. Ambien 10 mg at night as needed. 11. Follow up with Dr. Jean in 2 weeks from the day of surgery. 12. Follow up with infectious disease as directed. HOSPITAL COURSE: Robyn is a pleasant 81-year-old female who underwent a right total hip arthroplasty about 2 months ago. She has a history of bilateral knee replacements done about 7 years ago. After her hip replacement, she was doing very well for a couple weeks and then she became very lethargic. She came to the hospital and was found to have a UTI, superficial infection of her right hip and bacteremia. She was seen by infectious disease and started on IV antibiotics and discharged to an extended care facility. Unfortunately, she was not doing well, she was still having the fatigue, and 2 weeks after discharge, she came back to the Emergency Room with a swollen, infected left total knee. Aspiration confirmed the infection, but she refused to be admitted at that time. She then came to my office and I was very concerned about the infected left total knee and she elected to undergo irrigation, debridement and poly exchange. On 10/26/2016, she arrived at [facility] and underwent an I&D, poly exchange of her left knee without complication. Postoperatively, she was started on vancomycin until I got infectious disease recommendations. Cultures were obtained during the surgery. Her hospital course was relatively uneventful. On postop day #1, her knee was feeling much better. She was seen by infectious disease, the vancomycin was discontinued and she was started on Ancef 2 grams every 8 hours. She was able to get up and ambulate with physical therapy but her legs still felt weak. Medicine team was also consulted and they are following her medical status throughout. On postop day #2, she continued to ambulate with physical therapy but she continued to tire easily. Her knee was doing really well. Preliminary cultures showed Staph aureus and blood cultures were still preliminary. On postop day #3, the dressing was changed and the drain was pulled. The knee continued to look good and she progressed with physical therapy. Final bacterial cultures came back as methicillin-sensitive Staph aureus and infectious disease decided to keep the Ancef going. On postop day #4, she continued to work with physical therapy and we continued to wait for the blood cultures to come back. On postop day #5, she had no knee pain. She worked well with physical therapy, although she did tire. The blood cultures were still preliminary but showed no growth and infectious disease wanted to wait for PICC line placement until blood cultures all came back negative. On postop day #6, the blood cultures came back final at no growth and a PICC line was placed. Infectious disease gave final recommendations of Ancef 2 grams every 8 hours for 6 weeks. They will follow her as an outpatient and she was discharged to [facility] for IV antibiotics and with the above instructions.
== END 2016-11-01 14:08 | DRG 467 ==
LOC: C.ACU 10:16 → C.MED 15:25 → ENRESERV 16:42
PROVIDERS: ADMIT Orthopaedic Surgery; ATTEND Orthopaedic Surgery
PROC: 0SRD0JZ Replacement of Left Knee Joint with Synthetic Substitute, Open Approach (ICD-10-PCS; principal; 2016-10-26 13:00)
PROC: 0SBD0ZZ Excision of Left Knee Joint, Open Approach (ICD-10-PCS; principal; 2016-10-26 13:00)
PROC: 0SPD09Z Removal of Liner from Left Knee Joint, Open Approach (ICD-10-PCS; principal; 2016-10-26 13:00)
DX: T84.54XA Infection and inflammatory reaction due to internal left knee prosthesis, initial encounter (principal); D62 Acute posthemorrhagic anemia; B95.62 Methicillin resistant Staphylococcus aureus infection as the cause of diseases classified elsewhere; I10 Essential (primary) hypertension; F41.9 Anxiety disorder, unspecified; Z79.899 Other long term (current) drug therapy; Z79.82 Long term (current) use of aspirin; Z96.653 Presence of artificial knee joint, bilateral; Z96.641 Presence of right artificial hip joint; Y83.1 Surgical operation with implant of artificial internal device as the cause of abnormal reaction of the patient, or of later complication, without mention of misadventure at the time of the procedure

== ENCOUNTER 2017-05-25 10:17 | Inpatient (IN) | payer OTHER ==
[~2017-05-25] VITALS: Ht 170.2 cm; Wt 85.8 kg
[2017-05-25] VITALS (7 sets, daily range): BP systolic 94–112; BP diastolic 48–68; PULSE 63–77; TEMP 36.6–36.9; O2SAT 88–100; BMI 26.7
[~2017-05-25 10:17] MED LIST changes: -ACETAMINOPHEN 500 MG TAB PO SCH; +ASPEC325 PO; -ASPI325T39 PO; -BUPIVACAINE 0.5 % 5 MG/1 ML PF 10ML VIAL ONE; -BUPIVACAINE/EPINEPHRINE 0.25% 10 ML VIAL ONE; +CEFA2INJ IV; +CEFAZOLIN 2000MG IV PUSH 15 ML IV SCH; -DEXAMETHASONE SOD INJ 4 MG/ML VIAL ONE; -FAMOTIDINE 20 MG TAB PO SCH; -LACTATED RINGER'S 1000ML 1,000 ML IV SCH; -LACTATED RINGER'S 1000ML IV SCH; -PATIENT'S HEIGHT AND/OR WEIGHT NEEDED SCH; +RXC5 PO; -VANCOMYCIN INJ 1,500 MG in SODIUM CHLORIDE 0.9% 500ML 500 ML IV SCH
[2017-05-25] MEDS ORDERED: POTA1CAP2 PO (11:45)
[2017-05-25] MEDS ORDERED: CEPH500C2 PO (11:45)
[2017-05-25] MEDS ORDERED: LORA-741 PO (11:45)
[2017-05-25 12:28] LABS: HEMATOCRIT 30.8 % (37-47); HEMOGLOBIN 9.9 g/dL (12.0-16.0); MEAN CELL VOLUME 79.6 fL (80-100); MEAN CORPUSCULAR HEMOGLOBIN 25.6 pg (25-34); MEAN CORPUSCULAR HGB CONC 32.1 g/dl (32-36); MEAN PLATELET VOLUME 7.9 fL (7.4-10.4); PLATELET COUNT 458 K/uL (130-400); RED CELL DISTRIBUTION WIDTH CV 15.6 % (11.5-14.5); RED CELL DISTRIBUTION WIDTH SD 45.1 fL (36.4-46.3); WHITE BLOOD COUNT 7.53 K/uL (4.8-10.8)
--- NOTE | 2017-05-25 12:34 | HISTORY & PHYSICAL EXAMINATION ---
DATE OF ADMISSION: 10/26/2016 CHIEF COMPLAINT: Abscess of the left knee. HISTORY OF PRESENT ILLNESS: Robyn is a pleasant 82-year-old female who underwent a left total knee arthroplasty [place] [address] Escamilla. Her left knee did great until about 8 months ago. She notes lot of pain in her left knee. Clinical workup was diagnostic for a left infected total knee arthroplasty. She then underwent an irrigation, debridement and poly exchange of her left knee in October of 2016. Postoperatively, she was placed on IV antibiotics and then chronic Ancef. She has been followed closely. She still lives at home by herself. She has been having no pain in the left knee. It seems like this infection has subsided. We are watching sed rate and CRP levels and those have been trending down. Unfortunately, over the past couple weeks, she notes increased redness and a small abscess forming at the distal aspect of the incision. It turned into a rather large mass. She went to the Emergency Room last night and came to my office this morning. It was a large draining abscess at the inferior aspect of the healed incision of her left knee. She has full range of motion of her knee. She has no effusion of her left knee. There does not appear to be any deep infection in her knee. She has no pain in her knee. Given the location of this abscess, I thought it was best to take her to the operating room and do irrigation and debridement. She was brought in to my hospital as a direct admit today. PAST MEDICAL HISTORY: Significant for anxiety, obesity and hypertension. MEDICATIONS: Include Keflex 500 mg 3 times a day chronically for her left knee, Tranxene 7.5 mg twice a day as needed, ferrous sulfate 325 mg twice a day, Zestril 10 mg daily, Ativan 0.5 mg 3 times a day, oxycodone 5-10 mg as needed for pain, potassium daily, turmeric daily, Effexor 37.5 mg daily, and Ambien 10 mg at night as needed. ALLERGIES: None. PAST SURGICAL HISTORY: Significant for bilateral total knee arthroplasty by Dr. Escamilla, the left one in 2009 and the right one in 2011. An I&D and poly exchange of the left knee in October of [address] Patrick Jean and a right total hip arthroplasty in August of [address] Patrick Jean. FAMILY HISTORY: Noncontributory. SOCIAL HISTORY: She denies any tobacco, alcohol or IV drug use. She remains active. Her pain is limiting her. She lives alone at home and is an independent ambulator with a walker. REVIEW OF SYSTEMS: She complains of draining of an abscess of her left knee. Minimal knee pain and all of her other pertinent review of systems is negative. PHYSICAL EXAMINATION: GENERAL: She is awake, alert and orient x3. She is in no apparent distress. She is very pleasant. HEENT: Pupils equal, round, and reactive to light. Extraocular movements are intact. Oral mucosa is pink and moist. HEART: Regular rate per radial pulse. LUNGS: Jesika symmetrically bilaterally with no audible breath sounds. ABDOMEN: Soft, nontender, and nondistended. MUSCULOSKELETAL: On physical examination of the left knee, there is no effusion of the knee. She has decent motion of the knee from 0-120 degrees. No instability. The knee joint itself does not appear infected. There is an abscess almost the size of a ping pong ball on the inferior aspect of the incision of her left knee. It is draining. It is very red. There erythematous around the area. IMPRESSION: Abscess of the left knee. PLAN: We will get a complete blood count, sed rate and CRP as a baseline. We will take her to the operating room later today. I plan to do an I&D of the abscess, but if that tracks deep, I will be ready to do another poly exchange. The knee does not feel an infected deep and with her age, I am just hesitant to remove all the hardware and do a cement spacer. She is in agreement with all of that. We will reconsult infectious disease postoperatively and she will be in the hospital for several nights waiting for final cultures to return and getting IV antibiotics.
[2017-05-25 12:51] LABS: CALCIUM 8.7 mg/dl (8.5-10.1); CREATININE 0.67 mg/dl (0.60-1.20); POTASSIUM 4.2 mmol/L (3.5-5.1)
[2017-05-25] MEDS: SODIUM CHLORIDE 0.9% 1000ML 1,000 ML IV SCH ×2 (14:09→21:37)
--- NOTE | 2017-05-25 14:36 | DIAGNOSTIC IMAGING REPORT ---
TWO VIEW CHEST CLINICAL HISTORY: Preoperative examination. FINDINGS: PA and lateral chest radiographs are compared to study dated 09/25/2016. The heart is enlarged and there is atherosclerotic calcification of the thoracic aorta. The pulmonary vasculature is noncongested. Chronic interstitial thickening is similar to previous. No airspace consolidation or pleural effusion is identified. There is no pneumothorax. The skeletal structures are osteopenic. Degenerative change is seen throughout the thoracic spine. IMPRESSION: Cardiomegaly with no active disease in the chest. Electronically signed by: Jan Longo M.D. 05/25/2017 2:34 PM Dictated Date/Time: 05/25/2017 2:30 PM
[2017-05-25] MEDS ORDERED: BACITRACIN 50000 UNIT VIAL ONE (15:20)
[2017-05-25] MEDS ORDERED: BUPIVACAINE LIPOSOME 1/3% 266 MG/20 ML VIAL INFIL ONE (15:23)
[2017-05-25] MEDS ORDERED: SODIUM CHLORIDE 0.9% PF 50 ML VIAL ONE (15:23)
[2017-05-25] MEDS ORDERED: BUPIVACAINE 0.25% 30 ML VIAL ONE (15:24)
[2017-05-25] MEDS ORDERED: EpINEphrine INJ 1MG/ML AMP 1 MG/ML AMP ONE (15:25)
[2017-05-25] MEDS ORDERED: DAKIN'S SOLN 0.25% HALF STRENGTH 473ML BTL EXT SCH (15:45)
[2017-05-25] MEDS ORDERED: MEPERIDINE HCL 25 MG/ML CARP IV PRN (16:00)
[2017-05-25] MEDS ORDERED: ATROPINE SULFATE 0.1 MG/ML 5ML SYR IV PRN (16:00)
[2017-05-25] MEDS ORDERED: ONDANSETRON INJ 2 MG/ML 2 ML VIAL IV PRN ×2 (16:00→19:15)
[2017-05-25] MEDS ORDERED: NALOXONE HCL 0.4 MG/1 ML VIAL/CARP IV PRN (16:00)
[2017-05-25] MEDS ORDERED: EpHEDrine SULFATE INJ 50 MG/ML AMP IV PRN (16:00)
[2017-05-25] MEDS ORDERED: FLUMAZENIL 0.1 MG/1 ML 10 ML VIAL IV PRN (16:00)
[2017-05-25] MEDS ORDERED: HYDROmorphone INJ 1 MG/ML SYR IV PRN (16:00)
[2017-05-25] MEDS ORDERED: PHENYLEPHRINE 100MCG/ML 5ML SYR IV PRN (16:00)
[2017-05-25] MEDS ORDERED: FENTANYL CITRATE INJ 50 MCG/1 ML 2 ML VIAL IV PRN (16:00)
[2017-05-25] MEDS ORDERED: LABETALOL HCL IV 5 MG/ML 20ML IV PRN (16:00)
[2017-05-25] MEDS ORDERED: PROPOFOL IV EMULSION 10 MG/ML 20 ML VIAL IV ONE (16:04)
[2017-05-25] MEDS ORDERED: FENTANYL CITRATE INJ 50 MCG/1 ML 2 ML VIAL ONE ×2 (16:04→17:45)
[2017-05-25] MEDS ORDERED: LIDOCAINE HCL 2% 2 ML VIAL (20MG/ML) ONE (16:05)
[2017-05-25] MEDS ORDERED: POVIDONE-IODINE OP SOLN 30 ML BTL ONE (16:59)
[2017-05-25] MEDS ORDERED: ONDANSETRON INJ 2 MG/ML 2 ML VIAL ONE (17:44)
[2017-05-25] MEDS ORDERED: EpHEDrine SULFATE 50MG/5ML SYR ONE (17:44)
[2017-05-25] MEDS ORDERED: VANCOMYCIN HCL 1000MG/20ML VIAL ONE (18:00)
[2017-05-25] MEDS ORDERED: GENTAMICIN SULFATE 40 MG/ML 2 ML VIAL ONE (18:00)
[2017-05-25] MEDS ORDERED: DILTIAZEM BOLUS / DRIP IV STA (18:46)
[2017-05-25] MEDS ORDERED: ESMOLOL HCL 10 MG/ML 10 ML VIAL ONE (18:47)
--- NOTE | 2017-05-25 19:13 | [facility] Post Operative Brief Note ---
Immediate Operative Summary Operative Date May 25, 2017. Pre-Operative Diagnosis Left knee abcess Post-Operative Diagnosis Infected left total knee Procedure(s) Performed Incision and Drainage with Polyethylene Exchange, Placement of Stimulan Beads-Left Knee Surgeon Dr. Jean Locomotive Firer/Fireman Surgeon(s) Ulices Rosario PA-C Estimated Blood Loss 10ml Findings Consistent with Post-Op Diagnosis Specimens a. left knee explants Anesthesia Type General Complication(s) none Disposition Disposition: Recovery Room / PACU
[2017-05-25] MEDS ORDERED: DILTIAZEM HCL INJ 125 MG in DEXTROSE 5% 100ML IV PRN (19:15)
[2017-05-25] MEDS ORDERED: OXYCODONE HCL IR 5 MG TAB (IMMEDIATE RELEASE) PO PRN (19:15)
[2017-05-25] MEDS ORDERED: BISACODYL 10 MG SUPP PR PRN (19:15)
[2017-05-25] MEDS ORDERED: SOD PHOSPHATE/SOD BIPHOSPHATE ENEMA 132 ML BTL PR PRN (19:15)
[2017-05-25] MEDS ORDERED: METOCLOPRAMIDE HCL INJ 5 MG/ML 2 ML VIAL IV PRN (19:15)
[2017-05-25] MEDS ORDERED: MoRPHine SULFATE 2 MG/ML CARP IV PRN (19:15)
[2017-05-25] MEDS ORDERED: MAGNESIUM HYDROXIDE SUSP 30 ML UDC PO PRN (19:15)
[2017-05-25] MEDS ORDERED: METOPROLOL TARTRATE 1 MG/ML VIAL ONE (19:26)
[2017-05-25] MEDS ORDERED: PHENYLEPHRINE HCL INJ 10 MG/ML VIAL ONE (19:30)
--- NOTE | 2017-05-25 19:46 | DIAGNOSTIC IMAGING REPORT ---
L KNEE 1 OR 2 VIEWS ROUTINE CLINICAL HISTORY: Postop examination COMPARISON: October 2016 DISCUSSION: There is a left knee arthroplasty. Multiple radiopaque pledgets project over the knee, likely representing antibiotic pledgets. There is a lucency beneath the tibial flange, a finding which could indicate loosening or infection. Overlying skin agnes and surgical drains are evident. There is a joint effusion. There is air within the soft tissues consistent with recent surgery. IMPRESSION: 1. Postsurgical changes within the left knee. Multiple radiopaque densities, likely represent antibiotic pledgets 2. Lucency beneath the tibial flange, a finding which could indicate loosening or infection Electronically signed by: Rui Dominique M.D. 05/25/2017 7:45 PM Dictated Date/Time: 05/25/2017 7:43 PM
[2017-05-25] MEDS ORDERED: VANCOMYCIN INJ 1,750 MG in SODIUM CHLORIDE 0.9% 500ML 500 ML IV SCH (20:00)
[2017-05-25] MEDS ORDERED: VANCOMYCIN CONSULT ACTIVE PRN (20:00)
--- NOTE | 2017-05-25 20:48 | Anesthesiology Progress Note ---
Anesthesia Post Op Note Date & Time May 25, 2017 at 20:38 Vital Signs Pain Intensity: 2 Vital Signs Past 12 Hours Date Time Temp Pulse Resp B/P (MAP) Pulse Ox O2 Delivery O2 Flow Rate FiO2 05/25/17 20:30 78 22 112/58 95 Nasal Cannula 2 05/25/17 20:20 37.1 77 18 102/55 95 Nasal Cannula 2 05/25/17 20:10 76 15 101/54 96 Nasal Cannula 2 05/25/17 20:00 120 15 101/66 96 Nasal Cannula 2 05/25/17 19:50 125 16 93/63 97 Nasal Cannula 2 05/25/17 19:40 125 12 107/69 100 Nasal Cannula 2 05/25/17 19:30 124 19 107/69 100 Oxymask 10 05/25/17 19:20 127 20 133/111 100 Oxymask 10 05/25/17 19:10 37.1 129 20 126/93 100 Oxymask 10 05/25/17 15:06 36.6 73 16 104/50 (68) 98 Room Air 05/25/17 11:16 36.7 77 18 111/68 98 Room Air Notes Mental Status: alert / awake / arousable Pt Amnestic to Procedure: Yes Nausea / Vomiting: adequately controlled Pain: adequately controlled Airway Patency, RR, SpO2: stable & adequate BP & HR: see Notes Hydration State: stable & adequate Anesthetic Complications: no major complications apparent The patient was in normal sinus rhythm preoperatively. During the surgical procedure while the patient was under a general anesthetic, the [employer] noted that the patient's rhythm strip went into atrial fibrillation with RVR. HR 100s to 120s. She was given titrated doses of esmolol to bring her HR down to the 90s. Her blood pressure remained stable throughout the procedure. Near the end of the surgery the patient was given some metoprolol. Dr. Bryant was consulted and he recommended that the patient be placed on a diltiazem gtt in the PACU. The patient remained in atrial fibrillation upon wake up and had a HR in the 110s to 120s in the PACU. The diltiazem gtt was started. The patient did have several episodes of hypotension SBP in the 80s. However, her she converted to sinus rhythm with HR in the 70s to 80s with SPB in the 100s. She is otherwise doing well. She will go to telemetry overnight and Dr. Bryant will see her tomorrow. I spoke to the patient's family and they are aware of the atrial fibrillation.
[2017-05-25] MEDS ORDERED: CLORAZEPATE DIPOTASSIUM 3.75 MG TAB PO SCH (21:00)
[2017-05-25] MEDS ORDERED: SODIUM CHLORIDE 0.9% 1000ML 1,000 ML IV SCH (21:02)
[2017-05-25] MEDS: KETOROLAC TROMETHAMINE 15 MG/ML VIAL IV. SCH (21:33)
[2017-05-25] MEDS: DOCUSATE SODIUM 100 MG CAP PO SCH (21:33)
[2017-05-25] MEDS: SENNA 8.6 MG TAB PO SCH (21:34)
[2017-05-25] MEDS: ASPIRIN 325 MG ECTAB PO SCH (21:34)
[2017-05-25] MEDS: FERROUS SULFATE 325 MG TAB PO SCH (21:35)
--- NOTE | 2017-05-25 22:24 | OPERATIVE REPORT ---
DATE OF OPERATION: 05/25/2017 PREOPERATIVE DIAGNOSIS: Left knee abscess with possible infected total knee. POSTOPERATIVE DIAGNOSIS: Left knee abscess with infected left total knee arthroplasty. PROCEDURE: I&D of the left knee abscess then opening the knee with full irrigation and debridement of the knee with poly exchange and insertion of Stimulan beads. SURGEON: Patrick Jean DO. AUDIO VISUAL COLLECTIONS COORDINATOR: Ulices Rosario PA-C, whose assistance was necessary for retraction and closure. ANESTHESIA: General. COMPLICATIONS: None. CONDITION: Stable to PACU. INDICATIONS: Robyn is a pleasant 82-year-old female who had a left total knee arthroplasty done in [address] Escamilla. She did well initially afterwards. I then did a right hip replacement on her a year ago. She then came to my office about 8 months ago with a painful, swollen left knee. I aspirated the knee and did a full workup and found it to be infected. She underwent an irrigation and debridement, poly exchange of her left knee in October of 2016. Since then she has been doing quite well. She has been taking oral Keflex daily and she was going to be on that for lifelong. She is 82 years old and she lives by herself and she is very proud of her independent status. She uses a walker to ambulate. She has been in very good health and very good spirits and then she noticed an abscess start to form at the very inferior aspect of her knee just medial to the tibial tubercle. The abscess grew in size. She presented to my office this morning and looked very concerning and she elected to undergo an I&D of the abscess with possible I&D and poly exchange of the left knee. Given her independent status, given her age and the fact that she is not having any knee pain, she did not want to undergo a 2-stage revision. We talked about it and I thought it was reasonable to do an I&D and poly exchange with insertion of a Stimulan beads if necessary. She was admitted directly to the hospital from my office on 05/25/2017. DESCRIPTION OF OPERATION: She was then brought down from the hospital room to the preoperative holding area. The operative extremity was identified and signed. Lab work was taken and it showed a white count of 7.53, sed rate of 90 and a CRP of 8.39. She was having a knee pain. There was very minimal knee effusion. The operative extremity was identified and signed. She was then taken back to the operating room, laid on the table in supine position and put under general anesthesia. The left knee was then prepped and draped in sterile fashion. Time-out was done. The patient and operative extremity was properly identified. The abscess just medial to the tibial tubercle was lanced first. There was a lot of purulent material which came out. This was cultured and sent to the lab. I felt with my finger up towards the joint and I did not feel any definitive tracking up into the joint. I took an 18 gauge spinal needle and aspirated the joint. Unfortunately, there was a lot of purulent fluid that was aspirated. It seemed like the knee joint too was infected I decided to open it up. The previous midline incision was opened up and the medial parapatellar approach was used. There was some infectious fluid within the knee joint. The knee was initially irrigated and the poly insert was removed. Time was spent doing a complete debridement of both the medial and lateral gutters and in the posterior aspect of the knee. Significant time was spent ensuring a complete debridement of all infectious tissue. The knee was then soaked for 3 minutes in Dakin solution. The wound was then scrubbed vigorously and irrigated with 3 liters of normal saline solution by pulse lavage. The knee was then soaked in Betadine solution for 3 minutes. The components were then scrubbed vigorously and it was once again rinsed out with 3 liters of normal saline solution by pulse lavage. Any additional debridement was done and the whole knee was once again rinsed out with 3 liters of normal saline solution this time with bacitracin. New sterile drapes were placed down, suction tips were changed and all new instruments were used. A new NexGen Sheba size 12 polyethylene insert was snapped into place. The knee was brought through a full range of motion and felt to be stable. Two drains were placed. Ten mL of Stimulan beads were mixed up on the back table using vancomycin and gentamicin. The beads were placed into the joint. The extensor mechanism was then closed with PDS suture. Skin was closed with 2-0 Vicryl and agnes in the superior 2/3, the inferior third was such poor tissue quality that I closed with nylon suture. A Prevena VAC dressing was placed. She was then extubated, transferred to a [facility] and taken to the post anesthesia care unit in stable condition. She tolerated the procedure well. I attest to the content of the Intraoperative Record and any orders documented therein. Any exception s are noted below.
--- NOTE | 2017-05-25 22:49 | Pharmacy Progress Note ---
Pharmacy Antibiotic Consult Date of Service: May 25, 2017. Pharmacy Dosing Scope Pharmacy is consulted to initiate vancomycin IV dosing therapy, order appropriate labs and adjust drug dose/frequency. Subjective The patient is a 82 year old female admitted on May 25, 2017 at 11:03 with infected L knee. S/P OR 05/25 for I&D L knee with poly exchange. Objective Height (Feet): 5 Height (Inches): 7.00 Weight (Kilograms): 83.200 Lab Results (24hrs): Test 05/25/17 12:20 05/25/17 17:15 White Blood Count 7.53 K/uL (4.8-10.8) Red Blood Count 3.87 M/uL (4.2-5.4) Hemoglobin 9.9 g/dL (12.0-16.0) Hematocrit 30.8 % (37-47) Mean Corpuscular Volume 79.6 fL (80-100) Mean Corpuscular Hemoglobin 25.6 pg (25-34) Mean Corpuscular Hemoglobin Concent 32.1 g/dl (32-36) RDW Standard Deviation 45.1 fL (36.4-46.3) RDW Coefficient of Variation 15.6 % (11.5-14.5) Platelet Count 458 K/uL (130-400) Mean Platelet Volume 7.9 fL (7.4-10.4) Erythrocyte Sedimentation Rate 90 mm/hr (0-21) Sodium Level 135 mmol/L (136-145) Potassium Level 4.2 mmol/L (3.5-5.1) Chloride Level 98 mmol/L (98-107) Carbon Dioxide Level 32 mmol/L (21-32) Anion Gap 5.0 mmol/L (3-11) Blood Urea Nitrogen 16 mg/dl (7-18) Creatinine 0.67 mg/dl (0.60-1.20) Est Creatinine Clear Calc Drug Dose 61.9 ml/min Estimated GFR () 94.2 Estimated GFR (Non- 81.3 BUN/Creatinine Ratio 23.2 (10-20) Random Glucose 81 mg/dl (70-99) Calcium Level 8.7 mg/dl (8.5-10.1) C-Reactive Protein 8.39 mg/dl (0-0.29) Synovial Fluid Source KNEE Synovial Fluid Color RED Synovial Fluid Appearance BLOODY Synovial Fluid WBC 75324 /uL (0-200) Synovial Fluid RBC 61021 /uL Synovial Fluid Polynuclear WBCs % 97.5 % Synovial Fluid Mononuclear WBCs % 2.5 % Micro Results: 05/25 abscess L knee pending 05/25 aspirate other L knee pending Recent Pertinent Medications Item Value Date Time Vancomycin HCl 535 ml @ 200 mls/hr 05/25/171999 1750 mg/Sodium TODAY@2000/IV 05/25/17 213 Chloride Vancomycin HCl 50 mg 05/25/17 1800 (Vancomycin Inj) .STK-MED ONCE/.ROUTE 05/25/17 1800 Gentamicin Sulfate 240 mg 05/25/17 1800 (Gentamicin .STK-MED ONCE/.ROUTE 05/25/17 1800 Sulfate Inj) Cefazolin Sodium 15 ml @ 3.75 mls/min 05/25/17 0600 Assessment & Plan Modified loading dose: vancomycin 1750 mg IV X 1 dose (~21 mg/kg) then: vancomycin 1250 mg IV every 16 hours. Goal peak level estimate: between 25-40 mcg/mL. Goal trough level estimate: between 15-20 mcg/mL. Trough has been ordered for: 05/27/17 before 0200 dose. May not be steady-state, but prefer to check level sooner rather than later in elderly patient. Pharmacy will continue to follow and will adjust dose/frequency as necessary. Thank you
[2017-05-25] MEDS ORDERED: NURSING VERBAL MED ORDER ONE (23:15)
[2017-05-26] VITALS (7 sets, daily range): BP systolic 94–135; BP diastolic 52–69; PULSE 64–81; TEMP 36.6–37.1; O2SAT 90–96; Ht 170.2 cm; Wt 85.8 kg
--- NOTE | 2017-05-26 00:55 | Medical Consult ---
Consultation Date of Consultation: May 26, 2017. Attending Physician: Patrick Jean DO Reason for Consultation: med management History of Present Illness The patient is an 82-year-old female who underwent a left total knee arthro[place] [address] Ba. She began having problems 8 months ago including pain in the knee and evidence of an infection. She underwent an irrigation and debridement with poly exchange of her left knee in October 2016. Postoperatively she was placed on IV antibiotics and then chronic Ancef. Over the past couple of weeks she notes increased redness and a small abscess forming at the distal aspect of the incision, which turned into a rather large mass. She was seen in the OR with poly-exchange. Intraoperatively a large amount of pus was seen. The patient is on vancomycin IV currently. Preoperatively the patient was in normal sinus rhythm. However during fusion, the patient went into atrial fibrillation with RVR with heart rate in into the 120s. She was given titrated doses of esmolol to bring her heart rate down to the 90s. Her blood pressure remained stable throughout the procedure. The end of the surgery she was given some metoprolol. Dr. Bryant was consulted and recommended the patient be placed on a diltiazem drip in the PACU. She remained in atrial fibrillation and did have several episodes of hypotension into the. However, she converted to sinus rhythm with a heart rate into the 80s. She is currently recovering overnight in telemetry and doing well postoperatively. She declines any pain in her left knee. She declot denies any chest pain, shortness of breath, nausea, vomiting, UTI symptoms, or any other symptoms. She denies a history of atrial fibrillation. Past Medical/Surgical History Medical Problems: (1) Anxiety Status: Chronic (2) Arthritis Status: Chronic (3) HTN (hypertension) Status: Chronic (4) Osteoarthritis Status: Chronic Surgical Problems: (1) Hx of umbilical hernia repair Status: Chronic (2) Status post left knee replacement Status: Chronic (3) Status post right hip replacement Status: Chronic (4) Status post right knee replacement Status: Chronic Family History Patient reports no known family medical history. Social History Smoking Status: Never Smoker Smokeless Tobacco Use: No Alcohol Use: none Drug Use: none Marital Status: single Housing Status: lives alone Occupation Status: retired Allergies Coded Allergies: No Known Allergies (Verified , 05/25/17) Home Medications Reported Home Medications Medications Dose Route/Sig Max Daily Dose Days Date Category Ativan (Lorazepam) 0.5 Mg Tab 0.5 Mg PO TID 05/25/17 Reported Potassium Chloride Er (Potassium Chloride) 10 Meq Cap 1 Cap PO DAILY 90 05/25/17 Reported Keflex (Cephalexin Monohydrate) 500 Mg Cap 500 Mg PO TID 05/25/17 Reported Oxycodone HCl 5 Mg Tab 5-10 Mg PO Q4H PRN 10/31/16 Rx Kp Ferrous Sulfate (Ferrous Sulfate) 325 Mg Tab 325 Mg PO BID 10/21/16 Reported Ambien (Zolpidem Tartrate) 10 Mg Tab 10 Mg PO HS PRN 3 10/02/16 Rx Effexor (Venlafaxine Hcl) 37.5 Mg Tab 37.5 Mg PO DAILY 09/24/16 Reported Turmeric (Turmeric (Curcuma Longa)) 500 Mg Cap 1 Tab PO DAILY 09/24/16 Reported Zestril (Lisinopril) 10 Mg Tab 10 Mg PO DAILY 09/24/16 Reported Tylenol Arthritis Ext Rel (Acetaminophen) 650 Mg Cplt 1,300 Mg PO Q8H PRN 08/08/16 Reported Tranxene-T (Clorazepate Dipotassium) 7.5 Mg Tab 7.5 Mg PO BID PRN 08/17/09 Reported Current Inpatient Medications Current Inpatient Medications Medications (Trade) Dose Ordered Sig/Aldo Route Start Time Stop Time Status Last Admin Dose Admin Lisinopril (Zestril Tab) 10 mg DAILY PO 05/26/17 09:00 06/25/17 08:59 Lorazepam (Ativan Tab) 0.5 mg TID PRN PO 05/25/17 14:00 06/24/17 13:59 Venlafaxine HCl (effeXOR TAB) 37.5 mg DAILY PO 05/26/17 09:00 06/25/17 08:59 Zolpidem Tartrate (Ambien Tab) 5 mg HS PRN PO 05/25/17 12:15 06/24/17 12:14 Ferrous Sulfate (Feosol Tab) 325 mg BIDM PO 05/25/17 17:45 06/24/17 17:44 05/25/17 21:35 325 MG Potassium Chloride (Klor-Con M10) 10 meq DAILY PO 05/26/17 09:00 06/25/17 08:59 Sodium Chloride 1,000 ml @ 80 mls/hr [id number] IV 05/25/17 12:01 06/24/17 12:00 05/25/17 21:37 80 MLS/HR Oxycodone HCl (Roxicodone Immediate Rel Tab) 1 TABLET FOR PAIN RATING... Q4H PRN PO 05/25/17 19:15 06/08/17 19:14 Morphine Sulfate (MoRPHine SULFATE INJ) 2 mg Q2HWA PRN IV 05/25/17 19:15 06/08/17 19:14 Magnesium Hydroxide (Milk Of Magnesia Susp) 30 ml Q6H PRN PO 05/25/17 19:15 06/24/17 19:14 Bisacodyl (Dulcolax Supp) 10 mg DAILY PRN FL 05/25/17 19:15 06/24/17 19:14 Sodium Biphosphate/ Sodium Phosphate (Fleet Enema) 132 ml DAILY PRN FL 05/25/17 19:15 06/24/17 19:14 Senna (Senokot Tab) 17.2 mg HS PO 05/25/17 21:00 06/24/17 20:59 05/25/17 21:34 17.2 MG Docusate Sodium (coLACE CAP) 100 mg BID PO 05/25/17 21:00 06/24/17 20:59 05/25/17 21:33 100 MG Multivitamins (Multivitamin Tab) 1 tab QAM PO 05/26/17 09:00 06/25/17 08:59 Ondansetron HCl (Zofran Inj) 4 mg Q6H PRN IV 05/25/17 19:15 06/24/17 19:14 Metoclopramide HCl (Reglan Inj) 10 mg Q6H PRN IV 05/25/17 19:15 06/24/17 19:14 Aspirin (Ecotrin Tab) 325 mg BID PO 05/25/17 21:00 06/24/17 20:59 05/25/17 21:34 325 MG Ketorolac Tromethamine (Toradol Inj) 15 mg Q6H IV. 05/25/17 22:00 05/27/17 21:59 05/25/17 21:33 15 MG Miscellaneous Information (Consult) 1 ea UD PRN N/A 05/25/17 20:00 06/24/17 19:59 Vancomycin HCl 1750 mg/Sodium Chloride 535 ml @ 200 mls/hr TODAY@2000 IV 05/25/17 20:00 05/26/17 02:00 05/25/17 21:32 200 MLS/HR Vancomycin HCl 1250 mg/Sodium Chloride 275 ml @ 125 mls/hr Q16H IV 05/26/17 10:00 07/06/17 21:59 Review of Systems At least 10 systems were reviewed and negative except as indicated in HPI. Physical Exam Date Time Temp Pulse Resp B/P (MAP) Pulse Ox O2 Delivery O2 Flow Rate FiO2 05/26/17 00:01 36.6 64 18 105/64 (78) 95 Room Air 05/25/17 23:59 Nasal Cannula 2.0 05/25/17 23:42 36.8 63 17 98/57 (71) 97 Nasal Cannula 2.0 05/25/17 22:30 36.9 63 16 96/54 (68) 88 Room Air 05/25/17 21:45 36.6 71 18 108/52 (70) 100 Nasal Cannula 2.0 05/25/17 21:20 76 112/68 (83) 99 Nasal Cannula 2.0 05/25/17 21:04 76 94/48 (63) 98 Room Air 05/25/17 20:45 36.6 77 18 104/63 (77) 98 Room Air 05/25/17 20:30 78 22 112/58 95 Nasal Cannula 2 05/25/17 20:20 37.1 77 18 102/55 95 Nasal Cannula 2 05/25/17 20:10 76 15 101/54 96 Nasal Cannula 2 05/25/17 20:00 120 15 101/66 96 Nasal Cannula 2 05/25/17 19:50 125 16 93/63 97 Nasal Cannula 2 05/25/17 19:40 125 12 107/69 100 Nasal Cannula 2 05/25/17 19:30 124 19 107/69 100 Oxymask 10 05/25/17 19:20 127 20 133/111 100 Oxymask 10 05/25/17 19:10 37.1 129 20 126/93 100 Oxymask 10 05/25/17 15:06 36.6 73 16 104/50 (68) 98 Room Air 05/25/17 11:16 36.7 77 18 111/68 98 Room Air General Appearance: WD/WN, no apparent distress Head: normocephalic, atraumatic Eyes: normal inspection, PERRL, sclerae normal ENT: hearing grossly normal, pharynx normal Neck: supple, no adenopathy, no JVD, trachea midline Respiratory/Chest: lungs clear, normal breath sounds, no respiratory distress, no accessory muscle use Cardiovascular: regular rate, rhythm, no edema, no gallop, no JVD, no murmur, normal peripheral pulses Abdomen/GI: normal bowel sounds, non tender, soft Extremities/Musculoskelatal: + pertinent finding (Postoperative Anselmo wrap in place with dressing clean dry and intact. NVI. Extremities warm) Neurologic/Psych: research fellow II-XII nml as tested, no motor/sensory deficits, alert, normal mood/affect, oriented x 3 Skin: normal color, no rash Laboratory Results 05/25/17 12:20 05/25/17 12:20 Test 05/25/17 12:20 05/25/17 17:15 Red Blood Count 3.87 M/uL (4.2-5.4) Mean Corpuscular Volume 79.6 fL (80-100) Mean Corpuscular Hemoglobin 25.6 pg (25-34) Mean Corpuscular Hemoglobin Concent 32.1 g/dl (32-36) RDW Standard Deviation 45.1 fL (36.4-46.3) RDW Coefficient of Variation 15.6 % (11.5-14.5) Mean Platelet Volume 7.9 fL (7.4-10.4) Erythrocyte Sedimentation Rate 90 mm/hr (0-21) Anion Gap 5.0 mmol/L (3-11) Est Creatinine Clear Calc Drug Dose 61.9 ml/min Estimated GFR () 94.2 Estimated GFR (Non- 81.3 BUN/Creatinine Ratio 23.2 (10-20) Calcium Level 8.7 mg/dl (8.5-10.1) C-Reactive Protein 8.39 mg/dl (0-0.29) Synovial Fluid Source KNEE Synovial Fluid Color RED Synovial Fluid Appearance BLOODY Synovial Fluid WBC 45822 /uL (0-200) Synovial Fluid RBC 37932 /uL Synovial Fluid Polynuclear WBCs % 97.5 % Synovial Fluid Mononuclear WBCs % 2.5 % Date/Time Source Procedure Growth Status 05/25/17 17:15 Aspirate - Other Knee Left Gram Stain Pending Received 05/25/17 17:15 Aspirate - Other Knee Left Wound Culture Pending Received Last 24 Hours Test 05/25/17 12:20 05/25/17 17:15 White Blood Count 7.53 K/uL Red Blood Count 3.87 M/uL Hemoglobin 9.9 g/dL Hematocrit 30.8 % Mean Corpuscular Volume 79.6 fL Mean Corpuscular Hemoglobin 25.6 pg Mean Corpuscular Hemoglobin Concent 32.1 g/dl RDW Standard Deviation 45.1 fL RDW Coefficient of Variation 15.6 % Platelet Count 458 K/uL Mean Platelet Volume 7.9 fL Erythrocyte Sedimentation Rate 90 mm/hr Sodium Level 135 mmol/L Potassium Level 4.2 mmol/L Chloride Level 98 mmol/L Carbon Dioxide Level 32 mmol/L Anion Gap 5.0 mmol/L Blood Urea Nitrogen 16 mg/dl Creatinine 0.67 mg/dl Est Creatinine Clear Calc Drug Dose 61.9 ml/min Estimated GFR () 94.2 Estimated GFR (Non- 81.3 BUN/Creatinine Ratio 23.2 Random Glucose 81 mg/dl Calcium Level 8.7 mg/dl C-Reactive Protein 8.39 mg/dl Synovial Fluid Source KNEE Synovial Fluid Color RED Synovial Fluid Appearance BLOODY Synovial Fluid WBC 55691 /uL Synovial Fluid RBC 59336 /uL Synovial Fluid Polynuclear WBCs % 97.5 % Synovial Fluid Mononuclear WBCs % 2.5 % Assessment & Plan 82-year-old female admitted for left knee I&D with poly exchange. 1. Postoperative state status post left I&D washout with poly exchange. Pus seen intraoperatively. Patient on vancomycin. ID consulted. Continue per orthopedic surg. Post-operative pain well managed. Monitor for acute blood loss with daily H&H. Pt encouraged to utilize spirometry to prevent post-op infection. PT/OT. Activity and wound care orders per ortho protocol 2. Intraoperative atrial fibrillation with RVR-diltiazem drip started in PACU with conversion to sinus rhythm. Patient denies symptoms and a history of atrial fibrillation. Continue to monitor on telemetry overnight. Cardiology aware of patient and will see the patient in a.m. 3. Anemia-chronic, stable, no indication acutely for transfusion. Trend CBC in a.m. 4. Hypertension-controlled continue lisinopril per home regimen 5. Anxiety-continue home regimen. DVT prophylaxis-aspirin 325 twice daily per Ortho Full code Disposition-telemetry Sarah Stewart DO [facility]
[2017-05-26] MEDS: KETOROLAC TROMETHAMINE 15 MG/ML VIAL IV. SCH ×3 (04:07→16:52)
[2017-05-26 06:18] LABS: HEMATOCRIT 27.7 % (37-47); HEMOGLOBIN 8.8 g/dL (12.0-16.0); MEAN CELL VOLUME 79.6 fL (80-100); MEAN CORPUSCULAR HEMOGLOBIN 25.3 pg (25-34); MEAN CORPUSCULAR HGB CONC 31.8 g/dl (32-36); MEAN PLATELET VOLUME 8.3 fL (7.4-10.4); PLATELET COUNT 402 K/uL (130-400); RED CELL DISTRIBUTION WIDTH CV 15.7 % (11.5-14.5); RED CELL DISTRIBUTION WIDTH SD 45.9 fL (36.4-46.3); WHITE BLOOD COUNT 9.07 K/uL (4.8-10.8)
[2017-05-26 06:56] LABS: CALCIUM 8.5 mg/dl (8.5-10.1); CREATININE 0.53 mg/dl (0.60-1.20); POTASSIUM 3.9 mmol/L (3.5-5.1)
[2017-05-26] MEDS ORDERED: NON-FORMULARY MEDICATION (Turmeric (Curcuma Longa) (Turmeric) 1 TAB) PO SCH (09:00)
[2017-05-26] MEDS: POTASSIUM CHLORIDE 10 MEQ TABCR PO SCH (09:51)
[2017-05-26] MEDS: MULTIVITAMIN TAB PO SCH (09:51)
[2017-05-26] MEDS: DOCUSATE SODIUM 100 MG CAP PO SCH ×2 (09:51→20:24)
[2017-05-26] MEDS: LISINOPRIL 10 MG TAB PO SCH (09:52)
[2017-05-26] MEDS: VENLAFAXINE HCL 37.5 MG TAB PO SCH (09:52)
[2017-05-26] MEDS: FERROUS SULFATE 325 MG TAB PO SCH ×2 (09:52→16:52)
[2017-05-26] MEDS: ASPIRIN 325 MG ECTAB PO SCH ×2 (09:52→20:25)
[2017-05-26] MEDS: VANCOMYCIN INJ 1,250 MG in SODIUM CHLORIDE 0.9% 250ML 250 ML IV SCH (10:00)
[2017-05-26] MEDS ORDERED: METOPROLOL SUCC 25MG EXT REL TAB PO ONE (10:00)
--- NOTE | 2017-05-26 10:06 | PROGRESS NOTE ---
DATE: 05/26/2017 CHIEF COMPLAINT: Status post I&D with poly exchange of the left knee, postop day #1. PROGRESS: Robyn was seen and examined at bedside today. Overall, she is doing fairly well. She is in good spirits. She does not have much pain in her knee. She has no complaints. She did have atrial fibrillation during the surgery. She is being followed by cardiology now for that. She was put on a diltiazem drip. PHYSICAL EXAMINATION: LEFT KNEE: The dressing is clean and dry and knee is in full extension. She has active dorsiflexion and plantarflexion of the left ankle. Sensation is intact. The Prevena VAC dressing is to suction and the Hemovac dressings are to suction as well. LABORATORY DATA: She has an H&H today of 8.8 and 27.7. Her glucose is 107. Her vital signs are stable on 3 liters of nasal cannula. She is voiding on her own. She has had minimal drain output. X-rays of the knee show left total knee arthroplasty. This still shows a questionable loosening on to the tibia, although was stable during the procedure and he was not having any knee pain. There was multiple radiopaque beads. IMPRESSION: Status post irrigation and debridement, poly exchange of the left knee. PLAN: I am hoping these antibiotic beads are working. We were able to treat her with some IV antibiotics versus oral antibiotics. She currently lives by herself and is proud of her independence. A 2-stage revision procedure including a 3 month antibiotic spacer of the knee could really limit her mobility and take away her independence. I am trying to limit that. We will keep her on aspirin for DVT prophylaxis. Infectious disease has been consulted for antibiotic recommendations. Cardiology is on board as well for her atrial fibrillation. We will continue to watch her closely and see how she does. I would like to consider discharge to home either Sunday or Sunday when okay with the medical teams. She would much prefer to go home than to any rehab facility. I think that is reasonable.
[2017-05-26] MEDS: LORAZEPAM 0.5 MG TAB PO PRN ×2 (12:55→17:57)
--- NOTE | 2017-05-26 14:42 | CARDIOLOGY CONSULTATION ---
DATE OF CONSULTATION: 05/26/2017 CONSULTATION REQUESTED BY: Dr. Porter. REASON FOR CONSULTATION: New onset atrial fibrillation. HISTORY OF PRESENT ILLNESS: Ms. Barragan is a very pleasant 82-year-old woman who was undergoing knee surgery with a poly exchange and irrigation for what appears to be likely a chronically infected left knee prosthesis. This was an elective procedure with Dr. Jean. The patient went in to the operating room in her normal state of health in normal sinus rhythm; however, during the procedure, she went into atrial fibrillation with rapid ventricular response. The patient was initially given esmolol intermittently during the procedure by the anesthesia team, which did decrease her rates down into the 90s and her blood pressure remained somewhat stable yet on the low side. I was contacted by Dr. Porter while patient was still in the operating room and recommended that the procedure not be interrupted for the atrial fibrillation and patient should be started on a Cardizem drip for further rate control upon arrival to the PACU as long as her hemodynamics were not compromised. The procedure was completed and she was transferred to the PACU, where she remained in atrial fibrillation and a diltiazem drip was started. She was having some relative hypotension, but then spontaneously converted to normal sinus rhythm on her own and the diltiazem drip was discontinued. She was then admitted to telemetry overnight. Currently, patient states that she feels great. She has some discomfort in her knee, but other than that denies any chest pain, shortness of breath, palpitations, lightheadedness, dizziness, or syncope. She does not remember experiencing any palpitations immediately postop, either. She states that she does not have a history of any episodes of atrial fibrillation previously. PAST SURGICAL HISTORY: 1. Status post bilateral knee replacements. 2. Left knee irrigation and debridement with poly exchange x2. 3. Hernia repair. 4. Right hip replacement. MEDICAL ILLNESSES: 1. Hypertension. 2. Arthritis. 3. Anxiety. FAMILY HISTORY: Noncontributory. SOCIAL HISTORY: She denies any alcohol, tobacco or recreational drug use. She is not . She lives at home by herself. She is retired. REVIEW OF SYSTEMS: As per HPI, all other review of systems reviewed and negative at this time. ALLERGIES: No known drug allergies. MEDICATIONS AN OUTPATIENT: 1. Effexor daily. 2. Lisinopril 10 mg daily. 3. Tylenol p.r.n. 4. Oxycodone p.r.n. 5. Keflex 3 times a day. 6. Ativan p.r.n. 7. Potassium chloride 10 mEq daily. PHYSICAL EXAMINATION: VITALS: Temperature 36.6, pulse 78, respiratory rate 12, blood pressure 116/69. GENERAL: Awake, alert, oriented x3 in no acute distress. HEENT: Normocephalic, atraumatic. Pupils equal, round, react to light and accommodation. Extraocular muscles intact. Anicteric sclerae. Moist mucous membranes. NECK: No JVD, no bruit. CARDIOVASCULAR: Regular. Positive S4. Normal S1 and S2. No S3. No murmurs or rubs. PULMONARY: Clear to auscultation bilaterally. No rales, rhonchi, or wheezing. ABDOMEN: Bowel sounds x4, soft. No rebound, guarding, tenderness. No organomegaly. EXTREMITIES: Left leg is bandaged. No clubbing, cyanosis or edema. +2 pedal pulses bilaterally. SKIN: Warm and dry. TEST RESULTS: A 12-lead EKG from 05/25/2017 at 13:49 independently reviewed at this time shows normal sinus rhythm, normal axis, normal intervals, no signs of ischemia, normal study. Repeat EKG on 05/26/2017 at 08:40 again shows normal sinus rhythm, no change. Review of telemetry strips since admission to telemetry shows normal sinus rhythm without recurrence of atrial fibrillation. Most recent echocardiogram performed on 11/05/2016 shows normal sinus rhythm. Ewen-[id number] concentric left ventricular hypertrophy, hyperdynamic LV systolic function, EF greater than 70% with no regional wall motion abnormalities noted. Severe mitral annular calcifications. No mitral valve stenosis. Focal calcification of the aortic valve with a commissure between the right and left coronary cusps. Aortic valve stenosis is absent. Left ventricular outflow tract is narrow with a peak velocity of 2.6 m/sec and a peak gradient of 27 mmHg, this indicates an interval decline in LV outflow tract gradient. IMPRESSION: 1. Paroxysmal atrial fibrillation with rapid ventricular response. 2. 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 3. Hypertension, controlled. RECOMMENDATIONS: It was my pleasure to see Ms. Barragan in consultation today. The pathophysiology and treatment options for atrial fibrillation were discussed with patient at great lengths. She was counseled given the fact that she went into atrial fibrillation during surgery and subsequently converted to sinus rhythm on her own. I believe the most prudent course of action at this point would be to start her on low dose beta pj to help maintain sinus rhythm. I do not see the need for systemic anticoagulation at this time given the very brief period that she was in atrial fibrillation, and I would like to keep her on coding analyst overnight to follow her rhythm. However, her cardiac care should not interfere with any rehabilitation that may be necessary for her knee, and she may go off monitor for rehabilitation.
[2017-05-26] MEDS: SODIUM CHLORIDE 0.9% 1000ML 1,000 ML IV SCH (16:51)
[2017-05-26] MEDS: SENNA 8.6 MG TAB PO SCH (20:25)
[2017-05-26] MEDS: ZOLPIDEM TARTRATE 5 MG TAB PO PRN (20:29)
[2017-05-27] MEDS ORDERED: VANCOMYCIN TROUGH ONE (01:30)
[2017-05-27 01:39] LABS: HEMATOCRIT 25.9 % (37-47); HEMOGLOBIN 8.3 g/dL (12.0-16.0); MEAN CELL VOLUME 79.2 fL (80-100); MEAN CORPUSCULAR HEMOGLOBIN 25.4 pg (25-34); PLATELET COUNT 367 K/uL (130-400); RED CELL DISTRIBUTION WIDTH CV 15.8 % (11.5-14.5); RED CELL DISTRIBUTION WIDTH SD 46.1 fL (36.4-46.3); WHITE BLOOD COUNT 9.07 K/uL (4.8-10.8)
[2017-05-27 01:56] LABS: CALCIUM 8.3 mg/dl (8.5-10.1); CREATININE 0.5 mg/dl (0.60-1.20); POTASSIUM 3.7 mmol/L (3.5-5.1)
[2017-05-27] MEDS: SODIUM CHLORIDE 0.9% 1000ML 1,000 ML IV SCH ×2 (03:53→16:08)
[2017-05-27] MEDS: VANCOMYCIN INJ 1,250 MG in SODIUM CHLORIDE 0.9% 250ML 250 ML IV SCH ×2 (03:54→18:00)
[2017-05-27 04:09] VITALS: BP 107/65; PULSE 76; TEMP 36.9; O2SAT 95
[2017-05-27 07:57] VITALS: BP 94/53; PULSE 68; TEMP 36.9; O2SAT 93
--- NOTE | 2017-05-27 08:22 | Progress Note ---
Progress Note Date of Service May 27, 2017. Progress Note ID Consult Dictated #[id number] A/P: 1. Post op knee infection - h/oMSSA -Continue vanco for now, await final OR culture sensitivity -blood culture x 2 -Will need prolonged abx -Will follow, thank you
--- NOTE | 2017-05-27 08:35 | Pharmacy Progress Note ---
Pharmacy Abx Dose Short Note Date of Service May 27, 2017. Assessment & Plan Assessment 82 year old female receiving empiric vancomycin IV for treatment of post operative left knee infection. * Patient has a h/o of MSSA. Preliminary OR cultures are growing S.aureus ( sensitivities pending). * Day # 3 of antimicrobial therapy. Plan Continue vancomycin IV pending S.aureus sensitivities * Trough level of 14.9 mcg/mL is near therapeutic - of note, this level was drawn prior to steady state, therefore true trough level will be higher. * Continue dose of 1250 mg IV every 16 hours * Goal trough level for infected TKA : 15 to 20 mcg/mL * Repeat level will be ordered if patient continues on vancomycin therapy after sensitivities result Pharmacy will continue to follow and will adjust dose/frequency as necessary. Thank you.
[2017-05-27] MEDS ORDERED: POTASSIUM CHLORIDE 10 MEQ TABCR PO STA (08:44)
[2017-05-27] MEDS: METOPROLOL SUCC 25MG EXT REL TAB PO SCH (09:00)
[2017-05-27] MEDS: ASPIRIN 325 MG ECTAB PO SCH ×2 (09:00→20:16)
[2017-05-27] MEDS: LISINOPRIL 10 MG TAB PO SCH (09:00)
[2017-05-27] MEDS ORDERED: MAGNESIUM SULFATE 1GM / D5W 1 GM in PREMIXED IN D5W 100 ML IV ONE (09:00)
--- NOTE | 2017-05-27 09:28 | Progress Note ---
Internal Med Progress Note Date of Service: May 27, 2017. Provider Documentation: SUBJECTIVE: The patient was seen and examined. Was admitted yesterday with a atrial fibrillation with rapid ventricular response from She received esmolol and intravenous Cardizem with conversion to sinus rhythm She has been started on small dose of beta-pj She does not have any complain this morning. OBJECTIVE: Vital Signs-as noted below Exam: General-no distress at rest Eyes-normal ENT-normal Neck-supple Lungs-clear to auscultate bilaterally Heart-S1-S2 no murmur appreciated Abdomen-benign, no masses, bowel sounds present. Extremities-trace edema bilaterally. Left knee is bandaged. Neuro-alert awake and oriented 3. No focal sensory and/or motor deficit. Lab data as noted below. ASSESSMENT & PLAN: 82-year-old female admitted for left knee I&D with poly exchange. Paroxysmal atrial fibrillation with RVR. Intraoperative atrial fibrillation with RVR. Received a few doses of esmolol perioperatively, received IV Cardizem which reverted A. fib to sinus rhythm. Appreciate cardiology input and recommendation. Receiving a small dose of beta-pj. Does not require long-term anticoagulation. Remains in sinus rhythm without any symptoms. Electrolytes will be replaced and monitored. Postoperative state status post left I&D washout with poly exchange. Pus seen intraoperatively. Patient on vancomycin. ID consulted. Continue per orthopedic surg. Post-operative pain well managed. Appreciate ID input and recommendation. Anemia-chronic, stable, no indication acutely for transfusion. Hemoglobin remains stable at this time. Hemoglobin more than 8 this morning Hypertension-controlled continue lisinopril per home regimen Anxiety-continue home regimen. DVT prophylaxis-aspirin 325 twice daily per Ortho Full code Disposition-telemetry Medically stable. Vital Signs: Date Time Temp Pulse Resp B/P (MAP) Pulse Ox O2 Delivery O2 Flow Rate FiO2 05/27/17 07:57 36.9 68 18 94/53 (67) 93 Room Air 05/27/17 04:09 36.9 76 16 107/65 (79) 95 Room Air 05/27/17 04:00 Room Air 05/26/17 23:59 Room Air 05/26/17 23:16 36.7 80 18 120/66 (84) 94 Room Air 05/26/17 20:42 36.8 70 16 94/52 (66) 93 Room Air 05/26/17 20:00 Room Air 05/26/17 16:44 36.7 71 16 96/60 (72) 96 Room Air 05/26/17 16:00 Nasal Cannula 2.0 05/26/17 12:00 Nasal Cannula 2.0 05/26/17 11:50 37.1 74 19 101/57 (72) 91 Nasal Cannula 3.0 Lab Results: Results Past 24 Hours Test 05/27/17 01:29 Range/Units White Blood Count 9.07 4.8-10.8 K/uL Red Blood Count 3.27 4.2-5.4 M/uL Hemoglobin 8.3 12.0-16.0 g/dL Hematocrit 25.9 37-47 % Mean Corpuscular Volume 79.2 80-100 fL Mean Corpuscular Hemoglobin 25.4 25-34 pg Mean Corpuscular Hemoglobin Concent 32.0 32-36 g/dl RDW Standard Deviation 46.1 36.4-46.3 fL RDW Coefficient of Variation 15.8 11.5-14.5 % Platelet Count 367 130-400 K/uL Mean Platelet Volume 8.0 7.4-10.4 fL Sodium Level 136 136-145 mmol/L Potassium Level 3.7 3.5-5.1 mmol/L Chloride Level 102 98-107 mmol/L Carbon Dioxide Level 27 21-32 mmol/L Anion Gap 7.0 3-11 mmol/L Blood Urea Nitrogen 12 7-18 mg/dl Creatinine 0.50 0.60-1.20 mg/dl Est Creatinine Clear Calc Drug Dose 96.5 ml/min Estimated GFR () 103.7 Estimated GFR (Non- 89.5 BUN/Creatinine Ratio 24.4 10-20 Random Glucose 111 70-99 mg/dl Calcium Level 8.3 8.5-10.1 mg/dl Magnesium Level 1.6 1.8-2.4 mg/dl Vancomycin Level Trough 14.9 SEE COMMENT mcg/ml Microbiology Results 05/27/17 Blood Culture, Ordered Pending 05/27/17 Blood Culture, Ordered Pending
--- NOTE | 2017-05-27 09:52 | ECHOCARDIOGRAM REPORT ---
*NOTICE TO RECEIVING CONSTITUTION PARTY AGENCY This information is strictly Confidential and protected under [place] law. [place] law prohibits you from making any further disclosure of this information unless further disclosure is expressly permitted by the written consent of the person to whom it pertains or is authorized by law. A general authorization for the release of medical or other information is not sufficient for this purpose. Hospital accepts no responsibility if the information is made available to any other person, INCLUDING THE PATIENT. Interpretation Summary * Name: MELISSA ARMENDARIZ Study Date: 05/27/2017 05:42 AM BP: 107/65 mmHg * Patient Location: C.2T\S\S232\S\1 HR: 76 * : 1935 (M/d/yyyy) Gender: Female Height: 67 in * Age: 82 yrs Ethnicity: [place] Weight: 191 lb * Ordering Physician: Prateek Bryant * Referring Physician: Patrick Jean * Performed By: Binta George [facility] * * Reason For Study: A-FIB * BSA: 2.0 m2 * -- Conclusions -- * Compared to previous study of 10/29/16: LVOT gradient has resolved, otherwise, unchanged. * Normal LV chamber size with moderate concentric LVH. * Normal LV systolic function, EF 55-60%. * No segmental left ventricular wall motion abnormalities are noted. * Grade II diastolic dysfunction. * There is focal calcification of the aortic valve at the commisure of between the right and left coronary cusp. * Severe mitral annular calcification without stenosis or regurgitation. * Mild left atrial enlargement. Procedure Details * A complete two-dimensional transthoracic echocardiogram was performed (2D, M-mode, Doppler and color flow Doppler). Left Ventricle * The left ventricle is normal in size. * There is moderate concentric left ventricular hypertrophy. * Left ventricular systolic function is normal. * No segmental left ventricular wall motion abnormalities are noted. * Ejection Fraction = 55-60%. * The left ventricular wall motion is normal. Right Ventricle * The right ventricular cavity size is normal (basal dimension <4.2 cm in right ventricular apical 4-chamber view). * The right ventricular systolic function is normal as assessed by tricuspid annular plane systolic excursion (TAPSE) (normal >1.5 cm). Atria * The left atrium is mildly dilated. * Right atrial size is normal. * No ASD detected; PFO is not assessed. * The interatrial septum bows toward right atrium consistent with elevated left atrial pressure. Mitral Valve * There is severe mitral annular calcification. * There is no mitral valve stenosis. * There is no mitral regurgitation noted. Tricuspid Valve * The tricuspid valve is normal in structure and function. Aortic Valve * The aortic valve is trileaflet. * There is focal calcification of the aortic valve at the commisure of between the right and left coronary cusp. * No hemodynamically significant valvular aortic stenosis. * There is no significant aortic regurgitation. Pulmonic Valve * The pulmonary valve is not well seen, but the Doppler examination is normal without significant regurgitation or stenosis. Great Vessels * The aortic root and proximal ascending aorta are normal sized. Pericardium/Pleural * There is no pericardial effusion. Left Ventricular Diastolic Function * Diastolic dysfunction, Grade II (pseudonormalization pattern). MMode 2D Measurements and Calculations IVSd 1.1 cm IVSs 1.2 cm LVIDd 4.7 cm LVIDs 3.1 cm LVPWd 1.1 cm LVPWs 1.3 cm IVS/LVPW 1.0 FS 33.7 % EDV(Teich) 101.8 ml ESV(Teich) 38.1 ml EF(Teich) 62.5 % EDV(cubed) 103.1 ml ESV(cubed) 30.0 ml EF(cubed) 70.9 % % IVS thick 6.6 % % LVPW thick 22.8 % LV mass(C)d 182.2 grams LV mass(C)dI 91.9 grams/m\S\2 LV mass(C)s 120.4 grams LV mass(C)sI 60.7 grams/m\S\2 SV(Teich) 63.7 ml SI(Teich) 32.1 ml/m\S\2 SV(cubed) 73.1 ml SI(cubed) 36.9 ml/m\S\2 Ao root diam 3.5 cm Ao root area 9.7 cm\S\2 ACS 1.8 cm LA dimension 4.1 cm asc Aorta Diam 3.0 cm LA/Ao 1.2 EDV(MOD-sp4) 86.0 ml ESV(MOD-sp4) 38.0 ml EF(MOD-sp4) 55.8 % SV(MOD-sp4) 48.0 ml SI(MOD-sp4) 24.2 ml/m\S\2 Doppler Measurements and Calculations MV E max melias 124.6 cm/sec MV A max melisa 114.8 cm/sec MV E/A 1.1 MV P1/2t max melisa 132.0 cm/sec MV P1/2t 86.1 msec MVA(P1/2t) 2.6 cm\S\2 MV dec slope 449.1 cm/sec\S\2 MV dec time 0.26 sec Ao V2 max 172.8 cm/sec Ao max PG 12.0 mmHg Ao max PG (full) 3.3 mmHg LV V1 max PG 8.6 mmHg LV V1 max 146.9 cm/sec PA V2 max 109.6 cm/sec PA max PG 4.8 mmHg TR max melisa 241.6 cm/sec
--- NOTE | 2017-05-27 09:56 | INFECT. DISEASE CONSULTATION ---
DATE OF CONSULTATION: 05/27/2017 HISTORY OF PRESENT ILLNESS: This is an 82-year-old female who had a history of left knee replacement in 2009. Some time ago she began to have increasing pain. She did have a surgery with poly exchange in October. She was found to have knee infection at that time and cultures in October grew MSSA. She was seen by ID and discharged home on a prolonged course of Ancef. She completed this successfully. She noticed over the past days to weeks that she had increasing redness around the incision and had a small abscess formed. She was brought in to the hospital electively on the and underwent a poly exchange. There was a significant amount of purulent drainage noted. Cultures were obtained and are growing Staph aureus. She is currently on vancomycin and tolerating this well. Her sed rate is 90. Her CRP is elevated at 8. She did have a knee aspirate, which showed 38,000 white blood cells with 97% neutrophils. She is tolerating antibiotics well. She has been afebrile since admission. On my examination, she is somewhat lethargic. She denies any pain in the knee. She denies any chest pain, cough, shortness of breath, nausea, vomiting or diarrhea. She did develop AFib postoperatively and is currently being followed by cardiology for this. However, she denies any chest pain. REVIEW OF SYSTEMS: Her remaining review of systems is negative. PAST MEDICAL HISTORY: Significant for anxiety, arthritis, and hypertension. PAST SURGICAL HISTORY: Significant for hernia repair, knee replacement, hip replacement. FAMILY HISTORY: Noncontributory. SOCIAL HISTORY: Negative for tobacco use, alcohol use or drug use. ALLERGIES: She has no known drug allergies. CURRENT MEDICATIONS: Include Toprol-XL, vancomycin, lisinopril, Effexor, potassium, multivitamins, Toradol, Senokot, Colace, oxycodone, morphine, milk of magnesia, Dulcolax, Fleet enemas, Zofran, Reglan, iron, Ativan, Ambien. PHYSICAL EXAMINATION: VITAL SIGNS: She is afebrile, pulse 68, respiratory rate is 18, blood pressure is 94/53, oxygen saturation is 93%-95% on room air. GENERAL: She is awake, alert and oriented x3. She is in no acute distress. HEENT: Mucous membranes are dry. Extraocular muscles are intact. HEART: Without murmur. LUNGS: Clear bilaterally. ABDOMEN: Soft. EXTREMITIES: There is no lower extremity edema. Postoperative dressing is clean, dry and intact. LABORATORY STUDIES: CBC today reveals a white blood cell count of 9.0, hemoglobin 8.3, platelets are 367. Sed rate was 90. Chemistry panel reveals a sodium of 136, potassium 3.7, chloride 102, bicarbonate 27, BUN 12, creatinine 0.5, CRP is 8.3. Vancomycin level today is 14.9. Knee aspirate is as above. Wound cultures are growing Staph aureus on 2 sets. Sensitivities are pending. ASSESSMENT AND PLAN: Postoperative knee infection with Staph aureus. She will remain on vancomycin, pending final culture results. She will likely require a prolonged course of intravenous antibiotics. Blood cultures will be obtained as well. Thank you for this consultation.
[2017-05-27] MEDS: FERROUS SULFATE 325 MG TAB PO SCH ×2 (10:11→16:46)
[2017-05-27] MEDS: MULTIVITAMIN TAB PO SCH (10:11)
[2017-05-27] MEDS: VENLAFAXINE HCL 37.5 MG TAB PO SCH (10:11)
[2017-05-27] MEDS: DOCUSATE SODIUM 100 MG CAP PO SCH ×2 (10:11→20:16)
[2017-05-27] MEDS: POTASSIUM CHLORIDE 10 MEQ TABCR PO SCH (10:12)
[2017-05-27] MEDS: KETOROLAC TROMETHAMINE 15 MG/ML VIAL IV. SCH ×2 (10:12→16:00)
[2017-05-27] MEDS: LORAZEPAM 0.5 MG TAB PO PRN ×2 (10:17→16:45)
[2017-05-27 11:28] VITALS: BP 121/71; PULSE 69; TEMP 36.9; O2SAT 96
--- NOTE | 2017-05-27 11:55 | Cardiology Follow-Up ---
Subjective Subjective Date of Service: May 27, 2017. Pt evaluation today including: conversation w/ patient, physical exam, chart review, lab review, review of studies, review of inpatient medication list Additional Details: Pt seen and examined, states that she feels fine. Denies cp, sob, palpitations, lightheadedness or dizziness. Tele reviewed: sinus rhythm without recurrence of atrial fibrillation. Problem List Medical Problems: (1) Knee effusion, left Status: Acute (2) Septic joint of left knee joint Status: Acute (3) Unable to ambulate Status: Acute Review of Systems Respiratory: No see HPI, No cough, No sputum, No wheezing, No shortness of breath, No dyspnea on exertion, No dyspnea at rest, No hemoptysis, No problem reported Cardiac: No see HPI, No chest pain, No orthopnea, No PND, No edema, No claudication, No palpitations, No problem reported Objective Vital Signs Last Vital Signs Documentation Date Time Temp Pulse Resp B/P (MAP) Pulse Ox O2 Delivery O2 Flow Rate FiO2 05/27/17 11:28 36.9 69 19 121/71 (88) 96 Room Air 05/26/17 16:00 2.0 Physical Exam: General Appearance: WD/WN, no apparent distress Eyes: bilateral eyes normal inspection, bilateral eyes PERRL, bilateral eyes EOMI ENT: normal ENT inspection, hearing grossly normal, pharynx normal Neck: supple, no adenopathy, thyroid normal, no JVD, no carotid bruits, trachea midline Respiratory/Chest: chest non-tender, lungs clear, normal breath sounds, no respiratory distress Cardiovascular: regular rate, rhythm, no JVD, + systolic murmur (3/6 mid to late, 2nd ICS, rsb), + gallop/S4 Abdomen: normal bowel sounds, non tender, soft, no organomegaly Extremities: non-tender, normal inspection, no pedal edema, no calf tenderness 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 paroxysmal atrial fibrillation during surgery very short duration spontaneously converted to sinus no further episodes on telemetry would cont low dose metoprolol succinate already on aspirin given short duration due not believe anticoagulation is necessary 2. hypertension BP on the low side will hold lisinopril and attempt to give metoprolol instead ok to d/c tele and transfer to ortho floor
--- NOTE | 2017-05-27 15:02 | Progress Note ---
Internal Med Progress Note Date of Service: May 26, 2017. Provider Documentation: This is a bill for 05/26/17 SUBJECTIVE: The patient was seen and examined on 05/26/17 Was admitted yesterday with a atrial fibrillation with rapid ventricular response from She received esmolol and intravenous Cardizem with conversion to sinus rhythm She has been started on small dose of beta-pj OBJECTIVE: Vital Signs-as noted below Exam: General-no distress at rest Eyes-normal ENT-normal Neck-supple Lungs-clear to auscultate bilaterally Heart-S1-S2 no murmur appreciated Abdomen-benign, no masses, bowel sounds present. Extremities-trace edema bilaterally. Left knee is bandaged. Neuro-alert awake and oriented 3. No focal sensory and/or motor deficit. Lab data as noted below. ASSESSMENT & PLAN: 82-year-old female admitted for left knee I&D with poly exchange. Paroxysmal atrial fibrillation with RVR. Intraoperative atrial fibrillation with RVR. Received a few doses of esmolol perioperatively, received IV Cardizem which reverted A. fib to sinus rhythm. Appreciate cardiology input and recommendation. Receiving a small dose of beta-pj. Does not require long-term anticoagulation. Remains in sinus rhythm without any symptoms.Electrolytes will be replaced and monitored. Postoperative state status post left I&D washout with poly exchange. Pus seen intraoperatively. Patient on vancomycin. ID consulted. Continue per orthopedic surg. Post-operative pain well managed. Appreciate ID input and recommendation. Anemia-chronic, stable, no indication acutely for transfusion. Hemoglobin remains stable at this time. Hypertension-controlled continue lisinopril per home regimen Anxiety-continue home regimen. DVT prophylaxis-aspirin 325 twice daily per Ortho Full code Disposition-telemetry Vital Signs: Date Time Temp Pulse Resp B/P (MAP) Pulse Ox O2 Delivery O2 Flow Rate FiO2 05/27/17 12:00 Room Air 05/27/17 11:28 36.9 69 19 121/71 (88) 96 Room Air 05/27/17 08:00 Room Air 05/27/17 07:57 36.9 68 18 94/53 (67) 93 Room Air 05/27/17 04:09 36.9 76 16 107/65 (79) 95 Room Air 05/27/17 04:00 Room Air 05/26/17 23:59 Room Air 05/26/17 23:16 36.7 80 18 120/66 (84) 94 Room Air 05/26/17 20:42 36.8 70 16 94/52 (66) 93 Room Air 05/26/17 20:00 Room Air 05/26/17 16:44 36.7 71 16 96/60 (72) 96 Room Air 05/26/17 16:00 Nasal Cannula 2.0 Lab Results: Results Past 24 Hours Test 05/27/17 01:29 Range/Units White Blood Count 9.07 4.8-10.8 K/uL Red Blood Count 3.27 4.2-5.4 M/uL Hemoglobin 8.3 12.0-16.0 g/dL Hematocrit 25.9 37-47 % Mean Corpuscular Volume 79.2 80-100 fL Mean Corpuscular Hemoglobin 25.4 25-34 pg Mean Corpuscular Hemoglobin Concent 32.0 32-36 g/dl RDW Standard Deviation 46.1 36.4-46.3 fL RDW Coefficient of Variation 15.8 11.5-14.5 % Platelet Count 367 130-400 K/uL Mean Platelet Volume 8.0 7.4-10.4 fL Sodium Level 136 136-145 mmol/L Potassium Level 3.7 3.5-5.1 mmol/L Chloride Level 102 98-107 mmol/L Carbon Dioxide Level 27 21-32 mmol/L Anion Gap 7.0 3-11 mmol/L Blood Urea Nitrogen 12 7-18 mg/dl Creatinine 0.50 0.60-1.20 mg/dl Est Creatinine Clear Calc Drug Dose 96.5 ml/min Estimated GFR () 103.7 Estimated GFR (Non- 89.5 BUN/Creatinine Ratio 24.4 10-20 Random Glucose 111 70-99 mg/dl Calcium Level 8.3 8.5-10.1 mg/dl Magnesium Level 1.6 1.8-2.4 mg/dl Vancomycin Level Trough 14.9 SEE COMMENT mcg/ml Microbiology Results 05/27/17 Blood Culture, Received Pending 05/27/17 Blood Culture, Received Pending
--- NOTE | 2017-05-27 16:33 | PROGRESS NOTE ---
DATE: 05/27/2017 CHIEF COMPLAINT: Status post I&D poly exchange of the left knee, postop day #2. PROGRESS: Robyn was seen and examined at bedside today. Overall, she continues to do very well. She does not feel sick. She was up and ambulating around the nurses' station. Her pain is controlled. She has no complaints. She has been seen by cardiology and internal medicine as well as infectious disease. PHYSICAL EXAMINATION: VITAL SIGNS: Her vital signs are all stable on room air. LEFT KNEE: The dressing is clean and dry. Her left leg out to full extension. She has active dorsiflexion and plantarflexion of her left ankle. The Prevena VAC dressing is to suction and her Hemovac is to suction. LABORATORIES: She has an Hct today of 25.9 Her glucose is 111. Her creatinine is 0.5. DATA: She is voiding on her own. Her drain output has only been 60 mL since midnight. Blood cultures are all pending. Knee aspirates and cultures are growing back MSSA at this point. IMPRESSION: 1. Status post I&D poly exchange of the left knee. 2. Paroxysmal atrial fibrillation with rapid ventricular response that is now in sinus rhythm. PLAN: Per infectious disease recommendation, will continue her on vancomycin for now. They are waiting for final cultures to come back. She will likely require long dose antibiotics. She can be up and ambulating from my standpoint. We will remove the drains today. The Prevena VAC dressing will stay in place for 8 days. Will continue aspirin for DVT prophylaxis. Once her final cultures come back and she gets final recommendations from infectious disease, I am interested in discharging her back home. WINTER
[2017-05-27 16:56] VITALS: BP 109/65; PULSE 74; TEMP 36.6; O2SAT 95
[2017-05-27] MEDS: SENNA 8.6 MG TAB PO SCH (20:16)
[2017-05-27] MEDS: ZOLPIDEM TARTRATE 5 MG TAB PO PRN (20:16)
[2017-05-27 20:27] VITALS: BP 103/61; PULSE 77; TEMP 36.9; O2SAT 96
[2017-05-28] VITALS (8 sets, daily range): BP systolic 108–151; BP diastolic 62–72; PULSE 64–83; TEMP 36.4–37.2; O2SAT 96–99
[2017-05-28] MEDS: SODIUM CHLORIDE 0.9% 1000ML 1,000 ML IV SCH ×2 (05:50→15:01)
[2017-05-28 06:40] LABS: HEMATOCRIT 25.9 % (37-47); HEMOGLOBIN 8.4 g/dL (12.0-16.0); MEAN CELL VOLUME 79.4 fL (80-100); MEAN CORPUSCULAR HEMOGLOBIN 25.8 pg (25-34); MEAN CORPUSCULAR HGB CONC 32.4 g/dl (32-36); MEAN PLATELET VOLUME 8.3 fL (7.4-10.4); PLATELET COUNT 412 K/uL (130-400); RED CELL DISTRIBUTION WIDTH CV 15.8 % (11.5-14.5); RED CELL DISTRIBUTION WIDTH SD 46.1 fL (36.4-46.3); WHITE BLOOD COUNT 8.05 K/uL (4.8-10.8)
[2017-05-28 07:04] LABS: CALCIUM 8.5 mg/dl (8.5-10.1); CREATININE 0.49 mg/dl (0.60-1.20); POTASSIUM 3.5 mmol/L (3.5-5.1)
[2017-05-28] MEDS: DOCUSATE SODIUM 100 MG CAP PO SCH ×2 (08:08→21:07)
[2017-05-28] MEDS: FERROUS SULFATE 325 MG TAB PO SCH ×2 (08:08→17:17)
[2017-05-28] MEDS: METOPROLOL SUCC 25MG EXT REL TAB PO SCH (08:08)
[2017-05-28] MEDS: MULTIVITAMIN TAB PO SCH (08:08)
[2017-05-28] MEDS: POTASSIUM CHLORIDE 10 MEQ TABCR PO SCH (08:08)
[2017-05-28] MEDS: VENLAFAXINE HCL 37.5 MG TAB PO SCH (08:08)
[2017-05-28] MEDS: ASPIRIN 325 MG ECTAB PO SCH ×2 (08:09→21:07)
--- NOTE | 2017-05-28 10:54 | Progress Note ---
Subjective Date of Service: May 28, 2017. Subjective Pt evaluation today including: conversation w/ patient, physical exam, chart review, lab review pt seen in followup,denies pain, no f/c. no abd pain no n/v/d. all remaining ros reviewed and are negative. OR cultures again with MSSA. pt to go home on d/ c. blood cultures pending. Problem List Medical Problems: (1) Knee effusion, left Status: Acute (2) Septic joint of left knee joint Status: Acute (3) Unable to ambulate Status: Acute Objective Vital Signs Date Time Temp Pulse Resp B/P (MAP) Pulse Ox O2 Delivery O2 Flow Rate FiO2 05/28/17 08:00 36.4 64 20 137/71 (93) 97 Room Air 05/28/17 04:00 Room Air 05/28/17 03:42 36.6 73 18 129/65 (86) 99 Room Air 05/28/17 00:07 37.2 77 16 108/62 (77) 97 Room Air 05/28/17 00:00 Room Air 05/27/17 20:27 36.9 77 18 103/61 (75) 96 Room Air 05/27/17 20:00 Room Air 05/27/17 16:56 36.6 74 18 109/65 (80) 95 Room Air 05/27/17 16:00 Room Air 05/27/17 12:00 Room Air 05/27/17 11:28 36.9 69 19 121/71 (88) 96 Room Air Physical Exam General Appearance: WD/WN, no apparent distress Eyes: normal inspection, EOMI Neck: supple Respiratory/Chest: lungs clear, normal breath sounds, no respiratory distress Cardiovascular: regular rate, rhythm, no edema Abdomen: soft Extremities: non-tender, no pedal edema Neurologic/Psychiatric: alert, oriented x 3 Skin: normal color Laboratory Results Item Value Date Time Gram Stain - Final Complete 05/25/171714 Aspirate - Other Knee Left Gram Stain - Final Resulted 05/25/171714 Abscess Knee Left Last 24 Hours Test 05/28/17 05:41 White Blood Count 8.05 K/uL Red Blood Count 3.26 M/uL Hemoglobin 8.4 g/dL Hematocrit 25.9 % Mean Corpuscular Volume 79.4 fL Mean Corpuscular Hemoglobin 25.8 pg Mean Corpuscular Hemoglobin Concent 32.4 g/dl RDW Standard Deviation 46.1 fL RDW Coefficient of Variation 15.8 % Platelet Count 412 K/uL Mean Platelet Volume 8.3 fL Sodium Level 140 mmol/L Potassium Level 3.5 mmol/L Chloride Level 105 mmol/L Carbon Dioxide Level 29 mmol/L Anion Gap 6.0 mmol/L Blood Urea Nitrogen 11 mg/dl Creatinine 0.49 mg/dl Est Creatinine Clear Calc Drug Dose 97.9 ml/min Estimated GFR () 104.4 Estimated GFR (Non- 90.1 BUN/Creatinine Ratio 22.7 Random Glucose 99 mg/dl Calcium Level 8.5 mg/dl Magnesium Level 1.7 mg/dl Assessment and Plan (1) Post-operative infection Assessment & Plan: will change to ctx 2 g daily, will need 6 weeks IV abx. ok for picc if blood culture negative. will need weekly cbc,cmp,esr while on therapy. will likely than require po suppression for recurrent infection.
--- NOTE | 2017-05-28 11:03 | Anesthesiology Progress Note ---
Anesthesia Post Op Note Date & Time May 28, 2017 at 11:02 Vital Signs Pain Intensity: 0.0 Vital Signs Past 12 Hours Date Time Temp Pulse Resp B/P (MAP) Pulse Ox O2 Delivery O2 Flow Rate FiO2 05/28/17 08:00 36.4 64 20 137/71 (93) 97 Room Air 05/28/17 04:00 Room Air 05/28/17 03:42 36.6 73 18 129/65 (86) 99 Room Air 05/28/17 00:07 37.2 77 16 108/62 (77) 97 Room Air 05/28/17 00:00 Room Air Notes Mental Status: alert / awake / arousable, participated in evaluation Pt Amnestic to Procedure: Yes Nausea / Vomiting: adequately controlled Pain: adequately controlled Airway Patency, RR, SpO2: stable & adequate BP & HR: stable & adequate Hydration State: stable & adequate Anesthetic Complications: no major complications apparent Anesthetic Complications: Awake, alert, satisfied with anesthesia care. VSS.
[2017-05-28] MEDS: LORAZEPAM 0.5 MG TAB PO PRN ×2 (11:23→15:02)
[2017-05-28] MEDS: VANCOMYCIN INJ 1,250 MG in SODIUM CHLORIDE 0.9% 250ML 250 ML IV SCH (12:07)
--- NOTE | 2017-05-28 12:50 | Progress Note ---
Internal Med Progress Note Date of Service: May 28, 2017. Provider Documentation: SUBJECTIVE: The patient was seen and examined on 05/26/17 Was admitted yesterday with a atrial fibrillation with rapid ventricular response from She received esmolol and intravenous Cardizem with conversion to sinus rhythm She has been started on small dose of beta-pj No more arrhythmia No Cardiac symptoms OBJECTIVE: Vital Signs-as noted below Exam: General-no distress at rest Eyes-normal ENT-normal Neck-supple Lungs-clear to auscultate bilaterally Heart-S1-S2 no murmur appreciated Abdomen-benign, no masses, bowel sounds present. Extremities-trace edema bilaterally. Left knee is bandaged. Neuro-alert awake and oriented 3. No focal sensory and/or motor deficit. Lab data as noted below. ASSESSMENT & PLAN: 82-year-old female admitted for left knee I&D with poly exchange. Paroxysmal atrial fibrillation with RVR. Intraoperative atrial fibrillation with RVR. Received a few doses of esmolol perioperatively, received IV Cardizem which reverted A. fib to sinus rhythm. Appreciate cardiology input and recommendation. Receiving a small dose of beta-pj. Does not require long-term anticoagulation. Remains in sinus rhythm without any symptoms.Electrolytes will be replaced and monitored. No more arrhythmia Rate and rhythm controlled Postoperative state status post left I&D washout with poly exchange. Pus seen intraoperatively. Patient on vancomycin. ID consulted. Continue per orthopedic surg. Post-operative pain well managed. Appreciate ID input and recommendation. Will need Long course of antibiotics Anemia-chronic, stable, no indication acutely for transfusion. Hemoglobin remains stable at this time. Hb 8.4 today 05/28/17 Hypertension-controlled continue lisinopril per home regimen Controlled Anxiety-continue home regimen. DVT prophylaxis-aspirin 325 twice daily per Ortho Full code Disposition-telemetry Medically satble to be transferred to Ortho floor Vital Signs: Date Time Temp Pulse Resp B/P (MAP) Pulse Ox O2 Delivery O2 Flow Rate FiO2 05/28/17 12:00 Room Air 05/28/17 11:52 36.7 69 19 116/72 (87) 97 Room Air 05/28/17 08:00 36.4 64 20 137/71 (93) 97 Room Air 05/28/17 08:00 Room Air 05/28/17 04:00 Room Air 05/28/17 03:42 36.6 73 18 129/65 (86) 99 Room Air 05/28/17 00:07 37.2 77 16 108/62 (77) 97 Room Air 05/28/17 00:00 Room Air 05/27/17 20:27 36.9 77 18 103/61 (75) 96 Room Air 05/27/17 20:00 Room Air 05/27/17 16:56 36.6 74 18 109/65 (80) 95 Room Air 05/27/17 16:00 Room Air Lab Results: Results Past 24 Hours Test 05/28/17 05:41 Range/Units White Blood Count 8.05 4.8-10.8 K/uL Red Blood Count 3.26 4.2-5.4 M/uL Hemoglobin 8.4 12.0-16.0 g/dL Hematocrit 25.9 37-47 % Mean Corpuscular Volume 79.4 80-100 fL Mean Corpuscular Hemoglobin 25.8 25-34 pg Mean Corpuscular Hemoglobin Concent 32.4 32-36 g/dl RDW Standard Deviation 46.1 36.4-46.3 fL RDW Coefficient of Variation 15.8 11.5-14.5 % Platelet Count 412 130-400 K/uL Mean Platelet Volume 8.3 7.4-10.4 fL Sodium Level 140 136-145 mmol/L Potassium Level 3.5 3.5-5.1 mmol/L Chloride Level 105 98-107 mmol/L Carbon Dioxide Level 29 21-32 mmol/L Anion Gap 6.0 3-11 mmol/L Blood Urea Nitrogen 11 7-18 mg/dl Creatinine 0.49 0.60-1.20 mg/dl Est Creatinine Clear Calc Drug Dose 97.9 ml/min Estimated GFR () 104.4 Estimated GFR (Non- 90.1 BUN/Creatinine Ratio 22.7 10-20 Random Glucose 99 70-99 mg/dl Calcium Level 8.5 8.5-10.1 mg/dl Magnesium Level 1.7 1.8-2.4 mg/dl
[2017-05-28] MEDS: CEFTRIAXONE SOD INJ 2000 MG in DEXTROSE 5% 50ML IV SCH (16:11)
[2017-05-28] MEDS ORDERED: ASPEC325 PO (17:05)
--- NOTE | 2017-05-28 17:09 | Discharge Instructions ---
Discharge Instructions Date of Service May 28, 2017. Admission Reason for Admission: Lt Knee Abscess,Infected Left Tka Discharge Discharge Diagnosis / Problem: Infected Left Total Knee Discharge Goals Goal(s): Decrease discomfort, Improve function Activity Recommendations Activity Limitations: as noted below . Instructions / Follow-Up Instructions / Follow-Up Leave VAC dressing on for about 8 days. It will stop working on its own. Wound care needed for further VAC placements if necessary. May shower with VAC dressing. Do nnot let shower spray hit the dressing directly. Aspirin 325 twice a day to prevent blood clots. Follow-up in my office in 2 weeks. Follow- up with Infectious disease as scheduled. Current Hospital Diet Patient's current hospital diet: Regular Diet Discharge Diet Recommended Diet: Regular Diet Procedures Procedures Performed: Incision and Drainage with Polyethylene Exchange, Placement of Stimulan Beads-Left Knee Pending Studies Studies pending at discharge: no Medical Emergencies . Who to Call and When: Medical Emergencies: If at any time you feel your situation is an emergency, please call 911 immediately. . Non-Emergent Contact Non-Emergency issues call your: Surgeon Call Non-Emergent contact if: wound has increased drainage, wound has increased redness . "Provider Documentation" section prepared by Patrick Jean. .
--- NOTE | 2017-05-28 18:13 | PROGRESS NOTE ---
DATE: 05/28/2017 CHIEF COMPLAINT: Status post I&D of the left knee, postop day #3. PROGRESS: Robyn was seen and examined at bedside today. Overall, she is doing well. She really does not have much soreness. She has been up and ambulating. She feels good. She has no complaints. PHYSICAL EXAMINATION: LEFT KNEE: The VAC sponge has been changed. The inferior aspect of the incision, the bottom 2 cm, was opening up from where the abscess was. I was told that it was bleeding some and some of the antibiotic beads were coming out a little bit. They replaced the VAC and put a new one on today. It seems to be holding well to suction. She is lying with the leg out in full extension. She can actively flex close to 90 degrees. LABORATORY DATA: She has an H&H today of 8.4 and 25.9. Her glucose is 99. Her vital signs are all stable on room air. She is voiding on her own and has had a bowel movement. Cultures have all grown out MSSA. IMPRESSION: Status post I&D of the left knee. PLAN: The infectious disease switched her from vancomycin to cephalexin to take 2 grams a day. She will be getting that IV. She already has a PICC line placed and the antibiotics are written for. As far as her wound VAC goes, the VAC should last for about 8 days. Once it comes off, she will need some wound care up in [place] to possibly apply a smaller VAC to the more inferior aspect of the wound, where it opened up some. I explained this to her and her family at bedside. We will have case management involved with that as well. She says that she does not need any pain medications for discharge and she has some at home and we will keep her on aspirin 325 mg twice a day for DVT prophylaxis for 6 weeks. I will see her in my office in 2 weeks to evaluate her progress. She can follow up with infectious disease as scheduled. WINTER
--- NOTE | 2017-05-28 19:30 | Cardiology Follow-Up ---
Subjective General Date of Service: May 28, 2017. Chief Complaint: Follow-up atrial fibrillator Pt evaluation today including: conversation w/ patient, physical exam History of Present Illness The patient is a 82 year old female seen in follow-up. Patient was without complaints. She states that she is doing well with physical therapy. Telemetry reveals no additional atrial fibrillation on the telemetry floor. Sinus rhythm at 60 70 bpm range is noted. Allergies Coded Allergies: No Known Allergies (Verified , 05/25/17) Social History Smoking Status: Never Smoker Hx Tobacco Use In Past Year?: No Hx Alcohol Use - Type And Amou: No Hx Substance Use - Type And Am: No Problem List Medical Problems: (1) Knee effusion, left Status: Acute (2) Septic joint of left knee joint Status: Acute (3) Unable to ambulate Status: Acute Physical Exam Vital Signs Last Vital Signs Documentation Date Time Temp Pulse Resp B/P (MAP) Pulse Ox O2 Delivery O2 Flow Rate FiO2 05/28/17 19:15 36.8 67 16 97 3.0 05/28/17 16:59 120/70 (87) Room Air Physical Exam Constitutional: Level of Distress: NAD ENMT: normal ENT inspection Neck: supple Lungs: Auscultation: no wheezing, no rales/crackles, no rhonchi Cardiovascular: Heart Auscultation: RRR, no murmurs, no rubs, no gallops Extremities: no edema Neurologic: Gait & Station: pertinent finding (No focal neurologic deficits) Assessment and Plan Assessment and Plan Impression: 82-year-old female 1. Short episode of atrial fibrillation perioperatively at the time of orthopedic surgery, with conversion to sinus rhythm and no recurrence 2. Baseline sinus rhythm and sinus bradycardia, therefore only low-dose metoprolol has been administered. 3. Postop I&D of left knee abscess with poly-exchange and insertion of Stimulan beads Discussion/recommendation: The patient does have a moderate risk of cardioembolic stroke with [id number] score of 3, for age greater than 75, female, and hypertension. I would therefore have low threshold for starting systemic anticoagulation should she have another run of atrial fibrillation in the future. She however does have a microcytic anemia with hemoglobin of 8.4, and she is frail, and has a chronic prosthetic joint infection, and she is at significant bleeding risk. For now we will continue low-dose metoprolol and will continue her current dose of aspirin for DVT prophylaxis. Patient is stable from my standpoint to be transferred to telemetry floor. Laboratory Results Last 24 Hours Test 05/28/17 05:41 White Blood Count 8.05 K/uL Red Blood Count 3.26 M/uL Hemoglobin 8.4 g/dL Hematocrit 25.9 % Mean Corpuscular Volume 79.4 fL Mean Corpuscular Hemoglobin 25.8 pg Mean Corpuscular Hemoglobin Concent 32.4 g/dl RDW Standard Deviation 46.1 fL RDW Coefficient of Variation 15.8 % Platelet Count 412 K/uL Mean Platelet Volume 8.3 fL Sodium Level 140 mmol/L Potassium Level 3.5 mmol/L Chloride Level 105 mmol/L Carbon Dioxide Level 29 mmol/L Anion Gap 6.0 mmol/L Blood Urea Nitrogen 11 mg/dl Creatinine 0.49 mg/dl Est Creatinine Clear Calc Drug Dose 97.9 ml/min Estimated GFR () 104.4 Estimated GFR (Non- 90.1 BUN/Creatinine Ratio 22.7 Random Glucose 99 mg/dl Calcium Level 8.5 mg/dl Magnesium Level 1.7 mg/dl
[2017-05-28] MEDS: ZOLPIDEM TARTRATE 5 MG TAB PO PRN (21:07)
[2017-05-28] MEDS: SENNA 8.6 MG TAB PO SCH (21:07)
[2017-05-29] MEDS: SODIUM CHLORIDE 0.9% 1000ML 1,000 ML IV SCH (00:06)
[2017-05-29 06:59] VITALS: BP_SYST 127; BP_SYST 128; BP_DIAS 67; BP_DIAS 71; PULSE 69; PULSE 82; TEMP 36.2; TEMP 36.6; O2SAT 95; O2SAT 97
[2017-05-29] MEDS: DOCUSATE SODIUM 100 MG CAP PO SCH (09:15)
[2017-05-29] MEDS: FERROUS SULFATE 325 MG TAB PO SCH (09:15)
[2017-05-29] MEDS: VENLAFAXINE HCL 37.5 MG TAB PO SCH (09:16)
[2017-05-29] MEDS: ASPIRIN 325 MG ECTAB PO SCH (09:16)
[2017-05-29] MEDS: MULTIVITAMIN TAB PO SCH (09:17)
[2017-05-29] MEDS: POTASSIUM CHLORIDE 10 MEQ TABCR PO SCH (09:17)
[2017-05-29 09:19] VITALS: BP 134/86; PULSE 75
[2017-05-29] MEDS: METOPROLOL SUCC 25MG EXT REL TAB PO SCH (09:20)
[2017-05-29] MEDS: LORAZEPAM 0.5 MG TAB PO PRN (09:22)
[2017-05-29] MEDS: CEFTRIAXONE SOD INJ 2000 MG in DEXTROSE 5% 50ML IV SCH (13:58)
[2017-05-29 14:03] VITALS: BP 134/86; PULSE 75; TEMP 36.6; O2SAT 97
[2017-06-01] MEDS ORDERED: CEFT1INJ57 IV (13:58)
== END 2017-05-29 16:02 | disposition home health service (06) | DRG 486 ==
LOC: C.MSW 11:03 → ENRESERV 20:20 → C.2T 20:48 → ENRESERV 05-28 18:29 → C.MSN 05-28 19:43
PROVIDERS: ADMIT Orthopaedic Surgery; ATTEND Orthopaedic Surgery
PROC: 0SW Lower Joints, Revision (ICD-10-PCS; principal; 2017-05-25 08:30)
DX: T84.7XXA Infection and inflammatory reaction due to other internal orthopedic prosthetic devices, implants and grafts, initial encounter (principal); I97.88 Other intraoperative complications of the circulatory system, not elsewhere classified; F41.9 Anxiety disorder, unspecified; E66.9 Obesity, unspecified; I10 Essential (primary) hypertension; Z96.653 Presence of artificial knee joint, bilateral; I48.91 Unspecified atrial fibrillation; Z96.641 Presence of right artificial hip joint; Z68.29 Body mass index [BMI] 29.0-29.9, adult

== ENCOUNTER → 2017-06-04 | Outpatient (CLI) | payer OTHER ==
[~2017-06-04] MED LIST changes: -ACET1TAB84 PO; -ASCA500 PO; -CEFA2INJ IV; -CEFAZOLIN 2000MG IV PUSH 15 ML IV SCH; +CEFT1INJ57 IV; -CRAN1CHW PO; -FLAX1CAP11 PO; -GLUC1CAP35 PO; -LISI-461 PO; +LORA-741 PO; -MISCCAP80 PO; -MULT-506 PO; -OMEG10007 PO; +POTA1CAP2 PO; -TURM1CAP4 PO
[2017-06-04 14:03] LABS: HEMATOCRIT 29.1 % (37-47); MEAN CELL VOLUME 81.7 fL (80-100); MEAN CORPUSCULAR HEMOGLOBIN 25.3 pg (25-34); MEAN CORPUSCULAR HGB CONC 30.9 g/dl (32-36); MEAN PLATELET VOLUME 8.7 fL (7.4-10.4); PLATELET COUNT 447 K/uL (130-400); RED CELL DISTRIBUTION WIDTH CV 16.6 % (11.5-14.5); WHITE BLOOD COUNT 7.06 K/uL (4.8-10.8)
[2017-06-04 14:27] LABS: ALBUMIN 2.2 gm/dl (3.4-5.0); ALT/SGPT 17 U/L (12-78); AST/SGOT 13 U/L (15-37); BLOOD UREA NITROGEN 11 mg/dl (7-18); CALCIUM 8.2 mg/dl (8.5-10.1); CARBON DIOXIDE 32 mmol/L (21-32); CREATININE 0.58 mg/dl (0.60-1.20); GLUCOSE 131 mg/dl (70-99); POTASSIUM 4.1 mmol/L (3.5-5.1); SODIUM 136 mmol/L (136-145)
[2017-06-04 14:29] LABS: ALKALINE PHOSPHATASE 72 U/L (45-117); TOTAL PROTEIN 6.5 gm/dl (6.4-8.2)
--- NOTE | 2017-06-14 08:03 | CODING QUERY NO DIAGNOSIS ---
Valid Physician Order Needed 34 A valid physician order must be submitted in order to properly bill for the service(s) provided, including date of service(s), valid diagnosis, and physician signature. If these tests are done on a recurring basis the original physician order must be submitted in order to code and bill for the service(s) provided. Please fax us the original, signed physician order so that we may expedite billing to [phone] DOS 06/04/2017 * COMP METABOLIC * CBC W/O DIFF * SED RATE Thank you Lexy [facility] Information Management
== END | disposition home or self-care (01) ==
LOC: C.LABSPEC 12:53
PROVIDERS: ATTEND Internal Medicine Infectious Disease
DX: Z79.2 Long term (current) use of antibiotics (principal)

== ENCOUNTER → 2017-06-11 | Outpatient (CLI) | payer OTHER ==
[2017-06-11 12:38] LABS: HEMATOCRIT 29.3 % (37-47); HEMOGLOBIN 9.4 g/dL (12.0-16.0); MEAN CELL VOLUME 81.2 fL (80-100); MEAN CORPUSCULAR HGB CONC 32.1 g/dl (32-36); MEAN PLATELET VOLUME 9.2 fL (7.4-10.4); PLATELET COUNT 331 K/uL (130-400); RED CELL DISTRIBUTION WIDTH CV 16.9 % (11.5-14.5); RED CELL DISTRIBUTION WIDTH SD 50.5 fL (36.4-46.3); WHITE BLOOD COUNT 7.36 K/uL (4.8-10.8)
[2017-06-11 12:49] LABS: BLOOD UREA NITROGEN 16 mg/dl (7-18); CALCIUM 8.6 mg/dl (8.5-10.1); CARBON DIOXIDE 30 mmol/L (21-32); CREATININE 0.66 mg/dl (0.60-1.20); GLUCOSE 148 mg/dl (70-99); POTASSIUM 3.8 mmol/L (3.5-5.1); SODIUM 136 mmol/L (136-145)
== END | disposition home or self-care (01) ==
LOC: C.LABSPEC 12:11
PROVIDERS: ATTEND Internal Medicine Infectious Disease
DX: Z51.81 Encounter for therapeutic drug level monitoring (principal); Z79.2 Long term (current) use of antibiotics

== ENCOUNTER → 2017-10-29 | Outpatient (CLI) | payer OTHER ==
[~2017-10-29] MED LIST changes: -CEFT1INJ57 IV
[2017-10-29 15:42] LABS: BASO % 1.6 %; BASO ABS # 0.08 K/uL (0-0.2); EOS ABS # 0.66 K/uL (0-0.5); HEMATOCRIT 32.3 % (37-47); IG# 0.01 K/uL (0.00-0.02); LYMPH % 37.4 %; LYMPH ABS # 1.89 K/uL (1.2-3.4); MEAN CORPUSCULAR HEMOGLOBIN 27.5 pg (25-34); MEAN PLATELET VOLUME 9.7 fL (7.4-10.4); MONO % 6.5 %; MONO ABS # 0.33 K/uL (0.11-0.59); NEUT % 41.3 %; NEUT ABS # 2.09 K/uL (1.4-6.5); PLATELET COUNT 254 K/uL (130-400); RED CELL DISTRIBUTION WIDTH SD 58.9 fL (36.4-46.3); WHITE BLOOD COUNT 5.06 K/uL (4.8-10.8)
[2017-10-29 15:52] LABS: ALBUMIN 2.8 gm/dl (3.4-5.0); ALKALINE PHOSPHATASE 69 U/L (45-117); ALT/SGPT 18 U/L (12-78); AST/SGOT 15 U/L (15-37); BLOOD UREA NITROGEN 17 mg/dl (7-18); CALCIUM 8.2 mg/dl (8.5-10.1); CARBON DIOXIDE 30 mmol/L (21-32); CREATININE 0.68 mg/dl (0.60-1.20); GLUCOSE 112 mg/dl (70-99); SODIUM 137 mmol/L (136-145); TOTAL PROTEIN 6.7 gm/dl (6.4-8.2)
--- NOTE | 2017-11-07 15:32 | CODING QUERY NO DIAGNOSIS ---
1934 Valid Physician Order Needed A valid physician order must be submitted in order to properly bill for the service(s) provided, including date of service(s), valid diagnosis, and physician signature. If these tests are done on a recurring basis the original physican order must be submitted in order to code and bill for the service(s) provided. Please fax us the original, signed physician order so that we may expedite billing to [phone] DOS 10/29/17 * C-REACTIVE PROTEIN * CBC WITH DIFF * CMP * SED RATE Thank you, LUAN Humphrey, [facility] Health Information Management
== END | disposition home or self-care (01) ==
LOC: C.LABSPEC 14:53
PROVIDERS: ATTEND Internal Medicine Infectious Disease
DX: Z01.89 Encounter for other specified special examinations (principal)